=== PATIENT | female | born 1970 | race Two or more races ===

== ENCOUNTER 2023-01-15 08:57 | Observation (INO) | payer OTHER, SELFPAY ==
[2023-01-15] VITALS (61 sets, daily range): BP systolic 100–157; BP diastolic 57–108; PULSE 62–97; RESP 7–27; TEMP 36.6–36.8; O2SAT 94–100; BMI 44.3; BMI 44.2
--- NOTE | 2023-01-15 09:17 | ECG_ITS ---
The [facility] Test Date: 2023-01-15 Pat Name: JENNIFER VALENCIA Department: Room: - Gender: Female Manager Nicu: : 1970 Requested By: [id number] Order Number: [id number] Reading MD: MARCELLUS PABON Measurements Intervals [place] Rate: 71 P: 9 SC: 144 QRS: 18 QRSD: 80 T: 32 QT: 362 QTc: 385 Interpretive Statements 1100 Sinus rhythm 8102 Low QRS voltage in chest leads 9120 atypical ECG No previous ECG available for comparison Electronically Signed On 01-16-2023 7:06:41 EST by MARCELLUS PABON
--- NOTE | 2023-01-15 09:17 | XR_ITS ---
The [place] [id number] Patient Name: JENNIFER VALENCIA MRN: [id number] date: 1970 Sex: F Assigned Patient Location: ER Current Patient Location: ER Accession/Order Number: [id number] Exam Date: 01/15/2023 09:34 Report Date: 01/15/2023 09:57 At the request of: ALIA ELLIS Procedure: XR chest 1V EXAM: XR chest 1V HISTORY: CP COMPARISON: Chest study dated 04/03/2022 TECHNIQUE: AP view of the chest was obtained with portable technique at 0931 hours. FINDINGS: Heart and mediastinal contours are unremarkable in appearance. No acute infiltrate or consolidations are seen. No obvious pneumothorax. Slight convexity of the dorsal spine to the right. XR/XR chest 1V IMPRESSION: No acute process seen in the chest. Electronically authenticated by: SHOLA CRESPO Date: 01/15/2023 09:57
--- NOTE | 2023-01-15 09:18 | ED.CHESTPAI1 ---
HPI - Chest Pain General Chief Complaint: Chest Pain Stated Complaint: CHEST PAIN Time Seen by Provider: 01/15/23 09:13 Source: patient Mode of arrival: walk-in History of Present Illness HPI narrative: 52-year-old female presents for chest pain. She's been having this for about a week. She was admitted at another hospital and had an echo but no stress test and she was released. she was admitted there on January 10 and released on January 11. She continues to have the same pain and it's in the middle part of her sternum and it goes to her left shoulder. Related Data Allergies Allergy/AdvReac Type Severity Reaction Status Date / Time bacitracin AdvReac Unknown Verified 01/15/23 09:09 strawberry AdvReac Unknown Verified 01/15/23 09:09 Review of Systems ROS Narrative A ten point review of systems is negative except as noted above. Exam Narrative Exam Narrative: Nurses note and vital signs reviewed and patient is not hypoxic. General: The patient appears well and in no apparent distress. Patient is resting comfortably on cart. Skin: Warm, dry, no pallor noted. There is no rash noted. Head: Normocephalic, atraumatic Eye: Normal conjunctiva, no drainage Ears, Nose, Mouth, and Throat: oral mucosa is moist. Nares patent. Cardiovascular: Regular Rate and Rhythm Respiratory: Patient is in no distress, no accessory muscle use, lungs are clear to auscultation, no wheezing, rales or rhonchi Back: non-tender GI: Normal bowel sounds, no tenderness to palpation, no masses appreciated. No rebound, guarding, or rigidity noted. Musculoskeletal: The patient has no evidence of calf tenderness, no pitting edema, symmetrical pulses noted bilaterally Neurological: A&O, normal speech Psychiatric: Cooperative Constitutional Vital Signs, click to edit/add: Last Vital Signs Temp 98 F 01/15/23 09:04 Pulse 68 01/15/23 11:40 Resp 25 H 01/15/23 11:40 BP 109/66 01/15/23 11:00 Pulse Ox 98 01/15/23 11:40 O2 Del Method Room Air 01/15/23 09:04 Course Vital Signs Vital signs: Vital Signs Temperature 98 F 01/15/23 09:04 Pulse Rate 75 01/15/23 09:04 Respiratory Rate 14 01/15/23 09:04 Blood Pressure 127/80 12/05/23 09:04 Pulse Oximetry 98 01/15/23 09:04 Oxygen Delivery Method Room Air 01/15/23 09:04 Temperature 98 F 01/15/23 09:04 Pulse Rate 68 01/15/23 11:40 Respiratory Rate 25 H 01/15/23 11:40 Blood Pressure 109/66 01/15/23 11:00 Pulse Oximetry 98 01/15/23 11:40 Oxygen Delivery Method Room Air 01/15/23 09:04 MDM - Chest Pain MDM Narrative Medical decision making narrative: her workup is negative with 2nd troponin pending. Her symptoms are concerning and she does have family history. She'll be admitted. Findings are discussed with the patient. Differential Diagnosis Differential diagnosis: Likely pneumothorax, stable angina, unstable angina pectoris, atypical chest pain, st elevation myocardial infarction and chest pain Lab Data Attestation: I reviewed the patient's lab results. Labs: Lab Results 01/15/23 01/15/23 Range/Units 09:26 11:05 WBC 6.5 (4.0-11.0) 10^3/uL RBC 5.20 (4.20-5.40) 10^6/uL Hgb 13.2 (12.0-16.0) g/dL Hct 41.5 (36.0-48.0) % MCV 79.8 L (81.0-99.0) fL MCH 25.4 L (26.7-34.0) pg MCHC 31.8 (29.9-35.2) g/dL RDW 14.9 (11.0-15.0) % Plt Count 224 (150-450) 10^3/uL MPV 9.6 (9.5-13.5) fL Neut % (Auto) 64.6 (43.0-75.0) % Lymph % (Auto) 25.1 (20.5-60.0) % [place] % (Auto) 7.1 (1.7-12.0) % Eos % (Auto) 1.9 (0.9-7.0) % Baso % (Auto) 0.8 (0.2-2.0) % Neut # (Auto) 4.2 (1.4-6.5) 10^3/uL Lymph # (Auto) 1.6 (1.2-3.8) 10^3/uL [place] # (Auto) 0.5 (0.3-0.8) 10^3/uL Eos # (Auto) 0.1 (0.0-0.7) 10^3/uL Baso # (Auto) 0.1 (0.0-0.1) 10^3/uL Abs Immat Gran (auto) 0.03 (0.00-0.03) 10^3/uL Imm/Tot Granulo (auto) 0.5 (0.0-0.5) % D-Dimer 0.51 (<=0.59) mg/L FEU Sodium 140 (136-145) mmol/L Potassium 4.3 (3.5-5.1) mmol/L Chloride 106 (98-107) mmol/L Carbon Dioxide 25.0 (21.0-32.0) mmol/L Anion Gap 13.3 BUN 12.0 (7.0-18.0) mg/dL Creatinine 0.63 (0.55-1.02) mg/dL Est GFR ( Amer) >60 (>=60) Est GFR (Non-Af Amer) >60 (>=60) BUN/Creatinine Ratio 19.0 Glucose 82 (74-106) mg/dL Calcium 9.1 (8.5-10.1) mg/dL Troponin I High Sens 4.8 5.4 (4.0-51.3) pg/mL Imaging Data Chest x-ray: Radiologist's impression: Procedure: XR chest 1V EXAM: XR chest 1V HISTORY: CP COMPARISON: Chest study dated 04/03/2022 TECHNIQUE: AP view of the chest was obtained with portable technique at 0931 hours. FINDINGS: Heart and mediastinal contours are unremarkable in appearance. No acute infiltrate or consolidations are seen. No obvious pneumothorax. Slight convexity of the dorsal spine to the right. IMPRESSION: No acute process seen in the chest. Electronically authenticated by: SHOLA CRESPO Date: 01/15/2023 09:57 Heart Score History: Moderately Suspicious ECG: Normal Age: >45-<65 years Risk Factors: 1 or 2 Risk Factors Troponin: <Normal Limit Total Heart Score Recommendations & Risks:: 3 Discharge Plan Discharge Chief Complaint: Chest Pain Clinical Impression: Chest pain Patient Disposition: Admitted as Observation Time of Disposition Decision: 11:44 Condition: Good Referrals: BILLY PEREZ [Primary Care Provider] - 1 week
[2023-01-15] MEDS: NITROGLYCERIN 0.4 MG BOTTLE PO (09:35)
[2023-01-15] MEDS: ASPIRIN 81 MG TAB.CHEW 324 MG PO (09:35)
[2023-01-15 09:43] LABS: Basophils Absolute Auto 0.1 10^3/uL (0.0-0.1); Basophils Percent Auto 0.8 % (0.2-2.0); Eosinophils Absolute Auto 0.1 10^3/uL (0.0-0.7); Eosinophils Percent Auto 1.9 % (0.9-7.0); Hematocrit 41.5 % (36.0-48.0); Hemoglobin 13.2 g/dL (12.0-16.0); Immature Granulocytes Abs Auto 0.03 10^3/uL (0.00-0.03); Immature Granulocytes Pct Auto 0.5 % (0.0-0.5); Lymphocytes Absolute Auto 1.6 10^3/uL (1.2-3.8); Lymphocytes Percent Auto 25.1 % (20.5-60.0); Mean Corpuscular HGB Conc 31.8 g/dL (29.9-35.2); Mean Corpuscular Hemoglobin 25.4 pg (26.7-34.0); Mean Corpuscular Volume 79.8 fL (81.0-99.0); Mean Platelet Volume 9.6 fL (9.5-13.5); Monocytes Absolute Auto 0.5 10^3/uL (0.3-0.8); Monocytes Percent Auto 7.1 % (1.7-12.0); Neutrophils Absolute Auto 4.2 10^3/uL (1.4-6.5); Neutrophils Percent Auto 64.6 % (43.0-75.0); Platelet Count 224 10^3/uL (150-450); Red Cell Distribution Width 14.9 % (11.0-15.0); White Blood Count 6.5 10^3/uL (4.0-11.0)
[2023-01-15 09:48] LABS: Anion Gap 13.3; Calcium 9.1 mg/dL (8.5-10.1); Chloride 106 mmol/L (98-107); Estimated GFR (African America >60 (>=60); Estimated GFR (Non-African Ame >60 (>=60); Glucose 82 mg/dL (74-106); Potassium 4.3 mmol/L (3.5-5.1); Sodium 140 mmol/L (136-145); Troponin I High Sensitivity 4.8 pg/mL (4.0-51.3)
[2023-01-15 10:12] LABS: D Dimer 0.51 mg/L FEU (<=0.59)
[2023-01-15 11:33] LABS: Troponin I High Sensitivity 5.4 pg/mL (4.0-51.3)
[2023-01-15 12:20] LABS: Cholesterol 205 mg/dL (<=200); Triglycerides 108 mg/dL (<=150); VLDL CHOLESTEROL 21.6 mg/dL
[2023-01-15 12:21] LABS: Chol HDL Ratio 3.5; HDL Cholesterol 59 mg/dL (40-60)
[2023-01-15 12:23] LABS: Estimated Average Glucose 114 mg/dL; Glycohemoglobin A1C 5.6 % (4.5-6.2)
[2023-01-15] MEDS: ACETAMINOPHEN 325 MG TABLET 650 MG PO (13:52)
[2023-01-15] MEDS: ENOXAPARIN SODIUM 40 MG/0.4 ML SYRINGE SUBQ (13:55)
[2023-01-15] MEDS: MORPHINE SULFATE 2 MG/ML SYRINGE IV ×2 (15:32→22:54)
[2023-01-15 15:43] LABS: Troponin I High Sensitivity 4.7 pg/mL (4.0-51.3)
[2023-01-15] MEDS: PANTOPRAZOLE SODIUM 40 MG VIAL IV (18:02)
--- NOTE | 2023-01-15 23:23 | NM_ITS ---
Patient Name: JENNIFER VALENCIA MR#: [id number] : 1970 Exam Date: 01/16/2023 Ordering Doctor: SHAIKH Justin CHANEY . RADIOLOGY REPORT PROCEDURE: NM ANGIE PERF SPECT REST STR COMPARISON: None. INDICATIONS: chest pain TECHNIQUE: Exam Description: Stress/Rest one day protocol gated SPECT Rest Imagin.9 mCi Tc-99m Cardiolite IV on 01/16/2023 Stress Imaging 31.9 mCi Tc-99m Cardiolite IV on 01/16/2023 Exercise Protocol: Tomasz Heart Rate (bpm): Rest: 75 Max: 146 PMHR: 85 Blood Pressure: Rest: 118/78 Max: 146/80 Exercise Time: Minutes: 4 Seconds: 15 Stage Reached: Stage: 2 Mets 6.3 Symptoms: Rest and peak stress ECG findings were pending and the exercise portion of the study was pending per attending physician Dr. Avila . For more details please see separate cardiac stress test report. FINDINGS: QUALITY OF STUDY: Good. PERFUSION DEFECT: LOCATION: Basal anterior. Mid-anterior. SIZE: Small (1-2 segments). SEVERITY: Mild. TYPE: Persistent. WALL MOTION: Normal. LV SIZE: Normal. 72 mL. TID / TCD: None; 0.9 LVEF: Normal. Calculated EF 73%. SUMMARY: Myocardial perfusion imaging study is NORMAL. CONCLUSION: 1. Mild fixed defect anterior wall, no reversible ischemia 2. Pending exercise test results Dictated by: Pasha Willson MD on 01/16/2023 at 15:37 Approved by: Pasha Willson MD on 01/16/2023 at 15:43
--- NOTE | 2023-01-15 23:24 | P.HP_ITS ---
H&P: HPI History of Present Illness Chief complaint: CHEST PAIN Narrative: 52 y o female with no sig PMHX presents with substernal chest pain, that feels like someone is sitting on her chest, associated with difficulty breathing, mild nausea. More or less persistent for past 1 week with periods of worsening and usually aggravated by laying down, deep breaths. No prior hx of CAD but has strong FHXof CAD. Patient was admitted at OSH for similar complaint and discharged home after negative cardiac enzymes and 2D ECHO. Patient denies any relationship to food. Nothing helps her pain and as a result, came to [place] ED for further care. Review of Systems ROS Status of ROS 10 or more systems reviewed and unremark able except as noted in history and below [facility] Medical History (Updated 01/15/23 @ 23:29 by Shaikh Johan MD) Obesity ?E66.9 - Obesity, unspecified (ICD-10) Achilles tendonosis of left lower extremity ?M67.88 - Other specified disorders of synovium and tendon, other site (ICD- 10) Surgical History Previous section ?Z98.891 - History of uterine scar from previous surgery (ICD-10) Family History (Updated 01/15/23 @ 23:27 by Shaikh Johan MD) Father Family history of myocardial infarction Social History Within the past year, how often did you have a drink containing alcohol: monthly or less Within the past year, how many standard drinks containing alcohol did you have on a typical day: 1 or 2 Within the past year, how often did you have six or more drinks on one occasion: never Total score: 0 Score interpretation: A score less than 3 is consistent with normal alcohol consumption. 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 Known occupational exposures/hazards: No Highest level of school completed/degree received: Associate degree: occupational, technical, vocational program Do you want help with school or training: No Are you now , , , , never or living with a partner: In a typical week, how many times do you talk on the telephone with family, friends, or neighbors: 3 or more times per week How often do you get together with friends or relatives: 3 or more times per week How often do you attend zoroastrianism or synagogue services: never Do you belong to any clubs or organizations such as zoroastrianism groups unions, fraternal or athletic groups, or school groups: no Total score: 1 Score interpretation: A score of less than or equal to 1 indicates the most socially isolated. Little interest or pleasure in doing things: several days Feeling down, depressed, or hopeless: not at all Feel stressed/tense/nervous/anxious/difficulty sleeping: to some extent Life stressors: recent of family or friend Life stressor details: of mother Do you think of yourself as: straight/heterosexual Gender Identity: female Meds Home Medications and Allergies Home Medications Medication Instructions Recorded Confirmed Type ibuprofen 600 mg tablet mg PO TID PRN chest pain 01/15/23 History Allergies Allergy/AdvReac Type Severity Reaction Status Date / Time bacitracin AdvReac Unknown Verified 01/15/23 09:09 strawberry AdvReac Unknown Verified 01/15/23 09:09 Exam Constitutional Vital Signs, click to edit/add: Last Vital Signs Temp 98.0 F 01/15/23 22:59 Pulse 74 01/15/23 23:00 Resp 16 01/15/23 23:00 BP 104/57 01/15/23 22:59 Pulse Ox 100 01/15/23 22:59 O2 Del Method Room Air 01/15/23 15:35 Documenting provider has reviewed patient's vital signs: yes Common normals: no apparent distress and oriented x3 General appearance: cooperative Nutritional appearance: obese Chest Chest: tenderness sternum Respiratory Common normals: normal respiratory effort and clear to auscultation bilaterally Effort & inspection: able to speak in complete sentences Auscultation: clear to auscultation bilaterally Cardio Common normals: regular rate, S1 normal heart sound and S2 normal heart sound Rate: regular rate Heart sounds: S1 normal and S2 normal GI Common normals: Normal to inspection, nondistended, normoactive bowel sounds present, soft to palpation, non-tender and no hepatosplenomegaly Palpation: soft and no hepatosplenomegaly Extremity Common normals: no clubbing, cyanosis or edema Neuro Common normals: oriented x3, moves all extremities and no focal motor deficits Psych Common normals: mental status grossly normal, denies hallucinations, denies homicidal ideation and denies suicidal ideation Results Labs Labs: Short CBC 01/15/23 Range/Units 09:26 WBC 6.5 (4.0-11.0) 10^3/uL Hgb 13.2 (12.0-16.0) g/dL Hct 41.5 (36.0-48.0) % Plt Count 224 (150-450) 10^3/uL BMP 01/15/23 09:26 Sodium 140 Potassium 4.3 Chloride 106 Carbon Dioxide 25.0 BUN 12.0 Creatinine 0.63 Glucose 82 Calcium 9.1 Assessment and Plan Assessment and Plan (1) Chest pain: Qualifiers: Chest pain type: unspecified Qualified Code(s): R07.9 - Chest pain, u nspecified (2) Obesity: Qualifiers: Body mass index: BMI 40.0-44.9 Obesity classification: adult class 3 (BMI >= 40) Obesity type: due to excess calories Serious obesity comorbidity presence: without serious comorbidity Qualified Code(s): E66.01 - Morbid (severe) obesity due to excess calories; Z68.41 - Body mass index [BMI] 40.0-44.9, adult Plan Patient presents with persistent midsternal chest pain, associated SOB, radiation to left UE. Ongoing for about a week. Risk factors include obesity, FHx. HEART score -4 Will admit for overnight for observation, tele monitoring, rule out active cardiac ischemia. Will order Nuclear stress test to r/o underlying CAD. Screen for HLD, T2DM. Will start on low dose ASA
[2023-01-16] VITALS (31 sets, daily range): BP systolic 111–125; BP diastolic 49–80; PULSE 64–135; RESP 2–71; TEMP 36.8–37; O2SAT 96–98
--- NOTE | 2023-01-16 06:00 | ECG_ITS ---
The [facility] Test Date: 2023-01-16 Pat Name: JENNIFER VALENCIA Department: Room: [facility] Gender: Female Mobile Engineer: : 1970 Requested By: SHAIKH SHIV Order Number: [id number] Reading MD: MARCELLUS PABON Measurements Intervals [place] Rate: 65 P: 19 WI: 140 QRS: 28 QRSD: 78 T: 14 QT: 392 QTc: 403 Interpretive Statements 1100 Sinus rhythm 8102 Low QRS voltage in chest leads 9120 atypical ECG Compared to ECG 01/15/2023 09:06:08 No significant changes Electronically Signed On 01-17-2023 7:10:16 EST by MARCELLUS PABON
--- NOTE | 2023-01-16 11:30 | US_ITS ---
The [address] [address] Patient Name: JENNIFER VALENCIA MRN: [id number] date: 1970 Sex: F Assigned Patient Location: ICU Current Patient Location: ICU Accession/Order Number: [id number] Exam Date: 01/16/2023 12:00 Report Date: 01/16/2023 12:46 At the request of: SHAIKH SHIV Procedure: US right upper quadrant EXAM: US right upper quadrant HISTORY: RUQ pain COMPARISON: None. TECHNIQUE: Grayscale and color ultrasound FINDINGS: The liver is normal in size and contour. Diffuse increase in hepatic echotexture with no focal mass. Hepatopedal flow in the main portal vein with a velocity of 20 cm/s. The gallbladder wall is thickened measuring 7.5 mm. Positive sonographic Quezada sign. Common bile duct measures 3.8 mm, normal. Echogenic focus within the gallbladder lumen possibly representing a calcified gallbladder wall versus cholelithiasis. The visualized pancreatic body is normal The right kidney is normal measuring 10.3 x 4.2 x 4.3 cm. US/US right upper quadrant IMPRESSION: Acute cholecystitis with underlying gallbladder wall calcification versus cholelithiasis Hepatic steatosis Electronically authenticated by: ENRIQUETA MORA Date: 01/16/2023 12:46
--- NOTE | 2023-01-16 12:13 | CM.NOTE ---
Rounds made with Dr. Prado, pt having stress test today at noon and awaiting Gallbladder US.
[2023-01-16 14:19] LABS: Alanine Aminotransferase 195 U/L (14-59); Albumin Globulin Ratio 0.9; Albumin Level 3.3 g/dL (3.4-5.0); Alkaline Phosphatase 89 U/L (46-116); Amylase 51 U/L (25-115); Aspartate Amino Transferase 113 U/L (15-37); Bilirubin Direct 0.2 mg/dL (0.0-0.2); Bilirubin Total 1.1 mg/dL (0.2-1.0); Globulin 3.6 g/dL; Total Protein 6.9 g/dL (6.4-8.2)
[2023-01-16] MEDS: METRONIDAZOLE/SODIUM CHLORIDE 500 MG/100 ML PREMIX 100 MG IV ×2 (15:03→23:47)
[2023-01-16] MEDS: ENOXAPARIN SODIUM 40 MG/0.4 ML SYRINGE SUBQ (15:03)
[2023-01-16] MEDS: CEFTRIAXONE 1,000 MG in 0.9 % SODIUM CHLORIDE 50 ML 100 MG IV (15:53)
--- NOTE | 2023-01-16 16:22 | P.STRESS_ITS ---
Stress Test Stress Test Allergies Allergy/AdvReac Type Severity Reaction Status Date / Time bacitracin AdvReac Unknown Verified 01/15/23 09:09 strawberry AdvReac Unknown Verified 01/15/23 09:09 Requesting physician: Shaikh Johan Procedure: Exercise Cardiolite stress test General Information: Reason for Stress Test: Chest pain Cardiac History and Risk Factors: Former smoker. Father had [place]. Resting 12 - Lead Electrocardiogram: Rate & rhythm: Normal sinus at a rate of 80. [place]: Normal T-waves: Normal orientation ST-segments: Normal orientation Stress Test: Protocol: Tomasz protocol was followed, with injection of Cardiolite once target heart rate was achieved. Exercise capacity: Fair exercise capacity. Total exercise time of 4 minutes 16 seconds reached Tomasz stage 2 at 2.5MPH, 12% grade, & 6.3 METs. Blood pressure: Initial: 118/78, Maximum: 146/80, Recovery: 118/78 Rate & rhythm: Patient remained in sinus rhythm during the exercise and recovery portions of the study.? The maximum heart rate was 146, which was 85% of the maximum predicted heart rate 170. ST-segments & T-waves: There were no T-wave changes and no ST-segment changes when compared to the baseline EKG. Patient response/symptoms: Though she complained of left shoulder pain and dyspnea, these symptoms were not similar to the chief complaint. Interpretation: Normal exercise study without electrocardiographical evidence of ischemia. No reproducible symptoms. Cardiolite imaging interpretation will be reported separately. Clinical correlation required.?
[2023-01-16] MEDS: 0.9 % SODIUM CHLORIDE 1,000 ML 50 ML IV (16:42)
[2023-01-16] MEDS: MORPHINE SULFATE 2 MG/ML SYRINGE IV (16:44)
[2023-01-16] MEDS: PANTOPRAZOLE SODIUM 40 MG VIAL IV (17:40)
[2023-01-17] VITALS (34 sets, daily range): BP systolic 97–137; BP diastolic 65–90; PULSE 66–102; RESP 7–132; TEMP 36.4–37.5; O2SAT 89–99
[2023-01-17] MEDS: MORPHINE SULFATE 2 MG/ML SYRINGE IV (01:15)
[2023-01-17] MEDS: ONDANSETRON PF 4 MG/2 ML VIAL IV ×3 (02:19→23:44)
[2023-01-17 04:28] LABS: Basophils Percent Auto 0.6 % (0.2-2.0); Eosinophils Absolute Auto 0.1 10^3/uL (0.0-0.7); Eosinophils Percent Auto 2.7 % (0.9-7.0); Hematocrit 38.6 % (36.0-48.0); Hemoglobin 12.1 g/dL (12.0-16.0); Immature Granulocytes Abs Auto 0.03 10^3/uL (0.00-0.03); Immature Granulocytes Pct Auto 0.6 % (0.0-0.5); Lymphocytes Absolute Auto 1.4 10^3/uL (1.2-3.8); Lymphocytes Percent Auto 30.1 % (20.5-60.0); Mean Corpuscular HGB Conc 31.3 g/dL (29.9-35.2); Mean Corpuscular Hemoglobin 25.2 pg (26.7-34.0); Mean Corpuscular Volume 80.4 fL (81.0-99.0); Mean Platelet Volume 9.3 fL (9.5-13.5); Monocytes Absolute Auto 0.3 10^3/uL (0.3-0.8); Monocytes Percent Auto 6.9 % (1.7-12.0); Neutrophils Absolute Auto 2.8 10^3/uL (1.4-6.5); Neutrophils Percent Auto 59.1 % (43.0-75.0); Platelet Count 190 10^3/uL (150-450); Red Cell Distribution Width 15.2 % (11.0-15.0); White Blood Count 4.8 10^3/uL (4.0-11.0)
[2023-01-17 04:39] LABS: Bilirubin Direct 0.2 mg/dL (0.0-0.2)
[2023-01-17 04:51] LABS: Alanine Aminotransferase 160 U/L (14-59); Albumin Globulin Ratio 0.9; Alkaline Phosphatase 88 U/L (46-116); Anion Gap 12.1; Aspartate Amino Transferase 78 U/L (15-37); BUN Creatinine Ratio 16.2; Bilirubin Total 0.7 mg/dL (0.2-1.0); Calcium 8.4 mg/dL (8.5-10.1); Carbon Dioxide 25.9 mmol/L (21.0-32.0); Chloride 104 mmol/L (98-107); Estimated GFR (African America >60 (>=60); Estimated GFR (Non-African Ame >60 (>=60); Globulin 3.2 g/dL; Glucose 118 mg/dL (74-106); Sodium 138 mmol/L (136-145); Total Protein 6.2 g/dL (6.4-8.2)
--- NOTE | 2023-01-17 05:44 | P.GSCN_ITS ---
History of Present Illness Consult details Consult date: 01/17/23 Reason for consult: abdominal pain Narrative: consult requested by Dr. Wolf due to findings of cholelithiasis and cholecystitis on gallbladder ultrasound. Patient is a 52-year-old female who presented to the Emergency Department complaints of epigastric and chest pain ongoing for one to two weeks. She was hospitalized in the [facility] for the same and cardiac disease was ruled out about a week ago. 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 She has had thorough cardiac workup and was negative again this institution and then an ultrasound the gallbladder was performed with findings as above. She denies any fevers chills or jaundice or idania-colored stools but states that she has pain in the epigastrium and right upper quadrant but doesn't go away. She described a sharp stabbing pain eight out of ten at times. She has never had this pain. She denies any tobacco use or alcohol use or history of ulcer disease. I was consulted for possible robotic cholecystectomy. Review of Systems ROS Status of ROS 10 or more systems reviewed and unremark able except as noted in history and below [facility] Medical History Obesity ?E66.9 - Obesity, unspecified (ICD-10) Achilles tendonosis of left lower extremity ?M67.88 - Other specified disorders of synovium and tendon, other site (ICD- 10) Surgical History Previous section ?Z98.891 - History of uterine scar from previous surgery (ICD-10) Family History Father Family history of myocardial infarction Social History Within the past year, how often did you have a drink containing alcohol: monthly or less Within the past year, how many standard drinks containing alcohol did you have on a typical day: 1 or 2 Within the past year, how often did you have six or more drinks on one occasion: never Total score: 0 Score interpretation: A score less than 3 is consistent with normal alcohol c onsumption. 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 Known occupational exposures/hazards: No Highest level of school completed/degree received: Associate degree: occupational, technical, vocational program Do you want help with school or training: No Are you now , , , , never or living with a partner: In a typical week, how many times do you talk on the telephone with family, friends, or neighbors: 3 or more times per week How often do you get together with friends or relatives: 3 or more times per week How often do you attend lutheran or restorationism services: never Do you belong to any clubs or organizations such as lutheran groups unions, [employer] or athletic groups, or school groups: no Total score: 1 Score interpretation: A score of less than or equal to 1 indicates the most socially isolated. Little interest or pleasure in doing things: several days Feeling down, depressed, or hopeless: not at all Feel stressed/tense/nervous/anxious/difficulty sleeping: to some extent Life stressors: recent of family or friend Life stressor details: of mother Do you think of yourself as: straight/heterosexual Gender Identity: female Meds Home Medications and Allergies Home Medications Medication Instructions Recorded Confirmed Type ibuprofen 600 mg tablet mg PO TID PRN chest pain 01/15/23 History Allergies Allergy/AdvReac Type Severity Reaction Status Date / Time bacitracin AdvReac Unknown Verified 01/15/23 09:09 strawberry AdvReac Unknown Verified 01/15/23 09:09 Exam Constitutional Vital Signs, click to edit/add: Last Vital Signs Temp 98.2 F 01/16/23 15:00 Pulse 70 01/17/23 02:00 Resp 16 01/17/23 01:00 BP 125/80 01/16/23 15:00 Pulse Ox 98 01/16/23 16:00 O2 Del Method Room Air 01/16/23 15:00 Documenting provider has reviewed patient's vital signs: yes Common normals: no apparent distress, average body habitus, oriented x3 and healthy appearing General appearance: cooperative, comfortable and well developed Nutritional appearance: obese Eye Common normals: PERRL and EOMs intact bilaterally Sclera: sclerae normal Respiratory Common normals: clear to auscultation bilaterally Cardio Common normals: regular rate and no murmurs GI Common normals: Normal to inspection, nondistended, normoactive bowel sounds present and soft to palpation Palpation: tender Details: epigastric and RUQ Neuro Common normals: oriented x3 and CN's II-XII intact bilaterally Results Labs Labs: Abnormal lab results 01/16/23 01/17/23 Range/Units 13:57 04:19 MCV 80.4 L (81.0-99.0) fL MCH 25.2 L (26.7-34.0) pg RDW 15.2 H (11.0-15.0) % MPV 9.3 L (9.5-13.5) fL Imm/Tot Granulo (auto) 0.6 H (0.0-0.5) % Glucose 118 H (74-106) mg/dL Calcium 8.4 L (8.5-10.1) mg/dL Total Bilirubin 1.1 H (0.2-1.0) mg/dL AST 113 H 78 H (15-37) U/L ALT 195 H 160 H (14-59) U/L Total Protein 6.2 L (6.4-8.2) g/dL Albumin 3.3 L 3.0 L (3.4-5.0) g/dL Diabetes panel 01/16/23 01/17/23 Range/Units 13:57 04:19 Sodium 138 (136-145) mmol/L Potassium 4.0 (3.5-5.1) mmol/L Chloride 104 (98-107) mmol/L Carbon Dioxide 25.9 (21.0-32.0) mmol/L BUN 11.0 (7.0-18.0) mg/dL Creatinine 0.68 (0.55-1.02) mg/dL Glucose 118 H (74-106) mg/dL Calcium 8.4 L (8.5-10.1) mg/dL AST 113 H 78 H (15-37) U/L ALT 195 H 160 H (14-59) U/L Alkaline Phosphatase 89 88 (46-116) U/L Total Protein 6.9 6.2 L (6.4-8.2) g/dL Albumin 3.3 L 3.0 L (3.4-5.0) g/dL Calcium panel 01/16/23 01/17/23 Range/Units 13:57 04:19 Calcium 8.4 L (8.5-10.1) mg/dL Albumin 3.3 L 3.0 L (3.4-5.0) g/dL Pituitary panel 01/17/23 Range/Units 04:19 Sodium 138 (136-145) mmol/L Potassium 4.0 (3.5-5.1) mmol/L Chloride 104 (98-107) mmol/L Carbon Dioxide 25.9 (21.0-32.0) mmol/L BUN 11.0 (7.0-18.0) mg/dL Creatinine 0.68 (0.55-1.02) mg/dL Glucose 118 H (74-106) mg/dL Calcium 8.4 L (8.5-10.1) mg/dL Adrenal panel 01/16/23 01/17/23 Range/Units 13:57 04:19 Sodium 138 (136-145) mmol/L Potassium 4.0 (3.5-5.1) mmol/L Chloride 104 (98-107) mmol/L Carbon Dioxide 25.9 (21.0-32.0) mmol/L BUN 11.0 (7.0-18.0) mg/dL Creatinine 0.68 (0.55-1.02) mg/dL Glucose 118 H (74-106) mg/dL Calcium 8.4 L (8.5-10.1) mg/dL Total Bilirubin 1.1 H 0.7 (0.2-1.0) mg/dL AST 113 H 78 H (15-37) U/L ALT 195 H 160 H (14-59) U/L Alkaline Phosphatase 89 88 (46-116) U/L Total Protein 6.9 6.2 L (6.4-8.2) g/dL Albumin 3.3 L 3.0 L (3.4-5.0) g/dL All other labs normal. Imaging Abdomen CT scan report/results: report reviewed Abdominal ultrasound report/results: report reviewed Assessment and Plan Assessment and Plan (1) Chest pain: Qualifiers: Chest pain type: unspecified Qualified Code(s): R07.9 - Chest pain, unspecified (2) Obesity: Qualifiers: Body mass index: BMI 40.0-44.9 Obesity classification: adult class 3 (BMI >= 40) Obesity type: due to excess calories Serious obesity comorbidity presence: without serious comorbidity Qualified Code(s): E66.01 - Morbid (severe) obesity due to excess calories; Z68.41 - Body mass index [BMI] 40.0-44.9, adult (3) Cholecystitis, acute with cholelithiasis: (4) Elevated liver enzymes: (5) Obesity (BMI 30-39.9): Plan robotic/laparoscopic cholecystectomy with internal carotid drain and possible open cholecystectomy. Risks benefits and alternatives to surgery may include infection, bleeding, bile duct injury, blood clots legs or lungs, pneumonia, heart attack, stroke, and/or . Patient understands all the above and wishes to proceed. CPT code 95251-84
[2023-01-17] MEDS: METRONIDAZOLE/SODIUM CHLORIDE 500 MG/100 ML PREMIX 100 MG IV ×3 (07:32→23:09)
--- NOTE | 2023-01-17 10:03 | CM.NOTE ---
Rounding with Dr. Prado, discussed normal stress test and ultrasound suggests pain may be from gall bladder. Plan is for surgery today and Dr. Prado feels patient can be med/surg overflow. Possible discharge after surgery, no anticipated discharge needs.
--- NOTE | 2023-01-17 10:15 | CM.NOTE ---
Pt will go to OR today, denies any discharge needs. Pt up ad inocencia in room.
--- NOTE | 2023-01-17 12:03 | P.IMPN_ITS ---
Progress Note: A&P Assessment and Plan (1) Chest pain: Assessment and Plan: Negative cardiac enzymes, normal nuclear stress test. Pain is likely referred pain from acute cholecystitis Qualifiers: Chest pain type: unspecified Qualified Code(s): R07.9 - Chest pain, unspecified (2) Acute cholecystitis: Assessment and Plan: Acute cholecystitis on US ordered yesterday. Surgical consult placed. Patient NPO for cholecystectomy. On IV abx. (3) Obesity: Qualifiers: Obesity type: due to excess calories Obesity classification: adult class 3 (BMI >= 40) Serious obesity comorbidity presence: without serious comorbidity Body mass index: BMI 40.0-44.9 Qualified Code(s): E66.01 - Morbid (severe) obesity due to excess calories; Z68.41 - Body mass index [BMI] 40.0- 44.9, adult Plan Possible d/c after surgery Internal Medicine - PN: Subj Subjective Interval history: Seen and examined. Doing well. NPO for cholecystectomy Exam Constitutional Vital Signs, click to edit/add: Last Vital Signs Temp 97.5 F L 01/17/23 07:00 Pulse 72 01/17/23 12:00 Resp 16 01/17/23 07:00 BP 136/90 01/17/23 07:00 Pulse Ox 98 01/17/23 07:00 O2 Del Method Room Air 01/16/23 15:00 Documenting provider has reviewed patient's vital signs: yes Common normals: no apparent distress and oriented x3 General appearance: cooperative Nutritional appearance: obese Chest Chest: tenderness sternum Respiratory Common normals: normal respiratory effort and clear to auscultation bilaterally Effort & inspection: able to speak in complete sentences Auscultation: clear to auscultation bilaterally Cardio Common normals: regular rate, S1 normal heart sound and S2 normal heart sound Rate: regular rate Heart sounds: S1 normal and S2 normal GI Common normals: Normal to inspection, nondistended, normoactive bowel sounds present, soft to palpation and no hepatosplenomegaly Palpation: soft, tender Details: epigastric and no hepatosplenomegaly Internal Medicine - PN: Obj Da Labs Labs: Laboratory Results - last 24 hr 01/16/23 01/17/23 13:57 04:19 WBC 4.8 RBC 4.80 Hgb 12.1 Hct 38.6 MCV 80.4 L MCH 25.2 L MCHC 31.3 RDW 15.2 H Plt Count 190 MPV 9.3 L Neut % (Auto) 59.1 Lymph % (Auto) 30.1 Saunders % (Auto) 6.9 Eos % (Auto) 2.7 Baso % (Auto) 0.6 Neut # (Auto) 2.8 Lymph # (Auto) 1.4 Saunders # (Auto) 0.3 Eos # (Auto) 0.1 Baso # (Auto) 0.0 Abs Immat Gran (auto) 0.03 Imm/Tot Granulo (auto) 0.6 H Sodium 138 Potassium 4.0 Chloride 104 Carbon Dioxide 25.9 Anion Gap 12.1 BUN 11.0 Creatinine 0.68 Est GFR ( Amer) >60 Est GFR (Non-Af Amer) >60 BUN/Creatinine Ratio 16.2 Glucose 118 H Calcium 8.4 L Total Bilirubin 1.1 H 0.7 Direct Bilirubin 0.2 0.2 AST 113 H 78 H ALT 195 H 160 H Alkaline Phosphatase 89 88 Total Protein 6.9 6.2 L Albumin 3.3 L 3.0 L Globulin 3.6 3.2 Albumin/Globulin Ratio 0.9 0.9 Amylase 51
[2023-01-17] MEDS: INDOCYANINE GREEN 25 MG VIAL INJ ×2 (12:57→19:41)
--- NOTE | 2023-01-17 13:32 | PM.GSPRC ---
Date of procedure: 01/17/23 Indications for Procedure: acute cholecystitis with cholelithiasis Pre-op diagnosis: acute cholecystitis with cholelithiasis Procedure: robotic/laparoscopic cholecystectomy with IC Kaur Findings: acute cholecystitis with cholelithiasis Anesthesia: HARLAN Surgeon: Brandon Sue Procedure Summary: OPERATION REPORT ? Surgeon: Dr. Sue, Asst. Rita WOODS Staff: Seda Pre-op Diagnosis: acute cholecystitis with cholelithiasis Postoperative diagnosis: same as above Anesthesiologist: ? Anesthesia Type: ??General Indications:??acute cholecystitis with cholelithiasis Procedure:robotic/laparoscopic cholecystectomy with IC Green Procedure details:After again explaining the risks and benefits of the procedure in the preoperative care unit consent was obtained. ?The patient was taken back to the operative room and placed on the operative room table. General endotracheal anesthesia was induced and preoperative antibiotics were given. ?Appropriate time-out was performed. ?Right arm was?tucked at the side. ?Then the bed was positioned appropriately. ?The abdomen was prepped and draped in normal sterile fashion. A periumbilical incision was made. ?Dissection was carried down to the fascia. ?Fascia was elevated with carl clamps and entered sharply. A 12 mm port was placed into the abdomen and the abdomen was insufflated, there were no complications with insufflation. ?The scope and camera was brought in and then 3 more ports were placed. An 8?mm port was placed in the right lateral position. Two additional?8 mm Davinci ports were placed, 8 cm to the left and one to the right of the umbilicus. ?The patient was then placed in reverse Trendelenburg position and slightly turned to the left. The [employer] robot was docked. The 4th arm was used to grasp the dome of the gallbladder superiorly. ?The peritoneal attachments were taken down with meticulous dissection laterally and medially from the gallbladder. ?At this point the infundibular gallbladder was retracted laterally and a critical view was obtained. ?With the cystic duct inferiorly cystic artery medially and the liver posteriorly. ?Two clips were placed on the patient side and 1 on the specimen side of both the cystic duct and the cystic artery. ?These were then excised. ?The remainder of the gallbladder was taken off of the gallbladder fossa using electrocautery. gallbladder did break open during grasping at the top of the dome. There was some slight spillage of stone issue-like material but no bile.The gallbladder was then removed through the umbilical port using Endo-Catch bag. ?The gallbladder fossa was visualized again to confirm no bleeding and no leak from the cystic duct. The robot was undocked from the patient. The abdomen was deinsufflated.? The umbilical incision fascia was closed with a [id number] 0 Vicryl. The skin was closed at all the incisions with 4 0 Monocryl. All incisions and underlying muscle was anesthetized with local anesthetic.? Steri-Strips were then placed over the incisions. The patient was extubated and had no immediate postoperative complications. Patient was taken to the PACU in stable condition. Sponge, needle and instrument counts: Correct Case: contaminated ? Estimated Blood Loss:? Minimal ? Drains: none ? Specimens:gallbladder and stones ? Complications: ?None; patient tolerated the procedure well. ? Disposition: PACU - hemodynamically stable. ? Condition: stable @ME@
[2023-01-17] MEDS: ENOXAPARIN SODIUM 40 MG/0.4 ML SYRINGE SUBQ (15:03)
[2023-01-17] MEDS: ACETAMINOPHEN 325 MG TABLET 650 MG PO (15:04)
[2023-01-17] MEDS: CEFTRIAXONE 1,000 MG in 0.9 % SODIUM CHLORIDE 50 ML 100 MG IV (15:59)
[2023-01-17] MEDS: LACTATED RINGER'S SOLUTION 1,000 ML 1000 ML IV (17:51)
[2023-01-17] MEDS: BUPIVACAINE HCL 0.5% PF 50 MG/10 ML VIAL 20 ML INJ (18:25)
[2023-01-17] MEDS: PANTOPRAZOLE SODIUM 40 MG VIAL IV (19:41)
[2023-01-17] MEDS: OXYCODONE HCL/ACETAMINOPHEN 5MG/325MG 1 TAB PO (23:09)
[2023-01-18] VITALS (20 sets, daily range): BP systolic 133–158; BP diastolic 79–86; PULSE 70–108; RESP 7–81; TEMP 36.8–36.9; O2SAT 96
--- NOTE | 2023-01-18 00:09 | PC.NURSE ---
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 Emesis of 360 ml after eating jello and drinking apple juice. All patient needs met. 01/19/2024 at 2344 PRN Zofran administered for continued nausea. Patient resting in bed and denies further needs at this time.
--- NOTE | 2023-01-18 00:14 | PC.NURSE ---
Emesis after taking jello and apple juice.
[2023-01-18] MEDS: ACETAMINOPHEN 325 MG TABLET 650 MG PO ×2 (04:47→11:33)
[2023-01-18] MEDS: ONDANSETRON PF 4 MG/2 ML VIAL IV (04:56)
[2023-01-18 06:45] LABS: Alanine Aminotransferase 160 U/L (14-59); Albumin Globulin Ratio 0.9; Albumin Level 3.2 g/dL (3.4-5.0); Alkaline Phosphatase 85 U/L (46-116); Aspartate Amino Transferase 76 U/L (15-37); BUN Creatinine Ratio 10.4; Calcium 9.1 mg/dL (8.5-10.1); Carbon Dioxide 25.4 mmol/L (21.0-32.0); Chloride 102 mmol/L (98-107); Estimated GFR (African America >60 (>=60); Estimated GFR (Non-African Ame >60 (>=60); Globulin 3.7 g/dL; Glucose 141 mg/dL (74-106); Potassium 4.4 mmol/L (3.5-5.1); Sodium 135 mmol/L (136-145); Total Protein 6.9 g/dL (6.4-8.2)
--- NOTE | 2023-01-18 11:17 | PM.DS1 ---
DS: Providers Provider Date of admission: 01/17/23 10:17 Primary care physician: BILLY PEREZ Consults: 01/16/23 13:23 Consult to General Surgeon Routine Consulting Provider: Brandon Sue Reason for consultation: Cholelithiasis/cholecystitis Attending physician on discharge: Shaikh Johan Discharging clinician: Shaikh Johan Anticipated date of discharge: 01/18/23 DS: Diagnosis Discharge Diagnosis (1) Chest pain: Assessment and plan: Initially presumed to be cardiac chest pain. Trop x 3 negative Negative nuclear stress test. Chest pain was determined to be due to acute cholecystitis Qualifiers: Chest pain type: unspecified Qualified Code(s): R07.9 - Chest pain, unspecified (2) Cholecystitis, acute with cholelithiasis: Assessment and plan: S/p lap kiera. Tolerating PO diet Stable for dc on PO abx. F/u surgery. Qualifiers: Biliary obstruction: without biliary obstruction Qualified Code(s): K80.00 - Calculus of gallbladder with acute cholecystitis without obstruction (3) Elevated liver enzymes: Assessment and plan: due to cholecystitis and NAFLD. DS: Summary Hospital Course Hospital Course: 52 y o female with no sig PMHX presents with substernal chest pain initially presumed to be cardiac chest pain for which she had a nuclear stress test that was negative. Further w/u indicated that she had acute cholecystitis - she was started on IV abx and had lap kiera 01/17. Post op she is doing well. Has minimal pain. Tolerating PO diet. Stable for d/c on oral Levaquin/flagyl. Status at Discharge Functional status at discharge: independent ambulation Overall status at discharge: patient is back to baseline Time Spent with Patient Time attestation: Total time spent providing and/or coordinating discharge services: Time spent: greater than 30 minutes Exam Constitutional Vital Signs, click to edit/add: Last Vital Signs Temp 98.2 F 01/18/23 05:11 Pulse 79 01/18/23 06:00 Resp 14 01/18/23 05:11 BP 133/79 01/18/23 05:11 Pulse Ox 96 01/18/23 05:11 O2 Del Method Room Air 01/17/23 19:06 Documenting provider has reviewed patient's vital signs: yes Common normals: no apparent distress and oriented x3 General appearance: cooperative Nutritional appearance: obese Chest Chest: tenderness sternum Respiratory Common normals: normal respiratory effort and clear to auscultation bilaterally Effort & inspection: able to speak in complete sentences Auscultation: clear to auscultation bilaterally Cardio Common normals: regular rate, S1 normal heart sound and S2 normal heart sound Rate: regular rate Heart sounds: S1 normal and S2 normal GI Common normals: Normal to inspection, nondistended, normoactive bowel sounds present, soft to palpation and no hepatosplenomegaly Palpation: soft and no hepatosplenomegaly DS: Data Data Completed and Pending Labs on day of discharge: Labs from last 24 hours 01/18/23 05:47 Sodium 135 L Potassium 4.4 Chloride 102 Carbon Dioxide 25.4 Anion Gap 12.0 BUN 8.0 Creatinine 0.77 Est GFR ( Amer) >60 Est GFR (Non-Af Amer) >60 BUN/Creatinine Ratio 10.4 Glucose 141 H Calcium 9.1 Total Bilirubin 1.0 AST 76 H ALT 160 H Alkaline Phosphatase 85 Total Protein 6.9 Albumin 3.2 L Globulin 3.7 Albumin/Globulin Ratio 0.9 Discharge Plan Discharge Disposition: Home, Self-Care Condition: Good Discharge Medications: New levofloxacin 750 mg tablet 750 mg PO DAILY 5 Days Qty: 5 0RF metronidazole 500 mg tablet 500 mg PO Q8H 5 Days Qty: 15 0RF Discontinued ibuprofen 600 mg tablet PO TID PRN (Reason: chest pain) Rx Instructions: per refill hx: last refill 01/11/23 refilled #30 for 10 days Activity: increase activity as tolerated Diet: advance to your usual diet Forms: Portal Instructions Follow Up Appointments: F/u PCP in one week F/u with Dr Sue in 2 weeks
[2023-01-18] MEDS: METRONIDAZOLE/SODIUM CHLORIDE 500 MG/100 ML PREMIX 100 MG IV ×2 (11:22→14:51)
[2023-01-18] MEDS: 0.9 % SODIUM CHLORIDE 1,000 ML 50 ML IV (11:25)
[2023-01-18] MEDS: DOCUSATE SODIUM 100 MG CAPSULE PO (11:33)
[2023-01-18] MEDS: ENOXAPARIN SODIUM 40 MG/0.4 ML SYRINGE SUBQ (14:51)
[2023-01-18] MEDS: OXYCODONE HCL/ACETAMINOPHEN 5MG/325MG 1 TAB PO (16:15)
--- NOTE | 2023-01-21 16:01 | CM.DCFOLLOWU ---
Person spoke with: Hanh How are you feeling? Better How is your pain? Not bad at all Did you understand your discharge instructions? Yes Do you have any questions about your discharge instructions? No Were you given any prescriptions at discharge? Yes Were you able to get your prescriptions filled? Yes Do you understand how to take your medications as ordered? Yes Do you have any questions about your follow up appointment and do you plan to keep your follow up appointment? Scheduled and will go to appointments Is there anything else that you would like to discuss? No Questions/Comments/Concerns/Other:
--- OUTSIDE RECORDS SUMMARY | 2023-01-30 03:15 | XMS_ITS | CCD ---
Author Name Unknown Address [address] [place] [address] [address] [place] [address] Organization [facility] Care Team Providers Care Third Helper Name Role Phone Billy Perez Primary Care Provider OLAMIDE IBRAHIM Referring Unavailable BILLY PEREZ Primary Care Unavailable RENEA CUMMINGS Attending Unavailable RENEA CUMMINGS Consulting Unavailable RENEA CUMMINGS Admitting Unavailable ANA, DR CERVANTES Primary Care Unavailable TEDDY MG Consulting Unavailable ANA, DR CERVANTES Primary Care Unavailable MARKER ., DR GARCIA Attending Unavailable MARKER ., DR GARCIA Consulting Unavailable MARKER ., DR GARCIA Admitting Unavailable SMITA STEINBERG Consulting Unavailable ALIA ELLIS Admitting Unavailable ANA, DR CERVANTES Primary Care Unavailable ALIA ELLIS Attending Unavailable ALIA ELLIS Consulting Unavailable ENRIQUETA SONG Consulting Unavailable BILLY PEREZ Primary Care Unavailable Rashid Arriaga Admitting Unavailable Rashid Arriaga Attending Unavailable BILLY PEREZ Primary Care Unavailable Juanito Maciel Admitting Unavailable Juanito Maciel Attending Unavailable BILLY PEREZ Primary Care Unavailable BILLY PEREZ Primary Care Unavailable NANCY Milian Admitting Unavailable NANCY Milian Attending Unavailable Allergies Allergy Classification Reported Allergen(s) Allergy Type Date of Onset Reaction(s) Facility (2 sources) Bacitracin; Translations: [bacitracin] Drug Allergy 4 [place] (1 source) Other Propensity to adverse reactions 4 [place] (1 source) Bacitracin Drug Allergy 1 [facility] Repository (1 source) strawberry allergenic extract Drug Allergy [facility] Repository (1 source) [place]; Translations: [Strawberries] Propensity to adverse reactions to food (disorder) [facility] Repository Medications Current Medications Medication Drug Class(es) Dates Sig (Normalized) Sig (Original) baclofen 10 mg oral tablet (1 source) gamma-Aminobutyric Acid-ergic Agonist take 1 tablet by mouth twice daily as needed baclofen (LIORESAL) 10 MG tablet Take 10 mg by mouth 2 times daily as needed 0 Active 12 hr buPROPion hydrochloride 150 mg extended release oral tablet (1 source) Aminoketone Start: 09-23-2019 take 1 tablet by mouth once daily in the morning buPROPion (WELLBUTRIN SR) 150 MG extended release tablet Indications: Nervousness Take 1 tablet by mouth every morning 30 tablet 5 09/23/2019 Active PARoxetine hydrochloride 20 mg oral tablet (1 source) Serotonin Reuptake Inhibitor Start: 09-23-2019 take 1 tablet by mouth once daily PARoxetine (PAXIL) 20 MG tablet Indications: Nervousness Take 1 tablet by mouth daily 30 tablet 5 09/23/2019 Active Problems Active Problems Problem Classification Problem Date Documented Date Episodic/Chronic Anxiety disorders (3 sources) Post-traumatic stress disorder, unspecified; Translations: [Anxiety disorder, unspecified] Onset: 08-09-2021 Chronic Attention-deficit, conduct, and disruptive behavior disorders (2 sources) Attention-deficit hyperactivity disorder, unspecified type; Translations: [Attention-deficit hyperactivity disorder. unspecified type] Onset: 01-15-2022 Chronic Mood disorders (2 sources) Major depressive disorder, recurrent, moderate; Translations: [Major depressive disorder. recurrent. 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; Translations: [CONGEN MALF SYND PREDOM INVLV LIMBS] Onset: 07-09-2022 Chronic Other lower respiratory disease (2 sources) Lung mass; Translations: [Pulmonary nodule] Onset: 09-08-2019 09-08-2019 Episodic Other non-traumatic joint disorders (4 sources) Pain in right knee; Translations: [PAIN IN RIGHT KNEE] Onset: 07-07-2022 Episodic Screening and history of mental health and substance abuse codes (1 source) Personal history of nicotine dependence; Translations: [PERSONAL HISTORY OF NICOTINE DEPEND] Onset: 07-09-2022 Episodic Unclassified (1 source) CONTACT W/AND (SUSP) EXPOS COVID-19; Translations: [CONTACT W/AND (SUSP) EXPOS COVID-19] Onset: 08-09-2021 Past or Other Problems Problem Classification Problem Date Documented Da te Episodic/Chronic Conditions associated with dizziness or vertigo (4 sources) Dizziness and giddiness; Translations: [DIZZINESS AND GIDDINESS] Onset: 08-07-2021 Episodic E Codes: Struck by; against (1 source) Striking against or struck by other objects, initial encounter; Translations: [STRIKING AGNST/STRUCK OTH OBJ INIT] Onset: 04-05-2022 Episodic Nonspecific chest pain (3 sources) Chest pain, unspecified; Translations: [CHEST PAIN UNSPECIFIED] Onset: 04-03-2022 Episodic Other lower respiratory disease (1 source) Dyspnea, unspecified; Translations: [DYSPNEA UNSPECIFIED] Onset: 08-09-2021 Episodic Other non-traumatic joint disorders (1 source) Chronic ankle pain; Translations: [Chronic pain of left ankle] Onset: 04-08-2017 04-08-2017 Episodic Residual codes; unclassified (1 source) Feeling nervous; Translations: [Nervousness] Onset: 04-08-2017 04-08-2017 Episodic Superficial injury; contusion (1 source) Contusion of unspecified front wall of thorax, initial encounter; Translations: [CONTUS UNS FRONT WALL THORAX INIT] Onset: 04-05-2022 Episodic Results Test Name Value Interpretation Reference Range Facil ity Coding Summaryon 01-16-2023 Coding Summary HTMLBase 64 [id number] ZXJu [file] b2x (more content not included)... [facility] Telemetry Stripson 3 Telemetry Strips [id number]#1.00OTGTIFF [facility] Coding Queryon 01-14-[address] Wright Please complete ED Note for this encounter. Please be sure to date the Note 12/31/2022 Thank you, Katelynn Billiard Table Mechanic Ext [id number] [Electronically Signed on: 01/20/2023 08:24 EST] Ralph Wright MD [Verified on: 01/20/2023 08:24 EST] Ralph Wright MD [Transcribed on: 01/14/2023 09:21 EST] MP Normal [facility] .Auto Diff 101-11-2023 Auto Armstrong % 7 % Normal -12 [facility] Comment on above: Performed By: #### 9 [id number], [id number], [id number] #### [facility] (DEFAULT) [address] [place] [address] Baso Abs# 0.0 x10 Normal 0.0-0.2 [facility] Comment on above: Performed By: #### 3 [id number], [id number], [id number] #### [facility] (DEFAULT) [address] [place] [address] Basophils/100 WBC (Bld) 0.7 % Normal 0.2-2.0 [facility] Comment on above: Performed By: #### 8 [id number], [id number], [id number] #### [facility] (DEFAULT) [address] [place] [address] Eos Abs# 0.2 x10 Normal 0.0-0.4 [facility] Comment on above: Performed By: #### 9 [id number], [id number], [id number] #### [facility] (DEFAULT) [address] [place] [address] Eosinophils/100 WBC (Bld) 3.3 % Normal 0.9-4.0 [facility] Comment on above: Performed By: #### 4 [id number], [id number], [id number] #### [facility] (DEFAULT) [address] [place] [address] 41000 Lymph Abs# 1.4 x10 Normal 1.3-2.9 [facility] Comment on above: Performed By: #### 1 [id number], [id number], [id number] #### [facility] (DEFAULT) [address] [place] [address] 00500 Lymphocytes/100 WBC (Bld) 28 % Normal 14-48 [facility] Comment on above: Performed By: #### 6 [id number], [id number], [id number] #### [facility] (DEFAULT) [address] [place] [address] Armstrong Abs# 0.3 x10 Normal 0.0-0.8 [facility] Comment on above: Performed By: #### 9 [id number], [id number], [id number] #### [facility] (DEFAULT) [address] [place] [address] Neut Abs# 2.9 x10 Normal 1.5-9.2 [facility] Comment on above: Performed By: #### 8 [id number], [id number], [id number] #### [facility] (DEFAULT) [address] [place] [address] 02565 Neutrophils/100 WBC (Bld) 61 % Normal 44-88 [facility] Comment on above: Performed By: #### 1 [id number], [id number], [id number] #### [facility] (DEFAULT) [address] [place] [address] CBC w/ Auto Diffon 3 Erythrocyte distribution width (RBC) [Ratio] 16.5 % Hi gh 11.5-15.0 [facility] Comment on above: Performed By: #### 4 [id number], [id number], [id number] #### [facility] (DEFAULT) [address] [place] [address] 62679 Hematocrit (Bld) [Volume fraction] 36.8 % Normal 3 3.7-40.4 [facility] Comment on above: Performed By: #### 2 [id number], [id number], [id number] #### [facility] (DEFAULT) [address] [place] [address] 54752 Hemoglobin (Bld) [Mass/Vol] 12.4 g/dL Normal 11.3-15. 9 [facility] Comment on above: Performed By: #### 3 [id number], [id number], [id number] #### [facility] (DEFAULT) [address] [place] [address] 70421 Man Diff? Auto Invalid Interpretation Code [facility] Comment on above: Performed By: #### 0 [id number], [id number], [id number] #### [facility] (DEFAULT) [address] [place] [address] 93428 MCH (RBC) [Entitic mass] 26 pg Normal 24-34 [facility] Comment on above: Performed By: #### 4 [id number], [id number], [id number] #### [facility] (DEFAULT) [address] [place] [address] 43991 MCHC (RBC) [Mass/Vol] 34 g/dL Normal 26-37 [facility] Comment on above: Performed By: #### 4 [id number], [id number], [id number] #### [facility] (DEFAULT) [address] [place] [address] 03777 MCV (RBC) [Entitic vol] 77 fL Low 81-100 [facility] Comment on above: Performed By: #### 3 [id number], [id number], [id number] #### [facility] (DEFAULT) [address] [place] [address] 58075 Platelet 195 x10 Normal 138-427 [facility] Comment on above: Performed By: #### 1 [id number], [id number], [id number] #### [facility] (DEFAULT) [address] [place] [address] 34116 Platelet mean volume (Bld) [Entitic vol] 7.7 fL Normal 6.3-10.2 [facility] Comment on above: Performed By: #### 4 [id number], [id number], [id number] #### [facility] (DEFAULT) [address] [place] [address] 04505 RBC 4.81 x10 Normal 3.70-5.30 [facility] Comment on above: Performed By: #### 2 [id number], [id number], [id number] #### [facility] (DEFAULT) [address] [place] [address] 21276 WBC 4.7 x10 Normal 3.5-10.5 [facility] Comment on above: Performed By: #### 3 [id number], [id number], [id number] #### [facility] (DEFAULT) [address] [place] [address] 19624 CMP Standardon 01-11-2023 eGFR Non AA >60 Invalid Interpretation Code [facility] Comment on above: Performed By: #### 5 [id number], [id number], [id number] #### [facility] (DEFAULT) [address] [place] [address] 52190 eGFR AA >60 Invalid Interpretation Code [facility] Comment on above: Performed By: #### 4 [id number], [id number], [id number] #### [facility] (DEFAULT) [address] [place] [address] 19281 Albumin [Mass/Vol] 3.2 g/dL Low 3.5-5.0 [facility] Comment on above: Performed By: #### 1 [id number], [id number], [id number] #### [facility] (DEFAULT) [address] [place] [address] 47564 Albumin/Globulin [Mass ratio] 1.1 {ratio} Low 1.4-2 .6 [facility] Comment on above: Performed By: #### 0 [id number], [id number], [id number] #### [facility] (DEFAULT) [address] [place] [address] 14640 Alk Phos 75 IU/L Normal 32-91 [facility] Comment on above: Performed By: #### 0 [id number], [id number], [id number] #### [facility] (DEFAULT) [address] [place] [address] 11075 ALT [Catalytic activity/Vol] 143.0 U/L High 14.0-54 .0 [facility] Comment on above: Performed By: #### 4 [id number], [id number], [id number] #### [facility] (DEFAULT) [address] [place] [address] 29075 Anion gap [Moles/Vol] 12.0 mmol/L Normal 5.0-19.0 [facility] Comment on above: Performed By: #### 1 [id number], [id number], [id number] #### [facility] (DEFAULT) [address] [place] [address] 58920 AST [Catalytic activity/Vol] 91 U/L High 15-41 [facility] Comment on above: Performed By: #### 4 [id number], [id number], [id number] #### [facility] (DEFAULT) [address] [place] [address] 89262 Bili Total 0.9 mg/dL Normal 0.3-1.2 [facility] Comment on above: Performed By: #### 1 [id number], [id number], [id number] #### [facility] (DEFAULT) [address] [place] [address] 15431 Calcium [Mass/Vol] 9.0 mg/dL Normal 8.9-10.3 [facility] Comment on above: Performed By: #### 7 [id number], [id number], [id number] #### [facility] (DEFAULT) [address] [place] [address] 43564 Chloride [Moles/Vol] 103 mmol/L Normal 101-111 [facility] Comment on above: Performed By: #### 0 [id number], [id number], [id number] #### [facility] (DEFAULT) [address] [place] [address] 47947 CO2 [Moles/Vol] 26 mmol/L Normal 21-32 [facility] Comment on above: Performed By: #### 4 [id number], [id number], [id number] #### [facility] (DEFAULT) [address] [place] [address] 20889 Creatinine [Mass/Vol] 0.66 mg/dL Normal 0.60-1.30 [facility] Comment on above: Performed By: #### 5 [id number], [id number], [id number] #### [facility] (DEFAULT) [address] [place] [address] 17368 Globulin (S) [Mass/Vol] 2.9 g/dL Normal 1.5-4.3 [facility] Comment on above: Performed By: #### 1 [id number], [id number], [id number] #### [facility] (DEFAULT) [address] [place] [address] 45902 Glucose [Mass/Vol] 111.0 mg/dL Normal 74.0-118.0 [facility] Comment on above: Performed By: #### 8 [id number], [id number], [id number] #### [facility] (DEFAULT) [address] [place] [address] 99190 Osmolality 274 mOsm/L Invalid Interpretation Code [facility] Comment on above: Performed By: #### 5 [id number], [id number], [id number] #### [facility] (DEFAULT) [address] [place] [address] 86095 Potassium [Moles/Vol] 4.0 mmol/L Normal 3.6-5.1 [facility] Comment on above: Performed By: #### 2 [id number], [id number], [id number] #### [facility] (DEFAULT) [address] [place] [address] 69864 Protein [Mass/Vol] 6.1 g/dL Low 6.5-8.1 [facility] Comment on above: Performed By: #### 9 [id number], [id number], [id number] #### [facility] (DEFAULT) [address] [place] [address] 65757 Sodium [Moles/Vol] 137.0 mmol/L Normal 136.0-144.0 [facility] Comment on above: Performed By: #### 3 [id number], [id number], [id number] #### [facility] (DEFAULT) [address] [place] [address] 93901 Urea nitrogen [Mass/Vol] 12 mg/dL Normal 8-26 [facility] Comment on above: Performed By: #### 9 [id number], [id number], [id number] #### [facility] (DEFAULT) [address] [place] [address] 88708 Urea nitrogen/Creatinine [Mass ratio] 18.1 mg/mg High 4.6-16.2 [facility] Comment on above: Performed By: #### 3 [id number], [id number], [id number] #### [facility] (DEFAULT) [address] [place] [address] 13580 Consent Formson 01-11-2023 Consent Forms [id number] [facility] Discharge Noteon 01-11-2023 Discharge Note Discharge paperwork explained to pt at bedside, verbalized understanding. She states her pain is under control and denies other concerns. [Electronically Signed on: 01/11/2023 13:22 EST] Jami Liu RN [Verified on: 01/11/2023 13:22 EST] Jami Liu RN [facility] Inpatient Patient Summaryon 01-11-2023 Inpatient Patient Summary [address] [address] Patient Discharge Instructions Name: JENNIFER VALENCIA : 1970 Patient Address: [address] [place] [address] Primary Care Provider: Name: BILLY PEREZ MD After you are discharged if you find you have any questions, please, call [phone] ext [phone] to speak to a nurse. The Pharmacy at [facility] is open Saturday through Saturday from 9A to 6P and Saturday and Saturday from 9A to 5P Discharge Diagnosis: 1:Chest pain Prescription Information: If you have been given a prescription for narcotics, seek immediate medical attention if you have any difficulty breathing or any sudden status changes such as confusion and sleepiness. If you or anyone you know is experiencing suicidal thoughts, mental health, alcohol and/or drug addiction problems; contact the [facility] 03/09 Crisis Hotline -text 4HJKI bo 329967. If you received any narcotics, sedation, or any other medication that causes drowsiness for the next 24 hours, unless otherwise directed: ? Do not drive a car. ? Do not operate machinery such as power tools, lawn mowers, drills, sewing machines, or stoves ? Avoid alcoholic beverages and drugs for allergies, nerves, or sleep ? Do not make important personal or business decisions or sign any legal documents [facility] would like to thank you for allowing us to assist you with your healthcare needs. The following includes patient education materials and information regarding your injury/illness. JENNIFER VALENCIA has been given the following list of follow-up instructions, prescriptions, and patient education materials: Follow-up Instructions With: Address: When: BILLY PEREZ MD TIFFIN Within 2 to 4 weeks Comments: Your prior CT abdomen had shown a 8 mm right middle lobe pulmonary nodule. please have your family physician follow up on this for survillence Medications During the course of your visit, your medication list was updated with the most current information. The details of those changes are reflected below: New Medications [facility], [address] [place] [address] [id number], [phone] ibuprofen (ibuprofen 600 mg oral tablet) 1 tab(s) Oral (given by mouth) Every 8 hours as needed as needed for pain for 10 Days. Refills: 0. It is important to always keep an active list of medications available so that you can share with other providers and manage your medications appropriately. As an additional courtesy, we are also providing you with your final active medications list that you can keep with you. ibuprofen (ibuprofen 600 mg oral tablet) 1 tab(s) Oral (given by mouth) Every 8 hours as needed as needed for pain for 10 Days. Refills: 0. Take only the medications listed above. Contact your doctor prior to taking any medications not on this list. Medication leaflets, if any, will display below Diet & Activity Patient Activity Level: Patient Diet: Patient Activity Restrictions: Patient education materials, if any, will display below Cholelithiasis Cholelithiasis is a disease in which gallstones form in the gallbladder. The gallbladder is an organ that stores bile. Bile is a fluid that helps to digest fats. Gallstones begin as small crystals and can slowly grow into stones. They may cause no symptoms until they block the gallbladder duct, or cystic duct, when the gallbladder tightens (contracts) after food is eaten. This can cause pain and is known as a gallbladder attack, or biliary colic. There are two main types of gallstones: ? Cholesterol stones. These are the most common type of gallstone. These stones are made of hardened cholesterol and are usually yellow-green in color. Cholesterol is a fat-like substance that is made in the liver. ? Pigment stones. These are dark in color and are made of a red-yellow substance, called bilirubin,that forms when hemoglobin from red blood cells breaks down. What are the causes? This condition may be caused by an imbalance in the different parts that make bile. This can happen if the bile: ? Has too much bilirubin. This can happen in certain blood diseases, such as sickle cell anemia. ? Has too much cholesterol. ? Does not have enough bile salts. These salts help the body absorb and digest fats. In some cases, this condition can also be caused by the gallbladder not emptying completely or often enough. This is common during . What increases the risk? The following factors may make you more likely to develop this condition: ? Being female. ? Having multiple pregnancies. Health care providers sometimes advise removing diseased gallbladders before future pregnancies. ? Eating a diet that is heavy in fried foods, fat, and refined carbohydrates, such as white bread and white rice. (more content not included)... Normal [facility] Nutrition Noteon 01-11-2023 Nutrition Note Pt admitted w/ chest pain that appears resolved. Pt placed on a Regular diet, gnuqmi185%. Admit wt 115.8kg in line w/ Oct wt on file of 113.3kg. Labs noting elevated AST/ALT, lipid panel wnl minus an LDL of 126, hgbA1C wnl. 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 Overall, low nutrition risk at this time. Will monitor. Normal [facility] Pharmacy Noteon 01-11-2023 Pharmacy Note I have personally re viewed the patient's medication list upon discharge including, prescription medications, OTC products, vitamins and supplements. Below are the following medications the patient is discharged on. New Medications [facility], [address] [place] [address] [id number], [phone] ibuprofen (ibuprofen 600 mg oral tablet) 1 tab(s) Oral (given by mouth) Every 8 hours as needed as needed for pain for 10 Days. Refills: 0. Discharge Med Rec Notes: Counseled patient on medication changes including side effects, directions of how to take, and what each medication is for. Answered patient's questions regarding drug therapy. Provided medication education sheet on ibuprofen. Informed patient medication was sent to [facility]. Patient understood. [Electronically Signed on: 01/11/2023 12:21 EST] Isaias Aranda [Verified on: 01/11/2023 12:21 EST] Isaias Aranda [facility] Telemetry Stripson 3 Telemetry Strips [id number] [facility] TnI HSon 01-11-2023 Troponin I High Sensitivity 3.1 pg/mL Normal <=15.0 [facility] Comment on above: Performed By: #### 4 [id number], [id number], [id number] #### [facility] (DEFAULT) [address] [place] [address] US Echocardiogram Completeon 01-11-2023 US Echocardiogram Complete -- APPROVED REPORT EXAM: Comprehensive 2D, Doppler, and color-flow Echocardiogram Patient Location: Room/Bed: 229 BSA: 2.14 m2BP: 119/84 mmHg Rhythm: NSR Indications: chest pain, SOB, Headache, Nausea, Past Med. Hx: None Other Information Study Quality: Adequate. Technically difficult due to body habitus. Conclusion The left ventricular systolic function is normal. The left ventricular ejection fraction is within the normal range. LVEF is 60-65%. No aortic regurgitation is present. There is no aortic valvular stenosis. Trace mitral regurgitation. Left Ventricle The left ventricle is normal size. Mild concentric left ventricular hypertrophy. The left ventricular systolic function is normal. The left ventricular ejection fraction is within the normal range. LVEF is 60-65%. There is normal LV segmental wall motion. The left ventricular diastolic function is normal. Right Ventricle The right ventricle is normal size. The right ventricular systolic function is normal. Atria Left atrium is borderline dilated. The right atrium size is normal. Aortic Valve The aortic valve is not well visualized. Aortic valve is probably trileaflet. Adequate excursion of aortic valve leaflets. There is no aortic valvular stenosis. No aortic regurgitation is present. Mitral Valve Mitral valve leaflets are mildly thickened. No evidence of mitral valve stenosis. Trace mitral regurgitation. Tricuspid Valve The tricuspid valve is normal in structure. There is no tricuspid valve stenosis. There is trace tricuspid regurgitation. The right atrial pressure is estimated at 3 mmHg. Right ventricular systolic pressure is estimated at less than 30 mmHg. There is no pulmonary hypertension. Pulmonic Valve Pulmonic valve is not well visualized. There is no pulmonic valvular stenosis. Trace pulmonic regurgitation. Great Vessels The aortic root is normal in size. IVC is normal in size and collapses >50% with inspiration. Pericardium There is no pericardial effusion. 2D Dimensions RV Minor (Base)3.27 cmLV EDV (Teich) 90.38 mL IVSd 1.15 cm F: 0.6 - 0.9LV ESV (Teich) 20.05 mL LVDd 4.46 cm F: 3.9 - 5.3Left Atrium 3.87 cm F: 2.7 - 3.8 PWd 1.09 cm F: 0.6 - 1.0Sinus of Valsalva2.52 cm LVDs 2.39 (2.1 - 4.0 cm) Sinotubular Junction2.18 cm F: 2.3 - 2.9 LV Yjqo417.91 g LVOT Diameter 1.88 cm IVC1.80 (<= 2.1cm) M-Mode Dimensions Aortic Root2.80 cm F: < 3.8MV EPSS0.63 ( < 0.7 cm) Aortic Cusp Exc1.87 (1.5 - 2.6 cm)TAPSE 2.8 (>1.7) Left Atrium4.26 cm F: 2.7 - 3.8 LV Volume - Method of Disks (Burden's) Single Plane 2D LV VolumesBiplane 2D LV Volumes LV EDV A4C74.8 mLLV EDV BP78.47 mL F: 46 - 106 LV ESV A4C27.9 mLLV ESV BP27.6 mL LVEF(%) A4C62.7 %LVEF(%) BP64.84 % F: 54 - 74 LV EDV A2C76.0 mLLV EDV BP Index36.66 mL/m2 F: 29 - 61 LV ESV A2C25.4 mLSV (BP)50.88 mL LVEF(%) A2C66.6 %SV (BP) Index23.70 mL/m2 CO BP3.3 L/min Left Atrium Volume Systole (Method of Disks) Single Plane 4 CH 39.89 mLBiplane LA Eppleq05.64 mL Single Plane 2 CH27.31 mLLA ESV Index15.72 mL/m2 Right Atrium Area Systole RA Systolic Area A4C14.06 cm2RA Systolic Vol A4C34.00 mL Aortic Valve AoV Peak Velocity1.46 m/sLVOT Peak Velocity1.26 m/s AO Mean Velocity0.98 m/sLVOT Mean Velocity0.77 m/s AO Peak PG8.49 mmHgLVOT Peak PG6.33 mmHg AO Mean PG4.32 mmHgLVOT Mean PG2.85 mmHg AO V2 VTI31.25 cmLVOT V1 VTI26.76 cm RAJ (Vmax)2.40 yi6SIFM Area 2.78 cm2 RAJ (VTI)2.38 cm2SV (LVOT) 74.50 mL Indexed RAJ (VTI)1.11 cm2/m2 Mitral Valve MV Max Eambteid176.42 m/sMV PHT53.28 ms MV E Max Velocity0.74 m/sMVA (PHT)4.13 cm2 MV A Max Velocity0.53 m/sMR RRV619.69 cm E/A Ratio1.4MR Peak Velocity4.84 m/s MV Decel. Spug256.71 ms TDI Med e' Velocity9.39 cm/sMV E / Medial e' 7.86 Lat e' Mndftstu76.08 cm/sMV E / Lateral e' 5.24 TV S'11.93 cm/s Pulmonary Valve PV Peak Velocity0.94 m/sPV Peak PG3.57 mmHg SC End Diastolic Cruz.55.55 m/s PV Mean PG2.00 mmHg Tricuspid Valve TR Peak Velocity2.31 m/sRAP Estimate3.00 mmHg TR Peak PG21.42 ceShSULC38.42 mmHg Final Signed (Electronic Signature): Lan Jimenez MD 01/11/23 12:01 p Technologist: [facility] .Auto Diff 01-10-2023 Auto Armstrong % 7 % Normal 02-22 [facility] ital Comment on above: Performed By: #### 2 [id number], [id number], [id number], 6808444467, 4206790441, 9655327, 94749024, 4094506, [id number] #### [facility] (DEFAULT) [address] [place] [address] Baso Abs# 0.1 x10 Normal 0.0-0.2 [facility] Comment on above: Performed By: #### 2 417494, [id number], 9072127671, 7791786779, 4314294045, 4482585, 82082473, 9718848, 7691562562 #### [facility] (DEFAULT) [address] [place] [address] 40382 Basophils/100 WBC (Bld) 1.2 % Normal 0.2-2.0 [facility] Comment on above: Performed By: #### 2 536671, [id number], 7767790583, 9949163216, 8795122970, 7236036, 53705813, 3636643, 9113805043 #### [facility] (DEFAULT) [address] [place] [address] 03594 Eos Abs# 0.2 x10 Normal 0.0-0.4 [facility] Comment on above: Performed By: #### 2 806133, [id number], 8534673471, 5520126636, 1484615331, 6288276, 82984023, 2262543, [id number] #### [facility] (DEFAULT) [address] [place] [address] 03123 Eosinophils/100 WBC (Bld) 2.3 % Normal 0.9-4.0 [facility] Comment on above: Performed By: #### 2 744678, [id number], 5220549662, 3879434544, 0821093097, 3827343, 57562328, 7257930, 7886422320 #### [facility] (DEFAULT) [address] [place] [address] 05356 Lymph Abs# 2.0 x10 Normal 1.3-2.9 [facility] Comment on above: Performed By: #### 2 754165, 1354044064, 9522549273, 3180313749, 5898359575, 4826168, 10171266, 7838345, 2749511711 #### [facility] (DEFAULT) [address] [place] [address] 92943 Lymphocytes/100 WBC (Bld) 28 % Normal 14-48 [facility] Comment on above: Performed By: #### 2 777901, 9906067642, 1039610419, 8948348948, 9025245976, 8440480, 02809815, 6411431, 3365589867 #### [facility] (DEFAULT) [address] [place] [address] Armstrong Abs# 0.5 x10 Normal 0.0-0.8 [facility] Comment on above: Performed By: #### 2 478354, 4791367866, 3135876083, 2889660096, 8817014522, 8531290, 12963461, 5302284, 6414791850 #### [facility] (DEFAULT) [address] [place] [address] Neut Abs# 4.2 x10 Normal 1.5-9.2 [facility] Comment on above: Performed By: #### 2 457248, 8778344873, 3274966364, 2803822634, 0002151564, 5650034, 59801818, 8245632, 7188030651 #### [facility] (DEFAULT) [address] [place] [address] Neutrophils/100 WBC (Bld) 61 % Normal 44-88 [facility] Comment on above: Performed By: #### 2 094124, 6343240964, 5617969990, 2948297578, 1303721063, 8987887, 79300238, 6329188, 8915490001 #### [facility] (DEFAULT) [address] [place] [address] Standardon 01-10-2023 eGFR Non AA >60 Invalid Interpretation Code [facility] Comment on above: Performed By: #### 2 669988, [id number], 9649536042, 6687849141, 4051388333, 1861274, 60336726, 0153044, 7560419077 #### [facility] (DEFAULT) [address] [place] [address] eGFR AA >60 Invalid Interpretation Code [facility] Comment on above: Performed By: #### 2 554939, 9878029785, 4205697903, 3503857325, 8318062277, 7183437, 63121197, 1867264, 7677589385 #### [facility] (DEFAULT) [address] [place] [address] 92488 Anion gap [Moles/Vol] 14.0 mmol/L Normal 5.0-19.0 [facility] Comment on above: Performed By: #### 2 451387, 7128501952, 6972320640, 3923332199, 8559620885, 9295415, 12091825, 6286294, 4312640910 #### [facility] (DEFAULT) [address] [place] [address] 30409 Calcium [Mass/Vol] 9.1 mg/dL Normal 8.9-10.3 [facility] Comment on above: Performed By: #### 2 595540, 9651390295, 3842097496, 2549535165, 0676013699, 1731110, 40504651, 7224458, 7523669427 #### [facility] (DEFAULT) [address] [place] [address] 44453 Chloride [Moles/Vol] 102 mmol/L Normal 101-111 [facility] Comment on above: Performed By: #### 2 480350, 2382110080, 2241929850, 2072372370, 1270938497, 4734915, 06103259, 0556461, 7725211844 #### [facility] (DEFAULT) [address] [place] [address] 72551 CO2 [Moles/Vol] 25 mmol/L Normal 21-32 [facility] Comment on above: Performed By: #### 2 632976, 7736515486, 4659389350, 8066225290, 0856136151, 9521584, 57833682, 4208263, 5741815848 #### [facility] (DEFAULT) [address] [place] [address] 25849 Creatinine [Mass/Vol] 0.61 mg/dL Normal 0.60-1.30 [facility] Comment on above: Performed By: #### 2 674225, 2418788301, 6823589143, 5701548757, 0102632518, 5781794, 27068574, 6899624, 0068480537 #### [facility] (DEFAULT) [address] [place] [address] 92495 Glucose [Mass/Vol] 84.0 mg/dL Normal 74.0-118.0 [facility] Comment on above: Performed By: #### 2 677245, 6992187285, 3509995863, 1783120730, 4568399845, 8589663, 10623890, 5560948, 8281548976 #### [facility] (DEFAULT) [address] [place] [address] 01585 Osmolality 271 mOsm/L Invalid Interpretation Code [facility] Comment on above: Performed By: #### 2 214568, 1194878327, 6670532191, 5461342508, 7545080945, 5298621, 12833557, 7613044, 7369845520 #### [facility] (DEFAULT) [address] [place] [address] 11034 Potassium [Moles/Vol] 4.0 mmol/L Normal 3.6-5.1 [facility] Comment on above: Performed By: #### 2 059616, 5747754158, 8067511090, 3412956001, 9186768167, 1619833, 97635719, 4796129, 1807860885 #### [facility] (DEFAULT) [address] [place] [address] 89705 Sodium [Moles/Vol] 137.0 mmol/L Normal 136.0-144.0 [facility] Comment on above: Performed By: #### 2 642894, 0341529301, 3944569203, 4029450154, 8141175336, 8779123, 23002099, 9235772, 9298732251 #### [facility] (DEFAULT) [address] [place] [address] 08858 Urea nitrogen [Mass/Vol] 8 mg/dL Normal 8-26 [facility] Comment on above: Performed By: #### 2 267498, 5327724289, 9699875508, 5216514421, 0544364031, 5282111, 52953972, 3613354, 4580831553 #### [facility] (DEFAULT) [address] [place] [address] 93774 Urea nitrogen/Creatinine [Mass ratio] 13.1 mg/mg Normal 4.6-16.2 [facility] Comment on above: Performed By: #### 2 814308, 1704349658, 5581969439, 8188202961, 7211931612, 9352626, 32320588, 5059891, 1842735089 #### [facility] (DEFAULT) [address] [place] [address] Breakpoint Chem Normal [facility] Comment on above: Performed By: #### 2 719619, 1579085792, 2632157771, 7268680210, 4303063097, 0045500, 84447960, 9107862, 9966915846 #### [facility] (DEFAULT) [address] [place] [address] 60183 BNP.on 01-10-2023 Natriuretic peptide B (Bld) [Mass/Vol] 16.7 pg/mL Normal 0.0-100.0 [facility] Comment on above: Result Comment: BNP results greater than 100 pg/mL are considered abnormal and suggestive of patients with CHF. Higher BNP concentrations measured in the first 72 hours after an acute coronary syndorme are associated with an increased risk of , myocardial infarction, and CHF. Performed By: #### 5 [id number], 94796363, 1074823093 #### [facility] (DEFAULT) [address] [place] [address] 11967 CBC w/ Auto Diffon Erythrocyte distribution width (RBC) [Ratio] 16.3 % Hi gh 11.5-15.0 [facility] Comment on above: Performed By: #### 2 643396, 7166893770, 1969425410, 0883681210, 2492806969, 3486686, 54694531, 8653332, 8189237128 #### [facility] (DEFAULT) [address] [place] [address] Hematocrit (Bld) [Volume fraction] 40.0 % Normal 3 3.7-40.4 [facility] Comment on above: Performed By: #### 2 296726, 1409160775, 8193409986, 2024600791, 5116364541, 6620783, 41560801, 1595903, 1005783901 #### [facility] (DEFAULT) [address] [place] [address] Hemoglobin (Bld) [Mass/Vol] 13.5 g/dL Normal 11.3-15. 9 [facility] Comment on above: Performed By: #### 2 396294, 6238536724, 1810716211, 2684361756, 7952265502, 3723491, 89028369, 8787749, 6448259020 #### [facility] (DEFAULT) [address] [place] [address] Man Diff? Auto Invalid Interpretation Code [facility] Comment on above: Performed By: #### 2 577325, 8431390783, 8362361475, 2198223970, 8536707064, 4028741, 15913475, 8919717, 4419086886 #### [facility] (DEFAULT) [address] [place] [address] MCH (RBC) [Entitic mass] 26 pg Normal 24-34 [facility] Comment on above: Performed By: #### 2 903864, 9317271609, 7543239280, 4752811142, 5478446440, 9428129, 25751952, 6844235, 7167846264 #### [facility] (DEFAULT) [address] [place] [address] MCHC (RBC) [Mass/Vol] 34 g/dL Normal 26-37 [facility] Comment on above: Performed By: #### 2 479114, 1022137883, 6337436310, 5336940966, 6744851964, 8925045, 90022923, 7156747, 7173874169 #### [facility] (DEFAULT) [address] [place] [address] 64010 MCV (RBC) [Entitic vol] 77 fL Low 81-100 [facility] Comment on above: Performed By: #### 2 038465, 1158739570, 8490008149, 4069614300, 5645593146, 2862115, 69644865, 8223545, 6455259908 #### [facility] (DEFAULT) [address] [place] [address] 92291 Platelet 252 x10 Normal 138-427 [facility] Comment on above: Performed By: #### 2 653131, 1479010500, 4671445240, 7693800544, 5756832149, 7912731, 16677179, 3158291, 3736472685 #### [facility] (DEFAULT) [address] [place] [address] 70179 Platelet mean volume (Bld) [Entitic vol] 7.5 fL Normal 6.3-10.2 [facility] Comment on above: Performed By: #### 2 643277, 1662163583, 9993892601, 2853458767, 2699478409, 2101205, 60052303, 2238719, 4032924793 #### [facility] (DEFAULT) [address] [place] [address] 19730 RBC 5.21 x10 Normal 3.70-5.30 [facility] Comment on above: Performed By: #### 2 100248, 3105283149, 3570742137, 0667129083, 3137248728, 8602179, 01876000, 8659043, 0600388344 #### [facility] (DEFAULT) [address] [place] [address] 60754 WBC 6.9 x10 Normal 3.5-10.5 [facility] Comment on above: Performed By: #### 2 428908, 7400192194, 9846088091, 7392862108, 4711171355, 5719008, 18750685, 9627160, 9673123676 #### [facility] (DEFAULT) [address] [place] [address] 29053 D-Dimeron 01-10-2023 D-Dimer 0.40 mg/L FEU Normal 0.19-0.50 [facility] Comment on above: Result Comment: The INNOVANCE D-Dimer assay (Cutoff Value of > 0.50) is intended for the use as an aid in the diagnosis of venous thromboembolism (VTE) deep vein thrombosis (DVT) or pulmonary embolism (PE). The measurement of D-Dimer should not be used as an aid in the diagnosis of VTE in patients with: ? Therapeutic dose anticoagulant therapy for >24 hours ? Fibrinolytic therapy within previous 7 days ? Trauma or surgery within previous 4 weeks ? Disseminated malignancies ? Aortic aneurysm ? Sepsis, sever infections, pneumonia, severe skin infections ? Liver cirrhosis ? Performed By: #### 2 [id number], 82992184, 3516459669 #### [facility] (DEFAULT) [address] [place] [address] 06922 ED Clinical Summaryon 2022 ED Clinical Summary [facility] - Emergency Department [address] [place] [address] 10952 ED Clinical Summary PERSON INFORMATION Name: JENNIFER VALENCIA Age: 52 Years Sex: FEMALE : 1970 MRN: Acct#: Visit Reason: Chest pain; CHEST PAIN Arrival: 01/10/2023 09:49:38 Discharge: LOS: 000 04:15 Check In: 01/10/2023 09:49:38 Checkout:01/10/2023 14:04:45 Address: [address] [place] [address] PCP: BILLY PEREZ MD PROVIDER INFORMATION Provider Role Assigned Unassigned Ralph Wright MD ED Provider 01/10/2023 09:51:52 Kyara Franklin RN ED Nurse 01/10/2023 10:09:25 01/10/2023 10:09:26 Pelon Diaz RN ED Nurse 01/10/2023 10:11:56 VITALS INFORMATION Vital Sign Triage Latest Temperature Tympanic Temperature Temporal Artery 36.1 DegC Pulse Rate 96 bpm 62 bpm O2 Sat 99 % 99 % Respiratory Rate 24 br/min 22 br/min Blood Pressure /100 mmHg /100 mmHg MEDICAL INFORMATION Medications Given: Medication Dose Route ondansetron 4 mg IV Push Sodium Chloride 0.9% intravenous solution 500 mL 500 mL Initial Volume 500 mL/hr IV Left Antecubital Fossa morphine 4 mg IV Push aspirin 324 mg Oral Allergy Information: Strawberries; bacitracin PHYSICIAN DOCUMENTATION DISCHARGE INFORMATION: Discharge Disposition: Admitted as Observation Discharge Location: PATIENT EDUCATION INFORMATION Instructions: Follow-Up: DIAGNOSIS: 1:Chest pain Patient Understands: Comment: [facility] ED Note-Nursingon 01-10-2023 ED Note-Nursing private vechile arri josefina with c/o cp since yesterday unrelieved with tums. anxious. tearful. ekg complete for physician review. tele provided. tolerated 20g left ac. morphine zofran ns. cxr. nsr on tele. lcta. oriented to call light. encouraged to call for help. [facility] ED Patient Education Noteon 01-10-2023 ED Patient Education Note Education Materials [facility] ED Patient Summaryon 023 ED Patient Summary [facility] - Emergency Department [address] [place] [address] PATIENT DISCHARGE INSTRUCTIONS Patient Information Name: JENNIFER VALENCIA Age: 52 Years Date of : 1970 Reason For Visit: Chest pain; CHEST PAIN Arrival Time: 01/10/2023 09:49:38 Primary Care Physician: BILLY PEREZ MD Attending Physician: Rashid Arriaga MD Comment: Visit Diagnosis: Diagnoses This Visit Chest pain (72632009) Chest pain (R07.9) The Pharmacy at [facility] is open Saturday through Saturday from 9A to 6P and Saturday and Saturday from 9A to 5P Prescription Information: If you have been given a prescription for narcotics, seek immediate medical attention if you have any difficulty breathing or any sudden status changes such as confusion and sleepiness. If you or anyone you know is experiencing suicidal thoughts, mental health, alcohol and/or drug addiction problems; contact the [facility] 03/09 Crisis Hotline -Text 3BTEW ss 539531. If you received any narcotics, sedation, or any other medication that causes drowsiness for the next 24 hours, unless otherwise directed: ? Do not drive a car. ? Do not operate machinery such as power tools, lawn mowers, drills, sewing machines, or stoves ? Avoid alcoholic beverages and drugs for allergies, nerves, or sleep ? Do not make important personal or business decisions or sign any legal documents Medication Information: The exam and treatment you received today in the [facility] Emergency Department were for an urgent problem and are not intended as complete care. It is important for you to follow up with a doctor, nurse practitioner, or physician?s retail administrative assistant for ongoing care. If your symptoms become worse or you do not improve as expected and you are unable to reach your usual health care provider, you should return to the Emergency Department, we are available 24 hours a day. For those patients who have received Radiology results, the interpretation of your X-ray as given to you by our Emergency Department physician is only a preliminary report. The Radiologist will review your films and if there is a change in the diagnosis you will be notified by phone. Please make sure you have provided a working phone number so we can reach you if necessary. In the event that you had a lab culture while you were a patient in the Emergency Department, you will be notified by phone if there is a need to change your antibiotic. Please make sure you have provided a working phone number so we can reach you if necessary. [facility] Emergency Department has provided you with a complete list of medications post discharge. Please inform your sanitation laborer/provider of your visit and for further instruction on these medications. Any specific questions regarding your chronic medications and dosages should be discussed with your primary care physician(s) and/or pharmacist. Visit Information Allergies: Substance Reaction Symptoms Type Comments bacitracin Drug Strawberries Food Vital Signs: Vitals and Measurements this Visit (last charted value for your 01/10/2023 visit) Vital Signs This Visit Temperature Oral: 36.7 DegC Temperature Temporal Artery: 36.1 DegC Peripheral Pulse Rate: 62 bpm Heart Rate Monitored: 74 bpm Respiratory Rate: 22 br/min Systolic Blood Pressure: 111 mmHg Diastolic Blood Pressure: 69 mmHg SpO2: 99 % Oxygen Therapy: Room air Measurements This Visit Height/Length Estimated: 160 cm Weight Estimated: 113.40 kg Body Mass Index Estimated: 44.3 kg/m2 Problems List: Problem Onset Comments No Problems found Patient Education Viruses or Bacteria What?s got you sick? Antibiotics only treat bacterial infections. Viral illnesses cannot be treated with antibiotics. When an antibiotic is not prescribed, ask your healthcare professional for tips on how to relieve symptoms and feel better. Usual Cause Illness Viruses Bacteria Antibiotic Needed Cold/Runny Nose ? NO Bronchitis/Chest Cold (in otherwise healthy children and adults) ? NO Whooping Cough ? Yes Flu ? NO Strep Throat ? Yes Sore Throat (except strep) ? NO Fluid in the middle ear (otitis media with effusion) ? NO Urinary Tract Infection ? Yes Antibiotics Aren?t Always the Answer www.cdc.gov/getsmart GET SMART Know When Antibiotics Work U.[place]. Department of Health and Human Services Centers for Disease Control and Prevention October 2013 Normal [facility] Extra Redon 01-10-2023 Tube Collected Yes Invalid Interpretation Code [facility] Comment on above: Performed By: #### 2 890505, [id number], 2723110114, 7024347007, 3580368831, 3788476, 78554236, 8699468, [id number] #### [facility] (DEFAULT) [address] [place] [address] 21509 HgbA1c Standardon 01-10-2023 .Hb 13.6 Invalid Interpretation Code [facility] Comment on above: Performed By: #### 6 [id number], [id number], [id number] #### [facility] (DEFAULT) [address] [place] [address] 89159 .Hgb A1c 0.51 g/dL Invalid Interpretation Code [facility] Comment on above: Performed By: #### 8 [id number], 73367550, [id number] #### [facility] (DEFAULT) [address] [place] [address] Glucose [Mass/Vol] 111 mg/dL Invalid Interpretation Code [facility] Comment on above: Performed By: #### 2 [id number], 75555786, [id number] #### [facility] (DEFAULT) [address] [place] [address] 12749 HbA1c (Bld) [Mass fraction] 5.5 % Normal 4.6-6.2 [facility] Comment on above: Performed By: #### 6 [id number], [id number], [id number] #### [facility] (DEFAULT) [address] [place] [address] 07931 Lipid Panel Standard, Non-Fa stingon 01-10-2023 Cholesterol [Mass/Vol] 199.0 mg/dL Normal 66.0-200.0 [facility] Comment on above: Performed By: #### 0 [id number], [id number], [id number] #### [facility] (DEFAULT) [address] [place] [address] 57989 Cholesterol in HDL [Mass/Vol] 55 mg/dL Normal 40-71 [facility] Comment on above: Performed By: #### 6 [id number], [id number], [id number] #### [facility] (DEFAULT) [address] [place] [address] 55760 Cholesterol in LDL [Mass/Vol] 126 mg/dL High 1-100 [facility] Comment on above: Performed By: #### 5 [id number], [id number], [id number] #### [facility] (DEFAULT) [address] [place] [address] 50900 Cholesterol.total/Cholestero l in HDL [Mass ratio] 3.6 {ratio} Normal 0.0-4.5 [facility] Comment on above: Performed By: #### 2 [id number], [id number], [id number] #### [facility] (DEFAULT) [address] [place] [address] 37708 Triglyceride [Mass/Vol] 87.0 mg/dL Normal 0.0-150.0 [facility] Comment on above: Performed By: #### 1 [id number], [id number], [id number] #### [facility] (DEFAULT) [address] [place] [address] 69862 VLDL. 17 mg/dL Normal 5-40 [facility] Comment on above: Performed By: #### 8 [id number], [id number], [id number] #### [facility] (DEFAULT) [address] [place] [address] 39342 PT/PTTon 01-10-2023 INR Coag (PPP) [Relative time] 1.04 {INR} Normal 0.91- 1.11 [facility] Comment on above: Performed By: #### 9 [id number], [id number], [id number] #### [facility] (DEFAULT) [address] [place] [address] 11778 PT 10.8 second(s) Normal 9.7-11.8 [facility] Comment on above: Performed By: #### 7 [id number], [id number], [id number] #### [facility] (DEFAULT) [address] [place] [address] 35834 PTT 26 second(s) Normal 25-35 [facility] Comment on above: Performed By: #### 0 [id number], [id number], [id number] #### [facility] (DEFAULT) [address] [place] [address] 28129 TnI HSon 01-10-2023 Troponin I High Sensitivity 3.8 pg/mL Normal <=15.0 [facility] Comment on above: Performed By: #### 5 [id number], [id number], [id number] #### [facility] (DEFAULT) [address] [place] [address] 84748 Troponin I High Sensitivity 3.8 pg/mL Normal <=15.0 [facility] Comment on above: Performed By: #### 9 [id number], [id number], [id number] #### [facility] (DEFAULT) [address] [place] [address] 10391 Troponin I High Sensitivity 3.4 pg/mL Normal <=15.0 [facility] Comment on above: Performed By: #### 5 [id number], [id number], [id number] #### [facility] (DEFAULT) [address] [place] [address] 83887 US Gallbladderon 01-10-2023 US Gallbladder Clinical History: Ch est pain. Shortness of breath. Nausea. Technique: [Sonography of the right upper quadrant was performed. Images were obtained and stored in a permanent archive.] Comparison: CT 11/21/2022. RESULT: Pancreas: [Normal sonographic appearance of the visualized portions.] Liver: Increased echogenicity suggestive of steatosis. Measures around 16.9 cm in length. No focal lesion. Biliary Ducts: No intrahepatic or extrahepatic biliary duct dilation. Common bile duct: 0.4 cm at the hilum. Gallbladder: Echogenic shadowing of the gallbladder correlating with the wall calcification or cholelithiasis on the CT 11/21/2022, with the gallbladder otherwise obscured secondary to the shadowing. Right kidney: [Visualized portions unremarkable.] Ascites: [None.] IMPRESSION: Echogenic shadowing of the gallbladder correlating with the wall calcification or cholelithiasis on the CT 11/21/2022. Refer to the prior CT report. If there is concern for acute cholecystitis, consider correlation with nuclear medicine HIDA scan. Hepatic steatosis. [] Final Signed (Electronic Signature): Mike Blandon MD 01/10/23 4:02 pm Technologist: [facility] XR Chest 1 View Frontalon XR Chest 1 View Frontal Examination: AP Portable Chest Clinical History: Midsternal chest pain Comparison: [nONE ] Technique: Single AP Portable Chest Findings: Limited examination due to low lung volume. [The cardiac silhouette is enlarged accentuated by low lung volume. Pulmonary vasculature unremarkable. Right-sided trachea. No focal infiltrates No effusions No pneumothoraces. ] IMPRESSION: [NO ACUTE ACTIVE CARDIOPULMONARY PROCESS ] Final Signed (Electronic Signature): Nitin Cui MD 01/10/23 10:34 a Technologist: [facility] Coding Summaryon 11-28-2022 Coding Summary HTMLBase 64 [id number] [file] bGF (more content not included)... Normal [facility] C Urineon 11-24-2022 C Urine Urine Culture ordere d as a result of parameters set on specific urine dip and urine microsopic results. 70,000 cfu/ml Staphylococcus haemolyticus and 50,000 cfu/ml Corynebacterium species (diptheroids) No CHEYANNE performed on this organism ORGANISM Stahae SUSCEPTIBILITY ORGANISM ID: 1 ANTIBIOTIC INTERPRETATION CHEYANNE STATUS ORGANISM StahaeStahae Amox/Cla R <=4/2 Verified Amp R <=2 Verified Amp/Sul R <=8/4 Verified Ceftri R <=8 Verified Cipro S <=1 Verified Clinda <=0.5 Verified Dapto S <=0.5 Verified Eryth >4 Verified Gent S <=4 Verified Levo S <=1 Verified Linez S <=1 Verified Nitro S <=32 Verified Ox R 2 Verified Pen R <=0.03 Verified Rif S <=1 Verified Tetra S <=4 Verified Tri/Sulf S <=0.5/9.5 Verified Vanc S 1 Verified Normal [facility] Comment on above: Performed By: #### 1 [id number], [id number], [id number] ####[facility] (DEFAULT)[address] [place] [address] 66361 ED Clinical Summaryon 2022 ED Clinical Summary [facility] - Emergency Department [address] [place] [address] ED Clinical Summary PERSON INFORMATION Name: JENNIFER VALENCIA Age: 52 Years Sex: FEMALE : 1970 MRN: Acct#: Visit Reason: Flank pain; BACK PAIN, ABD PAIN, WEAKNESS Arrival: 11/21/2022 19:18:46 Discharge: 11/21/2022 22:28:00 LOS: 000 03:10 Check In: 11/21/2022 19:18:46 Checkout:11/21/2022 22:28:00 Address: [address] [place] [address] PCP: BILLY PEREZ MD PROVIDER INFORMATION Provider Role Assigned Unassigned Jagruti Stokes RN ED Nurse 11/21/2022 19:38:15 Ben Rizvi MD ED Provider 11/21/2022 19:45:05 VITALS INFORMATION Vital Sign Triage Latest Temperature Tympanic Temperature Temporal Artery 36.9 DegC Pulse Rate O2 Sat 98 % 98 % Respiratory Rate 14 br/min 14 br/min Blood Pressure /77 mmHg /77 mmHg MEDICAL INFORMATION Medications Given: Medication Dose Route Sodium Chloride 0.9% intravenous solution 1,000 mL 1000 mL Initial Volume 1000 mL/hr IV Right Antecubital Fossa HYDROmorphone (Dilaudid) 0.5 mg IV Push ondansetron 4 mg IV Push Allergy Information: Strawberries; bacitracin PHYSICIAN DOCUMENTATION DISCHARGE INFORMATION: Discharge Disposition: Home Discharge Location: Home PATIENT EDUCATION INFORMATION Instructions: Hypertension, Adult, Midl-ti-Hfeq; Nonalcoholic Fatty Liver Disease Diet, Adult; Fatty Liver Disease; Cholelithiasis, Vpmx-oj-Vloz; Flank Pain, Adult, Zqdr-xe-Zvcu; Abdominal Pain, Adult, Vubz-ap-Yanr Follow-Up: With: Address: When: BILLY PEREZ MD [place] Within 3 to 5 days DIAGNOSIS: 1:Left flank pain; 2:Elevated blood pressure reading; 3:Nausea and vomiting in adult; 4:Fatty liver; 5:Cholelithiasis Patient Understands: Yes - Patient/family/caregiver verbalizes understanding of instructions given Comment: Normal [facility] ED Patient Summaryon 023 ED Patient Summary [facility] - Emergency Department [address] [place] [address] PATIENT DISCHARGE INSTRUCTIONS Patient Information Name: JENNIFER VALENCIA Age: 52 Years Date of : 1970 Reason For Visit: Flank pain; BACK PAIN, ABD PAIN, WEAKNESS Arrival Time: 11/21/2022 19:18:46 Primary Care Physician: BILLY PEREZ MD Attending Physician: Juanito Maciel MD Comment: Visit Diagnosis: Diagnoses This Visit Cholelithiasis (K80.20) Elevated blood pressure reading (R03.0) Fatty liver (K76.0) Flank pain (950593965) Left flank pain (R10.9) Nausea and vomiting in adult (R11.2) The Pharmacy at [facility] is open Saturday through Saturday from 9A to 6P and Saturday and Saturday from 9A to 5P Prescription Information: If you have been given a prescription for narcotics, seek immediate medical attention if you have any difficulty breathing or any sudden status changes such as confusion and sleepiness. If you or anyone you know is experiencing suicidal thoughts, mental health, alcohol and/or drug addiction problems; contact the [facility] 03/09 Crisis Hotline -Text 0QZFN to 208449. If you received any narcotics, sedation, or any other medication that causes drowsiness for the next 24 hours, unless otherwise directed: ? Do not drive a car. ? Do not operate machinery such as power tools, lawn mowers, drills, sewing machines, or stoves ? Avoid alcoholic beverages and drugs for allergies, nerves, or sleep ? Do not make important personal or business decisions or sign any legal documents With: Address: When: BILLY PEREZ [facility] Within 3 to 5 days Medication Information: The exam and treatment you received today in the [facility] Emergency Department were for an urgent problem and are not intended as complete care. It is important for you to follow up with a doctor, nurse practitioner, or physician?s retail administrative assistant for ongoing care. If your symptoms become worse or you do not improve as expected and you are unable to reach your usual health care provider, you should return to the Emergency Department, we are available 24 hours a day. For those patients who have received Radiology results, the interpretation of your X-ray as given to you by our Emergency Department physician is only a preliminary report. The Radiologist will review your films and if there is a change in the diagnosis you will be notified by phone. Please make sure you have provided a working phone number so we can reach you if necessary. In the event that you had a lab culture while you were a patient in the Emergency Department, you will be notified by phone if there is a need to change your antibiotic. Please make sure you have provided a working phone number so we can reach you if necessary. [facility] Emergency Department has provided you with a complete list of medications post discharge. Please inform your sanitation laborer/provider of your visit and for further instruction on these medications. Any specific questions regarding your chronic medications and dosages should be discussed with your primary care physician(s) and/or pharmacist. Visit Information Allergies: Substance Reaction Symptoms Type Comments bacitracin Drug Strawberries Food Vital Signs: Vitals and Measurements this Visit (last charted value for your 11/21/2022 visit) Vital Signs This Visit Temperature Temporal Artery: 36.9 DegC Heart Rate Monitored: 84 bpm Respiratory Rate: 14 br/min Systolic Blood Pressure: 129 mmHg Diastolic Blood Pressure: 77 mmHg SpO2: 98 % Oxygen Therapy: Room air Measurements This Visit Height/Length Dosin.000 cm Height/Length Estimated: 160.000 cm Weight Dosin.310 kg Weight Estimated: 113.310 kg Problems List: Problem Onset Comments No Problems found Patient Education Hypertension, Adult Blood pressure 129/77 Your blood pressure was noted to be elevated here in the emergency room. Monitor your blood pressure and follow-up with your primary care physician to review those readings. Return to the emergency department for any worsening symptoms. Hypertension is another name for high blood pressure. High blood pressure forces your heart to work harder to pump blood. This can cause problems over time. There are two numbers in a blood pressure reading. There is a top number (systolic) over a bottom number (diastolic). It is best to have a blood pressure that is below 120/80. What are the causes? The cause of this condition is not known. Some other conditions can lead to high blood pressure. What increases the risk? Some lifestyle factors can make you more likely to develop high blood pressure: ? Smoking. ? Not getting enough exercise or physical activity. ? Being overweight. ? Having too much fat, sugar, calories, or salt (sodium) in your diet. ? Drinking too much alcohol. Othe (more content not included)... Normal [facility] .Auto Diff 1on 11-21-2022 Auto Armstrong % 7 % Normal -12 [facility] Comment on above: Performed By: #### 5 [id number], [id number], [id number] #### [facility] (DEFAULT) [address] [place] [address] Baso Abs# 0.1 x10 Normal 0.0-0.2 [facility] Comment on above: Performed By: #### 3 [id number], [id number], [id number] #### [facility] (DEFAULT) [address] [place] [address] 14137 Basophils/100 WBC (Bld) 0.9 % Normal 0.2-2.0 [facility] Comment on above: Performed By: #### 7 [id number], [id number], [id number] #### [facility] (DEFAULT) [address] [place] [address] 90206 Eos Abs# 0.2 x10 Normal 0.0-0.4 [facility] Comment on above: Performed By: #### 6 [id number], [id number], [id number] #### [facility] (DEFAULT) [address] [place] [address] 05656 Eosinophils/100 WBC (Bld) 2.7 % Normal 0.9-4.0 [facility] Comment on above: Performed By: #### 0 [id number], [id number], [id number] #### [facility] (DEFAULT) [address] [place] [address] 27837 Lymph Abs# 2.0 x10 Normal 1.3-2.9 [facility] Comment on above: Performed By: #### 1 [id number], [id number], [id number] #### [facility] (DEFAULT) [address] [place] [address] 58112 Lymphocytes/100 WBC (Bld) 34 % Normal 14-48 [facility] Comment on above: Performed By: #### 8 [id number], [id number], [id number] #### [facility] (DEFAULT) [address] [place] [address] 02868 Armstrong Abs# 0.4 x10 Normal 0.0-0.8 [facility] Comment on above: Performed By: #### 8 [id number], [id number], [id number] #### [facility] (DEFAULT) [address] [place] [address] 06300 Neut Abs# 3.4 x10 Normal 1.5-9.2 [facility] Comment on above: Performed By: #### 8 [id number], [id number], [id number] #### [facility] (DEFAULT) [address] [place] [address] Neutrophils/100 WBC (Bld) 56 % Normal 44-88 [facility] Comment on above: Performed By: #### 6 [id number], [id number], [id number] #### [facility] (DEFAULT) [address] [place] [address] CBC w/ Auto Diffon 3 Erythrocyte distribution width (RBC) [Ratio] 16.4 % Hi gh 11.5-15.0 [facility] Comment on above: Performed By: #### 7 [id number], [id number], [id number] #### [facility] (DEFAULT) [address] [place] [address] Hematocrit (Bld) [Volume fraction] 42.0 % High 3 3.7-40.4 [facility] Comment on above: Performed By: #### 3 [id number], [id number], [id number] #### [facility] (DEFAULT) [address] [place] [address] Hemoglobin (Bld) [Mass/Vol] 14.0 g/dL Normal 11.3-15. 9 [facility] Comment on above: Performed By: #### 9 [id number], [id number], [id number] #### [facility] (DEFAULT) [address] [place] [address] Man Diff? Auto Invalid Interpretation Code [facility] Comment on above: Performed By: #### 3 [id number], [id number], [id number] #### [facility] (DEFAULT) [address] [place] [address] MCH (RBC) [Entitic mass] 26 pg Normal 24-34 [facility] Comment on above: Performed By: #### 5 [id number], [id number], [id number] #### [facility] (DEFAULT) [address] [place] [address] MCHC (RBC) [Mass/Vol] 33 g/dL Normal 26-37 [facility] Comment on above: Performed By: #### 7 [id number], [id number], [id number] #### [facility] (DEFAULT) [address] [place] [address] 46423 MCV (RBC) [Entitic vol] 78 fL Low 81-100 [facility] Comment on above: Performed By: #### 3 [id number], [id number], [id number] #### [facility] (DEFAULT) [address] [place] [address] 51111 Platelet 236 x10 Normal 138-427 [facility] Comment on above: Performed By: #### 8 [id number], [id number], [id number] #### [facility] (DEFAULT) [address] [place] [address] 85618 Platelet mean volume (Bld) [Entitic vol] 7.7 fL Normal 6.3-10.2 [facility] Comment on above: Performed By: #### 3 [id number], [id number], [id number] #### [facility] (DEFAULT) [address] [place] [address] RBC 5.40 x10 High 3.70-5.30 [facility] Comment on above: Performed By: #### 7 [id number], [id number], [id number] #### [facility] (DEFAULT) [address] [place] [address] 07365 WBC 6.0 x10 Normal 3.5-10.5 [facility] Comment on above: Performed By: #### 7 [id number], [id number], [id number] #### [facility] (DEFAULT) [address] [place] [address] 07228 CMP Standardon 11-21-2022 eGFR Non AA >60 Invalid Interpretation Code [facility] Comment on above: Performed By: #### 2 [id number], [id number], [id number] #### [facility] (DEFAULT) [address] [place] [address] 14879 eGFR AA >60 Invalid Interpretation Code [facility] Comment on above: Performed By: #### 6 [id number], [id number], [id number] #### [facility] (DEFAULT) [address] [place] [address] 10983 Albumin [Mass/Vol] 3.9 g/dL Normal 3.5-5.0 [facility] Comment on above: Performed By: #### 2 [id number], [id number], [id number] #### [facility] (DEFAULT) [address] [place] [address] 96333 Albumin/Globulin [Mass ratio] 1.1 {ratio} Low 1.4-2 .6 [facility] Comment on above: Performed By: #### 8 [id number], [id number], [id number] #### [facility] (DEFAULT) [address] [place] [address] 92405 Alk Phos 82 IU/L Normal 32-91 [facility] Comment on above: Performed By: #### 4 [id number], [id number], [id number] #### [facility] (DEFAULT) [address] [place] [address] 53534 ALT [Catalytic activity/Vol] 197.0 U/L High 14.0-54 .0 [facility] Comment on above: Performed By: #### 0 [id number], [id number], [id number] #### [facility] (DEFAULT) [address] [place] [address] 14737 Anion gap [Moles/Vol] 11.0 mmol/L Normal 5.0-19.0 [facility] Comment on above: Performed By: #### 6 [id number], [id number], [id number] #### [facility] (DEFAULT) [address] [place] [address] 25263 AST [Catalytic activity/Vol] 127 U/L High 15-41 [facility] Comment on above: Performed By: #### 8 [id number], [id number], [id number] #### [facility] (DEFAULT) [address] [place] [address] 89681 Bili Total 1.2 mg/dL Normal 0.3-1.2 [facility] Comment on above: Performed By: #### 8 [id number], [id number], [id number] #### [facility] (DEFAULT) [address] [place] [address] 77673 Calcium [Mass/Vol] 9.1 mg/dL Normal 8.9-10.3 [facility] Comment on above: Performed By: #### 1 [id number], [id number], [id number] #### [facility] (DEFAULT) [address] [place] [address] 72403 Chloride [Moles/Vol] 103 mmol/L Normal 101-111 [facility] Comment on above: Performed By: #### 6 [id number], [id number], [id number] #### [facility] (DEFAULT) [address] [place] [address] 40196 CO2 [Moles/Vol] 26 mmol/L Normal 21-32 [facility] Comment on above: Performed By: #### 7 [id number], [id number], [id number] #### [facility] (DEFAULT) [address] [place] [address] 35903 Creatinine [Mass/Vol] 0.65 mg/dL Normal 0.60-1.30 [facility] Comment on above: Performed By: #### 1 [id number], [id number], [id number] #### [facility] (DEFAULT) [address] [place] [address] 83363 Globulin (S) [Mass/Vol] 3.4 g/dL Normal 1.5-4.3 [facility] Comment on above: Performed By: #### 7 [id number], [id number], [id number] #### [facility] (DEFAULT) [address] [place] [address] 15419 Glucose [Mass/Vol] 98.0 mg/dL Normal 74.0-118.0 [facility] Comment on above: Performed By: #### 4 [id number], [id number], [id number] #### [facility] (DEFAULT) [address] [place] [address] 03840 Osmolality 270 mOsm/L Invalid Interpretation Code [facility] Comment on above: Performed By: #### 3 [id number], [id number], [id number] #### [facility] (DEFAULT) [address] [place] [address] 26342 Potassium [Moles/Vol] 4.0 mmol/L Normal 3.6-5.1 [facility] Comment on above: Performed By: #### 9 [id number], [id number], [id number] #### [facility] (DEFAULT) [address] [place] [address] 30377 Protein [Mass/Vol] 7.3 g/dL Normal 6.5-8.1 [facility] Comment on above: Performed By: #### 9 [id number], [id number], [id number] #### [facility] (DEFAULT) [address] [place] [address] 12760 Sodium [Moles/Vol] 136.0 mmol/L Normal 136.0-144.0 [facility] Comment on above: Performed By: #### 7 [id number], [id number], [id number] #### [facility] (DEFAULT) [address] [place] [address] 13557 Urea nitrogen [Mass/Vol] 8 mg/dL Normal 8-26 [facility] Comment on above: Performed By: #### 3 [id number], [id number], [id number] #### [facility] (DEFAULT) [address] [place] [address] 30334 Urea nitrogen/Creatinine [Mass ratio] 12.3 mg/mg Normal 4.6-16.2 [facility] Comment on above: Performed By: #### 5 [id number], [id number], [id number] #### [facility] (DEFAULT) [address] [place] [address] Abdomen/Pelvis w/o Contra ston 11-21-2022 CT Abdomen/Pelvis w/o Contrast CLINICAL HISTORY: Left flank pain. COMPARISON: None available. TECHNIQUE: Spiral imaging was obtained of the abdomen and pelvis without contrast. All CT scans at this facility use dose modulation, iterative reconstruction, and/or weight based dosing when appropriate to reduce radiation dose to as low as reasonably achievable. FINDINGS: Liver: Borderline infiltration. No mass or lesion. Biliary: Mild marginal calcification the periphery of an otherwise unremarkable-appearing gallbladder may be early porcelain gallbladder or a large intraluminal stone. No bile duct dilation. Pancreas: Unremarkable. No mass or duct dilation. Spleen: Unremarkable. No mass. No splenomegaly. Adrenals: Unremarkable. Kidneys: Unremarkable. No mass or significant urinary tract calculi. GI tract: No abnormal dilation or wall thickening. Normal appendix. Lymph nodes: No suspicious lymphadenopathy. Mesentery/peritoneum: No ascites or mass. Retroperitoneum: No mass. Vasculature: Unremarkable. Pelvis: No mass, organized fluid collection, or ascites. The urinary bladder, uterus, and adnexa are unremarkable. Bones/soft tissue: No acute osseous findings. Minimal to mild degenerative changes. Very small fat-containing periumbilical hernia. Lower thorax: Approximately 8 mm noncalcified nodule anterolateral right lung base with mild associated bandlike opacity. Otherwise, clear.. IMPRESSION: NO ACUTE INTRA-ABDOMINAL PROCESS IDENTIFIED. 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 Follow-up ultrasound is suggested; as porcelain gallbladder has been reported as risk for gallbladder carcinoma. Approximately 8 mm right middle lobe pulmonary nodule. A 3-6 month follow-up chest CT is suggested, based on the patient's risk factors. Final Signed (Electronic Signature): Terry Greco MD 11/22/22 8:31 am Technologist: JACQUI Dill [facility] ED Clinical Summaryon 2022 ED Clinical Summary [facility] ? Urgent Care [address] [place] [address] Clinical Summary PERSON INFORMATION Name: JENNIFER VALENCIA Age: 52 Years Sex: FEMALE : 1970 MRN: Acct#: Visit Reason: Back pain; HEADACHE, BACK PAIN Arrival: 11/21/2022 16:35:06 Discharge: 11/21/2022 19:07:00 LOS: 000 02:32 Check In: 11/21/2022 16:35:06 Checkout: 11/21/2022 19:07:00 Address: [address] [place] [address] PCP: BILLY PEREZ MD PROVIDER INFORMATION Provider Role Assigned Unassigned Sweta Dale EDITORIAL ASSISTANT Nurse 11/21/2022 16:38:46 Radha Milian PA-C ED PA 11/21/2022 16:41:09 VITALS INFORMATION Vital Sign Triage Latest Temperature Tympanic Temperature Temporal Artery Pulse Rate O2 Sat 98 % 98 % Respiratory Rate Blood Pressure /76 mmHg /76 mmHg MEDICAL INFORMATION Medications Given: Medication Dose Route ketorolac 30 mg IM Allergy Information: Strawberries; bacitracin PHYSICIAN DOCUMENTATION DISCHARGE INFORMATION: Discharge Disposition: Home Discharge Location: Home PATIENT EDUCATION INFORMATION Instructions: Flank Pain, Adult; Hematuria, Adult Follow-Up: With: Address: When: BILLY PEREZ MD DIAGNOSIS: 1:Flank pain; 2:Hematuria; 3:Fever Patient Understands: Comment: Normal [facility] ED Patient Summaryon 023 ED Patient Summary [facility] ? Urgent Care [address] [place] [address] PATIENT DISCHARGE INSTRUCTIONS Patient Information Name: JENNIFER VALENCIA Age: 52 Years Date of : 1970 Reason For Visit: Back pain; HEADACHE, BACK PAIN Arrival Time: 11/21/2022 16:35:06 Primary Care Physician: BILLY PEREZ MD Attending Physician: Radha Milian PA-C Comment: Patient Education With: Address: When: BILLY PEREZ MD Flank Pain, Adult Flank pain is pain that is located on the side of the body between the upper abdomen and the spine. This area is called the flank. The pain may occur over a short period of time (acute), or it may be long-term or recurring (chronic). It may be mild or severe. Flank pain can be caused by many things, including: ? Muscle soreness or injury. ? Kidney infection, kidney stones, or kidney disease. ? Stress. ? A disease of the spine (vertebral disk disease). ? A lung infection (pneumonia). ? Fluid around the lungs (pulmonary edema). ? A skin rash caused by the chickenpox virus (shingles). ? Tumors that affect the back of the abdomen. ? Gallbladder disease. Follow these instructions at home: ? Drink enough fluid to keep your urine pale yellow. ? Rest as told by your health care provider. ? Take vsop-oht-qqcvzth and prescription medicines only as told by your health care provider. ? Keep a journal to track what has caused your flank pain and what has made it feel better. ? Keep all follow-up visits. This is important. Contact a health care provider if: ? Your pain is not controlled with medicine. ? You have new symptoms. ? Your pain gets worse. ? Your symptoms last longer than 2?3 days. ? You have trouble urinating or you are urinating very frequently. Get help right away if: ? You have trouble breathing or you are short of breath. ? Your abdomen hurts or it is swollen or red. ? You have nausea or vomiting. ? You feel faint, or you faint. ? You have blood in your urine. ? You have flank pain and a fever. These symptoms may represent a serious problem that is an emergency. Do not wait to see if the symptoms will go away. Get medical help right away. Call your local emergency services (911 in the [place] Do not drive yourself to the hospital. Summary ? Flank pain is pain that is located on the side of the body between the upper abdomen and the spine. ? The pain may occur over a short period of time (acute), or it may be long-term or recurring (chronic). It may be mild or severe. ? Flank pain can be caused by many things. ? Contact your health care provider if your symptoms get worse or last longer than 2?3 days. This information is not intended to replace advice given to you by your health care provider. Make sure you discuss any questions you have with your health care provider. Document Revised: 04/10/2021 Document Reviewed: 04/10/2021 [employer] Patient Education ? 2022 [employer] Hematuria, Adult Hematuria is blood in the urine. Blood may be visible in the urine, or it may be identified with a test. This condition can be caused by infections of the bladder, urethra, kidney, or prostate. Other possible causes include: ? Kidney stones. ? Cancer of the urinary tract. ? Too much calcium in the urine. ? Conditions that are passed from parent to child (inherited conditions). ? Exercise that requires a lot of energy. Infections can usually be treated with medicine, and a kidney stone usually will pass through your urine. If neither of these is the cause of your hematuria, more tests may be needed to identify the cause of your symptoms. It is very important to tell your health care provider about any blood in your urine, even if it is painless or the blood stops without treatment. Blood in the urine, when it happens and then stops and then happens again, can be a symptom of a very serious condition, including cancer. There is no pain in the initial stages of many urinary cancers. Follow these instructions at home: Medicines ? Take aseg-wak-tvrqpfb and prescription medicines only as told by your health care provider. ? If you were prescribed an antibiotic medicine, take it as told by your health care provider. Do not stop taking the antibiotic even if you start to feel better. Eating and drinking ? Drink enough fluid to keep your urine pale yellow. It is recommended that you drink 3?4 quarts (2.8?3.8 L) a day. If you have been diagnosed with an infection, drinking cranberry juice in addition to large amounts of water is recommended. ? Avoid caffeine, tea, and carbonated beverages. These tend to irritate the bladder. ? Avoid alcohol because it may irritate the prostate (in males). General instructions ? If you have been diagnosed with a kidney stone, follow your health care provider's inst (more content not included)... Normal [facility] Extra Blueon 11-21-2022 Tube Collected Yes Invalid Interpretation Code [facility] Comment on above: Performed By: #### 7 [id number], [id number], [id number] #### [facility] (DEFAULT) [address] [place] [address] Lipaseon 11-21-2022 Lipase Level 36.0 IU/L Normal 22.0-51.0 [facility] Comment on above: Performed By: #### 3 [id number], [id number], [id number] #### [facility] (DEFAULT) [address] [place] [address] POCT Rapid CoV-2 (COVID-19) Antigen/ Flu A&Bon 11-21-2022 Influenza A POCT Negative Normal Negative [facility] Comment on above: Performed By: #### 0 [id number], [id number], [id number] #### [facility] (DEFAULT) [address] [place] [address] Influenza B POCT Negative Normal Negative [facility] Comment on above: Performed By: #### 8 [id number], [id number], [id number] #### [facility] (DEFAULT) [address] [place] [address] SARS-CoV-2 (COVID-19) RNA NA A+probe Ql (Unsp spec) Not detected Normal [facility] Comment on above: Performed By: #### 2 [id number], [id number], [id number] #### [facility] (DEFAULT) [address] [place] [address] 33800 TnI HSon 11-21-2022 Troponin I High Sensitivity 2.3 pg/mL Normal <=15.0 [facility] Comment on above: Performed By: #### 0 [id number], [id number], [id number] #### [facility] (DEFAULT) [address] [place] [address] 56863 UA Hpsmp7er 11-21-2022 UA Bacteria 1+ Normal [facility] Comment on above: Order Comment: Urina lysis Microscopic order added on by Discern Expert Rules system. Performed By: #### 1 [id number], [id number], [id number] ####[facility] (DEFAULT)[address] [place] [address] 66412 UA RBC 3-5 Normal [facility] Comment on above: Order Comment: Urina lysis Microscopic order added on by Discern Expert Rules system. Performed By: #### 1 [id number], [id number], [id number] ####[facility] (DEFAULT)[address] [place] [address] 90047 UA Squam Epi Few [facility] Comment on above: Order Comment: Urina lysis Microscopic order added on by Discern Expert Rules system. Performed By: #### 1 [id number], [id number], [id number] ####[facility] (DEFAULT)[address] [place] [address] 47642 UA WBC 0-2 Normal [facility] Comment on above: Order Comment: Urina lysis Microscopic order added on by Discern Expert Rules system. Performed By: #### 1 [id number], [id number], [id number] ####[facility] (DEFAULT)[address] [place] [address] UA w Culture if Ind Standard on 11-21-2022 Breakpoint UA Normal [facility] Comment on above: Performed By: #### 1 [id number], [id number], [id number] ####[facility] (DEFAULT)[address] [place] [address] Color (U) Yellow Normal [facility] Comment on above: Performed By: #### 1 [id number], [id number], [id number] ####[facility] (DEFAULT)[address] [place] [address] Culture? Indicated Invalid Interpretation Code [facility] Comment on above: Result Comment: Resu lt created by rule GL_MAGR_ADD_UA_CULT Result created by rule GL_MAGR_ADD_UA_CULT Result created by rule GL_MAGR_ADD_UA_CULT1 Result created by rule GL_MAGR_ADD_UA_CULT Performed By: #### 1 [id number], [id number], [id number] ####[facility] (DEFAULT)[address] [place] [address] 92618 Glucose (U) [Mass/Vol] Negative Normal [facility] Comment on above: Performed By: #### 1 [id number], [id number], [id number] ####[facility] (DEFAULT)[address] [place] [address]334 Ketones Ql (U) Negative [facility] Comment on above: Performed By: #### 1 [id number], [id number], [id number] ####[facility] (DEFAULT)[address] [place] [address]92[address] Micro? Indicated Invalid Interpretation Code [facility] Comment on above: Result Comment: Resu lt created by rule GL_MAGR_ADD_UA_MICRO Performed By: #### 1 [id number], [id number], [id number] ####[facility] (DEFAULT)[address] [place] [address] 00343 UA Bilirubin Negative Normal [facility] Comment on above: Performed By: #### 1 [id number], [id number], [id number] ####[facility] (DEFAULT)[address] [place] [address] 28963 UA Blood TRACE Abnormal NEGATIVE [facility] Comment on above: Performed By: #### 1 [id number], [id number], [id number] ####[facility] (DEFAULT)[address] [place] [address] 85630 UA Clarity CLEAR Normal CLEAR [facility] Comment on above: Performed By: #### 1 [id number], [id number], [id number] ####[facility] (DEFAULT)[address] [place] [address] 00927 UA Leuk Est Negative Normal NEGATIVE [facility] Comment on above: Performed By: #### 1 [id number], [id number], [id number] ####[facility] (DEFAULT)[address] [place] [address] 69276 UA Nitrite Negative Normal NEGATIVE [facility] Comment on above: Performed By: #### 1 [id number], [id number], [id number] ####[facility] (DEFAULT)[address] [place] [address] 69165 UA pH 6.0 Normal 5-8 [facility] Comment on above: Performed By: #### 1 [id number], [id number], [id number] ####[facility] (DEFAULT)[address] [place] [address] 98499 UA Protein Negative Normal NEGATIVE [facility] Comment on above: Performed By: #### 1 [id number], [id number], [id number] ####[facility] (DEFAULT)[address] [place] [address] 17020 UA Spec Grav >=1.030 Normal 1.001-1.035 [facility] Comment on above: Performed By: #### 1 [id number], [id number], [id number] ####[facility] (DEFAULT)[address] [place] [address] 96564 UA Urobilinogen 0.2 mg/dL Normal 0.2-1.0 [facility] Comment on above: Performed By: #### 1 [id number], [id number], [id number] ####[facility] (DEFAULT)[address] [place] [address] 45063 Urine Source Clean Catch Normal [facility] Comment on above: Performed By: #### 1 [id number], [id number], [id number] ####[facility] (DEFAULT)[address] [place] [address] QuantiFERON-TB Gold Pluson 0 09-06-2022 QuantiFERON Incubation Incubation performed. Invalid Interpretation Code [facility] Comment on above: Result Comment: Perf ormed At: [facility] [id number] Shameka Vallecillo PhD Ph:[phone] Performed By: #### 3 [id number], [id number], [id number] #### [facility] (DEFAULT) [address] [place] [address]30 QuantiFERON-TB Gold Plus Negative Invalid Interpretation Code Negative [facility] Comment on above: Result Comment: No r esponse to M tuberculosis antigens detected. Infection with M tuberculosis is unlikely, but high risk individuals should be considered for additional testing (ATS/IDSA/CDC Clinical Practice Guidelines, 2017). The reference range is an Antigen minus Nil result of <0.35 IU/mL. Chemiluminescence immunoassay methodology Performed At: [employer] [id number] Shameka Vallecillo PhD Ph:[phone] Performed By: #### 7 [id number], [id number], [id number] #### [facility] (DEFAULT) [address] [place] [address]8733 HBSab Qnt LCon 09-05-2022 Hep B Surf Ab Quant LC >1000.0 Invalid Interpretation Code Immunity>9.9 [facility] Comment on above: Result Comment: Stat us of Immunity Anti-HBs Level Inconsistent with Immunity 0.0 - 9.9 Consistent with Immunity >9.9 Performed At: [address] [id number] Shameka Vallecillo PhD Ph:[phone] Performed By: #### 4 [id number], [id number], [id number] #### [facility] (DEFAULT) [address] [place], [place] [id number] Lab - Toxicology Resultson 0 09-05-2022 Lab - Toxicology Results [id number] Normal [facility] Measles/Mumps/Rubella Immuni ty LCon 09-05-2022 Mumps Abs, IgG LC 167.0 AU/mL Invalid Interp retation Code Immune >10.9 [facility] Comment on above: Result Comment: Nega tive <9.0 Equivocal 9.0 - 10.9 Positive >10.9 A positive result generally indicates past exposure to Mumps virus or previous vaccination. Performed At: [address] [id number] Shameka Vallecillo PhD Ph:[phone] Performed By: #### 3 [id number], [id number], [id number] #### [facility] (DEFAULT) [address] [place] [address] 86553 Rubella Antibodies, IgG LC >33.00 Invalid Interpretation Code Immune >0.99 [facility] Comment on above: Result Comment: Non- immune <0.90 Equivocal 0.90 - 0.99 Immune >0.99 Performed By: #### 0 [id number], [id number], [id number] #### [facility] (DEFAULT) [address] [place] [address]22 Rubeola Ab, IgG, EIA LC 50.2 AU/mL Invalid Interpretation Code Immune >16.4 [facility] Comment on above: Result Comment: Nega tive <13.5 Equivocal 13.5 - 16.4 Positive >16.4 Presence of antibodies to Rubeola is presumptive evidence of immunity except when acute infection is suspected. Performed By: #### 3 [id number], [id number], [id number] #### [facility] (DEFAULT) [address] [place] [address] Nicotine Metabolite, Urine L Con 09-05-2022 Cotinine LC Negative Invalid Interpretation Code Cutoff= 300 [facility] Comment on above: Result Comment: Perf ormed At: [facility] [place] [address] [place], [place] [id number] Xiang Costello PhD Ph:[phone] Performed By: #### 1 [id number] ####[facility] (DEFAULT)[address] [place] [address] 20894 CBC AUTO DIFFon 07-07-2022 BASO # 0.0 103/ul Normal 0.0-0.1 [facility] Comment on above: Performed By: #### C BC ####[facility] [address] [place] [address]Dr. Tacos Bhatt Basophils/100 WBC (Bld) 0.5 % Normal 0.2-2.0 [facility] Comment on above: Performed By: #### C BC ####[facility] [address] [place] [id number]. Tacos Bhatt EO # 0.2 103/ul Normal 0.0-0.7 [facility]ital Comment on above: Performed By: #### C BC ####[facility] [address] [place] [address]DrMarbella Bhatt Eosinophils/100 WBC (Bld) 3.4 % Normal 0.9-7.0 [facility] Comment on above: Performed By: #### C BC ####[facility] [address] [place] [id number]. Tacos Bhatt Erythrocyte distribution wid th (RBC) [Ratio] 15.4 % Critically high 11.0-15.0 [facility] pital Comment on above: Performed By: #### C BC ####[facility] [address] [place] [address]DrMarbella Bhatt Hematocrit (Bld) [Volume fraction] 39.2 % Normal 3 6.0-48.0 [facility] Comment on above: Performed By: #### C BC ####[facility] [address] [place], [place] [address]DrMarbella Bhatt Hemoglobin (Bld) [Mass/Vol] 12.8 g/dL Normal 12.0-16. 0 [facility] Comment on above: Performed By: #### C BC ####[facility] [address] [place], [place] [address]DrMarbella Bhatt IG # 0.03 10e3/ul Normal 0.00-0.03 [facility] Comment on above: Performed By: #### C BC ####[facility] [address] [place], [place] [address]DrMarbella Bhatt IG % 0.5 % Normal 0.0-0.5 The [facility] Comment on above: Performed By: #### C BC ####[facility] [address] [place], [place] [address]DrMarbella Bhatt LYMPH # 2.2 103/ul Normal 1.2-3.8 The [facility] ospital Comment on above: Performed By: #### C BC ####[facility] [address] [place], [place] [address]DrMarbella Bhatt Lymphocytes/100 WBC (Bld) 37.1 % Normal 20.5-60.0 [facility] Comment on above: Performed By: #### C BC ####[facility] [address] [place], [place] [address]DrMarbella Bhatt MANUAL DIFF REQ NO Normal [facility] Comment on above: Performed By: #### C BC ####[facility] [address] [place], [place] [address]DrMarbella Bhatt MCH (RBC) [Entitic mass] 25.9 pg Critically low 26.7-34 .0 [facility] Comment on above: Performed By: #### C BC ####[facility] [address] [place] [address]Dr. Tacos Miller MCHC (RBC) [Mass/Vol] 32.7 g/dL Normal 29.9-35.2 [facility] Comment on above: Performed By: #### C BC ####[facility] [address] [place], [place] [address]Dr. Tacos Bhatt MCV (RBC) [Entitic vol] 79.4 fL Critically low 81.0-99. 0 [facility] Comment on above: Performed By: #### C BC ####[facility] [address] [place], [place] [address]DrMarbella Bhatt MONO # 0.5 103/ul Normal 0.3-0.8 The [facility] Comment on above: Performed By: #### C BC ####[facility] [address] [place], [place] [address]Dr. Tacos Bahtt Monocytes/100 WBC (Bld) 8.3 % Normal 1.7-12.0 [facility] Comment on above: Performed By: #### C BC ####[facility] [address] [place], [place] [address]DrMarbella Bhatt NEUT # 3.0 103/ul Normal 1.4-6.5 The [facility] Comment on above: Performed By: #### C BC ####[facility] [address] [place], [place] [address]DrMarbella Bhatt Neutrophils/100 WBC (Bld) 50.2 % Normal 43.0-75.0 [facility] Comment on above: Performed By: #### C BC ####[facility] [address] [place], [place] [address]DrMarbella Bhatt Platelet mean volume (Bld) [Entitic vol] 9.2 fL Critically low 9.5-13.5 [facility] pital Comment on above: Performed By: #### C BC ####[facility] [address] [place] [id number]. Tacos Bhatt PLT 238 103/ul Normal 150-450 [facility] Comment on above: Performed By: #### C BC ####[facility] [address] [place] [address]Dr. Tacos Bhatt RBC 4.94 106/ul Normal 4.20-5.40 [facility] Comment on above: Performed By: #### C BC ####[facility] [address] [place] [id number]. Tacos Bhatt WBC 5.9 103/ul Normal 4.0-11.0 [facility] Comment on above: Performed By: #### C BC ####[facility] [address] [place] [address]Dr. Tacos Bhatt CRPon 07-07-2022 CRP [Mass/Vol] mg/L Normal <=1.0 [facility] Comment on above: Performed By: #### B MP, CRP #### [facility] [address] [place] [address] Dr. Tacos Bhatt PROF CHEM 8 (BAS METB)on Anion gap [Moles/Vol] 11.5 mmol/L Normal [facility] Comment on above: Performed By: #### B MP, CRP #### [facility] [facility] [address] [place] [address] Dr. Tacos Bhatt Calcium [Mass/Vol] 8.9 mg/dL Normal 8.5-10.[address] [facility] Comment on above: Performed By: #### B MP, CRP #### [facility] [address] [address] [address] Tacos Bhatt Chloride [Moles/Vol] 105 mmol/L Normal 98-107 [facility] Comment on above: Performed By: #### B MP, CRP #### [facility] [address] [place] [address] Dr. Tacos Bhatt CO2 [Moles/Vol] 29.3 mmol/L Normal 21.0-32.0 [facility] Comment on above: Performed By: #### B MP, CRP #### [facility] [address] [address] [address] Tacos Bhatt Creatinine [Mass/Vol] 0.71 mg/dL Normal 0.55-1.02 [facility] Comment on above: Performed By: #### B MP, CRP #### [facility] [address] [address] [address] Tacos Bhatt EGFR-AF [place] >60 Normal >=60 The [facility] Comment on above: Performed By: #### B MP, CRP #### [facility] [address] [address] [address] Tacos Bhatt EGFR-NON AF [place] >60 Normal >=60 [facility] Comment on above: Performed By: #### B MP, CRP #### [facility] [address] [place] [address] Dr. Tacos Bhatt Glucose [Mass/Vol] 95 mg/dL Normal 74-106 [facility] Comment on above: Performed By: #### B MP, CRP #### [facility] [address] [place] [address] Dr. Tacos Bhatt Potassium [Moles/Vol] 3.8 mmol/L Normal 3.5-5.1 [facility] Comment on above: Performed By: #### B MP, CRP #### [facility] [address] [address] [address] Tacos Bhatt Sodium [Moles/Vol] 142 mmol/L Normal 136-145 [facility] Comment on above: Performed By: #### B MP, CRP #### [facility] [address] [place] [address] Dr. Tacos Bhatt Urea nitrogen [Mass/Vol] 11.0 mg/dL Normal 7.0-18.0 [facility] Comment on above: Performed By: #### B MP, CRP #### [facility] [address] [place] [address] Dr. Tacos Bhatt Urea nitrogen/Creatinine [Mass ratio] 15.5 mg/mg Normal [facility] Comment on above: Performed By: #### B MP, CRP #### [facility] [address] [place] [address] Dr. Tacos Bhatt SED RATE WESTERGRENon 2022 SED RATE 6 mm/hr Normal <=20 The [facility] Comment on above: Performed By: #### S EDR #### [facility] [address] [place] [address] Dr. Tacos Bhatt XR CHEST 2 Von 04-03-2022 XR CHEST 2 V EXAM: Chest x-ray HISTORY: . Pain . COMPARISON: 08/06/2021 TECHNIQUE: Frontal and lateral chest FINDINGS: Heart and vascularity are unremarkable. Lungs are expanded and free of focal infiltrates. No pneumothorax is identified. Grossly no bony abnormality is appreciated. IMPRESSION: No acute heart or lung disease identified. Electronically authenticated by: ENRIQUETA SONG Date: 2022-04-03 09:37 Normal The [facility] CBC AUTO DIFFon 08-07-2021 BASO # 0.1 103/ul Normal 0.0-0.1 [facility] Comment on above: Performed By: #### C BC #### [facility] [address] [place] [address] Dr. Tacos Bhatt Basophils/100 WBC (Bld) 0.9 % Normal 0.2-2.0 [facility] Comment on above: Performed By: #### C BC #### [facility] [address] [place] [address] Dr. Tacos Bhatt EO # 0.2 103/ul Normal 0.0-0.7 [facility] Comment on above: Performed By: #### C BC #### [facility] [address] [place] [address] Dr. Tacos Bhatt Eosinophils/100 WBC (Bld) 2.1 % Normal 0.9-7.0 [facility] Comment on above: Performed By: #### C BC #### [facility] [address] [place] [address] Dr. Tacos Bhatt Erythrocyte distribution wid th (RBC) [Ratio] 14.6 % Normal 11.0-15.0 [facility] Comment on above: Performed By: #### C BC #### [facility] [address] [address] [address] Tacos Bhatt Hematocrit (Bld) [Volume fraction] 41.5 % Normal 3 6.0-48.0 [facility] Comment on above: Performed By: #### C BC #### [facility] [address] [address] [address] Tacos Bhatt Hemoglobin (Bld) [Mass/Vol] 13.5 g/dL Normal 12.0-16. 0 [facility] Comment on above: Performed By: #### C BC #### [facility] [address] [address] [address] Tacos Bhatt IG # 0.08 10e3/ul Critically high 0.00-0.03 [facility] Comment on above: Performed By: #### C BC #### [facility] [address] [place] [address] Dr. Tacos Bhatt IG % 0.9 % Critically high 0.0-0.5 [facility] Comment on above: Performed By: #### C BC #### [facility] [address] [address] [address] Tacos Bhatt LYMPH # 3.4 103/ul Normal 1.2-3.8 [facility] Comment on above: Performed By: #### C BC #### [facility] [address] [place] [address] Dr. Tacos Bhatt Lymphocytes/100 WBC (Bld) 37.0 % Normal 20.5-60.0 [facility] Comment on above: Performed By: #### C BC #### [facility] [address] [place] [address] Dr. Tacos Bhatt MANUAL DIFF REQ NO Normal [facility] Comment on above: Performed By: #### C BC #### [facility] [address] [place] [address] Dr. Tacos Bhatt MCH (RBC) [Entitic mass] 25.7 pg Critically low 26.7-[address] [facility] Comment on above: Performed By: #### C BC #### [facility] [address] [place], [place] [id number] Dr. Tacos Bhatt MCHC (RBC) [Mass/Vol] 32.5 g/dL Normal 29.9-35.2 [facility] Comment on above: Performed By: #### C BC #### [facility] [address] [place] [address] Dr. Tacos Bhatt MCV (RBC) [Entitic vol] 79.0 fL Critically low 81.0-99. 0 [facility] Comment on above: Performed By: #### C BC #### [facility] [address] [place] [address] Dr. Tacso Bhatt MONO # 0.7 103/ul Normal 0.3-0.8 [facility] Comment on above: Performed By: #### C BC #### [facility] [address] [place] [address] Dr. Tacos Bhatt Monocytes/100 WBC (Bld) 7.3 % Normal 1.7-12.0 [facility] Comment on above: Performed By: #### C BC #### [facility] [address] [place] [address] Dr. Tacos Bhatt NEUT # 4.7 103/ul Normal 1.4-6.5 [facility] Comment on above: Performed By: #### C BC #### [facility] [address] [place] [address] Dr. Tacos Bhatt Neutrophils/100 WBC (Bld) 51.8 % Normal 43.0-75.0 [facility] Comment on above: Performed By: #### C BC #### [facility] [address] [place] [address] Dr. Tacos Bhatt Platelet mean volume (Bld) [Entitic vol] 9.5 fL Normal 9.5-13.5 [facility] Comment on above: Performed By: #### C BC #### [facility] [address] [place] [address] Dr. Tacos Bhatt PLT 236 103/ul Normal 150-450 The [facility] Comment on above: Performed By: #### C BC #### [facility] [address] [address] [address] Tacos Bhatt RBC 5.25 106/ul Normal 4.20-5.40 [facility] Comment on above: Performed By: #### C BC #### [facility] [address] [address] [address] Tacos Bhatt WBC 9.1 103/ul Normal 4.0-11.0 The [facility] Comment on above: Performed By: #### C BC #### [facility] [address] [address] [address] Tacos Bhatt Covid-19 PCR (CVDTBH)on 07-13 SARS-CoV-2 (COVID-19) RNA CARSON+probe Ql (Unsp spec) Not detected Normal NOT DETECTED The [facility] Comment on above: Result Comment: When diagnostic testing is negative, the possibility of a false negative should be considered in the context of a patient's recent exposures and the presence of clinical signs and symptoms consistent with SARS-CoV-2. This test is not yet approved or cleared by the [place] FDA. When there are no FDA-approved or cleared tests available, and other criteria are met, FDA can make tests available under an emergency access mechanism called an Emergency Use Authorization (EUA). The EUA for this test is supported by the [place] of Health and Human Service's declaration that circumstances exist to justify the emergency use of in vitro diagnostics for the detection and/or diagnosis of the virus that causes COVID-19. This EUA will remain in effect for the duration of the COVID-19 declaration justifying emergency of IVDs, unless it is terminated or revoked by the FDA (after which the test may no longer be used). Performed By: #### C VDTBH #### [facility] [address] [address] [address] Tacos Bhatt D-DIMERon 08-07-2021 D-DIMER 0.48 mg/L FEU Normal <=0.59 [facility] Comment on above: Performed By: #### D DIM #### [facility] [address] [address] [address] Tacos Bhatt D-DIMER COMMENTS SEE BELOW Normal [facility] Comment on above: Result Comment: Incr eases in D-Dimer concentration observed with thromboembolic events can be variable due to localization, size, and age of the thrombus. Therefore, a thromboembolic event cannot be diagnosed with certainty on the basis of the reference range. D-Dimers may also be elevated for a variety of disorders including: advanced age, , coronary disease, cancer, liver disease, infection, inflammation, hematoma, DIC, trauma, post-surgery, diabetes, thrombolytic or anticoagulant therapy, stress, and generalized hospitalization. Performed By: #### D DIM #### [facility] [address] [address] [address] Tacos Bhatt ER URINE PROFILEon 2 Bilirubin Ql (U) Negative Normal NEGATIVE [facility] Comment on above: Performed By: #### E RUR ####[facility] [address] [address]Dr. Tacos Bhatt Clarity (U) CLEAR Normal CLEAR The [facility] Comment on above: Performed By: #### E RUR ####[facility] [address] [address]Dr. Tacos Bhatt Color (U) YELLOW Normal YELLOW The [facility] Comment on above: Performed By: #### E RUR ####[facility] [address] [address]DrMarbella RODRIGEZD A micrscopic examina tion will be performed if indicated. Normal The [facility] Comment on above: Performed By: #### E RUR ####[facility] [address] [address]Dr. Tacos Bhatt Glucose Ql (U) Negative Normal NEGATIVE The [facility] Comment on above: Performed By: #### E RUR ####[facility] [address] [address]Dr. Tacos Bhatt Hemoglobin Ql (U) Negative Normal NEGATIVE The [facility] Comment on above: Performed By: #### E RUR ####[facility] [address] [address]Dr. Tacos Bhatt Ketones Ql (U) Negative Normal NEGATIVE The [facility] Comment on above: Performed By: #### E RUR ####[facility] [address] [address]Dr. Tacos Bhatt LEUKOCYTES Negative Normal NEGATIVE The [facility] Comment on above: Performed By: #### E RUR ####[facility] [address] [address]Dr. Tacos Bhatt Nitrite Ql (U) Negative Normal NEGATIVE The [facility] Comment on above: Performed By: #### E RUR ####[facility] [address] [place], [place] [address]Dr. Tacos Miller pH (U) 6.0 [pH] Normal 5-9 [facility] Comment on above: Performed By: #### E RUR ####[facility] [address] [place], [place] [address]Dr. Tacos Bhatt SPEC GRAVITY 1.025 Normal 1.005-<=1.025 [facility] Comment on above: Performed By: #### E RUR ####[facility] [address] [place], [place] [address]Dr. Tacos Bhatt UA PROTEIN Negative Normal NEGATIVE/ TRACE [facility] Comment on above: Performed By: #### E RUR ####[facility] [address] [place], [place] [address]Dr. Ekaterinamohsen Bhatt UR MICRO IND NOT INDICATED Normal [facility] Comment on above: Performed By: #### E RUR ####[facility] [address] [place], [place] [address]Dr. Tacos Bhatt Urobilinogen Qn (U) 0.2 {Robbie'U}/dL Normal 0.2 - 1. 0 [facility] Comment on above: Performed By: #### E RUR ####[facility] [address] [place], [place] [address]Dr. Tacos Bhatt PROF 14(COMP METB)on 022 Albumin [Mass/Vol] 3.5 g/dL Normal 3.4-5.[address] [facility] Comment on above: Performed By: #### C MP, HSTROPN ####[facility] [address] [address]Dr. Tacos Bhatt Albumin/Globulin [Mass ratio] 1.1 {ratio} Normal [facility] Comment on above: Performed By: #### C JENNIFER, HSTROPN ####[facility] [address] [address]Dr. Tacos Bhatt ALP [Catalytic activity/Vol] 104 U/L Normal 46-116 [facility] Comment on above: Performed By: #### C JENNIFER, HSTROPN ####[facility] [address] [address]Dr. Tacos Bhatt ALT [Catalytic activity/Vol] 190 U/L Critically high 14 -59 [facility] Comment on above: Performed By: #### C JENNIFER, HSTROPN ####[facility] [address] [address]Dr. Tacos Bhatt Anion gap [Moles/Vol] 12.7 mmol/L Normal [facility] Comment on above: Performed By: #### C JENNIFER, HSTROPN ####[facility] [address] [place], [place] [address]Dr. Tacos Bhatt AST [Catalytic activity/Vol] 83 U/L Critically high 15 -37 [facility] Comment on above: Performed By: #### C JENNIFER, HSTROPN ####[facility] [address] [place], [place] [address]Dr. Tacos Bhatt Bilirubin [Mass/Vol] 0.7 mg/dL Normal 0.2-1.0 [facility] Comment on above: Performed By: #### C JENNIFER, HSTROPN ####[facility] [address] [address]Dr. Tacos Bhatt Calcium [Mass/Vol] 8.9 mg/dL Normal 8.5-10.[address] [facility] Comment on above: Performed By: #### C JENNIFER, HSTROPN ####[facility] [address] [address]Dr. Tacos Bhatt Chloride [Moles/Vol] 103 mmol/L Normal 98-107 [facility] Comment on above: Performed By: #### C JENNIFER, HSTROPN ####[facility] [address] [address]Dr. Tacos Miller CO2 [Moles/Vol] 26.1 mmol/L Normal 21.0-32.0 [facility] Comment on above: Performed By: #### C JENNIFER, HSTROPN ####[facility] [address] [place], [place] [address]Dr. Ekaterinamohsen Bhatt Creatinine [Mass/Vol] 0.66 mg/dL Normal 0.55-1.02 [facility] Comment on above: Performed By: #### C JENNIFER, HSTROPN ####[facility] [address] [place], [place] [address]Dr. Tacos Miller EGFR-AF [place] >60 Normal >=60 [facility] Comment on above: Performed By: #### C JENNIFER, HSTROPN ####[facility] [address] [place], [place] [address]Dr. Tacos Miller EGFR-NON AF [place] >60 Normal >=60 [facility] Comment on above: Performed By: #### C JENNIFER, HSTROPN ####[facility] [address] [place], [place] [address]Dr. Tacos Miller Globulin (S) [Mass/Vol] 3.3 g/dL Normal [facility] Comment on above: Performed By: #### C JENNIFER, HSTROPN ####[facility] [address] [address]Dr. Ekaterinamohsen Bhatt Glucose [Mass/Vol] 93 mg/dL Normal 74-[address] [facility] Comment on above: Performed By: #### C JENNIFER, HSTROPN ####[facility] [address] [place], [place] [address]Dr. Tacos Bhatt Potassium [Moles/Vol] 3.8 mmol/L Normal 3.5-5.1 [facility] Comment on above: Performed By: #### C JENNIFER, HSTROPN ####[facility] [address] [id number][address] Tacos Bhatt Protein [Mass/Vol] 6.8 g/dL Normal 6.4-8.2 [facility] Comment on above: Performed By: #### C JENNIFER, HSTROPN ####[facility] [address] [id number]. Tacos Bhatt Sodium [Moles/Vol] 138 mmol/L Normal 136-145 [facility] Comment on above: Performed By: #### C JENNIFER, HSTROPN ####[facility] [address] [id number]. Tacos Bhatt Urea nitrogen [Mass/Vol] 14.0 mg/dL Normal 7.0-18.0 [facility] Comment on above: Performed By: #### C JENNIFER, HSTROPN ####[facility] [address] [address]Dr. Tacos Bhatt Urea nitrogen/Creatinine [Mass ratio] 21.2 mg/mg Normal [facility] Comment on above: Performed By: #### C EJNNIFER, HSTROPN ####[facility] [address] [id number]. Tacos Bhatt TROPONIN, HIGH SENSITIVITYon 08-07-2021 HSTROP 4.6 pg/mL Normal 4.0-51.3 [facility] Comment on above: Result Comment: CUT- OFF POINTS HAVE BEEN ESTABLISHED BASED ON THE FOURTH UNIVERSAL DEFINITIONS OF MYOCARDIAL INFARCTION. THE UPPER REFERENCE LIMIT (URL) OF TROPONIN, DEFINED THE 99TH PERCENTILE OF cTnI DISTRIBUTION IN A REFERENCE POPULATION, HAS BEEN CONFIRMED THE DECISION THRESHOLD FOR IN DIAGNOSIS. Performed By: #### C JENNIFER, HSTROPN #### [facility] [address] [address] [address] Tacos Bhatt XR CHEST 1 Von 08-07-2021 XR CHEST 1 V XR CHEST 1 V 08/06/2021 11:26 PM EDT Indication: SHORTNESS OF BREATH Technique: Portable AP radiograph of the chest was obtained. Comparison: November 22, 2020 Findings: The lungs are adequately inflated. No acute rib fractures, pneumothorax or mediastinal shift. No consolidation, edema, or effusion. Heart is normal in size and contour. Impression: No acute findings. Electronically authenticated by: SMITA IDRIS Date: 2021-08-07 01:26 Normal The [facility] CT CHEST WO CONTRASTon 10-28 CT CHEST WO CONTRAST EXAMINATION: CT OF THE CHEST WITHOUT CONTRAST 10/27/2019 10:13 am TECHNIQUE: CT of the chest was performed without the administration of intravenous contrast. Multiplanar reformatted images are provided for review. Dose modulation, iterative reconstruction, and/or weight based adjustment of the mA/kV was utilized to reduce the radiation dose to as low as reasonably achievable. COMPARISON: Prior outside CT examination of the abdomen pelvis 07/20/2019 HISTORY: ORDERING SYSTEM PROVIDED HISTORY: Pulmonary nodule TECHNOLOGIST PROVIDED HISTORY: Pulm nodule noted on recnt ct abd FINDINGS: Mediastinum: No evidence of mediastinal lymphadenopathy. Normal heart size. Normal caliber thoracic aorta. Mildly dilated central pulmonary trunk. Lungs/pleura: Slight thickening along the junction of the major and minor fissures posterolaterally. No focal consolidation or pulmonary edema. No evidence of pleural effusion or pneumothorax. Stable 8 mm right basilar nodule in the lateral right middle lobe. Stable 5 mm perifissural nodule along the right hemidiaphragm border in the right middle lobe. 4 mm juxtapleural anterolateral right middle lobe nodule. Upper Abdomen: Limited images of the upper abdomen are unremarkable. Soft Tissues/Bones: No significant osseous or soft tissue abnormality. IMPRESSION: Multiple right middle lobe nodules as detailed above largest measuring 8 mm along the lateral right lung base which is stable compared to prior outside CT examination. Given 3 month stability, recommend follow-up examination in 12-18 months to reassess per guidelines below. RECOMMENDATIONS: Multiple pulmonary nodules. Most severe: 8.0 mm solid pulmonary nodule. Recommend a non-contrast Chest CT at 3-6 months, then consider another non-contrast Chest CT at 18-24 months. These guidelines do not apply to immunocompromised patients and patients with cancer. Follow up in patients with significant comorbidities as clinically warranted. For lung cancer screening, adhere to Lung-RADS guidelines. Reference: Radiology. 2017; 284(1):228-43. Interpreted by: Guy Christensen MD Signed by: Guy Christensen MD 10/29/19 Final result Normal [facility] l Multiple right middl e lobe nodules as detailed above largest measuring 8 mm along the lateral right lung base which is stable compared to prior outside CT examination. Given 3 month stability, recommend follow-up examination in 12-18 months to reassess per guidelines below. RECOMMENDATIONS: Multiple pulmonary nodules. Most severe: 8.0 mm solid pulmonary nodule. Recommend a non-contrast Chest CT at 3-6 months, then consider another non-contrast Chest CT at 18-24 months. These guidelines do not apply to immunocompromised patients and patients with cancer. Follow up in patients with significant comorbidities as clinically warranted. For lung cancer screening, adhere to Lung-RADS guidelines. Reference: Radiology. 2017; 284(1):228-43. [employer] EXAMINATION: CT OF T HE CHEST WITHOUT CONTRAST 10/27/2019 10:13 am TECHNIQUE: CT of the chest was performed without the administration of intravenous contrast. Multiplanar reformatted images are provided for review. Dose modulation, iterative reconstruction, and/or weight based adjustment of the mA/kV was utilized to reduce the radiation dose to as low as reasonably achievable. COMPARISON: Prior outside CT examination of the abdomen pelvis 07/20/2019 HISTORY: ORDERING SYSTEM PROVIDED HISTORY: Pulmonary nodule TECHNOLOGIST PROVIDED HISTORY: Pulm nodule noted on recnt ct abd FINDINGS: Mediastinum: No evidence of mediastinal lymphadenopathy. Normal heart size. Normal caliber thoracic aorta. Mildly dilated central pulmonary trunk. Lungs/pleura: Slight thickening along the junction of the major and minor fissures posterolaterally. No focal consolidation or pulmonary edema. No evidence of pleural effusion or pneumothorax. Stable 8 mm right basilar nodule in the lateral right middle lobe. Stable 5 mm perifissural nodule along the right hemidiaphragm border in the right middle lobe. 4 mm juxtapleural anterolateral right middle lobe nodule. Upper Abdomen: Limited images of the upper abdomen are unremarkable. Soft Tissues/Bones: No significant osseous or soft tissue abnormality. Tongxue Choco, Mhpn Incoming R adiant Results From [employer] - 10/29/2019 1:52 PM EDT EXAMINATION: CT OF THE CHEST WITHOUT CONTRAST 10/27/2019 10:13 am TECHNIQUE: CT of the chest was performed without the administration of intravenous contrast. Multiplanar reformatted images are provided for review. Dose modulation, iterative reconstruction, and/or weight based adjustment of the mA/kV was utilized to reduce the radiation dose to as low as reasonably achievable. COMPARISON: Prior outside CT examination of the abdomen pelvis 07/20/2019 HISTORY: ORDERING SYSTEM PROVIDED HISTORY: Pulmonary nodule TECHNOLOGIST PROVIDED HISTORY: Pulm nodule noted on recnt ct abd FINDINGS: Mediastinum: No evidence of mediastinal lymphadenopathy. Normal heart size. Normal caliber thoracic aorta. Mildly dilated central pulmonary trunk. Lungs/pleura: Slight thickening along the junction of the major and minor fissures posterolaterally. No focal consolidation or pulmonary edema. No evidence of pleural effusion or pneumothorax. Stable 8 mm right basilar nodule in the lateral right middle lobe. Stable 5 mm perifissural nodule along the right hemidiaphragm border in the right middle lobe. 4 mm juxtapleural anterolateral right middle lobe nodule. Upper Abdomen: Limited images of the upper abdomen are unremarkable. Soft Tissues/Bones: No significant osseous or soft tissue abnormality. IMPRESSION: Multiple right middle lobe nodules as detailed above largest measuring 8 mm along the lateral right lung base which is stable compared to prior outside CT examination. Given 3 month stability, recommend follow-up examination in 12-18 months to reassess per guidelines below. RECOMMENDATIONS: Multiple pulmonary nodules. Most severe: 8.0 mm solid pulmonary nodule. Recommend a non-contrast Chest CT at 3-6 months, then consider another non-contrast Chest CT at 18-24 months. These guidelines do not apply to immunocompromised patients and patients with cancer. Follow up in patients with significant comorbidities as clinically warranted. For lung cancer screening, adhere to Lung-RADS guidelines. Reference: Radiology. 2017; 284(1):228-43. [place], [place] Encounters Encounter Date Encounter Type Care Provider Facility Start: 01-10-2023 End: 01-11-2023 ambulatory Rashid Arriaga Facility:[facility] Start: 11-21-2022 End: 11-22-2022 Emergency department patient visit Juanito Maciel Facility:[facility] Start: 11-21-2022 End: 11-21-2022 ambulatory BILLY Campa ANA Facility:[facility] Start: 09-04-2022 End: 09-05-2022 ambulatory BILLY Campa ANA Facility:[facility] Start: 07-07-2022 End: 07-08-2022 ambulatory RENEA CUMMINGS Facility:[facility] Start: 04-03-2022 End: 02-21-2023 ambulatory ALIA ELLIS Facility:[facility] Start: 01-15-2022 End: 05-16-2022 ambulatory Tanna Start: 08-07-2021 End: 08-07-[address] BILLY PEREZ Facility:[facility] Start: 10-27-2019 End: 10-30-2019 Patient encounter procedure OLAMIDE IBRAHIM [facility] Start: 10-27-2019 End: 10-29-2019 Subsequent hospital visit by physician [facility] Cat Scan Room [facility] CT Scan Comment on above: Pulmonary nodule Procedures Date Procedure Procedure Detail Performing Clinician Start: 10-27-2019 Ct thorax w/o contra st material OLAMIDE IBRAHIM Start: 10-27-2019 Ct thorax w/o contra st material Olamidejules Wheatleyi Work Phone: Plan of Treatment Date Care Activity Detail Author Start: 08-09-2022 Screening for malign ant neoplasm of cervix Cervical cancer screen [place], [place] Start: 11-09-2019 End: 11-09-2019 Office Visit 11/09/2019 Office Visit Pulmonology Olamide Ibrahim MD [address] [place] [address] [phone] [facility] Start: 10-13-2019 Influenza vaccination Flu vaccine (# 1) [place], [place] Start: 2012 Lipid panel Lipid screen [place], [place] Start: 07-25-1991 DTaP/Tdap/Td vaccine (1 - Tdap) DTaP/Tdap/Td vaccine (1 - Tdap) [place], [place] Payers Date Payer Category Payer Unknown [id number] 1972 Unknown [id number] [id number] 1972 Unknown [id number] [id number] [id number] 1972 Unknown [id number] [id number] [id number] 1972 Unknown [id number] 2.16.8 [id number] 1972 Unknown [id number] 2.16.8 [id number] 1972 Unknown [id number] 2.16.8 [id number] 1959 Unknown [id number] 1957 Unknown [id number] Social History Date Type Detail Facility Start: 10-05-2019 Tobacco smoking stat [facility] Former smoker [place], [place] End: 10-07-1993 History of tobacco use Current [place] End: 10-07-1993 History of tobacco use Cigarette Smoker [place] Start: 10-05-2019 Cigarettes smoked current (pack per day) - Reported [place] Start: 10-05-2019 Tobacco use and exposure Never used [place] Start: 10-05-2019 Alcohol intake Current drinke r of alcohol (finding) [place] Start: 07-03-2019 History SDOH Financial 5 [place] Start: 07-03-2019 History SDOH Food Worry 1 [place] Start: 07-03-2019 History SDOH Transpo rt Med 2 [place] Start: 10-07-2013 Alcohol Comment socially [facility] [place], [place] Sex Assigned At Not on file [place] Exposure to SARS-CoV -2 (event) Not sure [place] Clinical Note 01-11-2023 Note Date & Type Note Facility 01-11-2023 Note Education Materials Gastroenterology Cholelithiasis Cholelithiasis is a disease in which gallstones form in the gallbladder. The gallbladder is an organ that stores bile. Bile is a fluid that helps to digest fats. Gallstones begin as small crystals and can slowly grow into stones. They may cause no symptoms until they block the gallbladder duct, or cystic duct, when the gallbladder tightens (contracts) after food is eaten. This can cause pain and is known as a gallbladder attack, or biliary colic. There are two main types of gallstones: ? Cholesterol stones. These are the most common type of gallstone. These stones are made of hardened cholesterol and are usually yellow-green in color. Cholesterol is a fat-like substance that is made in the liver. ? Pigment stones. These are dark in color and are made of a red-yellow substance, called bilirubin,that forms when hemoglobin from red blood cells breaks down. What are the causes? This condition may be caused by an imbalance in the different parts that make bile. This can happen if the bile: ? Has too much bilirubin. This can happen in certain blood diseases, such as sickle cell anemia. ? Has too much cholesterol. ? Does not have enough bile salts. These salts help the body absorb and digest fats. In some cases, this condition can also be caused by the gallbladder not emptying completely or often enough. This is common during . What increases the risk? The following factors may make you more likely to develop this condition: ? Being female. ? Having multiple pregnancies. Health care providers sometimes advise removing diseased gallbladders before future pregnancies. ? Eating a diet that is heavy in fried foods, fat, and refined carbohydrates, such as white bread and white rice. ? Being obese. ? Being older than age 40. ? Using medicines that contain female hormones (estrogen) for a long time. ? Losing weight quickly. ? Having a family history of gallstones. ? Having certain medical problems, such as: ? Diabetes mellitus. ? Cystic fibrosis. ? Crohn's disease. ? Cirrhosis or other long-term (chronic) liver disease. ? Certain blood diseases, such as sickle cell anemia or leukemia. What are the signs or symptoms? In many cases, having gallstones causes no symptoms. When you have gallstones but do not have symptoms, you have silent gallstones. If a gallstone blocks your bile duct, it can cause a gallbladder attack. The main symptom of a gallbladder attack is sudden pain in the upper right part of the abdomen. The pain: ? Usually comes at night or after eating. ? Can last for one hour or more. ? Can spread to your right shoulder, back, or chest. ? Can feel like indigestion. This is discomfort, burning, or fullness in your upper abdomen. If the bile duct is blocked for more than a few hours, it can cause an infection or inflammation of your gallbladder (cholecystitis), liver, or pancreas. This can cause: ? Nausea or vomiting. ? Bloating. ? Pain in your abdomen that lasts for 5 hours or longer. ? Tenderness in your upper abdomen, often in the upper right section and under your rib cage. ? Fever or chills. ? Skin or the white parts of your eyes turning yellow (jaundice). This usually happens when a stone has blocked bile from passing through the common bile duct. ? Dark urine or light-colored stools. How is this diagnosed? This condition may be diagnosed based on: ? A physical exam. ? Your medical history. ? Ultrasound. ? CT scan. ? MRI. You may also have other tests, including: ? Blood tests to check for signs of an infection or inflammation. ? Cholescintigraphy, or HIDA scan. This is a scan of your gallbladder and bile ducts (biliary system) using non-harmful radioactive material and special cameras that can see the radioactive material. ? Endoscopic retrograde cholangiopancreatogram. This involves inserting a small tube with a camera on the end (endoscope) through your mouth to look at bile ducts and check for blockages. How is this treated? Treatment for this condition depends on the severity of the condition. Silent gallstones do not need treatment. Treatment may be needed if a blockage causes a gallbladder attack or other symptoms. Treatment may include: ? Home care, if symptoms are not severe. ? During a simple gallbladder attack, stop eating and drinking for 12?24 hours (except for water and clear liquids). This helps to cool down your gallbladder. After 1 or 2 days, you can start to eat a diet of simple or clear foods, such as broths and crackers. ? You may also need medicines for pain or nausea or both. ? If you have cholecystitis and an infection, you will need antibiotics. ? A hospital stay, if needed for pain control or for cholecystitis with severe infection. ? Cholecystectomy, or surgery to remove your gallbladder. This is the most common treatment if all other treatments have not worked. (more content not included)... [facility] Clinical Note 01-11-2023 Note Date & Type Note Facility 01-11-[address] Clinical Discharge Summary PERSON INFORMATION Name JENNIFER VALENCIA Age 52 Years 1970 Sex FEMALE Language Citizen Of [place] PCP BILLY PEREZ MD Marital Status Med Service Observation Acct# Arrival 01/10/2023 09:49:38 Visit Reason Chest pain; CHEST PAIN Acuity LOS 000 23:15 Address: [address] [place] [address] Comment: PROVIDER INFORMATION VITALS INFORMATION Vital Sign Triage Latest Temp Oral 36.7 DegC 36.6 DegC Temp Temporal Temp Intravascular Temp Axillary Temp Rectal 02 Sat 99 % 97 % Respiratory Rate 24 br/min 20 br/min Peripheral Pulse Rate 96 bpm 67 bpm Apical Heart Rate Blood Pressure 120 mmHg / 100 mmHg 119 mmHg / 84 mmHg Comment: MEDICAL INFORMATION Allergy Info: Strawberries; bacitracin Medication List: New Medications [facility], [address] [place] [phone], [phone] ibuprofen (ibuprofen 600 mg oral tablet) 1 tab(s) Oral (given by mouth) Every 8 hours as needed as needed for pain for 10 Days. Refills: 0. Comment: Lab and Radiology Results Laboratory or Other Results This Visit (last charted value for your 01/10/2023 visit) Hematology 01/11/2023 5:30 AM Hct: 36.8 % -- Normal range between ( 33.7 and 40.4 ) Hgb: 12.4 gm/dL -- Normal range between ( 11.3 and 15.9 ) MCH: 26 pg -- Normal range between ( 24 and 34 ) MCHC: 34 gm/dL -- Normal range between ( 26 and 37 ) MCV: 77 fL -- Normal range between ( 81 and 100 ) MPV: 7.7 fL -- Normal range between ( 6.3 and 10.2 ) Platelet: 195 x103/mcL -- Normal range between ( 138 and 427 ) RBC: 4.81 x106/mcL -- Normal range between ( 3.70 and 5.30 ) RDW: 16.5 % -- Normal range between ( 11.5 and 15.0 ) WBC: 4.7 x103/mcL -- Normal range between ( 3.5 and 10.5 ) Auto Eos %: 3.3 % -- Normal range between ( 0.9 and 4.0 ) Auto Lymph %: 28 % -- Normal range between ( 14 and 48 ) Auto Neut %: 61 % -- Normal range between ( 44 and 88 ) Eos Abs#: 0.2 x103/mcL -- Normal range between ( 0.0 and 0.4 ) Lymph Abs#: 1.4 x103/mcL -- Normal range between ( 1.3 and 2.9 ) Armstrong Abs#: 0.3 x103/mcL -- Normal range between ( 0.0 and 0.8 ) Auto Baso %: 0.7 % -- Normal range between ( 0.2 and 2.0 ) Auto Armstrong %: 7 % -- Normal range between ( 1 and 12 ) Baso Abs#: 0.0 x103/mcL -- Normal range between ( 0.0 and 0.2 ) Neut Abs#: 2.9 x103/mcL -- Normal range between ( 1.5 and 9.2 ) Coagulation 01/10/2023 10:00 AM D-Dimer: 0.40 mg/L FEU -- Normal range between ( 0.19 and 0.50 ) INR: 1.04 -- Normal range between ( 0.91 and 1.11 ) PT: 10.8 second(s) -- Normal range between ( 9.7 and 11.8 ) PTT: 26 second(s) -- Normal range between ( 25 and 35 ) Chemistry 01/11/2023 5:30 AM Creatinine Level: 0.66 mg/dL -- Normal range between ( 0.60 and 1.30 ) Albumin Level: 3.2 gm/dL -- Normal range between ( 3.5 and 5.0 ) Alk Phos: 75 IU/L -- Normal range between ( 32 and 91 ) Bili Total: 0.9 mg/dL -- Normal range between ( 0.3 and 1.2 ) BUN: 12 mg/dL -- Normal range between ( 8 and 26 ) Chloride Level: 103 mmol/L -- Normal range between ( 101 and 111 ) CO2: 26 mmol/L -- Normal range between ( 21 and 32 ) Glucose Level: 111.0 mg/dL -- Normal range between ( 74.0 and 118.0 ) Osmolality: 274 mOsm/L Potassium Level: 4.0 mmol/L -- Normal range between ( 3.6 and 5.1 ) Sodium Level: 137.0 mmol/L -- Normal range between ( 136.0 and 144.0 ) Protein Total: 6.1 gm/dL -- Normal range between ( 6.5 and 8.1 ) Anion Gap: 12.0 mmol/L -- Normal range between ( 5.0 and 19.0 ) Calcium Level: 9.0 mg/dL -- Normal range between ( 8.9 and 10.3 ) ALT/SGPT: 143.0 IU/L -- Normal range between ( 14.0 and 54.0 ) AST/SGOT: 91 IU/L -- Normal range between ( 15 and 41 ) BUN/Creat Ratio: 18.1 -- Normal range between ( 4.6 and 16.2 ) Globulin: 2.9 gm/dL -- Normal range between ( 1.5 and 4.3 ) A/G Ratio: 1.1 -- Normal range between ( 1.4 and 2.6 ) eGFR AA: >60 mL/min/1.73m2 eGFR Non AA: >60 mL/min/1.73m2 Troponin I High Sensitivity: 3.1 pg/mL 01/10/2023 10:00 AM Chol/HDL Ratio: 3.6 -- Normal range between ( 0.0 and 4.5 ) LDL: 126 mg/dL -- Normal range between ( 1 and 100 ) Tri.0 mg/dL -- Normal range between ( 0.0 and 150.0 ) HDL: 55 mg/dL -- Normal range between ( 40 and 71 ) Cholesterol: 199.0 mg/dL -- Normal range between ( 66.0 and 200.0 ) BNP: 16.7 -- Normal range between ( 0.0 and 100.0 ) Estimated Avg Glucose: 111 mg/dL Hgb A1c %: 5.5 % -- Normal range between ( 4.6 and 6.2 ) VLDL.: 17 mg/dL -- Normal range between ( 5 and 40 ) [facility] Lab Order 01/10/2023 10:00 AM Tube Collected: Yes Diagnostic Radiology 01/10/2023 10:26 AM XR Chest 1 View Frontal: XR Chest 1 View Frontal Ultrasound 01/11/2023 10:28 AM US Echocardiogram Complete: US Echocardiogram Complete 01/10/2023 3:15 PM US Gallbladder: US Gallbladder Radiology Report 01/11/2023 10:28 AM Radiology Report: Radiology Report DIET & ACTIVITY (more content not included)... [facility] Clinical Note 11-22-2022 Note Date & Type Note Facility 11-22-2022 Note Education Materials Cardiovascular Hypertension, Adult Blood pressure 129/77 Your blood pressure was noted to be elevated here in the emergency room. Monitor your blood pressure and follow-up with your primary care physician to review those readings. Return to the emergency department for any worsening symptoms. Hypertension is another name for high blood pressure. High blood pressure forces your heart to work harder to pump blood. This can cause problems over time. There are two numbers in a blood pressure reading. There is a top number (systolic) over a bottom number (diastolic). It is best to have a blood pressure that is below 120/80. What are the causes? The cause of this condition is not known. Some other conditions can lead to high blood pressure. What increases the risk? Some lifestyle factors can make you more likely to develop high blood pressure: ? Smoking. ? Not getting enough exercise or physical activity. ? Being overweight. ? Having too much fat, sugar, calories, or salt (sodium) in your diet. ? Drinking too much alcohol. Other risk factors include: ? Having any of these conditions: ? Heart disease. ? Diabetes. ? High cholesterol. ? Kidney disease. ? Obstructive sleep apnea. ? Having a family history of high blood pressure and high cholesterol. ? Age. The risk increases with age. ? Stress. What are the signs or symptoms? High blood pressure may not cause symptoms. Very high blood pressure (hypertensive crisis) may cause: ? Headache. ? Fast or uneven heartbeats (palpitations). ? Shortness of breath. ? Nosebleed. ? Vomiting or feeling like you may vomit (nauseous). ? Changes in how you see. ? Very bad chest pain. ? Feeling dizzy. ? Seizures. How is this treated? ? This condition is treated by making healthy lifestyle changes, such as: ? Eating healthy foods. ? Exercising more. ? Drinking less alcohol. ? Your doctor may prescribe medicine if lifestyle changes do not help enough and if: ? Your top number is above 130. ? Your bottom number is above 80. ? Your personal target blood pressure may vary. Follow these instructions at home: Eating and drinking ? If told, follow the DASH eating plan. To follow this plan: ? Fill one half of your plate at each meal with fruits and vegetables. ? Fill one fourth of your plate at each meal with whole grains. Whole grains include whole-wheat pasta, brown rice, and whole-grain bread. ? Eat or drink low-fat dairy products, such as skim milk or low-fat yogurt. ? Fill one fourth of your plate at each meal with low-fat (lean) proteins. Low-fat proteins include fish, chicken without skin, eggs, beans, and tofu. ? Avoid fatty meat, cured and processed meat, or chicken with skin. ? Avoid pre-made or processed food. ? Limit the amount of salt in your diet to less than 1,500 mg each day. ? Do not drink alcohol if: ? Your doctor tells you not to drink. ? You are , may be , or are planning to become . ? If you drink alcohol: ? Limit how much you have to: ? 0?1 drink a day for women. ? 0?2 drinks a day for men. ? Know how much alcohol is in your drink. In the [place] one drink equals one 12 oz bottle of beer (355 mL), one 5 oz glass of wine (148 mL), or one 1? oz glass of hard liquor (44 mL). Lifestyle ? Work with your doctor to stay at a healthy weight or to lose weight. Ask your doctor what the best weight is for you. ? Get at least 30 minutes of exercise that causes your heart to beat faster (aerobic exercise) most days of the week. This may include walking, swimming, or biking. ? Get at least 30 minutes of exercise that strengthens your muscles (resistance exercise) at least 3 days a week. This may include lifting weights or doing Pilates. ? Do not smoke or use any products that contain nicotine or tobacco. If you need help quitting, ask your doctor. ? Check your blood pressure at home as told by your doctor. ? Keep all follow-up visits. Medicines ? Take rmoj-juk-yjnearc and prescription medicines only as told by your doctor. Follow directions carefully. ? Do not skip doses of blood pressure medicine. The medicine does not work as well if you skip doses. Skipping doses also puts you at risk for problems. ? Ask your doctor about side effects or reactions to medicines that you should watch for. Contact a doctor if: ? You think you are having a reaction to the medicine you are taking. ? You have headaches that keep coming back. ? You feel dizzy. ? You have swelling in your ankles. ? You have trouble with your vision. Get help right away if: ? You get a very bad headache. ? You start to feel mixed up (confused). ? You feel weak or numb. ? You feel faint. ? You have very bad pain in your: ? Chest. ? Belly (abdomen). ? You vomit more than once. ? You have trouble breathing. These symptoms may be an em (more content not included)... [facility] Clinical Note 11-21-2022 Note Date & Type Note Facility 11-21-2022 Note Patient Education Ma terials Follows: Flank Pain, Adult Flank pain is pain that is located on the side of the body between the upper abdomen and the spine. This area is called the flank. The pain may occur over a short period of time (acute), or it may be long-term or recurring (chronic). It may be mild or severe. Flank pain can be caused by many things, including: ? Muscle soreness or injury. ? Kidney infection, kidney stones, or kidney disease. ? Stress. ? A disease of the spine (vertebral disk disease). ? A lung infection (pneumonia). ? Fluid around the lungs (pulmonary edema). ? A skin rash caused by the chickenpox virus (shingles). ? Tumors that affect the back of the abdomen. ? Gallbladder disease. Follow these instructions at home: ? Drink enough fluid to keep your urine pale yellow. ? Rest as told by your health care provider. ? Take bwty-ksp-aasxtpo and prescription medicines only as told by your health care provider. ? Keep a journal to track what has caused your flank pain and what has made it feel better. ? Keep all follow-up visits. This is important. Contact a health care provider if: ? Your pain is not controlled with medicine. ? You have new symptoms. ? Your pain gets worse. ? Your symptoms last longer than 2?3 days. ? You have trouble urinating or you are urinating very frequently. Get help right away if: ? You have trouble breathing or you are short of breath. ? Your abdomen hurts or it is swollen or red. ? You have nausea or vomiting. ? You feel faint, or you faint. ? You have blood in your urine. ? You have flank pain and a fever. These symptoms may represent a serious problem that is an emergency. Do not wait to see if the symptoms will go away. Get medical help right away. Call your local emergency services (911 in the [place] Do not drive yourself to the hospital. Summary ? Flank pain is pain that is located on the side of the body between the upper abdomen and the spine. ? The pain may occur over a short period of time (acute), or it may be long-term or recurring (chronic). It may be mild or severe. ? Flank pain can be caused by many things. ? Contact your health care provider if your symptoms get worse or last longer than 2?3 days. This information is not intended to replace advice given to you by your health care provider. Make sure you discuss any questions you have with your health care provider. Document Revised: 04/10/2021 Document Reviewed: 04/10/2021 [employer] Patient Education ? 2022 [employer]. Urology Hematuria, Adult Hematuria is blood in the urine. Blood may be visible in the urine, or it may be identified with a test. This condition can be caused by infections of the bladder, urethra, kidney, or prostate. Other possible causes include: ? Kidney stones. ? Cancer of the urinary tract. ? Too much calcium in the urine. ? Conditions that are passed from parent to child (inherited conditions). ? Exercise that requires a lot of energy. Infections can usually be treated with medicine, and a kidney stone usually will pass through your urine. If neither of these is the cause of your hematuria, more tests may be needed to identify the cause of your symptoms. It is very important to tell your health care provider about any blood in your urine, even if it is painless or the blood stops without treatment. Blood in the urine, when it happens and then stops and then happens again, can be a symptom of a very serious condition, including cancer. There is no pain in the initial stages of many urinary cancers. Follow these instructions at home: Medicines ? Take cgyb-ngl-awmeqfe and prescription medicines only as told by your health care provider. ? If you were prescribed an antibiotic medicine, take it as told by your health care provider. Do not stop taking the antibiotic even if you start to feel better. Eating and drinking ? Drink enough fluid to keep your urine pale yellow. It is recommended that you drink 3?4 quarts (2.8?3.8 L) a day. If you have been diagnosed with an infection, drinking cranberry juice in addition to large amounts of water is recommended. ? Avoid caffeine, tea, and carbonated beverages. These tend to irritate the bladder. ? Avoid alcohol because it may irritate the prostate (in males). General instructions ? If you have been diagnosed with a kidney stone, follow your health care provider's instructions about straining your urine to catch the stone. ? Empty your bladder often. Avoid holding urine for long periods of time. ? If you are female: ? After a bowel movement, wipe from front to back and use each piece of toilet paper only once. ? Empty your bladder before and after sex. ? Pay attention to any changes in your symptoms. Tell your health care provider about any changes or any new symptoms. ? It is up to you to get the results of any tests. Ask your health care p (more content not included)... [facility] Clinical Note 07-08-2022 Note Date & Type Note Facility 07-08-2022 Note PROCEDURE: XR KNEE R T 4V or > DATE: 07/07/2022 7:47 PM CDT COMPARISONS: None CLINICAL INDICATION: Pain No further history provided. FINDINGS: There is no evidence of fractures or other acute osseous abnormalities. 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 It is reported in the history that the patient has a history of nail-patella syndrome associated with hypoplastic patella. There is no evidence of right knee joint effusion. IMPRESSION: Findings as discussed above. No evidence of acute osseous abnormalities.. Electronically authenticated by: TEDDY MG Date: 2022-07-07 22:13 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 Summary Purpose Family History No Family History Records FoundNo Family History Records FoundNo Family History Records FoundNo Family History Records Found Additional Source Comments Reason for Visit (unrecogniz ed section and content) Status Reason Specialty Diagnoses / Procedures Referre d By Contact Referred To Contact Closed Radiology Diagnoses Pulmonary nodule Procedures CT CHEST WO CONTRAST Olamide Ibrahim MD [address] [facility] [address] [place] [address] [facility] [address] [place] [address] INFORMATION SOURCE (unrecogn ized section and content) DATE CREATED AUTHOR 10/30/2019 [facility] DATE CREATED AUTHOR AUTHOR'S ORGANIZ ATION 06/16/2022 [place] DATE CREATED AUTHOR AUTHOR'S ORGANIZ ATION 07/23/2022 [facility] DATE CREATED AUTHOR AUTHOR'S ORGANIZ ATION 01/22/[address] [facility] FOR RECORDS PERTAINING TO PATIENTS WHO ARE OR HAVE BEEN ENROLLED IN A CHEMICAL DEPENDENCY/SUBSTANCEABUSE PROGRAM, SOME INFORMATION MAY BE OMITTED. This clinical summary was aggregated from multiple sources. Caution should be exercised in using it in the provision of clinical care. This summary normalizes information from multiple sources, and as a consequence, information in this document may materially change the coding, format and clinical context of patient data. In addition, data may be omitted in some cases. CLINICAL DECISIONS SHOULD BE BASED ON THE PRIMARY CLINICAL RECORDS. [facility] [employer] provides no warranty or guarantee of the accuracy or completeness of information in this document.
== END 2023-01-18 17:26 | disposition home or self-care (01) ==
LOC: ER 11:45 → ICU 01-16 14:31
PROVIDERS: Surgery; Admitting Provider Internal Medicine; Emergency Provider Emergency Medicine; PCP Internal Medicine; Visit Provider Internal Medicine
PROC: (CPT 790; principal; 2023-01-17 13:10)
DX: K80.12 Calculus of gallbladder with acute and chronic cholecystitis without obstruction (principal); R07.9 Chest pain, unspecified; Z82.49 Family history of ischemic heart disease and other diseases of the circulatory system; Z68.41 Body mass index [BMI] 40.0-44.9, adult; R06.02 Shortness of breath; R74.8 Abnormal levels of other serum enzymes; K76.0 Fatty (change of) liver, not elsewhere classified; E66.01 Morbid (severe) obesity due to excess calories
CPT/HCPCS: 47563; 36415; 71045; 76705; 78452; 80048; 80053; 80061; 80076; 82150; 82248; 83036; 84484; 85025; 85378; 88304; 93005; 93017; 96365; 96366; 96368; 96372; 96375; 96376; 99285; A9500; G0378; J1170; J2704

== ENCOUNTER 2023-02-03 14:10 | Emergency (ER) | payer OTHER, SELFPAY ==
[2023-02-03 14:15] VITALS: BP 141/96; PULSE 99; RESP 18; TEMP 36.6; O2SAT 100; BMI 44.3
--- OUTSIDE RECORDS SUMMARY | 2023-02-03 14:25 | XMS_ITS | CCD ---
Author Name Unknown Address [address] [place] [address] [address] [place] [address] Organization [facility] Care Team Providers Care Rn Infusion Name Role Phone Billy Perez Primary Care [...] Consulting Unavailable BILLY PEREZ Primary Care Unavailable BILLY PEREZ Primary Care Unavailable Rashid Arriaga Attending Unavailable Rashid Arriaga Admitting Unavailable BILLY PEREZ Primary Care Unavailable Juanito Maciel Attending Unavailable Juanito Maciel Admitting Unavailable NANCY Milian Admitting Unavailable BILLY PEREZ Primary Care Unavailable NANCY Milian Attending Unavailable Allergies Allergy Classification Reported Allergen(s) Allergy Type Date of Onset Reaction(s) Facility (2 sources) Bacitracin; Translations: [bacitracin] Drug Allergy 4 [place] (1 source) Other Propensity to adverse reactions [place] (1 source) Bacitracin Drug Allergy 1 [facility] (1 source) strawberry allergenic extract Drug Allergy [facility] (1 source) [place]; Translations: [Strawberries] Propensity to adverse reactions to food (disorder) [facility] Repository Medications Current Medications Medication Drug [...] Results Test Name Value Interpretation Reference Range Facility Coding Summaryon 02-01-2023 Coding Summary HTMLBase 64 OkjlvjavWSw8zIa+PGhlYW Q+LC3PFJYdQ10soHCutS8h I0EORTyPVcrxXKFEZBfERn BeoqVfBO4roHIiJTCe IC8+QG3qNEWwFxgovKQxw6 X6rPO7T61zyn8eKWqhiEW7 DNUdXoAwodzih1pkoBe6YR cuNmluOyBt LRNdbB02VZO9wS06Zy60yC VmhYEvm8uowGr7JmCsCELm OOZ7pRmbPRmfr8ItIPDpK2 9ldGAvy9S6 ORCtqTlyaPAyBjNqgWA6kK 0oPHicvxxhn1babealAeu1 rn11uXIzp2G9zGK9B9Lfzp E8ZTYxdJDx GlexpZRWpP4sgzbpi6xurh ynAbPyUFDeIIo8ESy9YNBe uDyeRoWyFJ18QLB8MGSdph TwK3CmFATt eNyfLeQ1o2Q2Gi7DL0NLVt nvQ9QTAYXICLjxgAL+PC90 ow25T8JxEloxBfu4QRMqDN O6oWA5kM0n FJGtEAvle4X0cUM3Z3Jske Erha7pb7usHIQsQJanR15c hPZro0O1CCJykAJ7DXNcnP atEcTsxM09 Oyc+KJJbsXzrk4CrKovfm6 oad0pliHa9RjssGRXmqtGd dNtoXEZ5c7RxOo9wQPTtzT D2qHN5iD3f QjPnUpK0VKwxS908IaLuiX VnOiqhQ68tA3UeiDK+PHRy Rpk3GTOtjVerXH3aC8BlYY RpbmctbGVm eIijLJ7vHZDupcgvKMLcnL 9eOAQoY0r7SkFsWeV2UDzp T2WeZJDpfdbrCl03qG7vMn EdWcM1LSnx A2FtfdM7XUJfeZNiVFxhFG U0N13qc1Z3WQSsBCBsAGW3 gXR3hB2wuCtgqpjzcUSwcP sgdmVydGlj REeiTKnxN416HPSzcRlrSf NvZGluZyBEYXRlOiAgMTIv MjIvMjAyMzwvdGQ+PHRkIH B9qQhcNFTv oMTsHDowNb9ebJtadLxyXQ 6nAOVyhiyeFXMviV5nEMDy zBMnvGrlNG4hDOVviujrk7 71WwRpOSA2 ZRHjvVWjE6LmwN8wTgBePP CySIDqH4CfsIBlBTdgL298 NImwFmZ9JQBlohIvW4GrPW FsaWduOiB0 m5F2Tx6Rq5ZzgkulX4ZxhI OnWyTtCbpdWHl5W4UmPlsw dHI+FL26BDXaMF91PWa2PN X5sEiaLYyz VNCdY8UamY5ySoLjVMEtEN RkOyc+PHRhYmxlIHdpZHRo SLdgDHAdCvTznLyyFO1jOf 9yZGVyLWNv gWroqEQyGjWft6awJZBqAR akUU2ozAsxV3HfuWD0TZBw j0u6Wv38J28tQ4MsdFB+PG ElkYI6aMV7 uD0lHkHoGkA0XUmsH378Lx HjfGDrIbrqn9rtc8kqjUv7 ZmE7ZCHdebKkyRgcAMG4y4 WiEo19A14k IHdpZHRoPSIxNSUiIHZhbG ngch6udY8kWr8+PGNvbCB3 sNY4rY8nQhNtYaG1XTseY6 49InRvcCIv Qxmbt4poc1jkeOp5KeFrVU BylrFtvUkeMFO6m8HoNa65 T1VlzElng0LuRkp2xc38qA Uhu2N7iPS0 G2HrEEFgbnmykABgkUgeUV 0gYMHnidfyRDLlpK1iTSIt L3z8FdDdVkT8OJpmY3Rwql T7MNKodIBy QLBiyBVKxW9jbmflw2wlvb xhXkIdGAIbUSv3NBg0QQOu gBzdKwWrUEE2HsS3RZR2yV QrmO1nqWxf isckwE8yMzw+FKU9dZCaoY TPIT7tFtykkHC+PHRkIHN0 eVwjIXzvUYQudU8eZAVuO3 p1IgLnUpD0 ZEatL8HujdS0BQSkbXNyLB KnqKAKqI5jbeqmd8afrzac JtAcHALiYHg8HQx8VROxvF duOiBsZWZ0 GpR8RES9kJDhmK5xiYiriy lasP7wRxr+QmlydGggRGF0 LZf9J2LeNzt8NRUlcNfcAV 0ncGFkZGlu Hh9jzMoqyEbxLD4dPFShzu ccx442SkQqg6atDPTbeGCg NAhnRID5H95om1Q3GLTkCL JpDPD0kPV6 yL5vzDlrfxdiiVFxoQykmt MzmIcwKNdnKPrzS456UCFz uGrnQhUgRNz3R6TcPmz0MW OgnKkjBC3q sLWnAQzsPl3otUqxpWizEW 0cVGAagbmgs539RtSgl8if FSBzhQMyRWckOOW9W77ge0 S4TUXxBXMb HWA2eTS8aI2wwSqxloannJ VmdDsgdmVydGljYWwtYWxp F737DHDbgDqyVjPshWg0W9 MxPci4DFIu tNmlKV7imUNrSHgbQx6chB vhzSfbBB5rFTZbztluo804 SePvf2juPZCopPQlNTzjJY Y3Q49xb4A5 TMBdZMOgNFR3xPN0qT0goP lnbjogbGVmdDsgdmVydGlj AKmqQCscE665KKTjtJyeOg BhdGllbnQg DUseNTk9B6FtVhqfrJH+PC 61OLPsYH07kIGobZElc0jq mVc4TsKiMRFcXNZ6hNxoRC sui9XeZKEh V39waWSns1N5GWMytPorwJ IrVyYniST3nW8bDGejqove z2lhrdfkCpbui8fjwy82wG 96Z01tDNkk ZHRoPSIzMCUiIHZhbGlnbj 5wiA4lVs5+TELcdPZ8iDD5 eN7dLXRxOhU3ZYboG365La RvcCIvPjxj x7fvp3zrvEx2MfA5FGCzws VpsSryBSO3d6IuYi35J18i IHdpZHRoPSIyMCUiIHZhbG xvqs7afW0e Ii8+ASBbtSS8xHV4sA3tQf FlLpO1DBehK745TaRgpMCq QzniW48eA3HrePZ+PHRyPj t0RNKbmAbi GG0iiESuVXvqYu8oTJY3Xa CaFoYpPMcxZ8OaWBMkqleu iunbnHF0EOAbGQRktZ27Hp 9udDogMTBw wPHRwL4xprtio5ykkcjgXp UqJWQgLRx8YYd3JDTcpYzd GuYkJTJ1QjC5MHO9mONmeT 1hbGlnbjog gZ0hM1SnDYZwamvkRv31aU 5wDfLjOxI7WDfeNkv+QU5E WHXMV40dHZCHYrCsBWyzyC Q+PHRkIHN0 aGieMKigQUJsbL8dNVHdB3 e1JiSmFfQ6VNcsW6EzMYJk sivcLx49mN1zEtTrNlZ2HM trH5BwogE1 JVIupKEaDMniVEX4Y03gv4 S1UPGrYGKlHJL7cJK0lU0a bGlnbjogbGVmdDsgdmVydG ljYWwtYWxp V223FXGgdInrUyM1AvFvFt R5HaO5I2SaYyg0GQLgeFau XJ5njYGzMEwkKk7sgChhiA jiAS4lFSEi zgzpPHTshV8dTFWerESobP xvSO1oUGCjfkkmc308PxTj AYF5UXEyvSVcB3QfqA9fBq AjMDAwMDAw K5FdcXDcGDjtZ387HZsrCz W5IIMfecZlB9TaVFScoRou ZyL9r9S4Ak36CETARNWkij wvdGQ+PHRk UBZ3gVfvTEvpLCLkyN5yMW GeK5q2WoUnBrP2HRfaN5Yu PFKfacznBk09eY4lSfMxBd Q7FRcgE9Ja esZ5QZCagBUbXIvlZAT0H5 9lp1J6HPFrQLYqRYZ0nCP1 rA8hmJnrkjfjdUHvpPigbu VydGljYWwt CPhlK137EGDoaHuuDnJJMO FMRTwvdGQ+PUAuIEL7eUtz VCoaNYPcqM9cRGWmZ8z0Ke PxQeH6KLjp I9ZmHESkkupjDv82mV8mMh LpAuE0ZWpcN4NqjiD7RPTz rBIzDXrsOOX1E90gg1B4WG MwMDAwMDA7 sIS8bM1xhDrbsyctzUMbbG txkyLpoNqzGBsqWXyiM907 RGFxpYeeAr3GBT64AO83B5 RyPjwvdGFi bGU+PHRhYmxlIHdpZHRoPS fvRVHlVfZtcHjoNN8dNk4e ZGVyLWNvbGxhcHNlOiBjb2 xsYXBzZTsg MF3ulIbcQ0JmzFG1TIYor0 j5Rp33H88mX8XgiTE+PGNv dDD0fXE3wQ3uFgHcPnQ8UT lwX733VoXd dTXsWhsrn4dam3fecWb9Sw SuIOAwkoVuzGqxIGW7e9Qd Qy24G90bRRitFMVjMYWfHV UiIHZhbGln xr5nnF9rXc6+HQLxaND1mY B3kW7pRhYvLtX7GWwrK117 VmPdiXLbQlljG08uB6TujT A+PHRyPjx0 AWQwdNcbOO5iuLUtBPowOk 7hHSY8BnIhSuEgLCrqB9Dj LIFmoolzkbbjlNC2SAMjJM OnrA53Cl4w oQhiRn5tPSLpZUK6GLTnmY GoH7MsnW6aCaGgRBLkXXVd D4PqaKNtBPloV530VPopBh D1EFJlagEg V4AeLFIdjXxfCcW3i3R9Ow 4AuSwqcUObGW9gRdXcHLo4 E4NgPji8LBLseWmuCQ7xtW KaAZmrFm5d pMaluMrfJJ3hAHRdbsflv0 06GiAvs5ruWYRsxCDuETuz OGP5W21ep1N6DLGvPOWtGN H1rNN1pA5z bGlnbjogbGVmdDsgdmVydG hyOMxpQYymJ170HKDjnPqb TdYROal3A9DaIrd1ZWHivS clSS1sxUZo OAykMx9bnOqpfHqkEU9cZS Elbxrjs871QaMqw9icBCTr jAYqXFhlLHD4W90jr1O8HH MwMDAwMDA7 wLH1jJ3hbUlzlnkcbYQzsX tbkbPbmNjgGUvxGJxpW250 KVUwvRbwGe2SGpq9U4IdGw s1EMUhyUfw WP4dlEEpZYpbQk0xdIeeiK mgGU4lAUQzakhzf131SbNh m0hoOBZksBOaKTbfJXL6N5 3rl9I1OBZl YOHpPAN1jVM9rP2gbSvyym ogbGVmdDsgdmVydGljYWwt SGhpH572NSZreUgyCdJqjU VyOjwvdGQ+ VI67hb13V3NbTplqJpo8OY GbMIX5jSG1tY9kJCIqMTay c8S4wTU4Y9ShinRsrs0ss3 xsYXBzZTog Y29 (more content not included)... [facility] Coding Summaryon 01-16-2023 Coding Summary HTMLBase 64 CwbedrgiLTo1eYe+PGhlYW Q+IG9ZDJAhM49tiWPslF3h T7WGLIwAPmerOXPCRTpMDm AuifOyEA4paXBqFEEq IC8+CV2lLFNsXabulPDab8 L7rDL5A34yrj3uMYckuIK9 RSSyBiSgbdxuw4selNn3DX cuNmluOyBt PZDvcR93TLO0sB40Xl19lM OtdVHki5mntFc3BbVgGUHw FCY2hEqqNXxkh6GuDMMkE3 2joMYcl1L2 ZWQqhUedgAIoVbGxzAU2uV 2oJNrgycspt1bstukmAtv1 an96uVWko3L7tNC2J8Rjfy R7VFOumNEr SdofcLLNvG8vhjxbp2bopg ouNiZvBSJdXIy4CUd8ZMEe pGqiQhRhXR50EDY8ZIRczi KfX0IhCUUk hLvbTwQ9o2Q9Qc2GI2RKPb nbY3RJGJWMYNzhhUC+PC90 sg96V6AhApbvTtm1VQQsNH U1mWE1iL8g PYMcDQwjh2L9qFG1A7Wwxf Lvai9jp4peQSMzLEekY76j wDXoj6E9CPInbWK5JIAdlU atKnLxhO75 Oyc+XQZkyBbfr5HgTknnc6 alc0shvVw0YconYVAdfnNl wHmaKIN5k7NsEx5lWENdtX P5kOQ2eI1r PdJkJjE5OPexC850NfBlfL WfBfhcG99kT7QpbHW+PHRy Fpt9BXOxmDjvLJ0oH1GzAW RpbmctbGVm lNxmYH7yFFZmklmbIAKcgG 2bCDCyS6q6MxTuVqY3KFow K5KiOMYoaqeqNi02hZ5xMt KeMbY6SWqd L7JyabT0LIEwgPNgKHzlFQ N5Q62sj5O4SCJpROBsRTX7 oUR0vU3lmNbwskuwzWZvmV sgdmVydGlj YRurCAzoO430KQSapLmpAs NvZGluZyBEYXRlOiAgMTIv MDYvMjAyMzwvdGQ+PHRkIH T4zLimZBLt nVSjHHpiMr5qfKtbvMdeXS 1sRGAeozkrZXXmeB7zMUYh aWDxvAugIG1aFWOhicktt3 95NvKyCSC5 ZEOplWHvX0NtsM7aMbZvXC HaIXRoP6XqaEFcNIycH921 KHhkRnW6FKNswuZuD1LkQV FsaWduOiB0 l8B4Ou1Sx9MdpxhkP0FztK JmSeYjSoghYHf2P3XeLutx dHI+XM69IMHiTN80TJq7RD Y0hYgyFVpt NSDwU2XsgJ7qWuIqIMQuNR RkOyc+PHRhYmxlIHdpZHRo EGiiZXEqKzVkiTitOP2nDw 9yZGVyLWNv mDmwnUOyPrIqa0mnHXWtQQ loMW1ctMotH6HzvIU8PGLd g7d6Og04C14pA9JccXJ+PG FjkWW6pQW5 zC7zEvKtFnK8GHoaQ697Qs RiuJChOahox7zlm8eqwCp5 VnO7TUUhcbDglZkxJQX9t1 CbOy90R01u IHdpZHRoPSIxNSUiIHZhbG rfsc3idA4rRb9+PGNvbCB3 rJD5bH9kUkXzXjG5XYzwA9 49InRvcCIv Mddji0ubs9mcbXd3XtUkPD CcusHevZhpUCB9j4OvBo25 D5WuoGmgx1AlIxs6mb01lS Nwb6O1fUJ3 R0KkJEGfxrzkkNFskXbkNW 5jFXUkzbkaEURfqF2kFLLs C0j2FuCqWzU6CThfT0Ceik G9GZCvaNAs LNJncTWMuO5eogsrq6gueq tsSfFaHNNcIVu1FDa7OEKl lNcqDaQxMNQ4XeV4VZV1oC KieW2kaFuk npivmG7gJyx+DDI4bKKxeF RUNW2kSvnttDM+PHRkIHN0 hBbvRRodNEWacF7hPKFfP7 e4TmGxRpQ1 KAlmP1VrdbI6YRGngYDeFS QgwNXAmR1pdjioy0uqsuds PbDoKPUaVFz1SQd2IGTdrX duOiBsZWZ0 YgH6OZI3fSPcrN4enYfdsy jviO7dEsl+QmlydGggRGF0 YNn1V3LcWmd3SXHjyDxfMR 0ncGFkZGlu Nl4qdFitrAlgWB6lOGMxod zqa890TjIns7kqCVIxfLYd WAkePFN0Q18ug2K2MVQbPG ErRYT5bFV1 jK1jkFqbvenfrGSpmJcfmt RgxNuxICbeIAtbU124BDPn hMvmZxQhWBi9I1CwNog0DN VfuBrxLK9b hTLfMDmaEz1upQwsbVirQV 9sOLWytzrea992SxVam3io ELQrgBZyQVxgFDN9O73bp0 H8DKZlOPDy QGT6zDO3bK1djTeupxjcfD VmdDsgdmVydGljYWwtYWxp E154WVCsgVftImOjjRj9O8 SvBai8RKGj oMnkGN1roGPvHJoiKv3tmJ vhpFtfWI5mYIPojsevm070 NsBcd8vlXNIkwEEqTRriMI Z2J32wc2K3 RYKcBSAnJPG1zRY2lS2rgS lnbjogbGVmdDsgdmVydGlj ZKwrQBnbH731ORMueQtsQm BhdGllbnQg IDofFQh8S9DqWsetrMT+PC 97DPUkMM68wJGxgFWdm6qd jHh5YmCbLJNdOPL4xBwoAZ cuv7AnTEKc R65joUYde3J6RJVkpRbruK GxKiEdvOJ8lN0eILuuedeq z1prhnwqPpnhe9ojbq57mP 36B90oYEhw ZHRoPSIzMCUiIHZhbGlnbj 2meT7jVg7+TPEccHW9pDS2 pJ4kYENoWxL7SGezC138Vb RvcCIvPjxj h4pzf3zaeIg3YyD5NEEfcc ZyxTemGBF5b9XnWh65M45l IHdpZHRoPSIyMCUiIHZhbG lmqz1puT8o Ii8+MWYouNL6lHU3dY5oBe DtCvN1HYzsX928GbEuaIPp RhxoY08qZ4FzpIQ+PHRyPj a2TFEohJsc UX1rrQUrDSswUb2rCYE1Od BdGfCfLTfyT3TdTJBzmzex ulihaXZ0YTIlDDCoxY65Ek 9udDogMTBw eJVQzP8yhigrx7hnxfrdGt GyNDVzWHd6EQh5SDKahBwd BhMyXOQ9IcZ6CTE7oEZpfY 1hbGlnbjog oP8eK7DsGCFqevrpOu92sF 7yFaPdAoQ9UVksZvi+QU5E KDQGR75yHCDOBpNsIGlbmD Q+PHRkIHN0 qWtaJAzgINWezK1bCOWiK1 s3EvXnDlH7BCqhR2ElGZEw laowYt08xA2lXvWeGeS2UN qvY6TxzkO3 IJDrrSZjUZfsRPX9D30wu6 C2KAGvZAPeWJV4pDF4sN7m bGlnbjogbGVmdDsgdmVydG ljYWwtYWxp U831IWGsqXorJdS9CqPhRj T7MoK1X1IaZwk3OJYvtSdw RA5xeBXhGAloId5sdJrpyE jlMI0gKIEl gmjcMXFsqP7yQEVqfIFjpD ppAQ7cXVIoyfcea731DhIg BMO7AZHaoWVsD4GysZ7jJv AjMDAwMDAw B4MzmMHeZBazE615EPedHg R7RRZwmePnA6AdCLNvsSax DyO9n0D0Tj53OHEBOQQtud wvdGQ+PHRk DLG4vKvfRIofROQbjH8mGM XqX7x8NpTqNwM0XRapI2Nz CKCrehsyWu99lO9cAiFzHs Y5QXkiW6Zw puN6GQMpoSDpVOmhCLQ5I3 4nf7V9VSOiQKAdPNW1lBU4 lF7rhIczxcmeoAIqzAndus VydGljYWwt WGokC204BWMheIpjVnJHAH FMRTwvdGQ+TIQaPGM1dQzx HQejBXLohD9wKDEaI0u7Hg BvSlI0HPno S8XwVQMtmgpfMs31mV7nPi TsQcM4EVzvB7XvcbQ8XSFx aSOxFXepJPQ4P86jt3Z7ZI MwMDAwMDA7 nHA2lT3wvKgooyurnCXpdY oyipQfaNliRWzdQKqlZ533 RPCtpAttUe4fh6EwysK1dW 3lYE21ZJ50 K6CkMinrqYVikIR+PHRhYm xlIHdpZHRoPScxMDAlJyBz yQmfBH4wZv0oGHYbXHEhgG xhcHNlOiBj y5wdLPQyAHfjNL6lnHxgF7 FfbXO4PQUhc3d3Hr14I61i Z5ZkwUR+EOHwcUC6xNJ6rQ 0jPiHzFkG4 DXqyV902HhOuxDFtPaena5 xlv4nrkJg0VwQwJUAlieNj eOcwAQG5o6BpXz96B37gTR dpZHRoPSIy DADuPPAibZfhsq5zcG8cTy 8+OUZomBF2vCW0gC0aNbRm BjA5QBwhA295RnBkiHHzZr fxK89aE1Po dXA+LKUaJwg4YNDvlIndWQ 6phSGlJWqxXx2iRPL1JaMc AqVbLKonA7JdTLEuimkqin ggySR1DWMt MANtcM51Px2jcVsnJa3gTS SeCFE2AUPyyNChA3PfvH9x CcLfAVHpUQLsG2YvkCElHE ahQ909OPav DcI5AAMhigKoI6GsZOUwqA inEiY4a0U6Ab3EeOdqjUTo JD2nLdTjNWx2R7KlWon2NT YrxHvgVE7q kOYoZHduTt7ugHlkpMpqRG 8eVBWiamucl767KyYuh5xx TYJajOJwWYcdRPD4B67is5 S7RTLvSPZm OEZ8wTN9zE9byUvwacklmL VmdDsgdmVydGljYWwtYWxp H119OPMdvTooFzGSWqf1O3 LaPjj9FMGw wJggGZ9ggZIsPWyiAa9uvY bwsAlkMX5jLBKtdvfth962 PuOpv6oyXPRcjVIcXZvuQR J9U87lg3H7 RBOhNFSoASM5xBZ9gP2opV lnbjogbGVmdDsgdmVydGlj MOdxJLnwN926HFCsiVsmUp 3SLzp4L5Rg Bfo5CPFvuRzgXU9ptKWwVJ ssTu9bvDrqtGijQT3rTXQm lhjbr403KsImb4icVJArjQ QgVGltZXM7 F04gv9K1LULyPEFzKLM8nN J5uS4wvBrimvkmeMCxcHwu mkGhyUgkOHdgWAcdS018IM RvcDsnPlBh eWVyOjwvdGQ+BP94cr86B3 JgNdttRyf3VUZxGPP5uWM8 wT4wQUMuDIkob1H8oRV2D9 LizqRfhk6s b2x (more content not included)... [facility] [id number] [id number] [facility] Coding Queryon 01-14-[address] Wright Please complete ED Note for this encounter. Please be sure to date the Note 12/31/2022 Thank you, [employer] Representative Ext [id number] [Electronically Signed on: 01/20/2023 08:24 EST] Ralph Wright MD [Verified on: 01/20/2023 08:24 EST] Ralph Wright MD [Transcribed on: 01/14/2023 09:21 EST] [facility] .Auto Diff 1on 01-11-2023 Auto Person % 7 % Normal 02-22 [facility] Comment on above: Performed By: #### 1 [id number], [id number] ####[facility] (DEFAULT)[address] [place] [address] Baso Abs# 0.0 x10 Normal 0.0-0.2 [facility] Comment on above: Performed By: #### 1 [id number], [id number] ####[facility] (DEFAULT)[address] [place] [address] Basophils/100 WBC (Bld) 0.7 % Normal 0.2-2.0 [facility] Comment on above: Performed By: #### 1 [id number], [id number] ####[facility] (DEFAULT)[address] [place] [address] Eos Abs# 0.2 x10 Normal 0.0-0.4 [facility] Comment on above: Performed By: #### 1 [id number] ####[facility] (DEFAULT)[address] [place] [address] Eosinophils/100 WBC (Bld) 3.3 % Normal 0.9-4.0 [facility] Comment on above: Performed By: #### 1 [id number], [id number] ####[facility] (DEFAULT)[address] [place] [address] Lymph Abs# 1.4 x10 Normal 1.3-2.9 [facility] Comment on above: Performed By: #### 1 [id number], [id number], [id number], [id number] ####[facility] (DEFAULT)[address] [place] [address] Lymphocytes/100 WBC (Bld) 28 % Normal 14-48 [facility] Comment on above: Performed By: #### 1 [id number], [id number], 4078846, [id number] ####[facility] (DEFAULT)[address] [place] [address] Person Abs# 0.3 x10 Normal 0.0-0.8 [facility] Comment on above: Performed By: #### 1 [id number], [id number], 0133496, [id number] ####[facility] (DEFAULT)[address] [place] [address] 08564 Neut Abs# 2.9 x10 Normal 1.5-9.2 [facility] Comment on above: Performed By: #### 1 [id number], [id number], 4615149, [id number] ####[facility] (DEFAULT)[address] [place] [address] 56496 Neutrophils/100 WBC (Bld) 61 % Normal 44-88 [facility] Comment on above: Performed By: #### 1 [id number], [id number], 2996733, [id number] ####[facility] (DEFAULT)[address] [place] [address] CBC w/ Auto Diffon 3 Erythrocyte distribution width (RBC) [Ratio] 16.5 % High 11.5-15.0 [facility] Comment on above: Performed By: #### 1 [id number], [id number], 6974975, [id number] ####[facility] (DEFAULT)[address] [place] [address] Hematocrit (Bld) [Volume fraction] 36.8 % Normal 33.7-40.4 [facility] Comment on above: Performed By: #### 1 [id number], [id number], 1294988, 7589458943 ####[facility] (DEFAULT)[address] [place] [address] Hemoglobin (Bld) [Mass/Vol] 12.4 g/dL Normal 11.3-15.9 [facility] Comment on above: Performed By: #### 1 [id number], [id number], 3445034, [id number] ####[facility] (DEFAULT)[address] [place] [address] Man Diff? Auto Invalid Interpretation Code [facility] Comment on above: Performed By: #### 1 [id number], [id number], 2151153, [id number] ####[facility] (DEFAULT)[address] [place] [address] MCH (RBC) [Entitic mass] 26 pg Normal 24-34 [facility] Comment on above: Performed By: #### 1 4902103, [id number], 3780689, [id number] ####[facility] (DEFAULT)[address] [place] [address] MCHC (RBC) [Mass/Vol] 34 g/dL Normal 26-37 [facility] Comment on above: Performed By: #### 1 [id number], 8057666471, 0184244, [id number] ####[facility] (DEFAULT)[address] [place] [address] MCV (RBC) [Entitic vol] 77 fL Low 81-100 [facility] Comment on above: Performed By: #### 1 5923688, 0712937795, 2774859, [id number] ####[facility] (DEFAULT)[address] [place] [address] Platelet 195 x10 Normal 138-427 [facility] Comment on above: Performed By: #### 1 9571970, [id number], 4003679, [id number] ####[facility] (DEFAULT)[address] [place] [address] Platelet mean volume (Bld) [Entitic vol] 7.7 fL Normal 6.3-10.2 [facility] Comment on above: Performed By: #### 1 6119197, 5075016925, 1605949, [id number] ####[facility] (DEFAULT)[address] [place] [address] RBC 4.81 x10 Normal 3.70-5.30 [facility] Comment on above: Performed By: #### 1 8884199, 0610529024, 1769111, [id number] ####[facility] (DEFAULT)[address] [place] [address] WBC 4.7 x10 Normal 3.5-10.5 [facility] Comment on above: Performed By: #### 1 7109718, 8810859422, 2221821, 0802342523 ####[facility] (DEFAULT)[address] [place] [address] CMP Standardon 01-11-2023 eGFR Non AA >60 Invalid Interpretation Code [facility] Comment on above: Performed By: #### 1 2242711, [id number], 9077432, [id number] ####[facility] (DEFAULT)[address] [place] [address] eGFR AA >60 Invalid Interpretation Code [facility] Comment on above: Performed By: #### 1 7659916, [id number], 2435957, 7754512494 ####[facility] (DEFAULT)[address] [place] [address] 06121 Albumin [Mass/Vol] 3.2 g/dL Low 3.5-5.0 [facility] Comment on above: Performed By: #### 1 6877649, 6075173401, 5237124, [id number] ####[facility] (DEFAULT)[address] [place] [address] 13265 Albumin/Globulin [Mass ratio] 1.1 {ratio} Low 1.4-2.6 [facility] Comment on above: Performed By: #### 1 1544309, 4480272555, 0583218, 9129470518 ####[facility] (DEFAULT)[address] [place] [address] 42086 Alk Phos 75 IU/L Normal 32-91 [facility] Comment on above: Performed By: #### 1 2312168, 0274215057, 4040349, 4605131683 ####[facility] (DEFAULT)[address] [place] [address] 40388 ALT [Catalytic activity/Vol] 143.0 U/L High 14.0-54.0 [facility] Comment on above: Performed By: #### 1 5571951, 9945885721, 4372900, [id number] ####[facility] (DEFAULT)[address] [place] [address] 34750 Anion gap [Moles/Vol] 12.0 mmol/L Normal 5.0-19.0 [facility] Comment on above: Performed By: #### 1 2420109, 9709703194, 5639660, [id number] ####[facility] (DEFAULT)[address] [place] [address] 83685 AST [Catalytic activity/Vol] 91 U/L High 15-41 [facility] Comment on above: Performed By: #### 1 0647733, 8833480214, 7039328, 7779373823 ####[facility] (DEFAULT)[address] [place] [address] 15996 Bili Total 0.9 mg/dL Normal 0.3-1.2 [facility] Comment on above: Performed By: #### 1 2955538, 9238373825, 5548021, 7660733391 ####[facility] (DEFAULT)[address] [place] [address] 64601 Calcium [Mass/Vol] 9.0 mg/dL Normal 8.9-10.3 [facility] Comment on above: Performed By: #### 1 1044628, 7129697385, 9842466, 5985289222 ####[facility] (DEFAULT)[address] [place] [address] 50959 Chloride [Moles/Vol] 103 mmol/L Normal 101-111 [facility] Comment on above: Performed By: #### 1 1289924, 6051620541, 7546417, 1572577486 ####[facility] (DEFAULT)[address] [place] [address] 93019 CO2 [Moles/Vol] 26 mmol/L Normal 21-32 [facility] Comment on above: Performed By: #### 1 9165027, 7454572112, 9998761, 0578002808 ####[facility] (DEFAULT)[address] [place] [address] 01244 Creatinine [Mass/Vol] 0.66 mg/dL Normal 0.60-1.30 [facility] Comment on above: Performed By: #### 1 8099775, 2414278959, 8355711, 3346124734 ####[facility] (DEFAULT)[address] [place] [address] 96245 Globulin (S) [Mass/Vol] 2.9 g/dL Normal 1.5-4.3 [facility] Comment on above: Performed By: #### 1 9134756, 0810599308, 9519478, 2873141236 ####[facility] (DEFAULT)[address] [place] [address] 79344 Glucose [Mass/Vol] 111.0 mg/dL Normal 74.0-118.0 [facility] Comment on above: Performed By: #### 1 7193431, 8722553597, 2512870, 9110534166 ####[facility] (DEFAULT)[address] [place] [address] 13265 Osmolality 274 mOsm/L Invalid Interpretation Code [facility] Comment on above: Performed By: #### 1 6532544, 5429545003, 6836550, 8519042386 ####[facility] (DEFAULT)[address] [place] [address] 77614 Potassium [Moles/Vol] 4.0 mmol/L Normal 3.6-5.1 [facility] Comment on above: Performed By: #### 1 3517836, 9208381063, 3079100, 9261807552 ####[facility] (DEFAULT)[address] [place] [address] 72498 Protein [Mass/Vol] 6.1 g/dL Low 6.5-8.1 [facility] Comment on above: Performed By: #### 1 4728052, 5052279875, 9198475, 4372938297 ####[facility] (DEFAULT)[address] [place] [address] 98537 Sodium [Moles/Vol] 137.0 mmol/L Normal 136.0-144.0 [facility] Comment on above: Performed By: #### 1 5334583, 7608421857, 6384764, [id number] ####[facility] (DEFAULT)[address] [place] [address] 70790 Urea nitrogen [Mass/Vol] 12 mg/dL Normal 8-26 [facility] Comment on above: Performed By: #### 1 3407160, 3904352333, 7844422, 2983479684 ####[facility] (DEFAULT)[address] [place] [address] 60114 Urea nitrogen/Creatinine [Mass ratio] 18.1 mg/mg High 4.6-16.2 [facility] Comment on above: Performed By: #### 1 5497670, 2745423006, 1843202, [id number] ####[facility] (DEFAULT)[address] [place] [address] Consent Formson 01-11-2023 Consent Forms [id number] TGTIFF Normal [facility] Discharge Noteon 01-11-2023 Discharge Note Discharge paperwork explained to pt at bedside, verbalized understanding. She states her pain is under control and denies other concerns. [Electronically Signed on: 01/11/2023 13:22 EST] Jami Liu RN [Verified on: 01/11/2023 13:22 EST] Jami Liu RN Normal [facility] Inpatient Patient Summaryon 01-11-2023 Inpatient [place] [address] Patient Discharge Instructions Name: JENNIFER VALENCIA : 1970 Patient Address: [address] [place] [address] Primary Care Provider: Name: BILLY PEREZ MD After you are discharged if you find you have any questions, please, call [phone] ext [phone] to speak to a nurse. The Pharmacy at [facility] is open Saturday through Saturday from 9A [...] alcohol and/or drug addiction problems; contact the [facility] 03/09 Crisis Hotline -Text 2LROP xh 300803. If you received any narcotics, sedation, or [...] or sign any legal documents [facility] would like to thank you for allowing us to assist you with your healthcare needs. The following includes patient education materials and information regarding your injury/illness. JENNIFER VALENCIA has been given the following list of follow-up instructions, prescriptions, and patient education materials: Follow-up Instructions With: Address: When: BILLY PEREZ MD Within 2 to 4 weeks Comments: Your prior CT abdomen had shown a 8 mm right middle lobe pulmonary nodule. please have your family physician follow up on this for survillence Medications During the course of your visit, your medication list was updated with the most current information. The details of those changes are reflected below: New Medications [facility], [address] [place] [address] [id number], [phone] ibuprofen (ibuprofen 600 mg oral tablet) 1 [...] white rice. (more content not included)... Normal [facility] Nutrition Noteon 01-11-2023 Nutrition Note Pt admitted w/ chest pain that appears resolved. Pt placed on a Regular diet, juzrdz127%. Admit wt 115.8kg in line w/ Oct wt on file of 113.3kg. Labs noting elevated AST/ALT, lipid panel wnl minus an LDL of 126, hgbA1C wnl. 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 Overall, low nutrition risk at this time. Will monitor. Normal [facility] Pharmacy Noteon 01-11-2023 Pharmacy Note I have personally reviewed the patient's medication list upon discharge including, prescription medications, OTC products, vitamins and supplements. Below are the following medications the patient is discharged on. New Medications [facility], [address] [place] [address] [id number], [phone] ibuprofen (ibuprofen 600 mg oral tablet) 1 [...] medication was sent to [facility]. Patient understood. [Electronically Signed on: 01/11/2023 12:21 EST] Isaias Aranda [Verified on: 01/11/2023 12:21 EST] Isaias Aranda Normal [facility] Telemetry Stripson 3 Telemetry Strips [id number]#1.00OT GTIFF Normal [facility] TnI HSon 01-11-2023 Troponin I High Sensitivity 3.1 pg/mL Normal <=15.0 [facility] Comment on above: Performed By: #### 1 [id number], [id number], 8359161, [id number] ####[facility] (DEFAULT)[address] [place] [address] US Echocardiogram Completeon 01-11-2023 US Echocardiogram Complete APPROVED REPORT EXAM: Comprehensive 2D, Doppler, and [...] Junction2.18 cm F: 2.3 - 2.9 LV Ebgy226.91 g LVOT Diameter 1.88 cm IVC1.80 (<= [...] Single Plane 4 CH 39.89 mLBiplane LA Ajdqoc22.64 mL Single Plane 2 CH27.31 mLLA ESV Index15.72 mL/m2 Right Atrium Area Systole RA Systolic Area A4C14.06 cm2RA Systolic Vol A4C34.00 mL Aortic Valve AoV Peak Velocity1.46 m/sLVOT Peak Velocity1.26 m/s AO Mean Velocity0.98 m/sLVOT Mean Velocity0.77 m/s AO Peak PG8.49 mmHgLVOT Peak PG6.33 mmHg AO Mean PG4.32 mmHgLVOT Mean PG2.85 mmHg AO V2 VTI31.25 cmLVOT V1 VTI26.76 cm RAJ (Vmax)2.40 ec6ZTTN Area 2.78 cm2 RAJ (VTI)2.38 cm2SV (LVOT) 74.50 mL Indexed RAJ (VTI)1.11 cm2/m2 Mitral Valve MV Max Gebmakky779.42 m/sMV PHT53.28 ms MV E Max Velocity0.74 m/sMVA (PHT)4.13 cm2 MV A Max Velocity0.53 m/sMR ZKC530.69 cm E/A Ratio1.4MR Peak Velocity4.84 m/s MV Decel. Pwvr969.71 ms TDI Med e' Velocity9.39 cm/sMV E / Medial e' 7.86 Lat e' Dylmofgd10.08 cm/sMV E / Lateral e' 5.24 TV S'11.93 cm/s Pulmonary Valve PV Peak Velocity0.94 m/sPV Peak PG3.57 mmHg AZ End Diastolic Cruz.55.55 m/s PV Mean PG2.00 mmHg Tricuspid Valve TR Peak Velocity2.31 m/sRAP Estimate3.00 mmHg TR Peak PG21.42 niGbDXGZ89.42 mmHg Final Signed (Electronic Signature): Lan Jimenez MD 01/11/23 12:01 p Technologist: [facility] .Auto Diff 01-10-2023 Auto Person % 7 % Normal 02-22 [facility] Comment on above: Performed By: #### 2 905627, [id number], 9109311681, 6816633297, 8139775078, 1162121, 19749266, 6941955, 2425467790 #### [facility] (DEFAULT) [address] [place] [address] 84438 Baso Abs# 0.1 x10 Normal 0.0-0.2 [facility] Comment on above: Performed By: #### 2 458015, 8747050411, 4216677616, 7481564054, 7959701073, 0188118, 74651984, 8961993, 2672723465 #### [facility] (DEFAULT) [address] [place] [address] 07002 Basophils/100 WBC (Bld) 1.2 % Normal 0.2-2.0 [facility] Comment on above: Performed By: #### 2 562618, 8273784963, 6770628486, 5164142755, 7484472983, 7578933, 56584946, 9575111, 6190488457 #### [facility] (DEFAULT) [address] [place] [address] 50836 Eos Abs# 0.2 x10 Normal 0.0-0.4 [facility] Comment on above: Performed By: #### 2 215883, 3534147196, 8357874287, 2442298874, 7938665210, 4886081, 87095570, 2206636, 5904920054 #### [facility] (DEFAULT) [address] [place] [address] 99738 Eosinophils/100 WBC (Bld) 2.3 % Normal 0.9-4.0 [facility] Comment on above: Performed By: #### 2 624552, 3231593340, 1770904460, 2319976462, 1809524833, 2519792, 36539158, 0874363, 1598111515 #### [facility] (DEFAULT) [address] [place] [address] 89423 Lymph Abs# 2.0 x10 Normal 1.3-2.9 [facility] Comment on above: Performed By: #### 2 833923, 0154128740, 0607727087, 7287875417, 7302054809, 3585214, 46847669, 4547596, 0694797577 #### [facility] (DEFAULT) [address] [place] [address] 38597 Lymphocytes/100 WBC (Bld) 28 % Normal 14-48 [facility] Comment on above: Performed By: #### 2 625549, 8006226974, 1448971964, 9121535854, 4012823245, 3468379, 47807068, 0325229, 5164456578 #### [facility] (DEFAULT) [address] [place] [address] Person Abs# 0.5 x10 Normal 0.0-0.8 [facility] Comment on above: Performed By: #### 2 419318, 2407651440, 7706916112, 0908565026, 0044102311, 5165623, 05964216, 0649459, 9177028527 #### [facility] (DEFAULT) [address] [place] [address] Neut Abs# 4.2 x10 Normal 1.5-9.2 [facility] Comment on above: Performed By: #### 2 039327, 3962365095, 4399655209, 0155743147, 4545018587, 7244788, 63044905, 5374368, 5887714239 #### [facility] (DEFAULT) [address] [place] [address] 44543 Neutrophils/100 WBC (Bld) 61 % Normal 44-88 [facility] Comment on above: Performed By: #### 2 305013, 4825985851, 6298659095, 7528105519, 0337757631, 2452986, 19444187, 9067646, 7176873381 #### [facility] (DEFAULT) [address] [place] [address] 81292 BMP Standardon 01-10-2023 eGFR Non AA >60 Invalid Interpretation Code [facility] Comment on above: Performed By: #### 2 760507, 7045728079, 4132935661, 4542058858, 7333983464, 8381967, 10088937, 9894984, 0421712707 #### [facility] (DEFAULT) [address] [place] [address] 50956 eGFR AA >60 Invalid Interpretation Code [facility] Comment on above: Performed By: #### 2 550609, 1560311825, 6028699463, 8680125429, 6530078197, 3753130, 62451311, 4307749, 2390006998 #### [facility] (DEFAULT) [address] [place] [address] 66828 Anion gap [Moles/Vol] 14.0 mmol/L Normal 5.0-19.0 [facility] Comment on above: Performed By: #### 2 809979, 2503822812, 4475227599, 5925123896, 3458539423, 2010750, 87494752, 7530113, 3109708153 #### [facility] (DEFAULT) [address] [place] [address] 16173 Calcium [Mass/Vol] 9.1 mg/dL Normal 8.9-10.3 [facility] Comment on above: Performed By: #### 2 710750, 4687642253, 0116959986, 3262835402, 5878091355, 9437264, 20417217, 6936954, 0167442765 #### [facility] (DEFAULT) [address] [place] [address] 28298 Chloride [Moles/Vol] 102 mmol/L Normal 101-111 [facility] Comment on above: Performed By: #### 2 620446, 7911379456, 0539635956, 4381118965, 8894832583, 0498077, 45732915, 1395754, 7826209370 #### [facility] (DEFAULT) [address] [place] [address] 45297 CO2 [Moles/Vol] 25 mmol/L Normal 21-32 [facility] Comment on above: Performed By: #### 2 903833, 6577960356, 7047493873, 2764752442, 9025206998, 6563537, 55781270, 0588692, 7378426142 #### [facility] (DEFAULT) [address] [place] [address] 34628 Creatinine [Mass/Vol] 0.61 mg/dL Normal 0.60-1.30 [facility] Comment on above: Performed By: #### 2 147743, 9935991161, 8987342796, 2888683641, 0223544678, 3691623, 28971996, 5583624, 6497557392 #### [facility] (DEFAULT) [address] [place] [address] 62905 Glucose [Mass/Vol] 84.0 mg/dL Normal 74.0-118.0 [facility] Comment on above: Performed By: #### 2 189696, 1292851243, 2653867925, 6278288316, 1135889676, 5570959, 14884350, 8211459, 9248550871 #### [facility] (DEFAULT) [address] [place] [address] 74246 Osmolality 271 mOsm/L Invalid Interpretation Code [facility] Comment on above: Performed By: #### 2 206854, 4235023414, 3960325348, 4787138341, 6743256516, 7903699, 78496446, 1343078, 0459739836 #### [facility] (DEFAULT) [address] [place] [address] 49922 Potassium [Moles/Vol] 4.0 mmol/L Normal 3.6-5.1 [facility] Comment on above: Performed By: #### 2 691601, 5520026345, 7069477656, 7684813570, 4891068514, 3818020, 43499968, 0642666, 3799837790 #### [facility] (DEFAULT) [address] [place] [address] 67831 Sodium [Moles/Vol] 137.0 mmol/L Normal 136.0-144.0 [facility] Comment on above: Performed By: #### 2 435589, 9795196629, 2585485253, 1430382808, 5786159691, 6140991, 78957679, 0543526, 6462207831 #### [facility] (DEFAULT) [address] [place] [address] Urea nitrogen [Mass/Vol] 8 mg/dL Normal 8-26 [facility] Comment on above: Performed By: #### 2 484368, 3629200052, 6787126268, 8823982509, 2706665597, 0469485, 75816982, 1993357, 4828779648 #### [facility] (DEFAULT) [address] [place] [address] Urea nitrogen/Creatinine [Mass ratio] 13.1 mg/mg Normal 4.6-16.2 [facility] Comment on above: Performed By: #### 2 342299, 8260052752, 2695162963, 9798388722, 6745760215, 3689636, 40691727, 0199692, 8636598938 #### [facility] (DEFAULT) [address] [place], [place] [address] Breakpoint Chem Normal [facility] Comment on above: Performed By: #### 2 560322, 7096918718, 2564774478, 7128958403, 0238157512, 0005233, 98421682, 0763048, 5314386655 #### [facility] (DEFAULT) [address] [place] [address] BNP.on 01-10-2023 Natriuretic peptide B (Bld) [Mass/Vol] 16.7 pg/mL Normal 0.0-100.0 [facility] Comment on above: Result Comment: BNP results greater than 100 pg/mL are considered abnormal and suggestive of patients with CHF. Higher BNP concentrations measured in the first 72 hours after an acute coronary syndorme are associated with an increased risk of , myocardial infarction, and CHF. Performed By: #### 2 434507, 8010798729, 6503287405, 2000774065, 4263760151, 8447856, 62920020, 0310816, 5938934874 #### [facility] (DEFAULT) [address] [place] [address] CBC w/ Auto Diffon 3 Erythrocyte distribution width (RBC) [Ratio] 16.3 % High 11.5-15.0 [facility] Comment on above: Performed By: #### 2 779395, 0208810158, 5456109372, 5499235063, 2966012496, 1607013, 17204476, 5723447, 2306160866 #### [facility] (DEFAULT) [address] [place] [address] Hematocrit (Bld) [Volume fraction] 40.0 % Normal 33.7-40.4 [facility] Comment on above: Performed By: #### 2 037505, 1940020229, 0378561802, 9412417398, 6749674623, 9225197, 91302150, 2055381, 6531647971 #### [facility] (DEFAULT) [address] [place] [address] Hemoglobin (Bld) [Mass/Vol] 13.5 g/dL Normal 11.3-15.9 [facility] Comment on above: Performed By: #### 2 365493, 0254103359, 7256395308, 1287742109, 4828872673, 1195307, 43898631, 6202300, 6287163498 #### [facility] (DEFAULT) [address] [place] [address] Man Diff? Auto Invalid Interpretation Code [facility] Comment on above: Performed By: #### 2 616944, 9399634475, 2619271059, 2272536315, 3694828943, 8700788, 23878923, 8551951, 2636424894 #### [facility] (DEFAULT) [address] [place] [address] MCH (RBC) [Entitic mass] 26 pg Normal 24-34 [facility] Comment on above: Performed By: #### 2 519582, 3161845018, 5380485628, 0990678040, 9122520570, 9817692, 81194575, 2384936, 7297206205 #### [facility] (DEFAULT) [address] [place] [address] 02430 MCHC (RBC) [Mass/Vol] 34 g/dL Normal 26-37 [facility] Comment on above: Performed By: #### 2 756208, 3251569538, 7797634134, 9809918087, 8582889496, 0480975, 74206610, 1367210, 4575411283 #### [facility] (DEFAULT) [address] [place] [address] MCV (RBC) [Entitic vol] 77 fL Low 81-100 [facility] Comment on above: Performed By: #### 2 130416, 9366459024, 7406982370, 5378832787, 0939288234, 6179792, 59220192, 1149838, 4975540560 #### [facility] (DEFAULT) [address] [place] [address] Platelet 252 x10 Normal 138-427 [facility] Comment on above: Performed By: #### 2 098253, 2854810891, 9079721484, 3106087066, 3518044059, 9939746, 87097189, 6089513, 1618185592 #### [facility] (DEFAULT) [address] [place] [address] Platelet mean volume (Bld) [Entitic vol] 7.5 fL Normal 6.3-10.2 [facility] Comment on above: Performed By: #### 2 087363, 7915906520, 9962072760, 1919146653, 1663732584, 1223087, 68715299, 5526913, 7841958401 #### [facility] (DEFAULT) [address] [place] [address] RBC 5.21 x10 Normal 3.70-5.30 [facility] Comment on above: Performed By: #### 2 797506, 8216550047, 7612841559, 8164527851, 5878245130, 8452538, 27828787, 7575743, 4672766821 #### [facility] (DEFAULT) [address] [place] [address] 25980 WBC 6.9 x10 Normal 3.5-10.5 [facility] Comment on above: Performed By: #### 2 758550, 6677676425, 2598625584, 2466926107, 1454652995, 8682424, 32718671, 0271773, 2400075710 #### [facility] (DEFAULT) [address] [place] [address] 44821 D-Dimeron 01-10-2023 D-Dimer 0.40 mg/L FEU Normal 0.19-0.50 [facility] Comment on above: Result Comment: The INNOVANCE [...] Liver cirrhosis ? Performed By: #### 2 401406, 9397323202, 8452236204, 9699230013, 2862886329, 3479102, 78159776, 7420025, 1131676310 #### [facility] (DEFAULT) [address] [place] [address] 92160 ED Clinical Summaryon 2022 ED Clinical Summary [facility] - Emergency Department [address] [place] [address]56 ED Clinical Summary PERSON INFORMATION Name: JENNIFER VALENCIA Age: 52 Years Sex: FEMALE : 1970 MRN: Acct#: Visit Reason: Chest pain; CHEST PAIN Arrival: 01/10/2023 09:49:38 Discharge: LOS: 000 04:15 Check In: 01/10/2023 09:49:38 Checkout:01/10/2023 14:04:45 Address: [address] [place] [address] PCP: BILLY PEREZ MD PROVIDER INFORMATION Provider Role Assigned Unassigned Ralph Wright MD ED Provider 01/10/2023 09:51:52 Rigoberto ROGERS, Kyara ED Nurse 01/10/2023 10:09:25 01/10/2023 10:09:26 Pelon [...] Follow-Up: DIAGNOSIS: 1:Chest pain Patient Understands: Comment: [facility] ED Note-Nursingon 01-10-2023 ED Note-Nursing private vechile arrival with c/o cp since yesterday unrelieved with tums. anxious. tearful. ekg complete for physician review. tele provided. tolerated 20g left ac. morphine zofran ns. cxr. nsr on tele. lcta. oriented to call light. encouraged to call for help. [facility] ED Patient Education Noteon 01-10-2023 ED Patient Education Note Education Materials [facility] ED Patient Summaryon 023 ED Patient Summary [facility] - Emergency Department [address] [place], [place] [id number] PATIENT DISCHARGE INSTRUCTIONS Patient Information Name: JENNIFER VALENCIA Age: 52 Years Date of : 1970 Reason For Visit: Chest pain; CHEST PAIN Arrival Time: 01/10/2023 09:49:38 Primary Care Physician: BILLY PEREZ MD Attending Physician: Rashid Arriaga MD Comment: Visit Diagnosis: Diagnoses This Visit Chest pain (35166274) Chest pain (R07.9) The Pharmacy at [facility] is open Saturday through Saturday from 9A [...] alcohol and/or drug addiction problems; contact the [facility] 03/09 Crisis Hotline -Text 9QQTF [id number] [phone]. If you received any narcotics, sedation, or [...] and treatment you received today in the [facility] Emergency Department were for an urgent problem and are not intended as complete care. It is important for you to follow up with a doctor, nurse practitioner, or physician?s assistant women's soccer coach for ongoing care. If your symptoms become [...] can reach you if necessary. [facility] Emergency Department has provided you with a complete list of medications post discharge. Please inform your primary mill roller/provider of your visit and for further instruction [...] Disease Control and Prevention October 2013 Normal [facility] Extra Redon 01-10-2023 Tube Collected Yes Invalid Interpretation Code [facility] Comment on above: Performed By: #### 2 289992, 9944818575, 0681859717, 2029914165, 3813398785, 6025316, 38401692, 7485593, 2658429376 #### [facility] (DEFAULT) [address] [place] [address] HgbA1c Standardon 01-10-2023 .Hb 13.6 Invalid Interpretation Code [facility] Comment on above: Performed By: #### 1 [id number], [id number] ####[facility] (DEFAULT)[address] [place] [address] 89339 .Hgb A1c 0.51 g/dL Invalid Interpretation Code [facility] Comment on above: Performed By: #### 1 [id number], [id number] ####[facility] (DEFAULT)[address] [place] [address] 46175 Glucose [Mass/Vol] 111 mg/dL Invalid Interpretation Code [facility] Comment on above: Performed By: #### 1 [id number], [id number] ####[facility] (DEFAULT)[address] [place] [address] 51877 HbA1c (Bld) [Mass fraction] 5.5 % Normal 4.6-6.2 [facility] Comment on above: Performed By: #### 1 287186324, 8228607716 ####[facility] (DEFAULT)[address] [place] [address] 68227 Lipid Panel Standard, [facility] 01-10-2023 Cholesterol [Mass/Vol] 199.0 mg/dL Normal 66.0-200.0 [facility] Comment on above: Performed By: #### 1 479922046, 3111293075 ####[facility] (DEFAULT)[address] [place] [address] 15090 Cholesterol in HDL [Mass/Vol] 55 mg/dL Normal 40-71 [facility] Comment on above: Performed By: #### 1 046051052, [id number] ####[facility] (DEFAULT)[address] [place] [address] 53379 Cholesterol in LDL [Mass/Vol] 126 mg/dL High 1-100 [facility] Comment on above: Performed By: #### 1 141193050, 3159307776 ####[facility] (DEFAULT)[address] [place] [address] 50308 Cholesterol.total/C holesterol in HDL [Mass ratio] 3.6 {ratio} Normal 0.0-4.5 [facility] Comment on above: Performed By: #### 1 645987687, 7694522504 ####[facility] (DEFAULT)[address] [place] [address] 63054 Triglyceride [Mass/Vol] 87.0 mg/dL Normal 0.0-150.0 [facility] Comment on above: Performed By: #### 1 396134702, 3650048197 ####[facility] (DEFAULT)[address] [place] [address] 05891 VLDL. 17 mg/dL Normal 5-40 [facility] Comment on above: Performed By: #### 1 482040390, 8015866434 ####[facility] (DEFAULT)[address] [place] [address] 38587 PT/PTTon 01-10-2023 INR Coag (PPP) [Relative time] 1.04 {INR} Normal 0.91-1.11 [facility] Comment on above: Performed By: #### 2 410082, 8947819161, 1075591750, 8586867671, 3810161261, 0466429, 84417793, 5193476, 5180176557 ####[facility] (DEFAULT)[address] [place] [address] 83975 PT 10.8 second(s) Normal 9.7-11.8 [facility] Comment on above: Performed By: #### 2 190465, 0570055800, 7709658109, 2886824960, 9300676322, 7252891, 13322724, 7074295, 4342115528 ####[facility] (DEFAULT)[address] [place] [address] 98724 PTT 26 second(s) Normal 25-35 [facility] Comment on above: Performed By: #### 2 595589, 5694765477, 4323040594, 6771532396, 2544779498, 6786849, 13110821, 7598714, 0859867237 ####[facility] (DEFAULT)[address] [place] [address] 68635 TnI HSon 01-10-2023 Troponin I High Sensitivity 3.8 pg/mL Normal <=15.0 [facility] Comment on above: Performed By: #### 5 [id number] ####[facility] (DEFAULT)[address] [place] [address] Troponin I High Sensitivity 3.8 pg/mL Normal <=15.0 [facility] Comment on above: Performed By: #### 5 [id number] ####[facility] (DEFAULT)[address] [place] [address] Troponin I High Sensitivity 3.4 pg/mL Normal <=15.0 [facility] Comment on above: Performed By: #### 2 724705, 7408353360, 0188468017, 9466477346, 0243982456, 4455914, 90764564, 1296777, 2410873535 ####[facility] (DEFAULT)[address] [place] [address] US Gallbladderon 01-10-2023 US Gallbladder Clinical History: Chest pain. Shortness of breath. Nausea. Technique: [Sonography [...] Mike Blandon MD 01/10/23 4:02 pm Technologist: [facility] XR Chest 1 View Frontalon XR [...] Nitin Cui MD 01/10/23 10:34 a Technologist: [facility] Coding Summaryon 11-28-2022 Coding Summary HTMLBase 64 WznguwhyUIg4rFo+PGhlYW Q+BQ1QUBRnZ57okSDfoQ5u K4IZNCiPEaisFRCMMTlJIb UbzjSsCR0ahEMyRZFd IC8+AL8wKRBnNnrolZWpr6 W4lGX7F14pmz0gCFhojBN7 JAKoXzEflplkx5worBf7KV cuNmluOyBt SQBhqB72XUJ7kD52Xv12kO AvcJKrp6uwrHx5CbAoHDGb JOY8mDqdSEbpb8ByJCZhU5 1ncZVyk9N1 YXNytNvsfJLuVwXfhBQ1wV 2yCIkyzmlws9zbamdcBgj6 yu96eIDqs4I5fED1D3Suzb R4UOBocBVu PloteTFFvW0nnfmdt8lnae qjApCgHPKwXNj9KRg1AOXb eUwhHbIvOH25EIZ0HFGvkb BfQ0DeENBv mYzxThZ5g5T5Av0QM2VVLt gdF3FHALEYWPgttQE+PC90 ie68Q6NoCkexQoc3CALrSA G7aFM0vF0a AHNtRZmvi4J9iPO5Y2Glst Qhkv6ag7fkGCGrXNkfE69u rWOal4Y6OSQuvEI3IWAvyJ pmBxWjhP33 Oyc+OUDrkVwbi8AbLzrqj0 zdo3ozfRc3CavjGGQrytEo aJmzLWV6n8NqFx1kGOSvaD O9bDY1lF9e RaDiWpK4MYfgY532WoGmtW SsXremA78wF1OkfUZ+PHRy Kju6LMZjtZkkXM3jP1CxSZ RpbmctbGVm oCooKA9fTMZkfiqqTYAjxA 0xSCVwF6w5MmBcLoK6LDju W7BgKQKarmliUw26hA3rTw CwYyN5RErc G8PycsS8WXBxyBLeEDjeEH N1A16mc9T6UHJqZNUoEYJ6 hNA2xU7jdFywiggscUShqY sgdmVydGlj TCtkQTesT479WYOmfRebPd NvZGluZyBEYXRlOiAgMTAv MTgvMjAyMzwvdGQ+PHRkIH Z7dGtzFXRp eIVoRRqzCu5afGrnmYuhLK 0sEOBeimbwDUNjoY8bDCNd nOGclUnyLK8tWDAylqmpm2 34ZyTmNNQ2 IFBncVLoR6KpyM2eYbStXR SkRAYyB7QqnMOdHPnaQ820 ALryMoK1ECWmjxHaK9BzNZ FsaWduOiB0 h2N9Ia6Pf5IzqimaH9CvhE ApKwWzRqjrEJi4M8HoFlwq dHI+TO40GPWkMT15VTe2QE J6jCghAKus ODIdA8PpuQ5xUpHwWVIuKQ RkOyc+PHRhYmxlIHdpZHRo NPdaTCRtApTgbZhoIK8iRe 9yZGVyLWNv bQxlqMWnAzRqt7zxQRFpYO zmKX6joBbsF1YotWX0FCMs g3v2Zq32R92wQ4QhwTM+PG RgjGP4zEX1 wW0qLeZgUbS2OWtcS727Hd HucSHtYwkzj8dfl6wwdWk4 NwV4NSIirpWvgYlmVBV3k4 ZmSl12E29m IHdpZHRoPSIxNSUiIHZhbG wwfk7zuR8hWp1+PGNvbCB3 tQT1rO8sZhDtNzH9XRxhU6 49InRvcCIv Slqms9glc0iuiOz1YfGwCP ReqsQxvTnmXSJ1o9WnUg80 I5SeoPjtu6YcMhb6zp52nS Erc8C7sZV4 K8QqUYGsjzrufOKetRryMP 7sXZZiybelEPKtiG2sHJRf S9t6IpOwDgB5WOnoH8Wtqb Q4EMRkuJMt SZCxzOZVsH2kyulnu5zifn ibLlArZXMjXJs6GKb0AZWr oPzyQfAdOHG1MwC4ZXI1bT NilE5pqMag qzswcI9eIhj+STY4yAXgyX ZPEJ1iCzdutOV+PHRkIHN0 tUrvVDtwUNNxjK4iJGRzO4 y6SnLvKeO9 IBjaK9GmvhP8CHTpfJFvRL VgkSGWhO0rioqwn3ffebzv LxRhVZHrRXf0XIz4XLOuoJ duOiBsZWZ0 MaZ9YXC8kEVvrJ2szMpxlw hquA0nVbl+QmlydGggRGF0 POv0J7FeCne1TVTrnFqmIF 0ncGFkZGlu Uo7aoHvhcKabSM4sDKJsbk lqs156KkXni5wzZMJoaXPs QHoaXYS2H92uh1K8EXDcVZ YxCBB1iOX0 uO7egUzzbwcvlDTtmLmfgw TubCxrUUirPGrqK417STUf vWpkIdIrRQv0R9BhQrj0XQ WylNbxPL2g xXVyDUsxNp4rxYggfWvlOP 7bHZXvhxjpb302IcRvw9zt LTIyoZNfBOeiLFZ4M85cx9 J8DKOiHEEu DTJ5bYK9fN5ydKthaqzodZ VmdDsgdmVydGljYWwtYWxp T282MDAkuHmkYuMzwUs2V5 KrCbx3DHVw pJiwAL7ugOShKVmsYa2geC qiyVplXN2pKGVlyrkxu226 DpSyc2zhUSRmxFSsGMbqML K0I68kz9T0 BFWwWAWiGXS7jGK7lB0iqZ lnbjogbGVmdDsgdmVydGlj OUyzBToeQ814XKQnmBbzQv BhdGllbnQg RDtdNCj8A2WkXhthuCN+PC 09RMPkRV03rSWmbRXaq1ek eUe7IoAgVWRcBRD8zLwqOW xor4VvWUQr R25coXPdw3W2ZMBooGmomP JhFdPwhYV4rZ3vFUiniycz h7qagjotCnpsu3riro53gV 30D31cGUso ZHRoPSIzMCUiIHZhbGlnbj 8buZ1wGl6+GOFcaTG5xXR1 lE6kGQFsHgR4KDosY052Su RvcCIvPjxj h5rbb3xehCh3GmI1MXFsmq AwiLgdEPF9a3NsFd18X98u IHdpZHRoPSIyMCUiIHZhbG kocg0tbK9x Ii8+FGJwoVY0vOS8zN7cQe CbRoE8EIiaU057KgCyfTEu MoijV55nA1YptMY+PHRyPj u7UBGpdDnu DR7dkLBsBYhxYv9gQBG1Hw EeKaWgGDjnS2SwWCFqymdh xjinuGZ4TJIpBPOawS74Eq 9udDogMTBw pLANdP7mpbngl1qslavrVm TtTYQlMUu0XWv4MRSefSzh GmEcGUN9MfR8OQX3kMIajF 1hbGlnbjog nH0gM7IhURUkpwqsXh66uO 0xBgSzYrP4CCqvHwl+QU5E POHPT42oJEKTTwAmHQhdcK Q+PHRkIHN0 iQknYGaeTIHliM3xMTEtC0 z8FaWyJbF0EJewT4MjIRYj ulfuEa36fQ2sDzTvBcD8UG exF5MjapK3 HJYptVDtKJnsWIY2Z92on9 Q7NNAdYBGzSNO0iJX5wV1t bGlnbjogbGVmdDsgdmVydG ljYWwtYWxp P236UYKobKapFhD9SiVwZd G3DjV7U2HbTsx4YYXuhBje YG7ieRTjDIeeDk0upRdwqY vqXW2hTMRq uxrpVTRifX2sNGRzkEOxfU ncLJ9bJVYhastgm510RpYb WAO5HRSpoTGnP7PrwD8tHu AjMDAwMDAw B1EhuGIlXKtwO531IWprOm F7QEUahtSyV8IpMWKteVsp EnH1u7I8Ny05ANMXRXUzgz wvdGQ+PHRk FTG8dBcdYFlsTQIrcI3bPZ QtH4e1AtAfHxZ6NYiaT5Gy TGYrxqipJz77cB1qSrSaCy D9XYvkX1Bv fnT5HGUbeOCkDHuxIDO7K8 6ey0H1WKIoQWBvUVC6zRV9 gA0lrFrxcuoqtGAdxIpthw VydGljYWwt TPkbG176OEIggMhrLoDWPH FMRTwvdGQ+ZFXqIIO3aSix DIuzCROlcT1eTTDnF9y4Ft TdGqS8UVvq S8IzZKAauldrJo39wC7vGk DjMxO5KRrzM5WehzL7VOWq bWPpPQeyPTS1B00nb3X7LF MwMDAwMDA7 jSU4tP5baDusjertdOEhbJ zpkuIclWotHXvuDPzjJ995 PEWpvNbvEiVgTPGlCD6ylO wvdGQ+PC90 pc82M6YzJlfoHiz2LDKqRT F7pRX0iY1tPROmKXdei0R4 gTO7A9IulxTsxa2ic4csIK IbNHffB54c sRVun7R8KDXwsRG7YKLwjG zxPnTcmQ75Oji+PGNvbGdy m2LkExndr9gzj9htjPs2Qi MwJSIgdmFs vBayLWO2m0ZbAl42J84rZI dpZHRoPSIzMCUiIHZhbGln ve9hoJ4tRz5+WTAdrMW7rW C3tU4bEbQi OaK6XDtqQ708MzHkmXYhAg xis8sxb0dphRq8FhDkTWFu isIjhPmoXGS6p3LmIw29V7 KciNmva5Xa Hgk4sx00zWIwv5A5pWE4A4 HfLCXmjyrbbQPdkOcaCV1k FFIjwsqhOPAzpR2pFMJkX7 a4QoEqCjN0 CArtE3ViqgM5VOLllDFbOW LcqTLWxB5raiibz9viagom XtOaGNXtSKz6GMl6CGSliI duOiBsZWZ0 EbS7HZI0tPIroI8sbKoirt kylN7qDip+SFj0r3bdfKDp MM4snXL8DF24FZ89fZZbu2 Y5yTP5Y6Tz JJUeztyqwhvooBB3APFdBJ OnfH86Dc3kwQplXz9xCNTn VLW1NQXueCYuU6KzjA6pVy AjMDAwMDAw Q3YkdNCgCPztG570AJraRh E2GBAmyvYvO1JsZRIupYvj SnC6n3M5Si6MON69WI76GD 67pLAdv0V5 tSB5V0BfLODaugxkhafbhW G6JACxYJGjaX06Hz4pkFpd Ga3wCFVyXDD2VDJuxTFyF3 IixD5sBzEm XFOcGPMyX2OtzJUfYQczM5 29DWrqVhW8BSMrraXuJ0Ri IWVnyOguOrW3i8P3Na1SDl 50ZA10US68 fFUpt4A8qTO6S4BxBOSuhs rtagqgwBG3PMTlECLcmX81 Wk4ajBcdBr2jGXBuOPA7TL CpjYNdX0Si qE8pUlWaBFFiJFCcB6EmqI FrMMilO198RVrfWrW3CGSa ogHcK6PmQKGteFftCnQ3f2 D1Ns2LVUnu hru5P3BvWexjaED+PC90YW FkEC40gCDhwWKvx3pulOp5 NmBhMTDfFDH6hLqnDEifd3 QqEFPdT11x bGF (more content not included)... [facility] C Urineon 11-24-2022 C Urine Urine Culture ordere d as a result of parameters set on specific urine dip and urine microsopic results. 70,000 cfu/ml Staphylococcus haemolyticus and 50,000 cfu/ml Corynebacterium species (diptheroids) No CHEYANNE performed on this organism ORGANISM Stahae --- SUSCEPTIBILITY -- ORGANISM ID: 1 ANTIBIOTIC INTERPRETATION CHEYANNE STATUS [...] S <=0.5/9.5 Verified Vanc S 1 Verified [facility] Comment on above: Performed By: #### 2 218398, [id number], [id number], [id number], 2682742734, 9619425, 09800589, 4683046, [id number] #### [facility] (DEFAULT) [address] [place] [address] 28661 ED Clinical Summaryon 2022 ED Clinical Summary [facility] - Emergency Department [address] [place] [address] ED Clinical Summary PERSON INFORMATION Name: JENNIFER VALENCIA Age: 52 Years Sex: FEMALE : 1970 MRN: Acct#: Visit Reason: Flank pain; BACK PAIN, ABD PAIN, WEAKNESS Arrival: 11/21/2022 19:18:46 Discharge: 11/21/2022 22:28:00 LOS: 000 03:10 Check In: 11/21/2022 19:18:46 Checkout:11/21/2022 22:28:00 Address: [address] [place] [address] PCP: BILLY PEREZ MD PROVIDER INFORMATION Provider [...] Home PATIENT EDUCATION INFORMATION Instructions: Hypertension, Adult, Khdi-pq-Qeio; Nonalcoholic Fatty Liver Disease Diet, Adult; Fatty Liver Disease; Cholelithiasis, Ohwi-rj-Wyjx; Flank Pain, Adult, Feim-dp-Weol; Abdominal Pain, Adult, Gxwv-sl-Lbhl Follow-Up: With: Address: When: [facility] 5 days DIAGNOSIS: 1:Left flank pain; 2:Elevated blood pressure reading; 3:Nausea and vomiting in adult; 4:Fatty liver; 5:Cholelithiasis Patient Understands: Yes - Patient/family/caregiv er verbalizes understanding of instructions given Comment: Normal [facility] ED Patient Summaryon 023 ED Patient Summary [facility] - Emergency Department [address] [id number] PATIENT DISCHARGE INSTRUCTIONS Patient Information Name: JENNIFER VALENCIA Age: 52 Years Date of : 1970 Reason For Visit: Flank pain; BACK PAIN, ABD PAIN, WEAKNESS Arrival Time: 11/21/2022 19:18:46 Primary Care Physician: BILLY PEREZ MD Attending Physician: Juanito Maciel MD Comment: Visit Diagnosis: Diagnoses This Visit Cholelithiasis (K80.20) Elevated blood pressure reading (R03.0) Fatty liver (K76.0) Flank pain (995764951) Left flank pain (R10.9) Nausea and vomiting in adult (R11.2) The Pharmacy at [facility] is open Saturday through Saturday from 9A [...] alcohol and/or drug addiction problems; contact the [facility] Replaced By [facility] 03/09 Crisis Hotline -Text 9RVTH lz [phone]. If you received any narcotics, sedation, or [...] legal documents With: Address: When: BILLY PEREZ MD [facility]FF[facility] Within 3 to 5 days Medication Information: The exam and treatment you received today in the [facility] Emergency Department were for an urgent problem and are not intended as complete care. It is important for you to follow up with a doctor, nurse practitioner, or physician?s assistant women's soccer coach for ongoing care. If your symptoms become [...] can reach you if necessary. [facility] Emergency Department has provided you with a complete list of medications post discharge. 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 Othe (more content not included)... Normal [facility] .Auto Diff 11-21-2022 Auto Person % 7 % Normal 02-22 [facility] Comment on above: Performed By: #### 2 199812, [id number], 59042435, 7671560, 6630013038, 0107827957, 6352101049 ####[facility] (DEFAULT)[address] [place] [address] 99369 Baso Abs# 0.1 x10 Normal 0.0-0.2 [facility] Comment on above: Performed By: #### 2 948067, 2607192283, 15706213, 5095222, 0924720549, 7603888667, 5845244699 ####[facility] (DEFAULT)[address] [place] [address] 41653 Basophils/100 WBC (Bld) 0.9 % Normal 0.2-2.0 [facility] Comment on above: Performed By: #### 2 852134, 6851762234, 57074235, 0446849, 2444749226, 9173461015, 3329052603 ####[facility] (DEFAULT)[address] [place] [address] 56053 Eos Abs# 0.2 x10 Normal 0.0-0.4 [facility] Comment on above: Performed By: #### 2 036442, 2880453730, 86418775, 9982482, 9267685359, 7914534563, 9594347217 ####[facility] (DEFAULT)[address] [place] [address] 55906 Eosinophils/100 WBC (Bld) 2.7 % Normal 0.9-4.0 [facility] Comment on above: Performed By: #### 2 296402, 7805139582, 53655355, 5003714, 0470911785, 7510594628, 9785245832 ####[facility] (DEFAULT)[address] [place] [address] 19687 Lymph Abs# 2.0 x10 Normal 1.3-2.9 [facility] Comment on above: Performed By: #### 2 373929, 4665756415, 80169936, 2308573, 8525244133, 9468058701, 2609992115 ####[facility] (DEFAULT)[address] [place] [address] Lymphocytes/100 WBC (Bld) 34 % Normal 14-48 [facility] Comment on above: Performed By: #### 2 087781, 6901054232, 93438800, 9271774, 9897576509, 7516530621, 0943546132 ####[facility] (DEFAULT)[address] [place] [address] Person Abs# 0.4 x10 Normal 0.0-0.8 [facility] Comment on above: Performed By: #### 2 560052, 8529741646, 78160692, 9610332, 5686850181, 2033434840, 7865329196 ####[facility] (DEFAULT)[address] [place] [address] Neut Abs# 3.4 x10 Normal 1.5-9.2 [facility] Comment on above: Performed By: #### 2 925825, 3219706738, 78781332, 1590679, 6922822565, 2237390430, 1091099023 ####[facility] (DEFAULT)[address] [place] [address] Neutrophils/100 WBC (Bld) 56 % Normal 44-88 [facility] Comment on above: Performed By: #### 2 914890, 5259193481, 78187791, 3587519, 4939254038, 1413079968, 4684504460 ####[facility] (DEFAULT)[address] [place] [address] CBC w/ Auto Diffon Erythrocyte distribution width (RBC) [Ratio] 16.4 % High 11.5-15.0 [facility] Comment on above: Performed By: #### 2 220443, 2746559983, 22058166, 1148608, 0350580834, 7837000714, 2623374634 ####[facility] (DEFAULT)[address] [place] [address] Hematocrit (Bld) [Volume fraction] 42.0 % High 33.7-40.4 [facility] Comment on above: Performed By: #### 2 238273, 1928528805, 77423801, 8216404, 5039909625, 1976143277, 1855107380 ####[facility] (DEFAULT)[address] [place] [address] Hemoglobin (Bld) [Mass/Vol] 14.0 g/dL Normal 11.3-15.9 [facility] Comment on above: Performed By: #### 2 746536, 6159110622, 83984508, 2123986, 7760554748, 9532465442, 5599726930 ####[facility] (DEFAULT)[address] [place] [address] Man Diff? Auto Invalid Interpretation Code [facility] Comment on above: Performed By: #### 2 470188, 1075421437, 77958095, 9475835, 0022021373, 6268731525, 6056511868 ####[facility] (DEFAULT)[address] [place] [address] MCH (RBC) [Entitic mass] 26 pg Normal 24-34 [facility] Comment on above: Performed By: #### 2 859157, 3933176464, 22240268, 1407897, 0471920523, 5995402887, 8308254016 ####[facility] (DEFAULT)[address] [place] [address] MCHC (RBC) [Mass/Vol] 33 g/dL Normal 26-37 [facility] Comment on above: Performed By: #### 2 495095, 3472485895, 11291693, 6368323, 3121137695, 3612665658, 4334613165 ####[facility] (DEFAULT)[address] [place] [address] 21966 MCV (RBC) [Entitic vol] 78 fL Low 81-100 [facility] Comment on above: Performed By: #### 2 413285, 4475553786, 78341241, 7440725, 1321087219, 7645598679, 5734847206 ####[facility] (DEFAULT)[address] [place] [address] 98401 Platelet 236 x10 Normal 138-427 [facility] Comment on above: Performed By: #### 2 489533, 1530477649, 67937438, 7723069, 6739028015, 6744514809, 2373995999 ####[facility] (DEFAULT)[address] [place] [address] 08566 Platelet mean volume (Bld) [Entitic vol] 7.7 fL Normal 6.3-10.2 [facility] Comment on above: Performed By: #### 2 174708, 5263816459, 67938892, 4675044, 3205976452, 1293998009, 1890467783 ####[facility] (DEFAULT)[address] [place] [address] 66470 RBC 5.40 x10 High 3.70-5.30 [facility] Comment on above: Performed By: #### 2 081270, 8505444225, 66596980, 9562408, 1839985528, 3094446679, 2759285444 ####[facility] (DEFAULT)[address] [place] [address] 20514 WBC 6.0 x10 Normal 3.5-10.5 [facility] Comment on above: Performed By: #### 2 995874, 3729759988, 08313111, 5348228, 2943219808, 1388835664, 4141308594 ####[facility] (DEFAULT)[address] [place] [address] 27781 [facility] 11-21-2022 eGFR Non AA >60 Invalid Interpretation Code [facility] Comment on above: Performed By: #### 2 995376, 5934551606, 67222489, 8384681, 9739538625, 5430848437, 7516213235 ####[facility] (DEFAULT)[address] [place] [address] 44545 eGFR AA >60 Invalid Interpretation Code [facility] Comment on above: Performed By: #### 2 414294, 9937557468, 28620471, 4473022, 9412087214, 7947754191, 3310950419 ####[facility] (DEFAULT)[address] [place] [address] 95819 Albumin [Mass/Vol] 3.9 g/dL Normal 3.5-5.0 [facility] Comment on above: Performed By: #### 2 621966, 3816012709, 16543666, 5123313, 1039370315, 3127051463, 6715447869 ####[facility] (DEFAULT)[address] [place] [address] 15858 Albumin/Globulin [Mass ratio] 1.1 {ratio} Low 1.4-2.6 [facility] Comment on above: Performed By: #### 2 229423, 0417987511, 16473177, 4444231, 9560129417, 3122335524, 5437592163 ####[facility] (DEFAULT)[address] [place] [address] 71537 Alk Phos 82 IU/L Normal 32-91 [facility] Comment on above: Performed By: #### 2 804338, 3375584493, 64356123, 7867146, 3943133480, 1659800698, 9072171348 ####[facility] (DEFAULT)[address] [place] [address] 52995 ALT [Catalytic activity/Vol] 197.0 U/L High 14.0-54.0 [facility] Comment on above: Performed By: #### 2 833571, 7471385348, 95148096, 4779112, 5978600898, 3094721700, 3716946594 ####[facility] (DEFAULT)[address] [place] [address] 87910 Anion gap [Moles/Vol] 11.0 mmol/L Normal 5.0-19.0 [facility] Comment on above: Performed By: #### 2 131138, 5737641658, 17572998, 7809052, 3596416400, 9733591218, 2834387798 ####[facility] (DEFAULT)[address] [place] [address] 89291 AST [Catalytic activity/Vol] 127 U/L High 15-41 [facility] Comment on above: Performed By: #### 2 086712, 3613953622, 73423477, 1414884, 3721447695, 9358572553, 7655356191 ####[facility] (DEFAULT)[address] [place] [address] 57668 Bili Total 1.2 mg/dL Normal 0.3-1.2 [facility] Comment on above: Performed By: #### 2 010036, 1565698192, 62856651, 1540384, 7802643045, 0912262352, 7217717820 ####[facility] (DEFAULT)[address] [place] [address] 64276 Calcium [Mass/Vol] 9.1 mg/dL Normal 8.9-10.3 [facility] Comment on above: Performed By: #### 2 445740, 6748257626, 82401294, 3856600, 4738797550, 1414242062, 2630728924 ####[facility] (DEFAULT)[address] [place] [address] 16049 Chloride [Moles/Vol] 103 mmol/L Normal 101-111 [facility] Comment on above: Performed By: #### 2 503644, 9588574738, 36770478, 1929608, 9134605356, 1145811357, 6405717738 ####[facility] (DEFAULT)[address] [place] [address] 42376 CO2 [Moles/Vol] 26 mmol/L Normal 21-32 [facility] Comment on above: Performed By: #### 2 530934, 6919895256, 28496156, 5645041, 0755358901, 5231937481, 2958503216 ####[facility] (DEFAULT)[address] [place] [address] 81043 Creatinine [Mass/Vol] 0.65 mg/dL Normal 0.60-1.30 [facility] Comment on above: Performed By: #### 2 097271, 2774993879, 46163548, 7520580, 9172827305, 6288138878, 7236685403 ####[facility] (DEFAULT)[address] [place] [address] 53520 Globulin (S) [Mass/Vol] 3.4 g/dL Normal 1.5-4.3 [facility] Comment on above: Performed By: #### 2 562774, 8716180147, 96751879, 4977520, 0485785919, 3052908115, 6955165523 ####[facility] (DEFAULT)[address] [place] [address] 25255 Glucose [Mass/Vol] 98.0 mg/dL Normal 74.0-118.0 [facility] Comment on above: Performed By: #### 2 307527, 9406804294, 95590837, 9389515, 0246301194, 2262445479, 3872767211 ####[facility] (DEFAULT)[address] [place] [address] 70230 Osmolality 270 mOsm/L Invalid Interpretation Code [facility] Comment on above: Performed By: #### 2 415756, 3282466943, 99789836, 1663631, 0035298555, 2077714515, 2912133839 ####[facility] (DEFAULT)[address] [place] [address] 53515 Potassium [Moles/Vol] 4.0 mmol/L Normal 3.6-5.1 [facility] Comment on above: Performed By: #### 2 820917, 8977399173, 72012885, 3840967, 9118322176, 6214992505, 2956855186 ####[facility] (DEFAULT)[address] [place] [address] 62450 Protein [Mass/Vol] 7.3 g/dL Normal 6.5-8.1 [facility] Comment on above: Performed By: #### 2 803119, 6024746999, 63672013, 9697232, 7116645978, 0376839023, 0520933558 ####[facility] (DEFAULT)[address] [place] [address] 24746 Sodium [Moles/Vol] 136.0 mmol/L Normal 136.0-144.0 [facility] Comment on above: Performed By: #### 2 831236, 1926990696, 67557730, 0319402, 7182949465, 6152432359, 2552824826 ####[facility] (DEFAULT)[address] [place] [address] 96668 Urea nitrogen [Mass/Vol] 8 mg/dL Normal 8-26 [facility] Comment on above: Performed By: #### 2 225120, 3158438867, 75486583, 0887722, 4609428716, 1641999004, 5250278014 ####[facility] (DEFAULT)[address] [place] [address] 73769 Urea nitrogen/Creatinine [Mass ratio] 12.3 mg/mg Normal 4.6-16.2 [facility] Comment on above: Performed By: #### 2 588391, 8778855506, 87598306, 0306261, 0208255527, 3765708377, 6756747413 ####[facility] (DEFAULT)[address] [place] [address] Abdomen/Pelvis w/o Contra ston 11-21-2022 CT [...] 8:31 am Technologist: JACQUI Dill [facility] ED Clinical Summaryon 2022 ED Clinical Summary [facility] ? Urgent Care [address] [place] [address] Clinical Summary PERSON INFORMATION Name: JENNIFER VALENCIA Age: 52 Years Sex: FEMALE : 1970 MRN: Acct#: Visit Reason: Back pain; HEADACHE, BACK PAIN Arrival: 11/21/2022 16:35:06 Discharge: 11/21/2022 19:07:00 LOS: 000 02:32 Check In: 11/21/2022 16:35:06 Checkout: 11/21/2022 19:07:00 Address: [address] [place] [address] PCP: BILLY PEREZ MD PROVIDER INFORMATION Provider Role Assigned Unassigned Sweta Dale [employer] Nurse 11/21/2022 16:38:46 Radha Milian PA-C ED [...] 3:Fever Patient Understands: Comment: Normal [facility] ED Patient Summaryon 023 ED Patient Summary [facility] ? Urgent Care [address] [place] [address] PATIENT DISCHARGE INSTRUCTIONS Patient Information Name: JENNIFER [...] by your health care provider. ? Take nhgs-tly-xkaipcm and prescription medicines only as told by [...] provider. Document Revised: 04/10/2021 Document Reviewed: 04/10/2021 [employer] Patient Education ? 2022 [place]. Hematuria, Adult Hematuria is blood in the [...] these instructions at home: Medicines ? Take anga-edn-turoere and prescription medicines only as told by [...] (more content not included)... Normal [facility] Extra Blueon 11-21-2022 Tube Collected Yes Invalid Interpretation Code [facility] Comment on above: Performed By: #### 2 209352, 1506247805, 51396920, 5755705, 9117206875, 4536700870, 5508917372 ####[facility] (DEFAULT)[address] [place] [address] Lipaseon 11-21-2022 Lipase Level 36.0 IU/L Normal 22.0-51.0 [facility] Comment on above: Performed By: #### 2 356484, 2738183377, 82506513, 0075122, 4001467069, 1871897045, 6684207692 ####[facility] (DEFAULT)[address] [place] [address] POCT Rapid CoV-2 (COVID-19) Antigen/ Flu A&Bon 11-21-2022 Influenza A POCT Negative Normal Negative [facility] Comment on above: Performed By: #### 2 [id number] ####[facility] (DEFAULT)[address] [place] [address] Influenza B POCT Negative Normal Negative [facility] Comment on above: Performed By: #### 5 [id number] ####[facility] (DEFAULT)[address] [place] [address] SARS-CoV-2 (COVID-19) RNA CARSON+probe Ql (Unsp spec) Not detected Normal [facility] Comment on above: Performed By: #### 4 [id number] ####[facility] (DEFAULT)[address] [place] [address] TnI HSon 11-21-2022 Troponin I High Sensitivity 2.3 pg/mL Normal <=15.0 [facility] Comment on above: Performed By: #### 2 [id number], [id number], [id number], [id number], [id number] ####[facility] (DEFAULT)[address] [place] [address] UA Hjnge4ij 11-21-2022 UA Bacteria 1+ Normal [facility] Comment on above: Order Comment: Urina lysis Microscopic order added on by [employer] Rules system. Performed By: #### 1 [id number], [id number], [id number] ####[facility] (DEFAULT)[address] [place] [address] UA RBC 3-5 Normal [facility] Comment on above: Order Comment: Urina lysis Microscopic order added on by [employer] Rules system. Performed By: #### 1 [id number], [id number], [id number] ####[facility] (DEFAULT)[address] [place] [address] UA Squam Epi Few Normal [facility] Comment on above: Order Comment: Urina lysis Microscopic order added on by [employer] Rules system. Performed By: #### 1 [id number], [id number], [id number] ####[facility] (DEFAULT)[address] [place] [address]208 UA WBC 0-2 Normal [facility] Comment on above: Order Comment: Urina lysis Microscopic order added on by [employer] Rules system. Performed By: #### 1 [id number], [id number], [id number] ####[facility] (DEFAULT)[address] [place] [address] UA w Culture if Ind Standard on 11-21-2022 Breakpoint UA [facility] Comment on above: Performed By: #### 1 [id number], [id number], [id number] ####[facility] (DEFAULT)[address] [place] [address] Color (U) Yellow [facility] Comment on above: Performed By: #### 1 [id number], [id number], [id number] ####[facility] (DEFAULT)[address] [place] [address] Culture? Indicated Invalid Interpretation Code [facility] Comment on above: Result Comment: Resu lt created by rule GL_MAGR_ADD_UA_CULT Result created by rule GL_MAGR_ADD_UA_CULT Result created by rule GL_MAGR_ADD_UA_CULT1 Result created by rule GL_MAGR_ADD_UA_CULT Performed By: #### 1 [id number], [id number], [id number] ####[facility] (DEFAULT)[address] [place] [address] Glucose (U) [Mass/Vol] Negative [facility] Comment on above: Performed By: #### 1 [id number], [id number], [id number] ####[facility] (DEFAULT)[address] [place] [address] Ketones Ql (U) Negative [facility] Comment on above: Performed By: #### 1 [id number], [id number] ####[facility] (DEFAULT)[address] [place] [address] Micro? Indicated Invalid Interpretation Code [facility] Comment on above: Result Comment: Resu lt created by rule GL_MAGR_ADD_UA_MICRO Performed By: #### 1 [id number], [id number], [id number] ####[facility] (DEFAULT)[address] [place] [address] UA Bilirubin Negative Normal [facility] Comment on above: Performed By: #### 1 [id number], [id number], [id number] ####[facility] (DEFAULT)[address] [place] [address] UA Blood TRACE Abnormal NEGATIVE [facility] Comment on above: Performed By: #### 1 [id number], [id number], [id number] ####[facility] (DEFAULT)[address] [place] [address] 07681 UA Clarity CLEAR Normal CLEAR [facility] Comment on above: Performed By: #### 1 [id number], [id number], [id number] ####[facility] (DEFAULT)[address] [place] [address] 20700 UA Leuk Est Negative Normal NEGATIVE [facility] Comment on above: Performed By: #### 1 [id number], [id number], [id number] ####[facility] (DEFAULT)[address] [place] [address] 73898 UA Nitrite Negative Normal NEGATIVE [facility] Comment on above: Performed By: #### 1 [id number], [id number], [id number] ####[facility] (DEFAULT)[address] [place] [address] 91521 UA pH 6.0 Normal 5-8 [facility] Comment on above: Performed By: #### 1 [id number], [id number], [id number] ####[facility] (DEFAULT)[address] [place] [address] 61271 UA Protein Negative Normal NEGATIVE [facility] Comment on above: Performed By: #### 1 [id number], [id number], [id number] ####[facility] (DEFAULT)[address] [place] [address] 42958 UA Spec Grav >=1.030 Normal 1.001-1.035 [facility] Comment on above: Performed By: #### 1 [id number], [id number], [id number] ####[facility] (DEFAULT)[address] [place] [address] 01570 UA Urobilinogen 0.2 mg/dL Normal 0.2-1.0 [facility] Comment on above: Performed By: #### 1 [id number], [id number], [id number] ####[facility] (DEFAULT)[address] [place] [address] 47268 Urine Source Clean Catch Normal [facility] Comment on above: Performed By: #### 1 [id number], [id number], [id number] ####[facility] (DEFAULT)[address] [place] [address] 19548 QuantiFERON-TB Gold Pluson 0 09-06-2022 QuantiFERON Incubation Incubation performed. Invalid Interpretation Code [facility] Comment on above: Result Comment: Perf ormed At: [address] [id number] Shameka Vallecillo PhD Ph:[phone] Performed By: #### 2 [id number], [id number], [id number], [id number], [id number], 9371261, 91794478, 4806265, [id number] #### [facility] (DEFAULT) [address] [place] [address] 87632 QuantiFERON-TB Gold Plus Negative Invalid Interpretation Code Negative [facility] Comment on above: Result Comment: No r esponse to M tuberculosis antigens detected. Infection with M tuberculosis is unlikely, but high risk individuals should be considered for additional testing (ATS/IDSA/CDC Clinical Practice Guidelines, 2017). The reference range is an Antigen minus Nil result of <0.35 IU/mL. Chemiluminescence immunoassay methodology Performed At: [place] [id number] Shameka Vallecillo PhD Ph:[phone] Performed By: #### 2 [id number], [id number], [id number], [id number], [id number], [id number], [id number], 2409267, [id number] #### [facility] (DEFAULT) [address] [place] [address] 66431 HBSab Qnt LCon 09-05-2022 Hep B Surf Ab Quant LC >1000.0 Invalid Interpretation Code Immunity>9.9 [facility] Comment on above: Result Comment: Stat us of Immunity Anti-HBs Level Inconsistent with Immunity 0.0 - 9.9 Consistent with Immunity >9.9 Performed At: [facility] [address] [place], [place] [id number] Shameka Vallecillo PhD Ph:[phone] Performed By: #### 2 124534, [id number], [id number], [id number], [id number], 3419891, 28516564, 7582750, [id number] #### [facility] (DEFAULT) [address] [place] [address] 22097 Lab - Toxicology Resultson 0 09-05-2022 Lab - Toxicology Results [id number] OTGTIFF Normal [facility] Measles/Mumps/Rubella Immuni ty LCon 09-05-2022 Mumps Abs, IgG LC 167.0 AU/mL Invalid Interpretation Code Immune >10.9 [facility] Comment on above: Result Comment: Nega tive <9.0 Equivocal 9.0 - 10.9 Positive >10.9 A positive result generally indicates past exposure to Mumps virus or previous vaccination. Performed At: [facility] [address] [place] [id number] Shameka Vallecillo PhD Ph:[phone] Performed By: #### 2 [id number], [id number], [id number], [id number], [id number], 0533151, 90883954, 0635394, [id number] #### [facility] (DEFAULT) [address] [place] [address] Rubella Antibodies, IgG LC >33.00 Invalid Interpretation Code Immune >0.99 [facility] Comment on above: Result Comment: Non- immune <0.90 Equivocal 0.90 - 0.99 Immune >0.99 Performed By: #### 2 980899, [id number], 7615602989, [id number], 9733323774, 8196933, 74623096, 8689444, [id number] #### [facility] (DEFAULT) [address] [place] [address] Rubeola Ab, IgG, EIA LC 50.2 AU/mL Invalid Interpretation Code Immune >16.4 [facility] Comment on above: Result Comment: Nega tive <13.5 Equivocal 13.5 - 16.4 Positive >16.4 Presence of antibodies to Rubeola is presumptive evidence of immunity except when acute infection is suspected. Performed By: #### 2 [id number], [id number], [id number], [id number], 7172430813, 3395673, 99400935, 3939140, [id number] #### [facility] (DEFAULT) [address] [place] [address] 12250 Nicotine Metabolite, Urine L Con 09-05-2022 Cotinine LC Negative Invalid Interpretation Code [id number] [facility] Comment on above: Result Comment: Perf ormed At: [facility] [address] [facility] [place], [place] [id number] Xiang Costello PhD Ph:[phone] Performed By: #### 2 688942, [id number], [id number], [id number], 9606794651, 2767265, 47462320, 1396412, [id number] #### [facility] (DEFAULT) [address] [place] [address] 51422 CBC AUTO DIFFon 07-07-2022 BASO # 0.0 103/ul Normal 0.0-0.1 Comment on above: Performed By: #### C BC ####[facility] [address] [place] [id number]. Tacos Bhatt Basophils/100 WBC (Bld) 0.5 % Normal 0.2-2.0 [facility] Comment on above: Performed By: #### C BC ####[facility] [address] [place] [address]Dr. Tacos Bhatt EO # 0.2 103/ul Normal 0.0-0.7 [facility] Comment on above: Performed By: #### C BC ####[facility] [address] [place] [address]Dr. Tacos Bhatt Eosinophils/100 WBC (Bld) 3.4 % Normal 0.9-7.0 [facility] Comment on above: Performed By: #### C BC ####[facility] [address] [place] [address]Dr. Tacos Bhatt Erythrocyte distribution width (RBC) [Ratio] 15.4 % Critically high 11.0-15.0 [facility] Comment on above: Performed By: #### C BC ####[facility] [address] [place] [address]Dr. Tacos Bhatt Hematocrit (Bld) [Volume fraction] 39.2 % Normal 36.0-48.0 [facility] Comment on above: Performed By: #### C BC ####[facility] [address] [place], [place] [address]Dr. Tacos Bhatt Hemoglobin (Bld) [Mass/Vol] 12.8 g/dL Normal 12.0-16.0 [facility] Comment on above: Performed By: #### C BC ####[facility] [address] [place], [place] [address]Dr. Tacos Bhatt IG # 0.03 10e3/ul Normal 0.00-0.03 [facility] Comment on above: Performed By: #### C BC ####[facility] [address] [place], [place] [address]Dr. Tacos Bhatt IG % 0.5 % Normal 0.0-0.5 [facility] Comment on above: Performed By: #### C BC ####[facility] [address] [place], [place] [address]Dr. Tacos Bhatt LYMPH # 2.2 103/ul Normal 1.2-3.8 [facility] Comment on above: Performed By: #### C BC ####[facility] [address] [place], [place] [address]Dr. Tacos Bhatt Lymphocytes/100 WBC (Bld) 37.1 % Normal 20.5-60.0 [facility] Comment on above: Performed By: #### C BC ####[facility] [address] [place] [address]Dr. Tacos Bhatt MANUAL DIFF REQ NO Normal [facility] Comment on above: Performed By: #### C BC ####[facility] [address] [place] [address]Dr. Tacos Bhatt MCH (RBC) [Entitic mass] 25.9 pg Critically low 26.7-34.0 [facility] Comment on above: Performed By: #### C BC ####[facility] [address] [place], [place] [address]Dr. Tacos Bhatt MCHC (RBC) [Mass/Vol] 32.7 g/dL Normal 29.9-35.2 [facility] Comment on above: Performed By: #### C BC ####[facility] [address] [place], [place] [address]Dr. Ekaterinamohsen Bhatt MCV (RBC) [Entitic vol] 79.4 fL Critically low 81.0-99.0 Comment on above: Performed By: #### C BC ####[facility] [address] [place], [place] [address]Dr. Tacos Miller MONO # 0.5 103/ul Normal 0.3-0.8 [facility] Comment on above: Performed By: #### C BC ####[facility] [address] [place], [place] [address]Dr. Tacos Bhatt Monocytes/100 WBC (Bld) 8.3 % Normal 1.7-12.0 [facility] Comment on above: Performed By: #### C BC ####[facility] [address] [place], [place] [address]Dr. Tacos Bhatt NEUT # 3.0 103/ul Normal 1.4-6.5 [facility] Comment on above: Performed By: #### C BC ####[facility] [address] [place], [place] [address]Dr. Tacos Bhatt Neutrophils/100 WBC (Bld) 50.2 % Normal 43.0-75.0 [facility] Comment on above: Performed By: #### C BC ####[facility] [address] [place], [place] [address]Sh. Tacos Bhatt Platelet mean volume (Bld) [Entitic vol] 9.2 fL Critically low 9.5-13.5 Comment on above: Performed By: #### C BC ####[facility] [address] [place] [id number]. Tacos Bhatt PLT 238 103/ul Normal 150-450 [facility] Comment on above: Performed By: #### C BC ####[facility] [address] [place] [address]Dr. Tacos Bhatt RBC 4.94 106/ul Normal 4.20-5.40 Comment on above: Performed By: #### C BC ####[facility] [address] [place] [address]Dr. Tacos Bhatt WBC 5.9 103/ul Normal 4.0-11.0 Comment on above: Performed By: #### C BC ####[facility] [address] [place] [id number] Bhatt CRPon 07-07-2022 CRP [Mass/Vol] mg/L Normal <=1.[address] [facility] Comment on above: Performed By: #### B MP, CRP #### [facility] [address] [address] [address] Tacos Bhatt PROF CHEM 8 (BAS METB)on Anion gap [Moles/Vol] 11.5 mmol/L Normal Comment on above: Performed By: #### B MP, CRP #### [facility] [address] [address] [address] Tacos Bhatt Calcium [Mass/Vol] 8.9 mg/dL Normal 8.5-10.1 [facility] Comment on above: Performed By: #### B MP, CRP #### [facility] [address] [address] [address] Tacos Bhatt Chloride [Moles/Vol] 105 mmol/L Normal 98-107 Comment on above: Performed By: #### B MP, CRP #### [facility] [address] [address] [address] Tacos Bhatt CO2 [Moles/Vol] 29.3 mmol/L Normal 21.0-32.0 [facility] Comment on above: Performed By: #### B MP, CRP #### [facility] [address] [address] [address] Tacos Bhatt Creatinine [Mass/Vol] 0.71 mg/dL Normal 0.55-1.02 Comment on above: Performed By: #### B MP, CRP #### [facility] [address] [address] [address] Tacos Bhatt EGFR-AF BELGIAN >60 Normal >=60 [facility] Comment on above: Performed By: #### B MP, CRP #### [facility] [address] [address] [address] Tacos Bhatt EGFR-NON AF BELGIAN >60 Normal >=60 Comment on above: Performed By: #### B MP, CRP #### [facility] [address] [address] [address] Tacos Bhatt Glucose [Mass/Vol] 95 mg/dL Normal 74-106 [facility] Comment on above: Performed By: #### B MP, CRP #### [facility] [address] [address] [address] Tacos Bhatt Potassium [Moles/Vol] 3.8 mmol/L Normal 3.5-5.1 Comment on above: Performed By: #### B MP, CRP #### [facility] [address] [address] [address] Tacos Bhatt Sodium [Moles/Vol] 142 mmol/L Normal 136-145 [facility] Comment on above: Performed By: #### B MP, CRP #### [facility] [address] [address] [address] Tacos Bhatt Urea nitrogen [Mass/Vol] 11.0 mg/dL Normal 7.0-18.0 Comment on above: Performed By: #### B MP, CRP #### [facility] [address] [place] [address] Dr. Tacos Bhatt Urea nitrogen/Creatinine [Mass ratio] 15.5 mg/mg Normal Comment on above: Performed By: #### B MP, CRP #### [facility] [address] [place] [address] Dr. Tacos Bhatt SED RATE WESTERGRENon 2022 SED RATE 6 mm/hr Normal <=20 [facility] Comment on above: Performed By: #### S EDR #### [facility] [address] [place] [address] Dr. Tacos Bhatt XR CHEST 2 Von [...] ENRIQUETA SONG Date: 2022-04-03 09:37 Normal [facility] CBC AUTO DIFFon 08-07-2021 BASO # 0.1 103/ul Normal 0.0-0.1 Comment on above: Performed By: #### C BC #### [facility] [address] [place] [address] Dr. Tacos Bhatt Basophils/100 WBC (Bld) 0.9 % Normal 0.2-2.0 [facility] Comment on above: Performed By: #### C BC #### [facility] [address] [place] [address] Dr. Tacos Bhatt EO # 0.2 103/ul Normal 0.0-0.7 [facility] Comment on above: Performed By: #### C BC #### [facility] [address] [place] [address] Dr. Tacos Bhatt Eosinophils/100 WBC (Bld) 2.1 % Normal 0.9-7.0 [facility] Comment on above: Performed By: #### C BC #### [facility] [address] [place] [address] Dr. Tacos Bhatt Erythrocyte distribution width (RBC) [Ratio] 14.6 % Normal 11.0-15.0 Comment on above: Performed By: #### C BC #### [facility] [address] [place] [address] Dr. Tacos Bhatt Hematocrit (Bld) [Volume fraction] 41.5 % Normal 36.0-48.0 Comment on above: Performed By: #### C BC #### [facility] [address] [place] [address] Dr. Tacos Bhatt Hemoglobin (Bld) [Mass/Vol] 13.5 g/dL Normal 12.0-16.0 Comment on above: Performed By: #### C BC #### [facility] [address] [place] [address] Dr. Tacos Bhatt IG # 0.08 10e3/ul Critically high 0.00-0.03 [facility] Comment on above: Performed By: #### C BC #### [facility] [address] [place] [address] Dr. Tacos Bhatt IG % 0.9 % Critically high 0.0-0.5 [facility] Comment on above: Performed By: #### C BC #### [facility] [address] [place] [address] Dr. Tacos Bhatt LYMPH # 3.4 103/ul Normal 1.2-3.8 Comment on above: Performed By: #### C BC #### [facility] [address] [place] [address] Dr. Tacos Bhatt Lymphocytes/100 WBC (Bld) 37.0 % Normal 20.5-60.0 Comment on above: Performed By: #### C BC #### [facility] [address] [place] [address] Dr. Tacos Bhatt MANUAL DIFF REQ NO Normal [facility] Comment on above: Performed By: #### C BC #### [facility] [address] [place] [address] Dr. Tacos Bhatt MCH (RBC) [Entitic mass] 25.7 pg Critically low 26.7-34.0 [facility] Comment on above: Performed By: #### C BC #### [facility] [address] [address] [address] Tacos Bhatt MCHC (RBC) [Mass/Vol] 32.5 g/dL Normal 29.9-35.2 [facility] Comment on above: Performed By: #### C BC #### [facility] [address] [place] [address] Dr. Tacos Bhatt MCV (RBC) [Entitic vol] 79.0 fL Critically low 81.0-99.0 [facility] Comment on above: Performed By: #### C BC #### [facility] [address] [place] [address] Dr. Tacos Bhatt MONO # 0.7 103/ul Normal 0.3-0.8 [facility] Comment on above: Performed By: #### C BC #### [facility] [address] [place] [address] Dr. Tacos Bhatt Monocytes/100 WBC (Bld) 7.3 % Normal 1.7-12.0 [facility] Comment on above: Performed By: #### C BC #### [facility] [address] [place] [address] Dr. Tacos Bhatt NEUT # 4.7 103/ul Normal 1.4-6.5 [facility] Comment on above: Performed By: #### C BC #### [facility] [address] [place] [address] Dr. Tacos Bhatt Neutrophils/100 WBC (Bld) 51.8 % Normal 43.0-75.0 [facility] Comment on above: Performed By: #### C BC #### [facility] [address] [place] [address] Dr. Tacos Bhatt Platelet mean volume (Bld) [Entitic vol] 9.5 fL Normal 9.5-13.5 [facility] Comment on above: Performed By: #### C BC #### [facility] [address] [place] [address] Dr. Tacos Bhatt PLT 236 103/ul Normal 150-450 [facility] Comment on above: Performed By: #### C BC #### [facility] [address] [place] [address] Dr. Tacos Bhatt RBC 5.25 106/ul Normal 4.20-5.40 Comment on above: Performed By: #### C BC #### [facility] [address] [place] [address] Dr. Tacos Bhatt WBC 9.1 103/ul Normal 4.0-11.0 Comment on above: Performed By: #### C BC #### [facility] [address] [place] [address] Dr. Tacos Bhatt Covid-19 PCR ([facility])on 07-13 SARS-CoV-2 (COVID-19) RNA CARSON+probe Ql (Unsp spec) Not detected Normal NOT DETECTED [facility] Comment on above: Result Comment: When diagnostic [...] for this test is supported by the [employer] of [employer] and Human Service's declaration that [...] used). Performed By: #### C VDTBH #### [facility] [address] [place] [address] Dr. Tacos Bhatt D-DIMERon 08-07-2021 D-DIMER 0.48 mg/L FEU Normal <=0.59 [facility] Comment on above: Performed By: #### D DIM #### [facility] [address] [address] [address] Tacos Bhatt D-DIMER COMMENTS SEE BELOW Normal [facility] Comment on above: Result Comment: Incr eases [...] hospitalization. Performed By: #### D DIM #### [facility] [address] [address] [address] Tacos Bhatt ER URINE PROFILEon 2 Bilirubin Ql (U) Negative Normal NEGATIVE [facility] Comment on above: Performed By: #### E RUR ####[facility] [address] [place], [place] [address]Dr. Tacos Bhatt Clarity (U) CLEAR Normal CLEAR [facility] Comment on above: Performed By: #### E RUR ####[facility] [address] [place], [place] [address]Dr. Tacos Bhatt Color (U) YELLOW Normal YELLOW [facility] Comment on above: Performed By: #### E RUR ####[facility] [address] [place], [place] [address]DrMarbella VALERA A micrscopic examination will be performed if indicated. Normal [facility] Comment on above: Performed By: #### E RUR ####[facility] [address] [place] [address]Dr. Tacos Bhatt Glucose Ql (U) Negative Normal NEGATIVE [facility] Comment on above: Performed By: #### E RUR ####[facility] [address] [place] [address]Dr. Tacos Bhatt Hemoglobin Ql (U) Negative Normal NEGATIVE [facility] Comment on above: Performed By: #### E RUR ####[facility] [address] [place] [address]Dr. Ekaterinamohsen Bhatt Ketones Ql (U) Negative Normal NEGATIVE [facility] Comment on above: Performed By: #### E RUR ####[facility] [address] [place] [address]Dr. Ekaterinamohsen Bhatt LEUKOCYTES Negative Normal NEGATIVE [facility] Comment on above: Performed By: #### E RUR ####[facility] [address] [place], [place] [address]Dr. Ekaterinamohsen Miller Nitrite Ql (U) Negative Normal NEGATIVE [facility] Comment on above: Performed By: #### E RUR ####[facility] [address] [place], [place] [address]Dr. Tacos Bhatt pH (U) 6.0 [pH] Normal 5-9 Comment on above: Performed By: #### E RUR ####[facility] [address] [place], [place] [address]Dr. Tacos Bhatt SPEC GRAVITY 1.025 Normal 1.005-<=1.025 [facility] Comment on above: Performed By: #### E RUR ####[facility] [address] [place], [place] [address]Dr. Tacos Bhatt UA PROTEIN Negative Normal NEGATIVE/ TRACE [facility] Comment on above: Performed By: #### E RUR ####[facility] [address] [place], [place] [address]Dr. Tacos Bhatt UR MICRO IND NOT INDICATED Normal [facility] Comment on above: Performed By: #### E RUR ####[facility] [address] [place], [place] [address]Dr. Tacos Bhatt Urobilinogen Qn (U) 0.2 {Robbie'U}/dL Normal 0.2 - 1. 0 [facility] Comment on above: Performed By: #### E RUR ####[facility] [address] [place], [place] [address]Dr. Tacos Bhatt PROF 14(COMP METB)on 022 Albumin [Mass/Vol] 3.5 g/dL Normal 3.4-5.0 [facility] Comment on above: Performed By: #### C JENNIFER HSTROPN ####[facility] [address] [place] [address]Dr. Tacos Bhatt Albumin/Globulin [Mass ratio] 1.1 {ratio} Normal Comment on above: Performed By: #### C JENNIFER, HSTROPN ####[facility] [address] [place], [place] [address]Dr. Tacos Bhatt ALP [Catalytic activity/Vol] 104 U/L Normal 46-116 [facility] Comment on above: Performed By: #### C JENNIFER HSTROPN ####[facility] [address] [place], [place] [address]Dr. Tacos Bhatt ALT [Catalytic activity/Vol] 190 U/L Critically high 14-59 Comment on above: Performed By: #### C JENNIFER HSTROPN ####[facility] [address] [place], [place] [address]Dr. Tacos Bhatt Anion gap [Moles/Vol] 12.7 mmol/L Normal Comment on above: Performed By: #### C JENNIFER HSTROPN ####[facility] [address] [place], [place] [address]Dr. Tacos Bhatt AST [Catalytic activity/Vol] 83 U/L Critically high 15-37 Comment on above: Performed By: #### C JENNIFER HSTROPN ####[facility] [address] [place], [place] [address]Dr. Tacos Bhatt Bilirubin [Mass/Vol] 0.7 mg/dL Normal 0.2-1.0 [facility] Comment on above: Performed By: #### C JENNIFER HSTROPN ####[facility] [address] [place], [place] [address]Dr. Tacos Bhatt Calcium [Mass/Vol] 8.9 mg/dL Normal 8.5-10.1 The [facility] Comment on above: Performed By: #### C JENNIFER HSTROPN ####[facility] [address] [address]Dr. Tacos Bhatt Chloride [Moles/Vol] 103 mmol/L Normal 98-107 [facility] Comment on above: Performed By: #### C JENNIFER, HSTROPN ####[facility] [address] [address]Dr. Tacos Bhatt CO2 [Moles/Vol] 26.1 mmol/L Normal 21.0-32.0 The [facility] Comment on above: Performed By: #### C JENNIFER, HSTROPN ####[facility] [address] [address]Dr. Tacos Bhatt Creatinine [Mass/Vol] 0.66 mg/dL Normal 0.55-1.02 [facility] Comment on above: Performed By: #### C JENNIFER, HSTROPN ####[facility] [address] [place], [place] [address]Dr. Tacos Bhatt EGFR-AF BELGIAN >60 Normal >=60 [facility] Comment on above: Performed By: #### C JENNIFER, HSTROPN ####[facility] [address] [place], [place] [address]Dr. Tacos Bhatt EGFR-NON AF BELGIAN >60 Normal >=60 Comment on above: Performed By: #### C JENNIFER, HSTROPN ####[facility] [address] [address]Dr. Tacos Bhatt Globulin (S) [Mass/Vol] 3.3 g/dL Normal [facility] Comment on above: Performed By: #### C JENNIFER, HSTROPN ####[facility] [address] [address]Dr. Tacos Miller Glucose [Mass/Vol] 93 mg/dL Normal 74-106 The [facility] Comment on above: Performed By: #### C JENNIFER, HSTROPN ####[facility] [address] [address]Dr. Tacos Bhatt Potassium [Moles/Vol] 3.8 mmol/L Normal 3.5-5.1 [facility] Comment on above: Performed By: #### C JENNIFER, HSTROPN ####[facility] [address] [address]Dr. Tacos Bhatt Protein [Mass/Vol] 6.8 g/dL Normal 6.4-8.2 [facility] Comment on above: Performed By: #### C MP, HSTROPN ####[facility] [address] [address]Dr. Tacos Bhatt Sodium [Moles/Vol] 138 mmol/L Normal 136-145 The [facility] Comment on above: Performed By: #### C JENNIFER, HSTROPN ####[facility] [address] [address]Dr. Tacos Bhatt Urea nitrogen [Mass/Vol] 14.0 mg/dL Normal 7.0-18.0 Comment on above: Performed By: #### C JENNIFER, HSTROPN ####[facility] [address] [address]Dr. Tacos Bhatt Urea nitrogen/Creatinine [Mass ratio] 21.2 mg/mg Normal Comment on above: Performed By: #### C JENNIFER, HSTROPN ####[facility] [address] [address]Dr. Tacos Bhatt TROPONIN, HIGH SENSITIVITYon 08-07-2021 HSTROP 4.6 pg/mL Normal 4.0-51.3 Comment on above: Result Comment: CUT- OFF POINTS HAVE BEEN ESTABLISHED BASED ON THE FOURTH UNIVERSAL DEFINITIONS OF MYOCARDIAL INFARCTION. THE UPPER REFERENCE LIMIT (URL) OF TROPONIN, DEFINED THE 99TH PERCENTILE OF cTnI DISTRIBUTION IN A REFERENCE POPULATION, HAS BEEN CONFIRMED THE DECISION THRESHOLD FOR RI DIAGNOSIS. Performed By: #### C JENNIFER, HSTROPN #### [facility] [address] [address] [address] Tacos Bhatt XR CHEST 1 Von [...] No acute findings. Electronically authenticated by: SMITA STEINBERG Date: 2021-08-07 01:[address] CHEST WO CONTRASTon 10-28 CT CHEST [...] Guy Christensen MD 10/29/19 Final result Normal [facility] Multiple right middl e lobe nodules as [...] to Lung-RADS guidelines. Reference: Radiology. 2017; 284(1):228-43. [place], [place] EXAMINATION: CT OF T HE CHEST WITHOUT [...] No significant osseous or soft tissue abnormality. [place], [place], Mhpn Incoming Radiant Results From [employer] - 10/29/2019 1:52 PM EDT EXAMINATION: CT [...] to Lung-RADS guidelines. Reference: Radiology. 2017; 284(1):228-43. [place], [place] Encounters Encounter Date Encounter Type Care Provider Facility Start: 01-10-2023 End: 01-11-2023 ambulatory BILLY Campa ANA Facility:[facility] Start: 11-21-2022 End: 11-22-2022 Emergency department patient visit BILLY Campa ANA Facility:[facility] Start: 11-21-2022 End: 11-21-2022 ambulatory NANCY Milian Facility:[facility] Start: 09-04-2022 End: 09-05-2022 ambulatory BILLY Campa [facility] Facility:[facility] Start: 07-07-2022 End: 07-08-2022 ambulatory RENEA CUMMINGS Facility:[facility] Start: 04-03-2022 End: 04-03-2022 ambulatory ALIA ELLIS Facility:[facility] Start: 01-15-2022 End: 05-16-2022 ambulatory Tanna Start: 08-07-2021 End: 08-07-[address] BILLY PEREZ Facility:[facility] Start: 10-27-2019 End: 10-30-2019 Patient encounter procedure [facility] Start: 10-27-2019 End: 10-29-2019 Subsequent hospital visit by physician [facility] Cat Scan Room [facility] CT Scan Comment on above: Pulmonary nodule Procedures Date Procedure Procedure Detail Performing Clinician Start: 10-27-2019 Ct thorax w/o contra st material [facility] Start: 10-27-2019 Ct thorax w/o contra st material [facility] Work Phone: Plan of Treatment Date Care Activity Detail Author Start: 08-09-2022 Screening for malign ant neoplasm of cervix Cervical cancer screen [place] Start: 11-09-2019 End: 11-09-2019 Office Visit 11/09/2019 Office Visit Pulmonology Olamide Ibrahim MD [address] [id number] [facility] Start: 10-13-2019 Influenza vaccination Flu vaccine (# 1) [place], [place] Start: 2012 Lipid panel Lipid screen [place], [place] Start: 07-25-1991 DTaP/Tdap/Td vaccine (1 - Tdap) DTaP/Tdap/Td vaccine (1 - Tdap) [place] Payers Date Payer Category Payer Unknown [id number] [id number] [id number] 1972 Unknown [id number] 2.16.84 [id number] 1972 Unknown [id number] 2.16.84 [id number] 1972 Unknown [id number] 2.16.84 [id number] 1972 Unknown [id number] 2.16.8 [id number] 1972 Unknown [id number] 2.16.8 [id number] 1972 Unknown [id number] 2.16.8 [id number] 1959 Unknown [id number]. [id number] 1957 Unknown [id number] Social History Date Type Detail Facility Start: 10-05-2019 Tobacco smoking stat [facility] Former smoker [place] End: 10-07-1993 History of tobacco use Current [place] End: 10-07-1993 History of tobacco use Cigarette [place] Start: 10-05-2019 Cigarettes smoked current (pack per day) - Reported [place] Start: 10-05-2019 Tobacco use and exposure Never used [place] Start: 10-05-2019 Alcohol intake Current drinke r of alcohol (finding) [place] Start: 07-03-2019 History SDOH Financial 5 [place] Start: 07-03-2019 History SDOH Food Worry 1 [place] Start: 07-03-2019 History SDOH Transpo rt Med 2 [place] Start: 10-07-2013 Alcohol Comment socially [facility] [place], [place] Sex Assigned At Not on file [place] Exposure to SARS-CoV -2 (event) Not sure [place] Clinical Note 01-11-2023 Note Date & [...] worked. (more content not included)... [facility] Clinical Note 01-11-2023 Note Date & Type Note Facility 01-11-2023 Note [facility] Clinical Discharge Summary PERSON INFORMATION Name JENNIFER VALENCIA Age 52 Years 1970 Sex FEMALE Language Georgian PCP BILLY PEREZ MD Marital Status Med Service Observation Acct# Arrival 01/10/2023 09:49:38 Visit Reason Chest pain; CHEST PAIN Acuity LOS 000 23:15 Address: [address] [place] [address] Comment: PROVIDER INFORMATION VITALS INFORMATION Vital Sign [...] New Medications [facility], [address] [place] [address] [phone], [phone] ibuprofen (ibuprofen 600 mg oral tablet) 1 [...] range between ( 1.3 and 2.9 ) Person Abs#: 0.3 x103/mcL -- Normal range between ( 0.0 and 0.8 ) Auto Baso %: 0.7 % -- Normal range between ( 0.2 and 2.0 ) Auto Person %: 7 % -- Normal range between [...] range between ( 5 and 40 ) [facility] Lab Order 01/10/2023 10:00 AM Tube Collected: Yes Diagnostic Radiology 01/10/2023 10:26 AM XR Chest 1 View Frontal: XR Chest 1 View Frontal Ultrasound 01/11/2023 10:28 AM US Echocardiogram Complete: US Echocardiogram Complete 01/10/2023 3:15 PM US Gallbladder: US Gallbladder Radiology Report 01/11/2023 10:28 AM Radiology Report: Radiology Report DIET & ACTIVITY (more content not included)... [facility] Clinical Note 11-22-2022 Note Date & [...] Keep all follow-up visits. Medicines ? Take ooho-zox-jmajass and prescription medicines only as told by [...] em (more content not included)... [facility] Clinical Note 11-21-2022 Note Date & [...] by your health care provider. ? Take zeqs-ubn-qapwhlz and prescription medicines only as told by [...] provider. Document Revised: 04/10/2021 Document Reviewed: 04/10/2021 [facility] Patient Education ? 2022 [place]. Urology Hematuria, Adult Hematuria is blood in [...] these instructions at home: Medicines ? Take pokw-ata-kfeoltz and prescription medicines only as told by [...] p (more content not included)... [facility] Clinical Note 07-08-2022 Note Date & [...] authenticated by: TEDDY MG Date: 2022-07-07 22:13 Reason for Referral Status Reason Specialty Diagnoses / Procedures Referre d By Contact Referred To Contact Closed Radiology Diagnoses Pulmonary nodule Procedures CT CHEST WO CONTRAST Olamide Ibrahim MD [address] [facility] [address] [place] [address] [facility] [address] Scan [address] [place] [address] Assessments Diagnosis Pulmonary nodule Solitary pulmonary nodule Advance Directives No Advanced Directives Records FoundDocuments on File Type Date Recorded Patient Higher Level Teaching Assistant Expl anation ACP-Advance Directive ACP-Power of Clinical Asst Summary Purpose Family History No Family History Records FoundNo Family History Records FoundNo Family History Records FoundNo Family History Records Found Additional Source Comments Reason for Visit (unrecogniz ed section and content) Status Reason Specialty Diagnoses / Procedures Referre d By Contact Referred To Contact Closed Radiology Diagnoses Pulmonary nodule Procedures CT CHEST WO CONTRAST Olamide Ibrahim MD [address] [facility] [address] [place] [address] [facility] [address] [place] [address] INFORMATION SOURCE (unrecogn ized section and content) DATE CREATED AUTHOR 10/30/2019 [facility] DATE CREATED AUTHOR AUTHOR'S ORGANIZ ATION 06/16/2022 [place] DATE CREATED AUTHOR AUTHOR'S ORGANIZ ATION 07/23/2022 [facility] DATE CREATED AUTHOR AUTHOR'S ORGANIZ ATION 02/02/2023 [facility] FOR RECORDS PERTAINING TO PATIENTS WHO ARE [...] BE BASED ON THE PRIMARY CLINICAL RECORDS. [facility] [employer] [facility]. provides no warranty or guarantee of the accuracy or completeness of information in this document.
--- NOTE | 2023-02-03 14:32 | ED.GENADUL1 ---
HPI - General Adult General Chief complaint: Skin/Abscess/Foreign Body Stated complaint: hemorroids Time Seen by Provider: 02/03/23 14:18 Source: patient Mode of arrival: walk-in Limitations: no limitations History of Present Illness HPI narrative: 52-year-old female presents for anal area pain and a lump there. She believes she has an external hemorrhoid. There is been no bleeding or injury. She recently had cholecystectomy but she has not been constipated at all, she's actually had some diarrhea. No fever or bleeding or drainage. Related Data Previous Rx's Medication Instructions Recorded levofloxacin 750 mg tablet 750 mg PO DAILY 5 days #5 tabs 01/18/23 metronidazole 500 mg tablet 500 mg PO Q8H 5 days #15 tabs 01/18/23 acetaminophen 300 mg-codeine 30 mg 1 tab PO Q6H PRN pain 5 days #20 02/03/23 tablet tabs hydrocortisone 1 %-pramoxine 1 % 1 applic LA BID #10 grams 02/03/23 rectal foam (Proctofoam HC) Allergies Allergy/AdvReac Type Severity Reaction Status Date / Time adhesive tape AdvReac Mild Rash Verified 02/03/23 14:23 bacitracin AdvReac Unknown Verified 02/03/23 14:15 strawberry AdvReac Unknown Verified 02/03/23 14:15 Review of Systems ROS Narrative A ten point review of systems is negative except as noted above. PFSH PFSH Medical History (Updated 02/03/23 @ 14:28 by Riccardo Kam MD) Menopausal state ?N95.1 - Menopausal and female climacteric states (ICD-10) Obesity (BMI 30-39.9) ?E66.9 - Obesity, unspecified (ICD-10) Elevated liver enzymes ?R74.8 - Abnormal levels of other serum enzymes (ICD-10) Obesity ?E66.9 - Obesity, unspecified (ICD-10) Achilles tendonosis of left lower extremity ?M67.88 - Other specified disorders of synovium and tendon, other site (ICD-10) Surgical History Previous section ?Z98.891 - History of uterine scar from previous surgery (ICD-10) Family History Father Family history of myocardial infarction Social History Within the past year, how often did you have a drink containing alcohol: monthly or less Within the past year, how many standard drinks containing alcohol did you have on a typical day: 1 or 2 Within the past year, how often did you have six or more drinks on one occasion: never Total score: 0 Score interpretation: A score less than 3 is consistent with normal alcohol consumption. 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 Known occupational exposures/hazards: No Highest level of school completed/degree received: Associate degree: occupational, technical, vocational program Do you want help with school or training: No Are you now , , , , never or living with a partner: In a typical week, how many times do you talk on the telephone with family, friends, or neighbors: 3 or more times per week How often do you get together with friends or relatives: 3 or more times per week How often do you attend caodaism or hindu services: never Do you belong to any clubs or organizations such as caodaism groups unions, fraternal or athletic groups, or school groups: no Total score: 1 Score interpretation: A score of less than or equal to 1 indicates the most socially isolated. Little interest or pleasure in doing things: several days Feeling down, depressed, or hopeless: not at all Feel stressed/tense/nervous/anxious/difficulty sleeping: to some extent Life stressors: recent of family or friend Life stressor details: of mother Do you think of yourself as: straight/heterosexual Gender Identity: female Exam Narrative Exam Narrative: Nurses note and vital signs reviewed and patient is not hypoxic. General: The patient appears well and in no apparent distress. Patient is resting comfortably on cart. Skin: Warm, dry, no pallor noted. There is no rash noted. Head: Normocephalic, atraumatic Eye: Normal conjunctiva, no drainage Ears, Nose, Mouth, and Throat: oral mucosa is moist. Nares patent. Cardiovascular: Regular Rate and Rhythm Respiratory: Patient is in no distress, no accessory muscle use Back: non-tender, no CVA tenderness bilaterally to percussion. GI: obese and nontender. Perianal examination shows a nonthrombosed large external hemorrhoid. No bleeding. Musculoskeletal: The patient has no evidence of calf tenderness, no pitting edema, symmetrical pulses noted bilaterally Neurological: A&O, normal speech Psychiatric: Cooperative Constitutional Vital Signs, click to edit/add: Last Vital Signs Temp 98 F 02/03/23 14:15 Pulse 99 H 02/03/23 14:15 Resp 18 02/03/23 14:15 BP 141/96 H 02/03/23 14:15 Pulse Ox 100 02/03/23 14:15 O2 Del Method Room Air 02/03/23 14:15 Course Vital Signs Vital signs: Vital Signs Temperature 98 F 02/03/23 14:15 Pulse Rate 99 H 02/03/23 14:15 Respiratory Rate 18 02/03/23 14:15 Blood Pressure 141/96 H 02/03/23 14:15 Pulse Oximetry 100 02/03/23 14:15 Oxygen Delivery Method Room Air 02/03/23 14:15 Temperature 98 F 02/03/23 14:15 Pulse Rate 99 H 02/03/23 14:15 Respiratory Rate 18 02/03/23 14:15 Blood Pressure 141/96 H 02/03/23 14:15 Pulse Oximetry 100 02/03/23 14:15 Oxygen Delivery Method Room Air 02/03/23 14:15 Medical Decision Making MDM Narrative Medical decision making narrative: my clinical impression is that she has an external hemorrhoid. She'll be referred to her surgeon that she is already seen previously. She is provided pain medication was recommended to take Colace. She was also prescribed Proctofoam. Treatment diagnosis and follow-up were discussed with the patient. I have no suspicion of an abscess. Differential Diagnosis Differential Diagnosis: hemorrhoid, abscess Discharge Plan Discharge Chief Complaint: Skin/Abscess/Foreign Body Clinical Impression: External hemorrhoid Patient Disposition: Home, Self-Care Time of Disposition Decision: 14:28 Condition: Good Mode of Transportation: Private Vehicle Prescriptions / Home Meds: New acetaminophen-codeine 300-30 mg tablet 1 tab PO Q6H PRN (Reason: pain) 5 Days Qty: 20 0RF Proctofoam HC 1-1 % foam 1 applic LA BID Qty: 10 0RF No Action levofloxacin 750 mg tablet 750 mg PO DAILY 5 Days Qty: 5 0RF metronidazole 500 mg tablet 500 mg PO Q8H 5 Days Qty: 15 0RF Instructions: Hemorrhoids (ED) Additional Instructions: follow-up with Dr. Sue Stand Alone Forms: Portal Instructions Referrals: BILLY PEREZ [Primary Care Provider] - 1 week
== END 2023-02-03 14:37 | disposition home or self-care (01) ==
PROVIDERS: Emergency Provider Emergency Medicine; PCP Internal Medicine
DX: K64.4 Residual hemorrhoidal skin tags (principal); E66.9 Obesity, unspecified; Z68.41 Body mass index [BMI] 40.0-44.9, adult; N95.1 Menopausal and female climacteric states; Z98.891 History of uterine scar from previous surgery
CPT/HCPCS: 99283

== ENCOUNTER 2023-04-13 09:08 | Emergency (ER) | payer OTHER, SELFPAY ==
[2023-04-13 09:11] VITALS: BP 130/92; PULSE 83; RESP 18; TEMP 36.7; O2SAT 97; BMI 41.6
--- OUTSIDE RECORDS SUMMARY | 2023-04-13 09:18 | XMS_ITS | CCD ---
Author Name Unknown Address [address] [place] [address] Organization [facility] Care Team Providers Care Billet Examiner Name Role Phone Billy Perez Primary Care [...] Primary Care Unavailable NANCY Milian Attending Unavailable Billy Perez MD Primary Care Provider [phone] KENIA SRIVASTAVA Attending Unavailable BILLY PEREZ Referring Unavailable BILLY PEREZ Primary Care Unavailable RICHARD QUEZADA Attending Unavailable BILLY PEREZ Referring Unavailable BILLY PEREZ Primary Care Unavailable BILLY PEREZ Primary Care Unavailable Allergies Allergy Classification Reported Allergen(s) Allergy Type Date of Onset Reaction(s) Facility (6 sources) Bacitracin; Translations: [bacitracin] Drug Allergy 4 [place], [place] (4 sources) Other; Translations: [OTHER] Propensity to adverse reactions 4 [place] (1 source) Bacitracin Drug Allergy 1 [facility] (3 sources) strawberry allergenic extract; Translations: [STRAWBERRY] Drug Allergy 9 [facility] (1 source) [place]; Translations: [Strawberries] Propensity to adverse reactions to food (disorder) [facility] (4 sources) Adhesive agent; Translations: [ADHESIVE] Propensity to adverse reactions to drug 3 Rash [facility] (2 sources) strawberry allergenic extract Drug Allergy 9 [facility] Medications Current Medications Medication Drug Class(es) Dates Sig (Normalized) Sig (Original) ARIPiprazole 5 mg oral tablet (2 sources) Atypical Antipsychotic take 1 tablet by mouth once daily ARIPiprazole (ABILIFY) 5 mg tablet Take 1 tablet (5 mg total) by mouth nightly. 0 Active baclofen 10 mg oral tablet (1 source) [...] every morning 30 tablet 5 09/23/2019 Active busPIRone hydrochloride 15 mg oral tablet (2 sources) take 1 tablet by mouth at bedtime busPIRone (BUSPAR) 15 mg tablet Take 1 tablet (15 mg total) by mouth in the morning and at bedtime. 0 Active hydrocortisone 25 mg/ml topical cream (2 sources) Corticosteroid Start: 02-03-2023 hydrocortisone (ANUSOL-HC) 2.5 % rectal cream Insert 1 Application into the rectum in the morning and 1 Application before bedtime. 0 02/03/2023 Active PARoxetine hydrochloride 20 mg oral tablet (1 source) Serotonin Reuptake Inhibitor Start: 09-23-2019 take 1 tablet by mouth once daily PARoxetine (PAXIL) 20 MG tablet Indications: Nervousness Take 1 tablet by mouth daily 30 tablet 5 09/23/2019 Active peg 3350-sod sulf,wnfe-foj-fum 178.7-7.3-0.5 gram recon soln (2 sources) Start: 02-13-2023 End: 02-14-2023 peg 3350-sod sulf,yuir-pao-psg 178.7-7.3-0.5 gram recon soln Take 1 kit by mouth in the morning for 1 dose. Please see instructional sheet given by Physicians office. 1 each 0 02/13/2023 02/14/2023 Active sertraline 50 mg oral tablet (2 sources) Serotonin Reuptake Inhibitor take 1 tablet by mouth in the morning sertraline (ZOLOFT) 50 mg tablet Take 1 tablet (50 mg total) by mouth in the morning. 0 Active sod sulf-pot chloride-mag sulf (SUTAB) 1.479-0.188- 0.225 gram tablet (1 source) Start: 02-13-2023 sod sulf-pot chloride-mag sulf (SUTAB) 1.479-0.188- 0.225 gram tablet Indications: Grade III hemorrhoids Please see instructional sheet given to patient from doctors office. 24 tablet 0 02/13/2023 Active Problems Active Problems Problem Classification Problem Date Documented Da te Episodic/Chronic Anxiety disorders (3 sources) Post-traumatic stress disorder, unspecified; Translations: [Anxiety disorder, unspecified] Onset: 08-09-2021 Chronic Attention-deficit, conduct, and disruptive behavior disorders (2 sources) Attention-deficit hyperactivity disorder, unspecified type; Translations: [Attention-deficit hyperactivity disorder. unspecified type] Onset: 01-15-2022 Chronic Gastrointestinal hemorrhage (1 source) Rectal hemorrhage; Translations: [Hemorrhage of anus and rectum] 02-13-2023 Episodic Hemorrhoids (2 sources) Internal hemorrhoids grade III; Translations: [Third degree hemorrhoids] 02-13-2023 Episodic Mood disorders (2 sources) Major depressive disorder, [...] [PAIN IN RIGHT KNEE] Onset: 07-07-2022 Episodic Other nutritional; endocrine; and metabolic disorders (1 source) Body mass index 40+ - severely obese; Translations: [Morbid (severe) obesity due to excess calories] 02-13-2023 Chronic Residual codes; unclassified (1 source) Acquired absence of other specified parts of digestive tract; Translations: [Acquired absence of other specified parts of digestive tract] Onset: 01-30-2023 Episodic Screening and history of mental health and substance abuse codes (1 source) Personal history of nicotine dependence; Translations: [PERSONAL HISTORY OF NICOTINE DEPEND] Onset: 07-09-2022 Episodic Unclassified (1 source) CONTACT W/AND (SUSP) EXPOS COVID-19; Translations: [CONTACT W/AND (SUSP) EXPOS COVID-19] Onset: 08-09-2021 Unclassified (1 source) Post-op Onset: 01-30-2023 Past or Other Problems Problem Classification Problem Date Documented Da te Episodic/Chronic Calculus of urinary tract (2 sources) Kidney stone; Translations: [Calculus of kidney] Onset: 07-27-2019 08-04-2019 Episodic Conditions associated with dizziness or vertigo (4 [...] Coding Summaryon 02-01-2023 Coding Summary HTMLBase 64 JuxuujjvIOd1lXs+PGhlYW Q+DO5EZRStT55lyYBgvQ3k Y4IGZRbJHxrlQYSFJIhKGl SaxjBmGW9uvMUhCCZu IC8+EY5nUEPlOmuegHAko5 U4hCS0E89pne6tOGkrdAA4 LREdYeVsbouic6imeSg3KV cuNmluOyBt DRHnwD30KOD3wW05Wh36pQ JvfERht9thpBc7BgSaHJNj HXA7uDytBCaom5PnGSTpY8 9jhRKzu7M0 VXFcuOpquVYxVkIqbIW3aB 4uZIwncmxrg6ttuierAhn6 nr46wSRuu0P6uHM4O3Vtqc F7FMBsdFEg PiksaOQUaO6idxxtj2mmra xtFeMeKNYwPGp1NZo5RFZj sUmsYbNzPZ81AUL8JZBjmq ClB2LtPIUq pNgiWrG6j4R2Tm3PP1XYSb lfA1FUPLTIZNeucDR+PC90 kq91W7RbKafdKjo8QYTyYI Z6qMR6aV0c JMRzHHpgw9Y1fTX5E0Mcuz Jfxf3mg7wwCWKyXFfyU24v wXTmr8F2YRHzbPD1DBDlrG gvMgDmuU20 Oyc+EEJvhZcxg1GjWgvuv4 xap4buyRx2WssyZMSyoxMg tVgrTUL1u2DxGi8dMMPhkK N5bDF9bZ3p HqLgHeW6XGirN657JyPtsH KsNxizV91qO4ZyzPJ+PHRy Apg7SRCpqLczDU8rB4TfPO RpbmctbGVm dDnxUE5hGQOkohyzCBXblO 7rIDGbX9v2DyEsLpW2USma M9GmBGFodqxzRt61dR9dRi BzAoK2XRcb X9WfugH0ZRFwuKNcPZlqPD W5M70pt3T4FDAdKYZbLYN3 cRM4zL6wuYejjklycMLmsM sgdmVydGlj MXlsEMseB268PXBzvGhoJh NvZGluZyBEYXRlOiAgMTIv MjIvMjAyMzwvdGQ+PHRkIH Q2sEnnBTFi aMXjNJdrFq9sjSlkhGhcBO 1wYCCmvliwSAGbrK9iNAEh rIDubDrtWJ6aFBIbtnvbw8 73VlRtCLA5 OGHsyWHmY9DdwY9rJmOeCB AoOFTaW3GigZWwJUivA542 AJrqRpE8HNOhdhIlF3YqSH FsaWduOiB0 d2P5Ft7Sd4EsvhngD7NknA SkZfOuLbykBMg9H3VkLgkp dHI+PT56UTZoFV16QCo3AL F5qNmfAVuu JPJkQ8NenO1hMrCpIWRbUD RkOyc+PHRhYmxlIHdpZHRo PRprGSBmYyUoyExjJH4wYr 9yZGVyLWNv cQakdUXeTdIzz8ljWSEyUT axJC0gpShsT5PajTH1VYQx j2u9Px77E71qC7NsoNJ+PG SbtGP8jIP3 qN7wPcRvEsK5ILyuV649Nr RuzZBxZojfe1lui0kebCe0 MaF7HTWaowSqsFlkFFU9h3 QeAh47X95q IHdpZHRoPSIxNSUiIHZhbG zmxf6uyQ9gRr8+PGNvbCB3 kRC5xW1yBmNoVcL5IBxjL7 49InRvcCIv Pnmmo0uhx0hdmZw6DoTbCL YtgsDqhQbcLBS3p5EaLr43 N4ReuLfbw5BbZhm0py52jD Mkg0M7sZQ7 K7YxOXRsrducpMXcuLwjJZ 1hIBCjlhmzAGPdrP9sMOHq K4l3NaPdOnN7QFyrG7Ltds E4RZZfhFUb TLExbLGRjK4qzypvb3jvzq mmWnLrAXUuXId1VZi9OMEo sHdeIsSrUPS9OrH3ASQ3oJ SmnW6byBbz tbcqvV8eOcm+UVQ7xWKsiI YIEG8pJuxoiWH+PHRkIHN0 eGjvHQmaEPNrdX4oNZSgP6 e7GbJqUyV5 BRugF5UrdhT2EBFxxWFhBH HhsYQEwZ2jfmudc9tjhhnh CfGbLOKsNOd9WXs8UBExqV duOiBsZWZ0 TeK0LCX9tRTaeJ3voSvohi asbG7nVea+QmlydGggRGF0 YSz2K5TgOlu6RMBmsBvxXL 0ncGFkZGlu Mk1vcCyolHmjNF9xVOLcgs zoa547QdIdc0hgSXDdgSXz UJpzVQU9J93im3I3DGEdBE HlNTI4wGR1 iT4wiKtdnaaxqEYhxNphae NamJffHOsuVXqdE987SSFc sXzwUrAaUFz3B0MiZed3GC NdcSxaLS5i gHKgRIwaSh8ijKawsGcoUI 1eREPjgdcfn037FzBtd3eg QPSmgFZcOPtnAGN4N06xh5 T1ROBlVJPx RMT7lBL3uH7cpVjmcgukpB VmdDsgdmVydGljYWwtYWxp J339CKMapBudIxIlrSp9F0 NxPyr0RIMi wGxvQP5elUQjSOptSl3ncY efbEtbXP8gASKrerwxt173 RfDhc8zfDQLrcJLpQPuhXU C5R56fl6J3 YIXvBUYlFBF8xGX6lW8qmA lnbjogbGVmdDsgdmVydGlj YLyiPJupF160JKJtvVogUv BhdGllbnQg PCldHHo4G2BtYyrxuND+PC 81MIKvQD80pURlqGLzh4aq mWn2MoGsRYIdKAW2lJmaFX tta9GbMPXq D17xuFJwp4D7MCEbtOoocX FeBvCyjEW6oK5fKRuewmtq c3ociejwNwbrb3vpzg24lV 96M27uEMfl ZHRoPSIzMCUiIHZhbGlnbj 0hnX8eOr1+XACyoNM0cVF6 tJ7mNFLaBgM9EKfsJ590Ja RvcCIvPjxj m4fvk6cvrBh4ZcD6HLVezq UzjIgrLTK1i0CbAm46Z98r IHdpZHRoPSIyMCUiIHZhbG ckif9aqI9i Ii8+GOQetKP2gOF5kJ7iCm SzSyX6PLeyN152TjDniWXu MqiwX77kG3YghZO+PHRyPj b7HKFjbPob NG7hqZXeXJvkVu6xVKI6Yv CoAfMoTVamP2RuMWRkidvl zdgbaQD2JXSmEYBtrD02Tk 9udDogMTBw gNMUnO2ygyzom9gkcnfrPp RpSUPmSQl7NWv4DMRqlQxc GtNvKPK8GdY1RCM8yFVvaD 1hbGlnbjog bJ9tJ2YbGQNxczkjJt11uE 2pQoSbNdX8WZwwMhe+QU5E HRXTE26oQHZTDqJbNByccU Q+PHRkIHN0 mOodMMxaALMbmH8nZJFlR5 h7PnRvQkP2RTunF1InUHDk bdjpQa46eB7nZvPgKyQ4FF scY6RcddK1 XBKypGEyWGaaMBX9H51lg0 E8SHSpWIScOMP5tZT3qZ0a bGlnbjogbGVmdDsgdmVydG ljYWwtYWxp B339UVVpiPozAbX5HnQjSv F8VlF1S8HsYvs2XBQisKrf MU1vjKIrUDlcIp4yvDsyjV smRY0sGZGv vbefXZBfvG2wSKRupEGueM xkLN9jQUOyeplrb712ZpDn VFU3MWRdcLDvV3UdeX9fFc AjMDAwMDAw N6DghKCtOGmaP237SUdoXm J6WNYftsKnZ0UuHUUcdCwk XrN9p4C7Qp08WNNGBXVcjs wvdGQ+PHRk FSP8qEryMZevAGBhpU9rRF AvI9k0GqRnPhH6RBjhI2Qa XBFvjafxKg19fY5sAfWwPe U0ZXhfK1Sw pfI8YSYwyJMqQTbtTGF9P0 2gm4X4ANEtXVLsVMA8pAL2 zW2zrFhrndxhrFDryMzecm VydGljYWwt VAtvY355JYGfhJozJfMPTI FMRTwvdGQ+MOIiKHQ2kPlj CZmxAKOcyQ7xYSKiR7b3Ac IkOlH9SKco E1EqPVLsrndyOy94cT1zDa OkZnB3YRinY9MfgyN5DQWn lLBgUHbfRPE3S08tr4V1IL MwMDAwMDA7 qOQ2mG2pdXehxbauxDXrnS wwqrCutXjqYOfeIUgpR117 RJGnaUrwQl3SLA78ZN67U5 RyPjwvdGFi bGU+PHRhYmxlIHdpZHRoPS ivYFBiTyAghYmpTU2hZk0c ZGVyLWNvbGxhcHNlOiBjb2 xsYXBzZTsg DW5qjIrfC6OhjTF1WSOgn4 h2Fu84B37mD1UbpTE+PGNv bGX0vMA1lZ4yGsXiNpQ3KW ecZ221AmCs eZKjCcltg8nuy7pyhPf8Wo DyZAMnmfWogKvkBJK1s0Ji Lo17C60yCKxdMWRzSNBcOZ UiIHZhbGln wi9yjT9fGi6+IJElcQT0kC J8nS5kDaJaXpN3XIteE647 WuLhaWUfZoopX18mS4VzmB A+PHRyPjx0 WUIegYdkRR4ysJSbMKgkVs 0bJOF8KpTkDcWiTYrlG4Cf FVFhabsfmcjhfYX2QDPeKJ ExpU91Gb6v vUigRr9nRSWpCGM7NKNvpY EcW9DjkQ9gYbVvJZPtCVMc P9PitCZdSKyyP991SZppGs N2CQWjjmJe E9RfGVJtlCciXuJ0z7C2Hk 7SnZsepVNaEL6sFyBfUSs1 D8AoKuf6PQEjlFwsLA3oqU DvSZkrUv5i gKpcmKrnHA8zILTvygago1 65GwXxp2ioIHEpvYJnGBdi GOL6Z69dh2J7GZVeMJRjHX E7jQI7eY3k bGlnbjogbGVmdDsgdmVydG izUOkqMSgtO943YWUjjRtf PvIGCcu3D5FlUuw4OONthJ nnCR8giCEo YJspEw3zsSdlbGcdTI1dQG Guwrmwp664KwGyx1hxJISy kFWhBYsdGIM2J21tb1Q2MB MwMDAwMDA7 cPK2yE9pfOqiyxeyaDAwjO ymwdQzlYlrVUvwBFzvF642 NQLbmOqxHt2QRkt9L5GdQs w2WBDqmNcv HQ1nzCKnGEydHv1nySkesT fbBA2xPKRxvfbhu134HoZq s2vvYDBbkLYhTYghOCF5J5 9ln7C8SYKt DHMzFFK9bTN7kJ3vzDalfe ogbGVmdDsgdmVydGljYWwt EOdqP036WAEuuZfxMcDdqZ VyOjwvdGQ+ QT83kz22Q7PbFlyaPxt1QV BgBOF2zTO0iN9kTISvLStl v3M1iLU4W2QynkZzma5jl8 xsYXBzZTog Y29 (more content not included)... [facility] Coding Summaryon 01-16-2023 Coding Summary HTMLBase 64 YjzwwcrkXUt9oRy+PGhlYW Q+KD1RIBQbB39dqNKtgW2o L5AKSQlCOefcGYVQBOxALr DsslLhZQ2izWLoZIBz IC8+AM0rBCLfCrtweWLoi5 Q5zTN3E28dao4qFSjbnSQ2 PTFdHeKzwwgvk1qeqXx2JH cuNmluOyBt PPEmkD70CTD2xU18Tr32bD RezMQgz4nnhHu8UhQxUDFf YYI4pZpkAPbvs0YqFWNfO5 9qjOUis7G8 VQMkfRrpbCNaUpGwcEC2mB 8cRXvpoyund9bgpevtOcq9 jo31eBHlo9D9iLZ0N8Siwy F7BHXcrAAf IbchgAVHqX7rupbwa0nnkg ylRsQkCZLjRCl3OWs7PYBu fXxdYaQoWE95BLR1ETLtsj VxR0FcGUYj fWpcQhB0d4V5Uj4AN4UIUw jiF0QPPAIKBIorvAZ+PC90 xg15M1UrCbckCfa9GXPqLP H5hZK7zJ3t WAWlITcsp8R5aPD3M1Nmkt Rbbl6ld6dbXDKzYTknI25p aZVpp7F1TKHhzNI8JEAyiE ykLrHuhC40 Oyc+GCXwyJbcy0KyZvcyq0 iom6rihBg8IjtoBEOfcnMl pZhkILY7a7KpIl4tSGNjbJ B3gRX2cD2b AmBsUsE4NVfnS815TpFzdC BzRdkvY42gJ1AymHM+PHRy Xdy5BTRzlVfaGM5qC3OwIB RpbmctbGVm sIeaVL0kNZVqzidbKTDiiY 9dTZPgG9v3XnBpEwQ7NWwt R0IbBCMbexsyBm11rI2dAw RgMrD5JYjm Z8KyydL8ZLHkvEFkBDceSE U0J63aw5W9BNIrAIRaQJU5 zAS4qG2fhDjadwfucUMjvV sgdmVydGlj DGyxAPygU155QEBluSdbIz NvZGluZyBEYXRlOiAgMTIv MDYvMjAyMzwvdGQ+PHRkIH R7lHseDABo mNGcUUaoUv9yzJgxvXpbXE 6mGCFkuwpxVZPolK7mGOQy lBXqhLnjMS6mWXRcqupil1 76FbAoFNU6 KOLrxHThG6SygI9eFmSbML SpLOZfJ7DcsBTxAJszY713 INjlEaJ4PEVyxwMaU0MwLJ FsaWduOiB0 y4U2Rq2Gk2EqbapzA8YgaK TbVqSxIhwuKYe9C9QhMkyf dHI+NX28KOLtWO11FAz8UO I2qImzDMhl ZCCcD7AfbW3yIiSpCFJoNW RkOyc+PHRhYmxlIHdpZHRo OPapDTAhCvTreMasJD8dLl 9yZGVyLWNv dCilcQEkKaJig8gvEGKkHF gyYH9nfFqtQ2TvnEP6BOPn t7n3Ms92B00eZ9PumRB+PG ModLH1uMN3 mQ2rYjMfDlP7VXcaF367Yu NtbBJhFffrg8qsp9zznVt4 GzC1TZGwxeKxeGwdLJR6r2 WzNw45A70o IHdpZHRoPSIxNSUiIHZhbG cnwi3dbO4rWq0+PGNvbCB3 rOC3uF5bUfDoHaP4RFxzD7 49InRvcCIv Stkdd6otz6nbxQi7RwLyGH TzrkKymZrbGYM5j1DpBa69 V7NwuMzvz5RsNnh5xr69qC Ejb4A0qYG2 A8TaTTTgjhjxoOJhnEzxPP 1gBSXmvfesIFWqgE0tFKTr D6n0FwSdDiT0FIquT7Lmmi P6CQOpiNRf QNKtwPFExF9upphzs1xvlq uhXiUzHOOqYZr8RVz9NWXx lSvsTgLsRVJ3JgX0PNK3hA StiA3nxZoc wmqitI3rSzb+WNV0cIZzrG FTKU7uObhycTQ+PHRkIHN0 fStxJGosWEYhlY7eTYRvS0 m0MyRyUyS1 XWsdG1WspvS1LEWcvSQwBZ OfwPCEzB5mftjrp4mzsxoo MkYaSEDqTNh7COj6ZJIwpT duOiBsZWZ0 LtZ6ORC2fLGenR6upFeeud sgzJ0xCjn+QmlydGggRGF0 YTd5O2DhZxv4IMWgvTfjEU 0ncGFkZGlu Gq1cuTnnwNftTJ3fKBNgth bek855PzDcl6mkASUwgZWr JBujVQV1G03ye0M1YWTpLF EkXZR4rZF6 nK9frNsyysrliJDaeCcxrh CthIkuYFerYJxaC368HZVh lPllIfFkBDv4X5ZlZvw1MT QvyXtrTQ4m dJUfGNjrDg2jkXnhmPczEM 9zHAGimovty964BpZgr8gc ICRvvDQyIZuqDWW8P35lc3 G5RIZsBBEr BWQ4vUF3oR3taVmpqimquR VmdDsgdmVydGljYWwtYWxp W628CGGpnCwjDtApyXf1T1 XoEly8OQGf dIgpJS0xbIDrJFvmBi5opB ulvCrzSU6jXUUkilmne946 DnXcj1auICUkzXCtIVyzWZ T8K14nb9W0 EKQbYKFaVIV8rEP9jL3jvG lnbjogbGVmdDsgdmVydGlj HUjbZClgK951HVKyoQqkWo BhdGllbnQg UYxuDXg4I5QwKxehrKN+PC 55ZSCwFZ65rQNnwHKvv1sh lXe8TbWnBCLqIUC5aHrrWU djp5XtWCCu R03pdGLzk7H2WSJiaCnxbC LdDuBdqKT9iJ9eZJklekvg j7wwbjbyXzynk1zuli03mJ 06D47gRPie ZHRoPSIzMCUiIHZhbGlnbj 8ijC4yGc7+PBRndMP1fUX9 qK4nKXLeXiE8AEakQ117Lh RvcCIvPjxj h0vos1mbgSl9NfY0VQTyzv IqlMcvMDR7i8TsHz92V68x IHdpZHRoPSIyMCUiIHZhbG etsz6rlK8v Ii8+SFPaqVV3cDY5cP7nMp TqYoB2JLwfO994AmKjaTUk XvdnX62iJ6GkjRD+PHRyPj o0KHJclCab YQ0lrURcSFjoBe4nZII6Qk NhSgUgGNqsZ4QiPGSejkfy byspvSH9DIMqKJEjxJ39Ae 9udDogMTBw jHIMeA9ntwpvy4dotejjKr KvEAAqOVr8HYb5VNXaoThg AqYwWLT8JlO6XVM0jZImgO 1hbGlnbjog aA9rP8DiYPWipjmxLf00qM 8wAvJtVvH4FRdsKpk+QU5E LHDKO00aALJKBkFiTMxesP Q+PHRkIHN0 zKqhIKcbYPKxtD6bEECcT0 f0RwSgOtW8NWvaC7KaEDNt aeqkFj27fS5eCcKeGmO2JJ gxS6HsncW9 CMXmkFJzPMemRVN2S49yc4 F4SSNpYXMjPNV3oBX9eC3y bGlnbjogbGVmdDsgdmVydG ljYWwtYWxp W836GTQnhAkfOdU0PeSkIq W6QkZ5J4ZnAun5KZObeFeg EE4kiVSjTNbzVk0moQnxaM baWJ9aSUXi dqkqONFkmX6uGPDxkZAlcW rmBO0sCDVzagobm091NaSy PJR9SOYdhEIaF1BxqD0zJr AjMDAwMDAw S1AqePZoGNxxM815KZbpPi N0MFTcjyRsI0EiSLYohZjw YtK4t9O0Qu97RHDZNCPnub wvdGQ+PHRk ACX2tWutFXywQKTkwA4cOK LiC6c0AkSaVyI8GOvdM2Be FFUsmuxjVm93mB8sUzLcVa A6GZyuH8Ba phJ2BFGtjREyAOlgZDS3L1 3ee3J6OSMgDHYsRDS1cNC1 qH8snXfqjwhgiFAboVdocr VydGljYWwt WJmpL588QXSucLanRhKHJF FMRTwvdGQ+CAZqKEB1sWar EQgyQZVesU8vDERcH1s8Nl RtRdT4ZNcv A7MrINKmyrydNi44wU0lYv ZpNrR1LAeyX5LksmH3MEXc dNMhCKgqAIC1F65vc5K4ZW MwMDAwMDA7 jIP0qD3xrAgtjpsbtOPxxM mydgMdwCreFZewXXoaS283 BKTlsOtlJu7bf8CnfuE3dJ 0mEQ33MV49 A4GlFlispPXlvLF+PHRhYm xlIHdpZHRoPScxMDAlJyBz uIamGW6qJe6sFGIfJIOopG xhcHNlOiBj e2ajKUUcULwwNE0ynLkzN8 QaiJL4TGDxp1g3Zu18A60j V7AexPE+AOPpgLE9rLQ7iT 5sYiQtVmD0 LLzuG119HnLbbEBoCweds4 ntu4aieEm7VcNvATDmrvLz eBxmHRY4h3ToZg39A06dGP dpZHRoPSIy HLAfQFDxmEvkoh0nfL8tMl 8+CXEvsLU1hEF8yT5bDtVs UeM0YHpqS180ZmAxiORoZo hqF29iS0Ck dXA+DTEuXwp4FXRklHiyCE 4wlYWpPSraKz2qJUE7HkKs PfJzVIyjB8ThWKAahczryj tjcSB8JOFq PYAuoI82Tn9trTeyBv6tMV BtXGD5JAQicYTkA4HgjJ9s NhKgEUTtDJIzR8NrzHNmUV bnL760LYzz BuE2TAPpkiMzO9KxZTMhqM tjFjJ0u4P7Pk5DcBeuxXKv QZ6yZrUkGVj6O0FcWrr9PU KayHmuAI6p mMInIQavDd6uySyvpMqePF 5xRBAvhitmo751AhYqy3to POHbgNBmKAwjXXZ1Y56ta8 R5DRPzHDTs DQJ3lPH4rU0zjUpocwzhdO VmdDsgdmVydGljYWwtYWxp P810NUEobSleTgLSKzq6Q4 CqNbf5RHBm kSorPZ2mdEAkBXnzFv2reF kurTnmPC2oCCDnfubqm401 SnDqg8xpQTXhtGOyIFdxRF G5R65eq0F0 WWNoHLCrITK6iLF0vJ0zpR lnbjogbGVmdDsgdmVydGlj LJyiCMmdQ884CNLeeLthHa 3FWlw3B0Uo Czv3HNIctJbqEQ6ugTCwOR agCa7cePlgzXjgUW8gEBYu ptbfw001HrWvi6xxTUQeuW QgVGltZXM7 Y70hj6K1RTVmDUIyHXL2eI M8kC5ixIhrllcfmYAhbXtg xmHwbAxwARhaDLzvC918NN RvcDsnPlBh eWVyOjwvdGQ+MH17mp67Y2 VcAvifCst8BNUrAOF2pCE8 hN1oXWDdIMbio1T1eGO8F7 EcgxVacm5m b2x (more content not included)... [facility] Telemetry Stripson 3 Telemetry Strips [id number]#[id number] [facility] Coding Queryon 01-14-[address] Wright Please complete ED Note for this encounter. Please be sure to date the Note 12/31/2022 Thank you, Katelynn Lawrencer Ext [phone] [Electronically Signed on: 01/20/2023 08:24 EST] Ralph Wright MD [Verified on: 01/20/2023 08:24 EST] Ralph Wright MD [Transcribed on: 01/14/2023 09:21 EST] [facility] .Auto Diff 1on 12-01-2023 Auto [place] % 7 % Normal -12 [facility] Comment on above: Performed By: #### 1 [id number], [id number], [id number], [id number] ####[facility] (DEFAULT)[address] [place] [address] 36097 Baso Abs# 0.0 x10 Normal 0.0-0.2 [facility] Comment on above: Performed By: #### 1 [id number], [id number], 5307144, [id number] ####[facility] (DEFAULT)[address] [place] [address] 24217 Basophils/100 WBC (Bld) 0.7 % Normal 0.2-2.0 [facility] Comment on above: Performed By: #### 1 [id number], [id number], 2231641, [id number] ####[facility] (DEFAULT)[address] [place] [address] 11087 Eos Abs# 0.2 x10 Normal 0.0-0.4 [facility] Comment on above: Performed By: #### 1 [id number], [id number], 5146664, [id number] ####[facility] (DEFAULT)[address] [place] [address] 88323 Eosinophils/100 WBC (Bld) 3.3 % Normal 0.9-4.0 [facility] Comment on above: Performed By: #### 1 [id number], [id number], 5761201, [id number] ####[facility] (DEFAULT)[address] [place] [address] 74547 Lymph Abs# 1.4 x10 Normal 1.3-2.9 [facility] Comment on above: Performed By: #### 1 [id number], [id number], 2498762, [id number] ####[facility] (DEFAULT)[address] [place] [address] 45533 Lymphocytes/100 WBC (Bld) 28 % Normal 14-48 [facility] Comment on above: Performed By: #### 1 [id number], [id number], 7677440, [id number] ####[facility] (DEFAULT)[address] [place] [address] [place] Abs# 0.3 x10 Normal 0.0-0.8 [facility] Comment on above: Performed By: #### 1 [id number], [id number], 3081759, [id number] ####[facility] (DEFAULT)[address] [place] [address] Neut Abs# 2.9 x10 Normal 1.5-9.2 [facility] Comment on above: Performed By: #### 1 7755625, [id number], 5015551, [id number] ####[facility] (DEFAULT)[address] [place] [address] Neutrophils/100 WBC (Bld) 61 % Normal 44-88 [facility] Comment on above: Performed By: #### 1 [id number], [id number], 3180883, [id number] ####[facility] (DEFAULT)[address] [place] [address] CBC w/ Auto Diffon 3 Erythrocyte distribution width (RBC) [Ratio] 16.5 % High 11.5-15.0 [facility] Comment on above: Performed By: #### 1 [id number], [id number], 8388127, [id number] ####[facility] (DEFAULT)[address] [place] [address] Hematocrit (Bld) [Volume fraction] 36.8 % Normal 33.7-40.4 [facility] Comment on above: Performed By: #### 1 7686724, [id number], 3775993, [id number] ####[facility] (DEFAULT)[address] [place] [address] Hemoglobin (Bld) [Mass/Vol] 12.4 g/dL Normal 11.3-15.9 [facility] Comment on above: Performed By: #### 1 0732212, [id number], 6544374, [id number] ####[facility] (DEFAULT)[address] [place] [address] Man Diff? Auto Invalid Interpretation Code [facility] Comment on above: Performed By: #### 1 6939125, [id number], 8608789, [id number] ####[facility] (DEFAULT)[address] [place] [address] 82017 MCH (RBC) [Entitic mass] 26 pg Normal 24-34 [facility] Comment on above: Performed By: #### 1 6533153, [id number], 6145097, [id number] ####[facility] (DEFAULT)[address] [place] [address] 68496 MCHC (RBC) [Mass/Vol] 34 g/dL Normal 26-37 [facility] Comment on above: Performed By: #### 1 [id number], [id number], 3813334, [id number] ####[facility] (DEFAULT)[address] [place] [address] 99152 MCV (RBC) [Entitic vol] 77 fL Low 81-100 [facility] Comment on above: Performed By: #### 1 1439629, [id number], 0419421, [id number] ####[facility] (DEFAULT)[address] [place] [address] 33783 Platelet 195 x10 Normal 138-427 [facility] Comment on above: Performed By: #### 1 5124128, [id number], 6590558, [id number] ####[facility] (DEFAULT)[address] [place] [address] 92746 Platelet mean volume (Bld) [Entitic vol] 7.7 fL Normal 6.3-10.2 [facility] Comment on above: Performed By: #### 1 5476739, [id number], 6643054, [id number] ####[facility] (DEFAULT)[address] [place] [address] 31646 RBC 4.81 x10 Normal 3.70-5.30 [facility] Comment on above: Performed By: #### 1 0659403, 2405998282, 5248485, [id number] ####[facility] (DEFAULT)[address] [place] [address] 60495 WBC 4.7 x10 Normal 3.5-10.5 [facility] Comment on above: Performed By: #### 1 8359142, [id number], 8064358, [id number] ####[facility] (DEFAULT)[address] [place] [address] CMP Standardon 01-11-2023 eGFR Non AA >60 Invalid Interpretation Code [facility] Comment on above: Performed By: #### 1 [id number], [id number], 3249105, [id number] ####[facility] (DEFAULT)[address] [place] [address] eGFR AA >60 Invalid Interpretation Code [facility] Comment on above: Performed By: #### 1 [id number], [id number], 5321634, [id number] ####[facility] (DEFAULT)[address] [place] [address] Albumin [Mass/Vol] 3.2 g/dL Low 3.5-5.0 [facility] Comment on above: Performed By: #### 1 7705102, 3443428787, 1397209, [id number] ####[facility] (DEFAULT)[address] [place] [address] 37388 Albumin/Globulin [Mass ratio] 1.1 {ratio} Low 1.4-2.6 [facility] Comment on above: Performed By: #### 1 6568475, [id number], 8141855, 3827758874 ####[facility] (DEFAULT)[address] [place] [address] 08372 Alk Phos 75 IU/L Normal 32-91 [facility] Comment on above: Performed By: #### 1 6941430, [id number], 3855854, [id number] ####[facility] (DEFAULT)[address] [place] [address] 41923 ALT [Catalytic activity/Vol] 143.0 U/L High 14.0-54.0 [facility] Comment on above: Performed By: #### 1 [id number], [id number], 9233541, [id number] ####[facility] (DEFAULT)[address] [place] [address] 90742 Anion gap [Moles/Vol] 12.0 mmol/L Normal 5.0-19.0 [facility] Comment on above: Performed By: #### 1 1100308, [id number], 4625348, [id number] ####[facility] (DEFAULT)[address] [place] [address] 27853 AST [Catalytic activity/Vol] 91 U/L High 15-41 [facility] Comment on above: Performed By: #### 1 4518230, [id number], 7915082, [id number] ####[facility] (DEFAULT)[address] [place] [address] 50521 Bili Total 0.9 mg/dL Normal 0.3-1.2 [facility] Comment on above: Performed By: #### 1 9820024, [id number], 5368940, [id number] ####[facility] (DEFAULT)[address] [place] [address] 19607 Calcium [Mass/Vol] 9.0 mg/dL Normal 8.9-10.3 [facility] Comment on above: Performed By: #### 1 7782158, [id number], 2136156, [id number] ####[facility] (DEFAULT)[address] [place] [address] 91267 Chloride [Moles/Vol] 103 mmol/L Normal 101-111 [facility] Comment on above: Performed By: #### 1 2292094, 8107169621, 5205588, [id number] ####[facility] (DEFAULT)[address] [place] [address] 73790 CO2 [Moles/Vol] 26 mmol/L Normal 21-32 [facility] Comment on above: Performed By: #### 1 [id number], 8621338291, 8621315, [id number] ####[facility] (DEFAULT)[address] [place] [address] 43034 Creatinine [Mass/Vol] 0.66 mg/dL Normal 0.60-1.30 [facility] Comment on above: Performed By: #### 1 3775004, 5375132913, 0557600, [id number] ####[facility] (DEFAULT)[address] [place] [address] 74730 Globulin (S) [Mass/Vol] 2.9 g/dL Normal 1.5-4.3 [facility] Comment on above: Performed By: #### 1 3733621, [id number], 5519980, [id number] ####[facility] (DEFAULT)[address] [place] [address] 82092 Glucose [Mass/Vol] 111.0 mg/dL Normal 74.0-118.0 [facility] Comment on above: Performed By: #### 1 [id number], [id number], 6272530, [id number] ####[facility] (DEFAULT)[address] [place] [address] 18109 Osmolality 274 mOsm/L Invalid Interpretation Code [facility] Comment on above: Performed By: #### 1 [id number], [id number], 7485307, [id number] ####[facility] (DEFAULT)[address] [place] [address] 15824 Potassium [Moles/Vol] 4.0 mmol/L Normal 3.6-5.1 [facility] Comment on above: Performed By: #### 1 1391328, [id number], 8254460, 1458427783 ####[facility] (DEFAULT)[address] [place] [address] 39504 Protein [Mass/Vol] 6.1 g/dL Low 6.5-8.1 [facility] Comment on above: Performed By: #### 1 6085680, 9834519660, 8488470, 1375906044 ####[facility] (DEFAULT)[address] [place] [address] 76146 Sodium [Moles/Vol] 137.0 mmol/L Normal 136.0-144.0 [facility] Comment on above: Performed By: #### 1 4085441, 8773844714, 6051015, 0547166944 ####[facility] (DEFAULT)[address] [place] [address] 99063 Urea nitrogen [Mass/Vol] 12 mg/dL Normal 8-26 [facility] Comment on above: Performed By: #### 1 6265519, 2027177409, 0775885, 4849782913 ####[facility] (DEFAULT)[address] [place] [address] Urea nitrogen/Creatinine [Mass ratio] 18.1 mg/mg High 4.6-16.2 [facility] Comment on above: Performed By: #### 1 3899581, 6181656187, 1215022, 7019039798 ####[facility] (DEFAULT)[address] [place] [address] Consent Formson 01-11-2023 Consent Forms [id number]#1.00O TGTIFF Normal [facility] Discharge Noteon 01-11-2023 Discharge Note Discharge paperwork explained to pt at bedside, verbalized understanding. She states her pain is under control and denies other concerns. [Electronically Signed on: 01/11/2023 13:22 EST] Jami Liu RN [Verified on: 01/11/2023 13:22 EST] Jami Liu RN [facility] Inpatient Patient Summaryon 01-11-2023 Inpatient Patient Summary [address] [address] Patient Discharge Instructions Name: ERIKHANH Artemio : 1970 Patient Address: [address] [place] [address] Primary Care Provider: Name: BILLY PEREZ MD After you are discharged if you find you have any questions, please, call [phone] ext [phone] to speak to a nurse. The Pharmacy at [facility] is open Saturday through Saturday from [...] alcohol and/or drug addiction problems; contact the [facility] 03/09 Crisis Hotline -Text 4HOGJ ri [phone]. If you received any narcotics, sedation, or [...] business decisions or sign any legal documents [facility] would like to thank you for allowing us to assist you with your healthcare needs. The following includes patient education materials and information regarding your injury/illness. HANH ALVAREZ has been given the following list of [...] reflected below: New Medications The [facility], [address] [place] [address] [id number], [phone] ibuprofen (ibuprofen 600 mg oral tablet) 1 [...] white rice. (more content not included)... Normal [facility] Nutrition Noteon 01-11-2023 Nutrition Note Pt admitted w/ chest pain that appears resolved. Pt placed on a Regular diet, bwwzip337%. Admit wt 115.8kg in line w/ Oct wt on file of 113.3kg. Labs noting elevated AST/ALT, lipid panel wnl minus an LDL of 126, hgbA1C wnl. 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 Overall, low nutrition risk at this time. Will monitor. Normal [facility] Pharmacy Noteon 01-11-2023 Pharmacy Note I have personally reviewed the patient's medication list upon discharge including, prescription medications, OTC products, vitamins and supplements. Below are the following medications the patient is discharged on. New Medications [facility], [address] [place] [address] [id number], [phone] ibuprofen (ibuprofen 600 mg oral tablet) 1 [...] medication was sent to [facility]. Patient understood. [Electronically Signed on: 01/11/2023 12:21 EST] Isaias Aranda [Verified on: 01/11/2023 12:21 EST] Isaias Aranda [facility] Telemetry Stripson 3 Telemetry Strips [id number]#1.00OT GTIFF [facility] TnI HSon 01-11-2023 Troponin I High Sensitivity 3.1 pg/mL Normal <=15.0 [facility] Comment on above: Performed By: #### 1 [id number], [id number], 2822295, 2609872277 ####[facility] (DEFAULT)[address] [place] [address] 43782 US Echocardiogram Completeon 01-11-2023 US Echocardiogram Complete [...] Junction2.18 cm F: 2.3 - 2.9 LV Txbn416.91 g LVOT Diameter 1.88 cm IVC1.80 (<= [...] Single Plane 4 CH 39.89 mLBiplane LA Nohrrv98.64 mL Single Plane 2 CH27.31 mLLA ESV Index15.72 mL/m2 Right Atrium Area Systole RA Systolic Area A4C14.06 cm2RA Systolic Vol A4C34.00 mL Aortic Valve AoV Peak Velocity1.46 m/sLVOT Peak Velocity1.26 m/s AO Mean Velocity0.98 m/sLVOT Mean Velocity0.77 m/s AO Peak PG8.49 mmHgLVOT Peak PG6.33 mmHg AO Mean PG4.32 mmHgLVOT Mean PG2.85 mmHg AO V2 VTI31.25 cmLVOT V1 VTI26.76 cm RAJ (Vmax)2.40 ux1SNBN Area 2.78 cm2 RAJ (VTI)2.38 cm2SV (LVOT) 74.50 mL Indexed RAJ (VTI)1.11 cm2/m2 Mitral Valve MV Max Zplgvkay497.42 m/sMV PHT53.28 ms MV E Max Velocity0.74 m/sMVA (PHT)4.13 cm2 MV A Max Velocity0.53 m/sMR ZGD051.69 cm E/A Ratio1.4MR Peak Velocity4.84 m/s MV Decel. Rewu045.71 ms TDI Med e' Velocity9.39 cm/sMV E / Medial e' 7.86 Lat e' Kndpxdqq48.08 cm/sMV E / Lateral e' 5.24 TV S'11.93 cm/s Pulmonary Valve PV Peak Velocity0.94 m/sPV Peak PG3.57 mmHg CO End Diastolic Cruz.55.55 m/s PV Mean PG2.00 mmHg Tricuspid Valve TR Peak Velocity2.31 m/sRAP Estimate3.00 mmHg TR Peak PG21.42 pvOdKUNG51.42 mmHg Final Signed (Electronic Signature): Lan Jimenez MD 01/11/23 12:01 p Technologist: NIRALI Dill [facility] .Auto Diff 01-10-2023 Auto [place] % 7 % Normal 02-22 [facility] Comment on above: Performed By: #### 2 486329, [id number], 0429442466, 5325653760, 6696978363, 4868096, 18394076, 4778661, 3746140562 #### [facility] (DEFAULT) [address] [place] [address] 84462 Baso Abs# 0.1 x10 Normal 0.0-0.2 [facility] Comment on above: Performed By: #### 2 158167, 5529927366, 1965616720, 0012928051, 9266515696, 2521269, 88170028, 1299036, 0040865453 #### [facility] (DEFAULT) [address] [place] [address] Basophils/100 WBC (Bld) 1.2 % Normal 0.2-2.0 [facility] Comment on above: Performed By: #### 2 077114, 7670390335, 7221883672, 9970993375, 8678951419, 2704888, 10501822, 1478653, 2405533060 #### [facility] (DEFAULT) [address] [place] [address] 67895 Eos Abs# 0.2 x10 Normal 0.0-0.4 [facility] Comment on above: Performed By: #### 2 843029, 5022679516, 7075752643, 9607029226, 2090871088, 4069592, 36789701, 0475614, 7278348552 #### [facility] (DEFAULT) [address] [place] [address] 87516 Eosinophils/100 WBC (Bld) 2.3 % Normal 0.9-4.0 [facility] Comment on above: Performed By: #### 2 932245, 4813750558, 3318418164, 1437673505, 0317114662, 8442407, 57954828, 7888291, 0194612340 #### [facility] (DEFAULT) [address] [place] [address] 24687 Lymph Abs# 2.0 x10 Normal 1.3-2.9 [facility] Comment on above: Performed By: #### 2 708107, 0477713451, 9743683029, 8056390575, 7792947188, 6946956, 45461788, 6009363, 9031461908 #### [facility] (DEFAULT) [address] [place] [address] 39369 Lymphocytes/100 WBC (Bld) 28 % Normal 14-48 [facility] Comment on above: Performed By: #### 2 547489, 4849931521, 4921155486, 0248686283, 8338315167, 3007372, 68719174, 1789299, 8674155594 #### [facility] (DEFAULT) [address] [place] [address] 63143 [place] Abs# 0.5 x10 Normal 0.0-0.8 [facility] Comment on above: Performed By: #### 2 664297, 9337549609, 1169417843, 1985407962, 1447576756, 4487117, 83457770, 6853193, 2986540576 #### [facility] (DEFAULT) [address] [place] [address] 34781 Neut Abs# 4.2 x10 Normal 1.5-9.2 [facility] Comment on above: Performed By: #### 2 677088, 2591320192, 3823365588, 9109116068, 4281493462, 9843456, 76728710, 2250348, 7260710890 #### [facility] (DEFAULT) [address] [place], [place] [address] Neutrophils/100 WBC (Bld) 61 % Normal 44-88 [facility] Comment on above: Performed By: #### 2 976632, 6733088438, 9214489471, 8181806628, 4211959611, 3091893, 31268405, 2021027, 7547438249 #### [facility] (DEFAULT) [address] [place] [address]697 [facility] Standardon 01-10-2023 eGFR Non AA >60 Invalid Interpretation Code [facility] Comment on above: Performed By: #### 2 290745, 8868098137, 4744244381, 4093569205, 8685235870, 0679048, 35052329, 0837421, 1583532217 #### [facility] (DEFAULT) [address] [place] [address] 91545 eGFR AA >60 Invalid Interpretation Code [facility] Comment on above: Performed By: #### 2 959467, 0968705477, 0668460321, 3328457809, 6076014632, 6998673, 86179270, 4821630, 8217057627 #### [facility] (DEFAULT) [address] [place] [address] 23192 Anion gap [Moles/Vol] 14.0 mmol/L Normal 5.0-19.0 [facility] Comment on above: Performed By: #### 2 910192, 9429423089, 8148923732, 0249476915, 7185695920, 9494664, 23997881, 1192526, 3672149279 #### [facility] (DEFAULT) [address] [place] [address] 58508 Calcium [Mass/Vol] 9.1 mg/dL Normal 8.9-10.3 [facility] Comment on above: Performed By: #### 2 786273, 0121520203, 9921785810, 9031990691, 5115515777, 6194020, 12805307, 3864805, 0974735353 #### [facility] (DEFAULT) [address] [place] [address] 01183 Chloride [Moles/Vol] 102 mmol/L Normal 101-111 [facility] Comment on above: Performed By: #### 2 254964, 1163908256, 9052009079, 8461820330, 5304762292, 4718115, 69961940, 7717567, 7131111279 #### [facility] (DEFAULT) [address] [place] [address] 79346 CO2 [Moles/Vol] 25 mmol/L Normal 21-32 [facility] Comment on above: Performed By: #### 2 974724, 6624240802, 3872703843, 3310360525, 5329739165, 1121112, 13143838, 7327118, 0206110717 #### [facility] (DEFAULT) [address] [place] [address] 48911 Creatinine [Mass/Vol] 0.61 mg/dL Normal 0.60-1.30 [facility] Comment on above: Performed By: #### 2 682022, 8489476690, 7777903457, 7165329087, 4899370428, 5854036, 93111234, 6884138, 4239316394 #### [facility] (DEFAULT) [address] [place] [address] 50647 Glucose [Mass/Vol] 84.0 mg/dL Normal 74.0-118.0 [facility] Comment on above: Performed By: #### 2 453357, 5551109045, 2689290990, 2802758287, 7482373070, 2180436, 07434193, 3832907, 9450192791 #### [facility] (DEFAULT) [address] [place] [address] 98934 Osmolality 271 mOsm/L Invalid Interpretation Code [facility] Comment on above: Performed By: #### 2 101641, 2768260856, 5941530296, 7033098942, 9266917209, 4573544, 02019260, 4494899, 3100694488 #### [facility] (DEFAULT) [address] [place] [address] 49768 Potassium [Moles/Vol] 4.0 mmol/L Normal 3.6-5.1 [facility] Comment on above: Performed By: #### 2 577180, 4286453615, 7975334333, 8726171763, 2930253295, 0434549, 95039616, 2484826, 4929290374 #### [facility] (DEFAULT) [address] [place] [address] 54232 Sodium [Moles/Vol] 137.0 mmol/L Normal 136.0-144.0 [facility] Comment on above: Performed By: #### 2 832460, 6539761876, 2796144647, 3126494953, 4750538051, 9531844, 67363629, 8948759, 5529441614 #### [facility] (DEFAULT) [address] [place] [address] 69444 Urea nitrogen [Mass/Vol] 8 mg/dL Normal 8-26 [facility] Comment on above: Performed By: #### 2 271128, 1960671260, 5947290239, 3930568177, 7685066532, 1527033, 79993038, 7866364, 2176983894 #### [facility] (DEFAULT) [address] [place] [address] 75357 Urea nitrogen/Creatinine [Mass ratio] 13.1 mg/mg Normal 4.6-16.2 [facility] Comment on above: Performed By: #### 2 447683, 1523515960, 5999097114, 1619968788, 9027793038, 6993879, 76948184, 4517601, 7435060203 #### [facility] (DEFAULT) [address] [place] [address] 93156 Breakpoint Chem Normal [facility] Comment on above: Performed By: #### 2 624422, 9013459787, 8109856101, 1244896541, 6896585069, 5900542, 09146420, 5211680, 5431589783 #### [facility] (DEFAULT) [address] [place] [address] 99036 BNP.on 01-10-2023 Natriuretic peptide B (Bld) [Mass/Vol] 16.7 pg/mL Normal 0.0-100.0 [facility] Comment on above: Result Comment: BNP results greater than 100 pg/mL are considered abnormal and suggestive of patients with CHF. Higher BNP concentrations measured in the first 72 hours after an acute coronary syndorme are associated with an increased risk of , myocardial infarction, and CHF. Performed By: #### 2 893423, 7616706942, 9505126414, 4256090764, 1934567101, 1676200, 96717207, 9173016, 6742730579 #### [facility] (DEFAULT) [address] [place], [place] [address] CBC w/ Auto Diffon Erythrocyte distribution width (RBC) [Ratio] 16.3 % High 11.5-15.0 [facility] Comment on above: Performed By: #### 2 666849, 1617499575, 0307693211, 0418857732, 8905200443, 1387131, 39769756, 0681073, 7479785802 #### [facility] (DEFAULT) [address] [place], [place] [address] Hematocrit (Bld) [Volume fraction] 40.0 % Normal 33.7-40.4 [facility] Comment on above: Performed By: #### 2 046544, 6592000972, 1692172073, 0878884459, 7289398757, 6852243, 12502979, 9062050, 4728031295 #### [facility] (DEFAULT) [address] [place] [address] Hemoglobin (Bld) [Mass/Vol] 13.5 g/dL Normal 11.3-15.9 [facility] Comment on above: Performed By: #### 2 015281, 2985745401, 0908496686, 8935091427, 5123315953, 8981586, 78220833, 1595887, 7525280054 #### [facility] (DEFAULT) [address] [place] [address] Man Diff? Auto Invalid Interpretation Code [facility] Comment on above: Performed By: #### 2 980675, 0112059501, 2014471866, 5645737616, 3898746733, 0062262, 72497637, 7265343, 5379031914 #### [facility] (DEFAULT) [address] [place] [address] MCH (RBC) [Entitic mass] 26 pg Normal 24-34 [facility] Comment on above: Performed By: #### 2 026103, 1046221815, 9128725873, 2645779383, 9150799879, 9396004, 41428944, 1381646, 2949730034 #### [facility] (DEFAULT) [address] [place] [address] MCHC (RBC) [Mass/Vol] 34 g/dL Normal 26-37 [facility] Comment on above: Performed By: #### 2 990778, 4007758706, 3588597930, 6591962814, 8306802396, 6711745, 47253456, 3964681, 2143137583 #### [facility] (DEFAULT) [address] [place] [address] MCV (RBC) [Entitic vol] 77 fL Low 81-100 [facility] Comment on above: Performed By: #### 2 427878, 3542278908, 1226941481, 3074646469, 0344426054, 5352137, 77799466, 2079549, 5543576342 #### [facility] (DEFAULT) [address] [place] [address] 11430 Platelet 252 x10 Normal 138-427 [facility] Comment on above: Performed By: #### 2 309862, 0013161126, 1903753057, 7091788161, 5443941354, 4656372, 09119484, 1141541, 5450003944 #### [facility] (DEFAULT) [address] [place] [address] Platelet mean volume (Bld) [Entitic vol] 7.5 fL Normal 6.3-10.2 [facility] Comment on above: Performed By: #### 2 256486, 9412060156, 2441159133, 0724293869, 6627767072, 7571197, 32579417, 9292038, 1358717153 #### [facility] (DEFAULT) [address] [place] [address] RBC 5.21 x10 Normal 3.70-5.30 [facility] Comment on above: Performed By: #### 2 918686, 9217534956, 1870036264, 6766413313, 0766833186, 2821029, 63268104, 4344734, 0183756882 #### [facility] (DEFAULT) [address] [place] [address] 71392 WBC 6.9 x10 Normal 3.5-10.5 [facility] Comment on above: Performed By: #### 2 712737, 0771814275, 9986066837, 2150351824, 4050830099, 0772563, 86508983, 7698707, 6562698429 #### [facility] (DEFAULT) [address] [place] [address] D-Dimeron 01-10-2023 D-Dimer 0.40 mg/L FEU Normal 0.19-0.50 [facility] Comment on above: Result Comment: The [...] Liver cirrhosis ? Performed By: #### 2 054627, 3623723966, 6405309613, 1413472587, 5980830620, 1555983, 23816202, 5225246, 2334703337 #### [facility] (DEFAULT) [address] [place] [address] ED Clinical Summaryon 2022 ED Clinical Summary [facility] - Emergency Department [address] [place] [address] ED Clinical Summary PERSON INFORMATION Name: HANH ALVAREZ Age: 52 Years Sex: FEMALE : 1970 MRN: Acct#: Visit Reason: Chest pain; CHEST PAIN Arrival: 01/10/2023 09:49:38 Discharge: LOS: 000 04:15 Check In: 01/10/2023 09:49:38 Checkout:01/10/2023 14:04:45 Address: [address] [place] [address] PCP: BILLY PEREZ MD PROVIDER INFORMATION Provider [...] Follow-Up: DIAGNOSIS: 1:Chest pain Patient Understands: Comment: [facility] ED Note-Nursingon 01-10-2023 ED Note-Nursing private vechile arrival with c/o cp since yesterday unrelieved with tums. anxious. tearful. ekg complete for physician review. tele provided. tolerated 20g left ac. morphine zofran ns. cxr. nsr on tele. lcta. oriented to call light. encouraged to call for help. [facility] ED Patient Education Noteon 01-10-2023 ED Patient Education Note Education Materials [facility] ED Patient Summaryon 023 ED Patient Summary [facility] - Emergency Department [address] [place] [address] PATIENT DISCHARGE INSTRUCTIONS Patient Information Name: HANH ALVAREZ Age: 52 Years Date of : 1970 Reason For Visit: Chest pain; CHEST PAIN Arrival Time: 01/10/2023 09:49:38 Primary Care Physician: BILLY PEREZ MD Attending Physician: Rashid Arriaga MD Comment: Visit Diagnosis: Diagnoses This Visit Chest pain (19665043) Chest pain (R07.9) The Pharmacy at [facility] is open Saturday through Saturday from [...] alcohol and/or drug addiction problems; contact the [facility] 03/09 Crisis Hotline -Text 3YZPX ct 836174. If you received any narcotics, sedation, or [...] and treatment you received today in the [facility] Emergency Department were for an urgent problem and are not intended as complete care. It is important for you to follow up with a doctor, nurse practitioner, or physician?s cleaner assistant for ongoing care. If your symptoms [...] so we can reach you if necessary. [facility] Emergency Department has provided you with a complete list of medications post discharge. Please inform your primary education professor/provider of your visit and for further instruction [...] Disease Control and Prevention October 2013 Normal [facility] Extra Redon 01-10-2023 Tube Collected Yes Invalid Interpretation Code [facility] Comment on above: Performed By: #### 2 511015, 7388244015, 4880630226, 1275611885, 1105616604, 0598325, 51814883, 5759295, 8091549526 #### [facility] (DEFAULT) [address] [place] [address] 89919 HgbA1c Standardon 01-10-2023 .Hb 13.6 Invalid Interpretation Code [facility] Comment on above: Performed By: #### 1 532455229, 2867111827 ####[facility] (DEFAULT)[address] [place] [address] 07278 .Hgb A1c 0.51 g/dL Invalid Interpretation Code [facility] Comment on above: Performed By: #### 1 517964888, 3976312036 ####[facility] (DEFAULT)[address] [place] [address] 55928 Glucose [Mass/Vol] 111 mg/dL Invalid Interpretation Code [facility] Comment on above: Performed By: #### 1 133113349, 5271534285 ####[facility] (DEFAULT)[address] [place] [address] 54455 HbA1c (Bld) [Mass fraction] 5.5 % Normal 4.6-6.2 [facility] Comment on above: Performed By: #### 1 689426656, 3172702075 ####[facility] (DEFAULT)[address] [place] [address] 96703 Lipid Panel Standard, Non-Fa stingon 01-10-2023 Cholesterol [Mass/Vol] 199.0 mg/dL Normal 66.0-200.0 [facility] Comment on above: Performed By: #### 1 056596030, 0173519257 ####[facility] (DEFAULT)[address] [place] [address] 28417 Cholesterol in HDL [Mass/Vol] 55 mg/dL Normal 40-71 [facility] Comment on above: Performed By: #### 1 428882322, 2751736810 ####[facility] (DEFAULT)[address] [place] [address] 11814 Cholesterol in LDL [Mass/Vol] 126 mg/dL High 1-100 [facility] Comment on above: Performed By: #### 1 950034296, 2818591171 ####[facility] (DEFAULT)[address] [place] [address] 39702 Cholesterol.total/C holesterol in HDL [Mass ratio] 3.6 {ratio} Normal 0.0-4.5 [facility] Comment on above: Performed By: #### 1 168088409, 5257521315 ####[facility] (DEFAULT)[address] [place] [address] 74377 Triglyceride [Mass/Vol] 87.0 mg/dL Normal 0.0-150.0 [facility] Comment on above: Performed By: #### 1 008793979, 6792875738 ####[facility] (DEFAULT)[address] [place] [address] 94980 VLDL. 17 mg/dL Normal 5-40 [facility] Comment on above: Performed By: #### 1 041650704, 7354354887 ####[facility] (DEFAULT)[address] [place] [address] 06443 PT/PTTon 01-10-2023 INR Coag (PPP) [Relative time] 1.04 {INR} Normal 0.91-1.11 [facility] Comment on above: Performed By: #### 2 190389, 7922153062, 0250803272, 3615460624, 2738360174, 8957564, 25348308, 5919691, 1214766368 ####[facility] (DEFAULT)[address] [place] [address] 47034 PT 10.8 second(s) Normal 9.7-11.8 [facility] Comment on above: Performed By: #### 2 971976, 9021330492, 2949671341, 3659515452, 9430672090, 7067822, 58939098, 6497368, 3295190317 ####[facility] (DEFAULT)[address] [place] [address] 86573 PTT 26 second(s) Normal 25-35 [facility] Comment on above: Performed By: #### 2 878680, 4551391916, 7693606880, 1520098503, 4640271254, 1673924, 43395463, 5058875, 9373633020 ####[facility] (DEFAULT)[address] [place] [address] 84038 TnI HSon 01-10-2023 Troponin I High Sensitivity 3.8 pg/mL Normal <=15.0 [facility] Comment on above: Performed By: #### 5 [id number] ####[facility] (DEFAULT)[address] [place] [address] 61787 Troponin I High Sensitivity 3.8 pg/mL Normal <=15.0 [facility] Comment on above: Performed By: #### 5 [id number] ####[facility] (DEFAULT)[address] [place] [address] 74935 Troponin I High Sensitivity 3.4 pg/mL Normal <=15.0 [facility] Comment on above: Performed By: #### 2 507500, 1917075750, 5484858698, 4476193229, 3504099735, 3057144, 89045421, 0424357, 1283749767 ####[facility] (DEFAULT)[address] [place] [address] 09193 US Gallbladderon 01-10-2023 US Gallbladder Clinical History: [...] Mike Blandon MD 01/10/23 4:02 pm Technologist: [facility] XR Chest 1 View Frontalon XR Chest [...] Nitin Cui MD 01/10/23 10:34 a Technologist: [facility] Coding Summaryon 11-28-2022 Coding Summary HTMLBase 64 WwuofqygLNj7mDk+PGhlYW Q+XI2YFVYmM55rgUYazE9h Y8NNISxDBdfbVZYYUYyQYa GmbkErQU0rmMNjEQBm IC8+JM9nASEhXsyglMQbt5 E2nCY6L62jqe0hYPzdvZA6 XHYwJgGzrifvb2mtjKv1HV cuNmluOyBt EKWmwF30TYJ9dZ35Eu36dX BkaMHsw6ludGc7VkEeRSKh KCB7pQmvBYmpf5XxJBHeJ6 0rtRYti3M4 HEMkwPguuLSiVjIhrRV4xM 4fYVrdmwvzl6fumgeaQyu7 tr88lKRwn2W3kYG1F8Cqtv N0ARAtoJNw KqnzsIFYzK6zfbwhu8mrap bdTkWtETMjIZm1HTg5GCUe kYfmVvPuPN33DCS7KQPrju PtT9SaWHNk fAmmUpL3c4F7Cq9JU3ITVk xdS0QCSHPXOUdlsRH+PC90 jf01A5MnCrblJot6CKPcGW R9tXP6nG5p XWZaCGpas9X4tCY4H8Jyyi Sbdr3wq0xnPQBcCUmtU80d bUDem7H6WHJppYP8GIJagL ajQqWfiZ48 Oyc+ZUCtdHdhp2QaHhfpa6 lag5eeeSv8KrhwRFWloqLm bNpkGZO3f0KmMu7xZKWkeR U4bOX7zP9d ImQnAeL4VRsaC628MoPtbB YtFzbaP82oB3LcwXJ+PHRy Mqj9ZAXqzWrzIE0aF7PzXR RpbmctbGVm mWmyCR7lDIYcsozyWBQkhV 0dRLRzY3y7CdQnOrE7FRlf I5MyHMCcviwwJz89wB1iQc YwTaE9TDsi F7UpnkN6DHXehDApJCmbMA M0U85dx6C3QHQeDDAqLJP4 pHH2eD5qcQeluyfoaTRfyN sgdmVydGlj QZzeCJdcB230JYBgnEkyMx NvZGluZyBEYXRlOiAgMTAv MTgvMjAyMzwvdGQ+PHRkIH T2cZmmAVFb oMDsNHggWx3uyPbzcEzsIP 0eYJWknoniRTRvoK3rGQGr dOZraAtdNZ9lYICnkukxu6 91QsGmCLU3 MPEngZWzS2FqsS5eEhNjMO TnJOYrY0XajHJnIUhgL723 YSjxJbT8NUVzcxIlD2UvWB FsaWduOiB0 g6S3Uj3Yr6ImvmalC8OweI LoZmSxGiceKWl6Z9OkUitq dHI+SM08GATnRS23KPh9WC X4cPlsDTcr QYOpK6VhvS3vDkWtALVfGH RkOyc+PHRhYmxlIHdpZHRo HVtjDMItJpGtyRqiUQ8pTw 9yZGVyLWNv qJobdZSbGdUxq7ssIZVlUA ivBJ6gtCcjS3BdwOC6IYUl c9j0Lw28M26kA7CgePI+PG DebER5sAU7 mC1sOqZtWgZ7KJleG694Hf VatYKrIezpc3dvw5qahLz5 PrP2RTIbqbSspImxQIO5g0 QmBd77L20i IHdpZHRoPSIxNSUiIHZhbG vsri5lmT9pZf7+PGNvbCB3 eLV3iW6vMvWuGtZ8XYzgX3 49InRvcCIv Rvimu8ygm9qphDc8ZlIhAL BvhiDqeDjzEXQ8c7GoNg37 Z6FdhZxmy9FyLdn0zq38eD Yse9P3nGN4 E8WiVJIhqyhkcRHosTmkGI 9xRFXcjmdxBGZmeA4zCNFo F0x6ByWyEjY3PAqwI3Gnhy N3SNJuvIRz CGHheHOZuM1jyqble3oykg gjPpKlTXXoMBd0SRg1XHCk sCzdGfXiKNA4TxJ3ZAZ3hG OmlJ2fxUrq sqqqqD5nZrh+KFT2rIWguF NKOR1qVfuhsSJ+PHRkIHN0 vVmsZQluQONzwA4hLHMgQ1 b3QkEmAhL3 FOgtB6RetoS0UCPrnOAhWI NowFGGuS7xpoibv3pzqbvc BnJzIFGnIVb1NWn9HTYifR duOiBsZWZ0 WaD4ZEM6eMZctO2imLthiq vrrB5jMao+QmlydGggRGF0 SLh7M4XjFdd2RNXpdBsoOJ 0ncGFkZGlu Sq4vfNscnCfuEM9nTWYltq nvw546NtWby2cuIOWrkOMs EZfbUNH8N52du9P0RADeSN RhUQH8dCI8 lB4aoWzvihiugIXffQlsba UxyHdhTMsmDHkxS807ZRAx dXwnYjAbNRp3B6QjAjs1VF YxcLkoCW9b xFXoQHguQz3pmVygbYwfWA 5dUEPauryqj487IdZsu6fc RGRvpJHvJDbaZJI9J63hm4 O7MDPsPOXu RHM9sZA4mP6nkHshewnfmY VmdDsgdmVydGljYWwtYWxp Q383PEWlxZkwLjGadFw8H1 SmKmj9RERo hRmeWA3nnUDdXQskUl7ujA dtvIoaNV4qFGQaqvxzc620 EhVtq4obNQKhhRZvTMmxMY C5K05sv1F6 THRvMEJxHHB9zJF5dN2feX lnbjogbGVmdDsgdmVydGlj CCqvMXbxW377OOEwnSkxZe BhdGllbnQg IWmmYHn2L3PcMccdpGR+PC 55HTWrFS02dIQpkZLmx9lt hMk3PiBdOFYnVFM1wOjfTO gvn6DxSECo M26vcENmf6H1VBHxnAyrpW OgYcAmxIW1oF7dNWaalmyd i5bddxpxNptny2kwhq67uP 41Q71wWRfm ZHRoPSIzMCUiIHZhbGlnbj 5soI6nHt3+IALybSM8mWY5 zN5tWCRyLnB0QZiqF014Qe RvcCIvPjxj m5ozo4smlOk2DyG7KOBiir ElyQqgQXP5z3CiGu94G86p IHdpZHRoPSIyMCUiIHZhbG jmzm9koO4i Ii8+KGUayFE3eNR1eI6lYd YxQmG7HAivD199BwVwuOEj DcpbO08uG2AuiKK+PHRyPj x7RBXqvDqj EE5zrWPyZDvcKy8pVKF4Km DcFiXqTKotJ8CpVJJpmeun lenwlTF1KEWxKBNgpU39Ds 9udDogMTBw vOGWyK8jocjvu8tuauuhIu HqCLOuRUc7XBv3XWNmnKxv XlEeAGB0YmK0VDG5yTUojZ 1hbGlnbjog cN6uH2YqKYGfgpzxWu41zC 0hVeRsWlM2GPllPsi+QU5E XWGDI76bRZAMVnObKSrsuE Q+PHRkIHN0 wXunNOnkLOGcjX4jVBGiH4 g3LzVxPqV7WGuhG8BzGCEx dnhuWr10kG9vFjZtYzT7IH umX2GgfhE4 YTYubRXmSGgwLEH0C34vq9 D0MQKtDOOnCSD7qZL5iX8t bGlnbjogbGVmdDsgdmVydG ljYWwtYWxp Y715SDKxqNbgAuA6YjNdCx D7IyA2B8VgSnl9BAZqyIcq LJ2ztFUhZQqaIn4oaJgcrJ qaZM9fQBVz wkcdZCYncH0yMKXmbLBniE tsYW2yYJWqvxfoz081XsGc MXZ8FWIfwKFpE5BloQ9nKw AjMDAwMDAw S1WjeYThLJthO670KOxsHe E1ROTxkvWxP8FrJSWxnUjw CsL3x2U5Tg66QJUOQCYvzm wvdGQ+PHRk COA6jQfeKYmqRIMshB8rWD TqT9t3EzFlAgD7YNehN8Oa YXApfvdgFe17xA8pZlPhPx C2ULjjK9Ud jmR0NGOwpPNzTVniMTQ9K8 5vv3U7OBAtSLDyJPP1sHS2 rD3yiOjnfrabjOKfgGzsic VydGljYWwt INlbY922LFZuqMnkPuJDBN FMRTwvdGQ+YRSbDXB7uXga XPrhSXVtmE6oJBWfR7z7Eb IhLfI6EZpx B5OhOGYekcwbDr70wT0mOo FfDeV5DYylD0WkfwW2QKVv iQPuHGbwBPD2U70cq3B3PO MwMDAwMDA7 tYO3sJ6daCvetrnkcGXebW iwpbNqwQmtSOljZFnwQ221 RLFpmNrhCcIaFMCgWX7zjA wvdGQ+PC90 of03Q6HoQpdeUhq0NOVkUM O4gQA9nG0lLXAtOGqki9V4 zZT4E3QngcCiem0vn8jvYR ToHDioA08v fXMtp5J4GBPvrYO4WUGfnJ dmPsVkyQ72Mkn+PGNvbGdy k2XvKdtae4ijf2ypbCf8Qo MwJSIgdmFs zFypPFQ5n4NqLs77Y91aAB dpZHRoPSIzMCUiIHZhbGln qg6vdW5lTd4+FRPvtBT9fA B6eG6oUcCc GgI2ZSpsI938BhYvvVCfHo mde6ftj5qrnOo9YeXlMTHn efDnwQubYPY4v3AdPg10U3 VbfClvw8Jy Jem8fj96zGSbt8L3xCC3S2 VvEPOtciqtyRVruRnsLB6g ILPwvomzZVWduE2tYXPiG8 m8BvEfEwW9 SKrbE1GmopY9WQUhkTXzZG WwbHDAmV9tjweeo6bozvun LqSnCANgCPl8FFm2QIHyjQ duOiBsZWZ0 WhX0VBD3mSRdkM1csXbluw inbN2fRum+AGc5m7yvdYVe EF1kmRJ0MW42UC66qFCfm3 Y6gGN8B8Wq OLBvnsgraqaqxZT6DZOuUB LzjG81Xd9wsUvdTy3dPIPv CDR4CQDgkOSxW9LqyI0hTa AjMDAwMDAw N7IurTRwZQtrT956FPsjTr Y3POZcarNiZ4VsBEYxqTgm WkX9e4C6Pr6KEK93SJ30IE 20dSPmz1Q0 qSB9F2QoWBJxttygpdjdtN N4GYRoEAFjwC56Su6vkKhk Vd2nSJRgZAO0EVQoaQGjF7 KqiL2eGlQj JXBrZBZoK8ZnrITgYQpmG7 62TMcnMqH7QRSbufXeZ8Dm WYKntDdlKsZ9g1S1Ou4JUz 49EB16YV95 jNPed9H0tKO4J8ShYPZtma qosojelLU9YCEcDHKtwZ34 Ba3gnFoaUx6xFLXqXOC7OF QhwEZuO5Jo uI3tMxWiRFWqYGWqK0WxlM JpEHniM987SBxyDlO6KGRr dtXrG7TkFBXvrTefKdZ2a5 F9Tb8YDElu ydt0U6CeBbouyUA+PC90YW MvFQ07wINrqNCcl9wolRv6 AoYzIBIrQLM0eMcjLBwaa5 NzCVRdU21v bGF (more content not included)... Normal [facility] C Urineon 11-24-2022 C Urine Urine Culture ordere d as a result of parameters set on specific urine dip and urine microsopic results. 70,000 cfu/ml Staphylococcus haemolyticus and 50,000 cfu/ml Corynebacterium species (diptheroids) No CHEYANNE performed on this organism ORGANISM Shae --- SUSCEPTIBILITY -- ORGANISM ID: 1 ANTIBIOTIC INTERPRETATION CHEYANNE STATUS ORGANISM StabandarStahae Amox/Cla R <=4/2 Verified Amp R <=2 [...] <=0.5/9.5 Verified Vanc S 1 Verified Normal [facility] Comment on above: Performed By: #### 2 [id number], [id number], [id number], [id number], 8758912407, 1202769, 48731369, 1514539, [id number] #### [facility] (DEFAULT) [address] [place] [address] 55559 ED Clinical Summaryon 2022 ED Clinical Summary [facility] - Emergency Department [address] [place] [address]52 ED Clinical Summary PERSON INFORMATION Name: HANH ALVAREZ Age: 52 Years Sex: FEMALE : 1970 MRN: Acct#: Visit Reason: Flank pain; BACK PAIN, ABD PAIN, WEAKNESS Arrival: 11/21/2022 19:18:46 Discharge: 11/21/2022 22:28:00 LOS: 000 03:10 Check In: 11/21/2022 19:18:46 Checkout:11/21/2022 22:28:00 Address: [address] [place] [address] PCP: BILLY PEREZ MD PROVIDER INFORMATION Provider [...] Home PATIENT EDUCATION INFORMATION Instructions: Hypertension, Adult, Jrtj-zn-Xvds; Nonalcoholic Fatty Liver Disease Diet, Adult; Fatty Liver Disease; Cholelithiasis, Omim-gw-Leyj; Flank Pain, Adult, Cedi-ln-Bgiw; Abdominal Pain, Adult, Fjmt-ex-Dgpx Follow-Up: With: Address: When: BILLY PEREZ MD [place] Within 3 to 5 days DIAGNOSIS: 1:Left flank pain; 2:Elevated blood pressure reading; 3:Nausea and vomiting in adult; 4:Fatty liver; 5:Cholelithiasis Patient Understands: Yes - Patient/family/caregiv er verbalizes understanding of instructions given Comment: Normal [facility] ED Patient Summaryon 023 ED Patient Summary [facility] - Emergency Department [address] [place], [place] [id number] PATIENT DISCHARGE INSTRUCTIONS Patient Information Name: HANH ALVAREZ Age: 52 Years Date of : 1970 Reason For Visit: Flank pain; BACK PAIN, ABD PAIN, WEAKNESS Arrival Time: 11/21/2022 19:18:46 Primary Care Physician: BILLY PEREZ MD Attending Physician: Juanito Maciel MD Comment: Visit Diagnosis: Diagnoses This Visit Cholelithiasis (K80.20) Elevated blood pressure reading (R03.0) Fatty liver (K76.0) Flank pain (196708319) Left flank pain (R10.9) Nausea and vomiting in adult (R11.2) The Pharmacy at [facility] is open Saturday through Saturday from [...] alcohol and/or drug addiction problems; contact the [facility] 03/09 Crisis Hotline -Text 7PDKN to 594183. If you received any narcotics, sedation, or [...] documents With: Address: When: BILLY PEREZ MD Within 3 to 5 days Medication Information: The exam and treatment you received today in the [facility] Emergency Department were for an urgent problem and are not intended as complete care. It is important for you to follow up with a doctor, nurse practitioner, or physician?s cleaner assistant for ongoing care. If your symptoms [...] so we can reach you if necessary. [facility] Emergency Department has provided you with a complete list of medications post discharge. Please inform your primary education professor/provider of your visit and for further instruction [...] alcohol. Othe (more content not included)... Normal [facility] .Auto Diff 1on 11-21-2022 Auto [place] % 7 % Normal 12 [facility] Comment on above: Performed By: #### 2 986418, [id number], 79416277, 0313711, 1566407882, 2502171091, [id number] ####[facility] (DEFAULT)[address] [place] [address] Baso Abs# 0.1 x10 Normal 0.0-0.2 [facility] Comment on above: Performed By: #### 2 041011, [id number], 21727726, 7366581, 8246864593, 9697742539, 9312529845 ####[facility] (DEFAULT)[address] [place] [address] 87696 Basophils/100 WBC (Bld) 0.9 % Normal 0.2-2.0 [facility] Comment on above: Performed By: #### 2 549313, 9564335802, 60255987, 2500180, 1348498030, 0920376798, [id number] ####[facility] (DEFAULT)[address] [place] [address] 81576 Eos Abs# 0.2 x10 Normal 0.0-0.4 [facility] Comment on above: Performed By: #### 2 085850, 2979697202, 41056993, 0725271, 2668609125, 5689232861, 9804832139 ####[facility] (DEFAULT)[address] [place] [address] 62649 Eosinophils/100 WBC (Bld) 2.7 % Normal 0.9-4.0 [facility] Comment on above: Performed By: #### 2 864374, 8432228449, 30102011, 8659134, 8918977800, 2310500458, 3408995367 ####[facility] (DEFAULT)[address] [place] [address] 43260 Lymph Abs# 2.0 x10 Normal 1.3-2.9 [facility] Comment on above: Performed By: #### 2 648234, 3877171392, 14715172, 5096094, 4064640892, 0932998138, 6865599072 ####[facility] (DEFAULT)[address] [place] [address] 81500 Lymphocytes/100 WBC (Bld) 34 % Normal 14-48 [facility] Comment on above: Performed By: #### 2 778336, 8115573621, 63549402, 3925546, 7333261559, 5733309247, 5512927834 ####[facility] (DEFAULT)[address] [place] [address] 53411 [place] Abs# 0.4 x10 Normal 0.0-0.8 [facility] Comment on above: Performed By: #### 2 638770, 5862031180, 80608905, 4290923, 4296535272, 9032519949, 5963230054 ####[facility] (DEFAULT)[address] [place] [address] Neut Abs# 3.4 x10 Normal 1.5-9.2 [facility] Comment on above: Performed By: #### 2 176659, 3125271828, 57461071, 3928930, 2052670399, 0044029009, 3268046655 ####[facility] (DEFAULT)[address] [place] [address] Neutrophils/100 WBC (Bld) 56 % Normal 44-88 [facility] Comment on above: Performed By: #### 2 195663, 7232332356, 04748083, 2107363, 4894065436, 2104632655, 1421556320 ####[facility] (DEFAULT)[address] [place] [address] CBC w/ Auto Diffon 3 Erythrocyte distribution width (RBC) [Ratio] 16.4 % High 11.5-15.0 [facility] Comment on above: Performed By: #### 2 653488, 7664560991, 81815878, 8208153, 1577756553, 6183380075, 4782891092 ####[facility] (DEFAULT)[address] [place] [address] Hematocrit (Bld) [Volume fraction] 42.0 % High 33.7-40.4 [facility] Comment on above: Performed By: #### 2 441987, 3908901402, 04399134, 3681421, 5913405466, 2764607285, 1509985940 ####[facility] (DEFAULT)[address] [place] [address] Hemoglobin (Bld) [Mass/Vol] 14.0 g/dL Normal 11.3-15.9 [facility] Comment on above: Performed By: #### 2 703314, 8437547424, 11444297, 2253652, 2471819743, 4971758668, 2181507168 ####[facility] (DEFAULT)[address] [place] [address] Man Diff? Auto Invalid Interpretation Code [facility] Comment on above: Performed By: #### 2 688099, 3433723086, 06464542, 7614332, 7235845217, 5500486037, 6379492651 ####[facility] (DEFAULT)[address] [place] [address] 94115 MCH (RBC) [Entitic mass] 26 pg Normal 24-34 [facility] Comment on above: Performed By: #### 2 507254, 2314609917, 30360705, 5409347, 9053456885, 0598092163, 0213589944 ####[facility] (DEFAULT)[address] [place] [address] MCHC (RBC) [Mass/Vol] 33 g/dL Normal 26-37 [facility] Comment on above: Performed By: #### 2 230143, 1270789535, 35410980, 5241459, 3598668693, 2341203279, 7737251460 ####[facility] (DEFAULT)[address] [place] [address] 42285 MCV (RBC) [Entitic vol] 78 fL Low 81-100 [facility] Comment on above: Performed By: #### 2 067825, 9120848321, 92451849, 8671386, 8517961093, 3864048055, 4502112011 ####[facility] (DEFAULT)[address] [place] [address] 04643 Platelet 236 x10 Normal 138-427 [facility] Comment on above: Performed By: #### 2 591377, 9449586472, 62924165, 1611641, 9089438242, 7294284392, 3353719054 ####[facility] (DEFAULT)[address] [place] [address] 46932 Platelet mean volume (Bld) [Entitic vol] 7.7 fL Normal 6.3-10.2 [facility] Comment on above: Performed By: #### 2 748651, 8484349084, 41058014, 4898294, 7302196023, 3876889898, 8192470335 ####[facility] (DEFAULT)[address] [place] [address] RBC 5.40 x10 High 3.70-5.30 [facility] Comment on above: Performed By: #### 2 456900, 7615979259, 45451621, 6241855, 6110406754, 4521806441, 5889205310 ####[facility] (DEFAULT)[address] [place] [address] 01739 WBC 6.0 x10 Normal 3.5-10.5 [facility] Comment on above: Performed By: #### 2 768194, 5720254480, 30929001, 2193596, 2861886879, 9988122188, 5536874783 ####[facility] (DEFAULT)[address] [place] [address] 81787 CMP Standardon 11-21-2022 eGFR Non AA >60 Invalid Interpretation Code [facility] Comment on above: Performed By: #### 2 283126, 6253833223, 75959554, 9322646, 9510321203, 7394747221, 6557323809 ####[facility] (DEFAULT)[address] [place] [address] 84561 eGFR AA >60 Invalid Interpretation Code [facility] Comment on above: Performed By: #### 2 644865, 0998228121, 15499173, 5700635, 2441451790, 8874814982, 6471205233 ####[facility] (DEFAULT)[address] [place] [address] 61087 Albumin [Mass/Vol] 3.9 g/dL Normal 3.5-5.0 [facility] Comment on above: Performed By: #### 2 591439, 0976249805, 95569259, 2459160, 5301434453, 1953041098, 3634990941 ####[facility] (DEFAULT)[address] [place] [address] Albumin/Globulin [Mass ratio] 1.1 {ratio} Low 1.4-2.6 [facility] Comment on above: Performed By: #### 2 548161, 5379338916, 96136348, 5206973, 0521823098, 1913088130, 6580555276 ####[facility] (DEFAULT)[address] [place] [address] Alk Phos 82 IU/L Normal 32-91 [facility] Comment on above: Performed By: #### 2 953009, 8207789618, 90876320, 9709753, 1383095985, 9932533031, 1079003504 ####[facility] (DEFAULT)[address] [place] [address] ALT [Catalytic activity/Vol] 197.0 U/L High 14.0-54.0 [facility] Comment on above: Performed By: #### 2 775866, 5767646840, 50172819, 0075912, 0001068939, 1675284453, 8775356859 ####[facility] (DEFAULT)[address] [place] [address] 67381 Anion gap [Moles/Vol] 11.0 mmol/L Normal 5.0-19.0 [facility] Comment on above: Performed By: #### 2 331017, 0660500734, 04810896, 4240032, 1706994786, 4135304887, 2552453631 ####[facility] (DEFAULT)[address] [place] [address] 48084 AST [Catalytic activity/Vol] 127 U/L High 15-41 [facility] Comment on above: Performed By: #### 2 270645, 3379877914, 93134960, 8196903, 8413995867, 0812634822, 9130853232 ####[facility] (DEFAULT)[address] [place] [address] Bili Total 1.2 mg/dL Normal 0.3-1.2 [facility] Comment on above: Performed By: #### 2 207700, 2324213427, 69731380, 0729948, 8537530989, 5028302209, 6683248715 ####[facility] (DEFAULT)[address] [place] [address] 90783 Calcium [Mass/Vol] 9.1 mg/dL Normal 8.9-10.3 [facility] Comment on above: Performed By: #### 2 956479, 8394976288, 01643407, 2141599, 0527093469, 1258240774, 5624606449 ####[facility] (DEFAULT)[address] [place] [address] 13019 Chloride [Moles/Vol] 103 mmol/L Normal 101-111 [facility] Comment on above: Performed By: #### 2 180309, 7484403730, 90163834, 8795757, 9954421199, 5378504445, 2191498176 ####[facility] (DEFAULT)[address] [place] [address] 95329 CO2 [Moles/Vol] 26 mmol/L Normal 21-32 [facility] Comment on above: Performed By: #### 2 529804, 0736830863, 22374045, 5197808, 2323348715, 5298284137, 1624091078 ####[facility] (DEFAULT)[address] [place] [address] 26131 Creatinine [Mass/Vol] 0.65 mg/dL Normal 0.60-1.30 [facility] Comment on above: Performed By: #### 2 923039, 8965717509, 79433056, 1087443, 8866502691, 1632595721, 8880963419 ####[facility] (DEFAULT)[address] [place] [address] 78702 Globulin (S) [Mass/Vol] 3.4 g/dL Normal 1.5-4.3 [facility] Comment on above: Performed By: #### 2 822238, 8636660150, 72543356, 5367728, 1055146589, 0945123830, 3877040924 ####[facility] (DEFAULT)[address] [place] [address] 13948 Glucose [Mass/Vol] 98.0 mg/dL Normal 74.0-118.0 [facility] Comment on above: Performed By: #### 2 650166, 3780219310, 99485090, 0703835, 3946485242, 3830367185, 4603970714 ####[facility] (DEFAULT)[address] [place] [address] 92907 Osmolality 270 mOsm/L Invalid Interpretation Code [facility] Comment on above: Performed By: #### 2 462083, 3847222791, 20945507, 8333722, 6676890340, 0140354876, 7715965620 ####[facility] (DEFAULT)[address] [place] [address] 52567 Potassium [Moles/Vol] 4.0 mmol/L Normal 3.6-5.1 [facility] Comment on above: Performed By: #### 2 086385, 5237830060, 30291700, 3855320, 1442730702, 7360399175, 5871937835 ####[facility] (DEFAULT)[address] [place] [address] 16217 Protein [Mass/Vol] 7.3 g/dL Normal 6.5-8.1 [facility] Comment on above: Performed By: #### 2 [id number], [id number], [id number], 6109743, [id number], [id number], [id number] ####[facility] (DEFAULT)[address] [place] [address]35 Sodium [Moles/Vol] 136.0 mmol/L Normal 136.0-144.0 [facility] Comment on above: Performed By: #### 2 138908, [id number], 61014281, 1528234, [id number], [id number], [id number] ####[facility] (DEFAULT)[address] [place] [address]65 Urea nitrogen [Mass/Vol] 8 mg/dL Normal 8-26 [facility] Comment on above: Performed By: #### 2 454722, [id number], 25615014, 5971182, [id number], [id number], [id number] ####[facility] (DEFAULT)[address] [place] [address] Urea nitrogen/Creatinine [Mass ratio] 12.3 mg/mg Normal 4.6-16.2 [facility] Comment on above: Performed By: #### 2 986360, [id number], 65634265, 2753705, [id number], [id number], [id number] ####[facility] (DEFAULT)[address] [place] [address] CT Abdomen/Pelvis w/o Contra ston 11-21-2022 CT [...] Greco MD 11/22/22 8:31 am Technologist: JACQUI [facility] ED Clinical Summaryon 2022 ED Clinical Summary [facility] ? Urgent Care [address] [place] [address] Clinical Summary PERSON INFORMATION Name: HANH ALVAREZ Age: 52 Years Sex: FEMALE : 1970 MRN: Acct#: Visit Reason: Back pain; HEADACHE, BACK PAIN Arrival: 11/21/2022 16:35:06 Discharge: 11/21/2022 19:07:00 LOS: 000 02:32 Check In: 11/21/2022 16:35:06 Checkout: 11/21/2022 19:07:00 Address: [address] [place] [address] PCP: BILLY PEREZ MD PROVIDER INFORMATION Provider Role Assigned Unassigned Sweta Dale FOOD TESTER Nurse 11/21/2022 16:38:46 Radha Milian-Harman ED PA 11/21/2022 16:41:09 VITALS INFORMATION Vital [...] Follow-Up: With: Address: When: BILLY PEREZ MD [place] DIAGNOSIS: 1:Flank pain; 2:Hematuria; 3:Fever Patient Understands: Comment: [facility] ED Patient Summaryon 023 ED Patient Summary [facility] ? Urgent Care [address] [place] [address] PATIENT DISCHARGE INSTRUCTIONS Patient Information Name: HANH ALVAREZ Age: 52 Years Date of : 1970 Reason For Visit: Back pain; HEADACHE, BACK PAIN Arrival Time: 11/21/2022 16:35:06 Primary Care Physician: BILLY PEREZ MD Attending Physician: Radha Milian PA-C Comment: Patient Education With: Address: When: BILLY PEREZ MD [place] Flank Pain, Adult Flank pain is pain [...] by your health care provider. ? Take mwgb-kko-kyzxyje and prescription medicines only as told by [...] provider. Document Revised: 04/10/2021 Document Reviewed: 04/10/2021 Tailored Fit Patient Education ? 2022 Conjunct. Hematuria, Adult Hematuria is blood in the [...] these instructions at home: Medicines ? Take cgko-kwv-ujbpaqt and prescription medicines only as told by [...] provider's inst (more content not included)... Normal [facility] Extra Blueon 11-21-2022 Tube Collected Yes Invalid Interpretation Code [facility] Comment on above: Performed By: #### 2 [id number], [id number], 56393952, 3562231, [id number], [id number], [id number] ####[facility] (DEFAULT)[address] [place] [address] Lipaseon 11-21-2022 Lipase Level 36.0 IU/L Normal 22.0-51.0 [facility] Comment on above: Performed By: #### 2 494690, [id number], 39655643, 2474323, [id number], [id number], [id number] ####[facility] (DEFAULT)[address] [place] [address] POCT Rapid CoV-2 (COVID-19) Antigen/ Flu A&Bon 11-21-2022 Influenza A POCT Negative Normal Negative [facility] Comment on above: Performed By: #### 0 [id number] ####[facility] (DEFAULT)[address] [place] [address] Influenza B POCT Negative Normal Negative [facility] Comment on above: Performed By: #### 2 [id number] ####[facility] (DEFAULT)[address] [place] [address]46 SARS-CoV-2 (COVID-19) RNA CARSON+probe Ql (Unsp spec) Not detected Normal [facility] Comment on above: Performed By: #### 5 [id number] ####[facility] (DEFAULT)[address] [place] [address] TnI HSon 11-21-2022 Troponin I High Sensitivity 2.3 pg/mL Normal <=15.0 [facility] Comment on above: Performed By: #### 2 488399, [id number], 05242633, 1444768, [id number], [id number], [id number] ####[facility] (DEFAULT)[address] [place] [address] UA Kqvza3ci 11-21-2022 UA Bacteria 1+ [facility] Comment on above: Order Comment: Urina lysis Microscopic order added on by Discern Expert Rules system. Performed By: #### 1 [id number], [id number], [id number] ####[facility] (DEFAULT)[address] [place] [address] UA RBC 3-5 [facility] Comment on above: Order Comment: Urina lysis Microscopic order added on by Discern Expert Rules system. Performed By: #### 1 [id number], [id number], [id number] ####[facility] (DEFAULT)[address] [place] [address] UA Squam Epi Few [facility] Comment on above: Order Comment: Urina lysis Microscopic order added on by popchips Expert Rules system. Performed By: #### 1 [id number], [id number], [id number] ####[facility] (DEFAULT)[address] [place] [address] UA WBC 0-2 [facility] Comment on above: Order Comment: Urina lysis Microscopic order added on by popchips Expert Rules system. Performed By: #### 1 [id number], [id number], [id number] ####[facility] (DEFAULT)[address] [place] [address] UA w Culture if Ind Standard on 11-21-2022 Breakpoint UA [facility] Comment on above: Performed By: #### 1 [id number], [id number], [id number] ####[facility] (DEFAULT)[address] [place] [address] Color (U) Yellow [facility] Comment on above: Performed By: #### 1 [id number], [id number], [id number] ####[facility] [facility] (DEFAULT)[address] [place] [address] Culture? Indicated Invalid Interpretation [facility] Comment on above: Result Comment: Resu lt created by rule GL_MAGR_ADD_UA_CULT Result created by rule GL_MAGR_ADD_UA_CULT Result created by rule GL_MAGR_ADD_UA_CULT1 Result created by rule GL_MAGR_ADD_UA_CULT Performed By: #### 1 [id number], [id number], [id number] ####[facility] (DEFAULT)[address] [place] [address]147 Glucose (U) [Mass/Vol] Negative Normal [facility] Comment on above: Performed By: #### 1 [id number], [id number], [id number] ####[facility] (DEFAULT)[address] [place] [address] 30905 Ketones Ql (U) Negative [facility] [place] Comment on above: Performed By: #### 1 [id number], [id number], [id number] ####[facility] (DEFAULT)[address] [place] [address] 56520 Micro? Indicated Invalid Interpretation Code [facility] Comment on above: Result Comment: Resu lt created by rule GL_MAGR_ADD_UA_MICRO Performed By: #### 1 [id number], [id number], [id number] ####[facility] (DEFAULT)[address] [place] [address] 16698 UA Bilirubin Negative [facility] [place] Comment on above: Performed By: #### 1 [id number], [id number], [id number] ####[facility] (DEFAULT)[address] [place] [address] 85275 UA Blood TRACE Abnormal NEGATIVE [facility] Comment on above: Performed By: #### 1 [id number], [id number], [id number] ####[facility] (DEFAULT)[address] [place] [address] 59088 UA Clarity CLEAR Normal CLEAR [facility] Comment on above: Performed By: #### 1 [id number], [id number], [id number] ####[facility] (DEFAULT)[address] [place] [address] 33656 UA Leuk Est Negative Normal NEGATIVE [facility] Comment on above: Performed By: #### 1 [id number], [id number], [id number] ####[facility] (DEFAULT)[address] [place] [address] 89912 UA Nitrite Negative Normal NEGATIVE [facility] Comment on above: Performed By: #### 1 [id number], [id number], [id number] ####[facility] (DEFAULT)[address] [place] [address] 82900 UA pH 6.0 Normal 5-8 [facility] Comment on above: Performed By: #### 1 [id number], [id number], [id number] ####[facility] (DEFAULT)[address] [place] [address] 94739 UA Protein Negative Normal NEGATIVE [facility] Comment on above: Performed By: #### 1 [id number], [id number], [id number] ####[facility] (DEFAULT)[address] [place] [address] 59944 UA Spec Grav >=1.030 Normal 1.001-1.035 [facility] Comment on above: Performed By: #### 1 [id number], [id number], [id number] ####[facility] (DEFAULT)[address] [place] [address] 85778 UA Urobilinogen 0.2 mg/dL Normal 0.2-1.0 [facility] Comment on above: Performed By: #### 1 [id number], [id number], [id number] ####[facility] (DEFAULT)[address] [place] [address] 97260 Urine Source Clean Catch Normal [facility] Comment on above: Performed By: #### 1 [id number], [id number], [id number] ####[facility] (DEFAULT)[address] [place] [address] QuantiFERON-TB Gold Pluson 0 09-06-2022 QuantiFERON Incubation Incubation performed. Invalid Interpretation Code [facility] Comment on above: Result Comment: Perf ormed At: [facility] [id number] [place], [place] [id number] Shameka Vallecillo PhD Ph:[phone] Performed By: #### 2 [id number], [id number], [id number], [id number], [id number], 9405981, 72341605, 2947165, [id number] #### [facility] (DEFAULT) [address] [place] [address]13 QuantiFERON-TB Gold Plus Negative Invalid Interpretation Code Negative [facility] Comment on above: Result Comment: No r esponse to M tuberculosis antigens detected. Infection with M tuberculosis is unlikely, but high risk individuals should be considered for additional testing (ATS/IDSA/CDC Clinical Practice Guidelines, 2017). The reference range is an Antigen minus Nil result of <0.35 IU/mL. Chemiluminescence immunoassay methodology Performed At: [address] [id number] Shameka Vallecillo PhD Ph:[phone] Performed By: #### 2 [id number], [id number], [id number], [id number], [id number], 7904593, 68846264, 8590375, [id number] #### [facility] (DEFAULT) [address] [place] [address] 94462 HBSab Qnt LCon 09-05-2022 Hep B Surf Ab Quant LC >1000.0 Invalid Interpretation Code Immunity>9.9 [facility] Comment on above: Result Comment: Stat us of Immunity Anti-HBs Level Inconsistent with Immunity 0.0 - 9.9 Consistent with Immunity >9.9 Performed At: [address] [id number] Shameka Vallecillo PhD Ph:[phone] Performed By: #### 2 304757, [id number], [id number], [id number], [id number], 3303131, 75956414, 7610629, [id number] #### [facility] (DEFAULT) [address] [place] [address]9866 Lab - Toxicology Resultson 0 09-05-2022 Lab - Toxicology Results [id number]#[id number] OTGTIFF Normal [facility] Measles/Mumps/Rubella Immuni ty LCon 09-05-2022 Mumps Abs, IgG LC 167.0 AU/mL Invalid Interpretation Code Immune >10.9 [facility] Comment on above: Result Comment: Nega tive <9.0 Equivocal 9.0 - 10.9 Positive >10.9 A positive result generally indicates past exposure to Mumps virus or previous vaccination. Performed At: [facility] [id number] Shameka Vallecillo PhD Ph:[phone] Performed By: #### 2 635321, [id number], [id number], [id number], 6864041856, 4329730, 81365677, 2607458, [id number] #### [facility] (DEFAULT) [address] [place] [address] Rubella Antibodies, IgG LC >33.00 Invalid Interpretation Code Immune >0.99 [facility] Comment on above: Result Comment: Non- immune <0.90 Equivocal 0.90 - 0.99 Immune >0.99 Performed By: #### 2 304416, [id number], [id number], [id number], 2463721375, 3298857, 86400584, 8404105, [id number] #### [facility] (DEFAULT) [address] [place] [address] Rubeola Ab, IgG, EIA LC 50.2 AU/mL Invalid Interpretation Code Immune >16.4 [facility] Comment on above: Result Comment: Nega tive <13.5 Equivocal 13.5 - 16.4 Positive >16.4 Presence of antibodies to Rubeola is presumptive evidence of immunity except when acute infection is suspected. Performed By: #### 2 517972, [id number], [id number], 1910149397, 0149405584, 0101057, 46850310, 8886831, [id number] #### [facility] (DEFAULT) [address] [place] [address]1543 Nicotine Metabolite, Urine L Con 09-05-2022 Cotinine LC Negative Invalid Interpretation Code [id number] [facility] Comment on above: Result Comment: Perf ormed At: [facility] [place] [address] [place], [place] [id number] Xiang Costello PhD Ph:[phone] Performed By: #### 2 681096, [id number], [id number], 6391306348, 2746896034, 4323765, 13339740, 2183049, [id number] #### [facility] (DEFAULT) [address] [place] [address] CBC AUTO DIFFon 07-07-2022 BASO # 0.0 103/ul Normal 0.0-0.1 [facility] Comment on above: Performed By: #### C BC ####[facility] [address] [place], [place] [address]Dr. Tacos Bhatt Basophils/100 WBC (Bld) 0.5 % Normal 0.2-2.0 [facility] Comment on above: Performed By: #### C BC ####[facility] [address] [place], [place] [address]Dr. Tacos Bhatt EO # 0.2 103/ul Normal 0.0-0.7 [facility] Comment on above: Performed By: #### C BC ####[facility] [address] [place], [place] [address]Dr. Tacos Bhatt Eosinophils/100 WBC (Bld) 3.4 % Normal 0.9-7.0 [facility] Comment on above: Performed By: #### C BC ####[facility] [address] [place], [place] [address]Dr. Tacos Bhatt Erythrocyte distribution width (RBC) [Ratio] 15.4 % Critically high 11.0-15.0 [facility] Comment on above: Performed By: #### C BC ####[facility] [address] [place], [place] [address]Dr. Tacos Bhatt Hematocrit (Bld) [Volume fraction] 39.2 % Normal 36.0-48.0 [facility] Comment on above: Performed By: #### C BC ####[facility] [address] [place], [place] [address]Dr. Tacos Bhatt Hemoglobin (Bld) [Mass/Vol] 12.8 g/dL Normal 12.0-16.0 [facility] Comment on above: Performed By: #### C BC ####[facility] [address] [place] [address]Dr. Tacos Bhatt IG # 0.03 10e3/ul Normal 0.00-0.03 [facility] Comment on above: Performed By: #### C BC ####[facility] [address] [place] [address]Dr. Tacos Bhatt IG % 0.5 % Normal 0.0-0.5 [facility] Comment on above: Performed By: #### C BC ####[facility] [address] [place] [address]Dr. Tacos Bhatt LYMPH # 2.2 103/ul Normal 1.2-3.8 [facility] Comment on above: Performed By: #### C BC ####[facility] [address] [place] [address]Dr. Tacos Bhatt Lymphocytes/100 WBC (Bld) 37.1 % Normal 20.5-60.0 [facility] Comment on above: Performed By: #### C BC ####[facility] [address] [place] [address]Dr. Tacos Bhatt MANUAL DIFF REQ NO Normal [facility] Comment on above: Performed By: #### C BC ####[facility] [address] [place] [address]Dr. Tacos Bhatt MCH (RBC) [Entitic mass] 25.9 pg Critically low 26.7-34.0 [facility] Comment on above: Performed By: #### C BC ####[facility] [address] [place] [address]Dr. Tacos Miller MCHC (RBC) [Mass/Vol] 32.7 g/dL Normal 29.9-35.2 [facility] Comment on above: Performed By: #### C BC ####[facility] [address] [place] [address]Dr. Ekaterinamohsen Bhatt MCV (RBC) [Entitic vol] 79.4 fL Critically low 81.0-99.0 [facility] Comment on above: Performed By: #### C BC ####[facility] [address] [place] [address]Dr. Tacos Bhatt MONO # 0.5 103/ul Normal 0.3-0.8 [facility] Comment on above: Performed By: #### C BC ####[facility] [address] [place] [address]Dr. Tacos Bhatt Monocytes/100 WBC (Bld) 8.3 % Normal 1.7-12.0 [facility] Comment on above: Performed By: #### C BC ####[facility] [address] [place] [address]Dr. Tacos Bhatt NEUT # 3.0 103/ul Normal 1.4-6.5 [facility] Comment on above: Performed By: #### C BC ####[facility] [address] [place], [place] [address]Dr. Tacos Bhatt Neutrophils/100 WBC (Bld) 50.2 % Normal 43.0-75.0 [facility] Comment on above: Performed By: #### C BC ####[facility] [address] [place] [phone]. Tacos Bhatt Platelet mean volume (Bld) [Entitic vol] 9.2 fL Critically low 9.5-13.5 [facility] Comment on above: Performed By: #### C BC ####[facility] [address] [place] [address]Dr. Tacos Bhatt PLT 238 103/ul Normal 150-450 [facility] Comment on above: Performed By: #### C BC ####[facility] [address] [place], [place] [address]Dr. Tacos Bhatt RBC 4.94 106/ul Normal 4.20-5.40 [facility] Comment on above: Performed By: #### C BC ####[facility] [address] [place] [phone]. Tacos Bhatt WBC 5.9 103/ul Normal 4.0-11.0 [facility] Comment on above: Performed By: #### C BC ####[facility] [address] [place], [place] [address]. Tacos Bhatt CRPon 07-07-2022 CRP [Mass/Vol] mg/L Normal <=1.0 [facility] Comment on above: Performed By: #### B MP, CRP #### [facility] [address] [place] [address] [address] Tacos Bhatt PROF CHEM 8 (BAS METB)on Anion gap [Moles/Vol] 11.5 mmol/L Normal [facility] Comment on above: Performed By: #### B MP, CRP #### [facility] [address] [place] [address] [address] Tacos Bhatt Calcium [Mass/Vol] 8.9 mg/dL Normal 8.5-10.1 [facility] Comment on above: Performed By: #### B MP, CRP #### [facility] [address] [place] [address] [address] Tacos Bhatt Chloride [Moles/Vol] 105 mmol/L Normal 98-107 [facility] Comment on above: Performed By: #### B MP, CRP #### [facility] [address] [place] [address] [address] Tacos Bhatt CO2 [Moles/Vol] 29.3 mmol/L Normal 21.0-32.0 [facility] Comment on above: Performed By: #### B MP, CRP #### [facility] [address] [place] [address] [address] Tacos Bhatt Creatinine [Mass/Vol] 0.71 mg/dL Normal 0.55-1.02 [facility] Comment on above: Performed By: #### B MP, CRP #### [facility] [address] [place] [address] [address] Tacos Bhatt EGFR-AF LITHUANIAN >60 Normal >=60 [facility] Comment on above: Performed By: #### B MP, CRP #### [facility] [address] [place] [address] [address] Tacos Bhatt EGFR-NON AF LITHUANIAN >60 Normal >=60 [facility] Comment on above: Performed By: #### B MP, CRP #### [facility] [address] [place] [address] [address] Tacos Bhatt Glucose [Mass/Vol] 95 mg/dL Normal 74-106 [facility] Comment on above: Performed By: #### B MP, CRP #### [facility] [address] [place] [address] [address] Tacos Bhatt Potassium [Moles/Vol] 3.8 mmol/L Normal 3.5-5.1 [facility] Comment on above: Performed By: #### B MP, CRP #### [facility] [address] [place] [address] [address] Tacos Bhatt Sodium [Moles/Vol] 142 mmol/L Normal 136-145 [facility] Comment on above: Performed By: #### B MP, CRP #### [facility] [address] [place] [address] [address] Tacos Bhatt Urea nitrogen [Mass/Vol] 11.0 mg/dL Normal 7.0-18.0 [facility] Comment on above: Performed By: #### B MP, CRP #### [facility] [address] [place] [address] [address] Tacos Bhatt Urea nitrogen/Creatinine [Mass ratio] 15.5 mg/mg Normal [facility] Comment on above: Performed By: #### B MP, CRP #### [facility] [address] [place] [address] [address] Tacos Bhatt SED RATE [facility] 2022 SED RATE 6 mm/hr Normal <=20 [facility] Comment on above: Performed By: #### S EDR #### [facility] [address] [place] [address] [address] Tacos Bhatt XR CHEST 2 Von [...] ENRIQUETA SONG Date: 2022-04-03 09:37 Normal [facility] CBC AUTO DIFFon 08-07-2021 BASO # 0.1 103/ul Normal 0.0-0.1 [facility] Comment on above: Performed By: #### C BC #### [facility] [address] [place] [address] [address] Tacos Bhatt Basophils/100 WBC (Bld) 0.9 % Normal 0.2-2.0 [facility] Comment on above: Performed By: #### C BC #### [facility] [address] [place] [address] [address] Tacos Bhatt EO # 0.2 103/ul Normal 0.0-0.7 [facility] Comment on above: Performed By: #### C BC #### [facility] [address] [place] [address] Dr. Tacos Bhatt Eosinophils/100 WBC (Bld) 2.1 % Normal 0.9-7.0 [facility] Comment on above: Performed By: #### C BC #### [facility] [address] [place] [address] [address] Tacos Bhatt Erythrocyte distribution width (RBC) [Ratio] 14.6 % Normal 11.0-15.0 [facility] Comment on above: Performed By: #### C BC #### [facility] [address] [place] [address] Dr. Tacos Bhatt Hematocrit (Bld) [Volume fraction] 41.5 % Normal 36.0-48.0 [facility] Comment on above: Performed By: #### C BC #### [facility] [address] [place] [address] [address] Tacos Bhatt Hemoglobin (Bld) [Mass/Vol] 13.5 g/dL Normal 12.0-16.0 [facility] Comment on above: Performed By: #### C BC #### [facility] [address] [place] [address] [address] Tacos Bhatt IG # 0.08 10e3/ul Critically high 0.00-0.03 [facility] Comment on above: Performed By: #### C BC #### [facility] [address] [place] [address] Dr. Tacos Bhatt IG % 0.9 % Critically high 0.0-0.5 [facility] Comment on above: Performed By: #### C BC #### [facility] [address] [place] [address] Dr. Tacos Bhatt LYMPH # 3.4 103/ul Normal 1.2-3.8 [facility] Comment on above: Performed By: #### C BC #### [facility] [address] [place] [address] Dr. Tacos Bhatt Lymphocytes/100 WBC (Bld) 37.0 % Normal 20.5-60.0 [facility] Comment on above: Performed By: #### C BC #### [facility] [address] [place] [address] Dr. Tacos Bhatt MANUAL DIFF REQ NO Normal [facility] Comment on above: Performed By: #### C BC #### [facility] [address] [place] [address] Dr. Tacos Bhatt MCH (RBC) [Entitic mass] 25.7 pg Critically low 26.7-34.0 [facility] Comment on above: Performed By: #### C BC #### [facility] [address] [place] [address] Dr. Tacos Bhatt MCHC (RBC) [Mass/Vol] 32.5 g/dL Normal 29.9-35.2 [facility] Comment on above: Performed By: #### C BC #### [facility] [address] [place] [address] Dr. Tacos Bhatt MCV (RBC) [Entitic vol] 79.0 fL Critically low 81.0-99.0 [facility] Comment on above: Performed By: #### C BC #### [facility] [address] [place] [address] Dr. Tacos Bhatt MONO # 0.7 103/ul Normal 0.3-0.8 [facility] Comment on above: Performed By: #### C BC #### [facility] [address] [place] [address] Dr. Tacos Bhatt Monocytes/100 WBC (Bld) 7.3 % Normal 1.7-12.0 [facility] Comment on above: Performed By: #### C BC #### [facility] [address] [place] [address] Dr. Tacos Bhatt NEUT # 4.7 103/ul Normal 1.4-6.5 [facility] Comment on above: Performed By: #### C BC #### [facility] [address] [place] [address] Dr. Tacos Bhatt Neutrophils/100 WBC (Bld) 51.8 % Normal 43.0-75.0 [facility] Comment on above: Performed By: #### C BC #### [facility] [address] [place] [address] Dr. Tacos Bhatt Platelet mean volume (Bld) [Entitic vol] 9.5 fL Normal 9.5-13.5 [facility] Comment on above: Performed By: #### C BC #### [facility] [address] [place] [address] Dr. Tacos Bhatt PLT 236 103/ul Normal 150-450 [facility] Comment on above: Performed By: #### C BC #### [facility] [address] [place] [address] Dr. Tacos Bhatt RBC 5.25 106/ul Normal 4.20-5.40 [facility] Comment on above: Performed By: #### C BC #### [facility] [address] [place] [address] Dr. Tacos Bhatt WBC 9.1 103/ul Normal 4.0-11.0 [facility] Comment on above: Performed By: #### C BC #### [facility] [address] [place] [address] Dr. Tacos Bhatt [facility]13 SARS-CoV-2 (COVID-19) RNA CARSON+probe Ql (Unsp spec) Not detected Normal NOT DETECTED [facility] Comment on above: Result Comment: When [...] for this test is supported by the [place] of Health and Human Service's declaration that [...] used). Performed By: #### C VDTBH #### [facility] [address] [place] [address] Dr. Tacos Bhatt D-DIMERon 08-07-2021 D-DIMER 0.48 mg/L FEU Normal <=0.59 [facility] Comment on above: Performed By: #### D DIM #### [facility] [address] [place] [address] [address] Tacos Bhatt D-DIMER COMMENTS SEE BELOW Normal [facility] Comment on above: Result Comment: Incr eases [...] hospitalization. Performed By: #### D DIM #### [facility] [address] [place] [address] [address] Tacos Bhatt ER URINE PROFILEon 2 Bilirubin Ql (U) Negative Normal NEGATIVE [facility] Comment on above: Performed By: #### E RUR ####[facility] [address] [place] [address]Dr. Balderrama Miller Clarity (U) CLEAR Normal CLEAR [facility] Comment on above: Performed By: #### E RUR ####[facility] [address] [place], [place] [address]Dr. Tacos Bhatt Color (U) YELLOW Normal YELLOW [facility] Comment on above: Performed By: #### E RUR ####[facility] [address] [place], [place] [address]Dr. Tacos Bhatt ERUAHD A micrscopic examination will be performed if indicated. Normal [facility] Comment on above: Performed By: #### E RUR ####[facility] [address] [place], [place] [address]Dr. Tacos Miller Glucose Ql (U) Negative Normal NEGATIVE [facility] Comment on above: Performed By: #### E RUR ####[facility] [address] [place], [place] [address]Dr. Ekaterinamohsen Miller Hemoglobin Ql (U) Negative Normal NEGATIVE [facility] Comment on above: Performed By: #### E RUR ####[facility] [address] [place], [place] [address]Dr. Ekaterinamohsen Bhatt Ketones Ql (U) Negative Normal NEGATIVE [facility] Comment on above: Performed By: #### E RUR ####[facility] [address] [place], [place] [address]Dr. Ekaterinaomhsen Miller LEUKOCYTES Negative Normal NEGATIVE [facility] Comment on above: Performed By: #### E RUR ####[facility] [address] [place], [place] [address]Dr. Ekaterinamohsen Miller Nitrite Ql (U) Negative Normal NEGATIVE [facility] Comment on above: Performed By: #### E RUR ####[facility] [address] [place], [place] [address]Dr. Tacos Bhatt pH (U) 6.0 [pH] Normal 5-9 [facility] Comment on above: Performed By: #### E RUR ####[facility] [address] [place], [place] [address]Dr. Tacos Bhatt SPEC GRAVITY 1.025 Normal 1.005-<=1.025 The [facility] Comment on above: Performed By: #### E RUR ####[facility] [address] [place] [address]Dr. Tacos Bhatt UA PROTEIN Negative Normal NEGATIVE/ TRACE [facility] Comment on above: Performed By: #### E RUR ####[facility] [address] [place] [address]Dr. Tacos Bhatt UR MICRO IND NOT INDICATED Normal [facility] Comment on above: Performed By: #### E RUR ####[facility] [address] [place] [address]Dr. Tacos Bhatt Urobilinogen Qn (U) 0.2 {Robbie'U}/dL Normal 0.2 - 1. 0 [facility] Comment on above: Performed By: #### E RUR ####[facility] [address] [place], [place] [address]Dr. Tacos Bhatt PROF 14(COMP METB)on 022 Albumin [Mass/Vol] 3.5 g/dL Normal 3.4-5.0 [facility] Comment on above: Performed By: #### Harman RODRIGUEZ HSTROPN ####[facility] [address] [place], [place] [address]Dr. Tacos Bhatt Albumin/Globulin [Mass ratio] 1.1 {ratio} Normal [facility] Comment on above: Performed By: #### C JENNIFER HSTROPN ####[facility] [address] [place], [place] [address]Dr. Tacos Bhatt ALP [Catalytic activity/Vol] 104 U/L Normal 46-116 [facility] Comment on above: Performed By: #### C JENNIFER HSTROPN ####[facility] [address] [place], [place] [address]Dr. Tacos Bhatt ALT [Catalytic activity/Vol] 190 U/L Critically high 14-59 [facility] Comment on above: Performed By: #### C JENNIFER HSTROPN ####[facility] [address] [place], [place] [address]Dr. Tacos Bhatt Anion gap [Moles/Vol] 12.7 mmol/L Normal [facility] Comment on above: Performed By: #### C JENNIFER, HSTROPN ####[facility] [address] [place] [address]Dr. Tacos Bhatt AST [Catalytic activity/Vol] 83 U/L Critically high 15-37 [facility] Comment on above: Performed By: #### C JENNIFER, HSTROPN ####[facility] [address] [place] [address]Dr. Tacos Bhatt Bilirubin [Mass/Vol] 0.7 mg/dL Normal 0.2-1.0 [facility] Comment on above: Performed By: #### C JENNIFER, HSTROPN ####[facility] [address] [place] [address]Dr. Tacos Bhatt Calcium [Mass/Vol] 8.9 mg/dL Normal 8.5-10.1 [facility] Comment on above: Performed By: #### C JENNIFER, HSTROPN ####[facility] [address] [place] [address]Dr. Tacos Bhatt Chloride [Moles/Vol] 103 mmol/L Normal 98-107 [facility] Comment on above: Performed By: #### C JENNIFER, HSTROPN ####[facility] [address] [place] [address]Dr. Tacos Bhatt CO2 [Moles/Vol] 26.1 mmol/L Normal 21.0-32.0 [facility] Comment on above: Performed By: #### C JENNIFER, HSTROPN ####[facility] [address] [place] [address]Dr. Tacos Bhatt Creatinine [Mass/Vol] 0.66 mg/dL Normal 0.55-1.02 [facility] Comment on above: Performed By: #### C JENNIFER, HSTROPN ####[facility] [address] [place] [address]Dr. Ekaterinamohsen Bhatt EGFR-AF LITHUANIAN >60 Normal >=60 The [facility] Comment on above: Performed By: #### C MP, HSTROPN ####[facility] [address] [place] [address]Dr. Tacos Bhatt EGFR-NON AF LITHUANIAN >60 Normal >=60 [facility] Comment on above: Performed By: #### C MP, HSTROPN ####[facility] [address] [place] [address]Dr. Tacos Bhatt Globulin (S) [Mass/Vol] 3.3 g/dL Normal [facility] Comment on above: Performed By: #### C JENNIFER, HSTROPN ####[facility] [address] [place] [address]Dr. Tacos Bhatt Glucose [Mass/Vol] 93 mg/dL Normal 74-106 [facility] Comment on above: Performed By: #### C JENNIFER, HSTROPN ####[facility] [address] [place] [address]Dr. Tacos Bhatt Potassium [Moles/Vol] 3.8 mmol/L Normal 3.5-5.1 [facility] Comment on above: Performed By: #### C JENNIFER, HSTROPN ####[facility] [address] [place] [address]Dr. Tacos Bhatt Protein [Mass/Vol] 6.8 g/dL Normal 6.4-8.2 [facility] Comment on above: Performed By: #### C MP, HSTROPN ####[facility] [address] [place] [address]Dr. Tacos Bhatt Sodium [Moles/Vol] 138 mmol/L Normal 136-145 [facility] Comment on above: Performed By: #### C MP, HSTROPN ####[facility] [address] [place] [address]Dr. Tacos Bhatt Urea nitrogen [Mass/Vol] 14.0 mg/dL Normal 7.0-18.0 [facility] Comment on above: Performed By: #### C MP, HSTROPN ####[facility] [address] [place] [address]Dr. Yilan Bhatt Urea nitrogen/Creatinine [Mass ratio] 21.2 mg/mg Normal [facility] Comment on above: Performed By: #### C JENNIFER, HSTROPN ####[facility] [address] [place], [place] [address]BqDr. Tacos Bhatt TROPONIN, HIGH SENSITIVITYon 08-07-2021 HSTROP 4.6 pg/mL Normal 4.0-51.3 [facility] Comment on above: Result Comment: CUT- OFF POINTS HAVE BEEN ESTABLISHED BASED ON THE FOURTH UNIVERSAL DEFINITIONS OF MYOCARDIAL INFARCTION. THE UPPER REFERENCE LIMIT (URL) OF TROPONIN, DEFINED THE 99TH PERCENTILE OF cTnI DISTRIBUTION IN A REFERENCE POPULATION, HAS BEEN CONFIRMED THE DECISION THRESHOLD FOR [place] DIAGNOSIS. Performed By: #### C JENNIFER HSTROPN #### [facility] [address] [place], [place] [address] Dr. Tacos Bhatt XR CHEST 1 Von [...] by: SMITA STEINBERG Date: 2021-08-07 01:26 Normal [facility] CT CHEST WO CONTRASTon 10-28 CT CHEST [...] Guy Christensen MD 10/29/19 Final result Normal [facility] Multiple right middl e lobe nodules as [...] to Lung-RADS guidelines. Reference: Radiology. 2017; 284(1):228-43. [facility] [place] EXAMINATION: CT OF T CHEST WITHOUT CONTRAST 10/27/2019 10:13 am TECHNIQUE: [...] No significant osseous or soft tissue abnormality. [facility] [place], [place], Mhpn Incoming Radiant Results From [employer] - 10/29/2019 1:52 PM EDT EXAMINATION: CT [...] to Lung-RADS guidelines. Reference: Radiology. 2017; 284(1):228-43. [place], [place] Vital Signs Date Time Vital Sign Value Performing Clinician Faci lity 02-13-2023 15:16-0500 Body height 160 cm Kenia Srivastava DO Work Phone: [facility] 02-13-2023 15:16-0500 Body mass index (BMI) [Ratio] 44.29 kg/m2 Kenia Tyshawnkofi MOORE [employer] [facility] 02-13-2023 15:16-0500 Body weight 113.4 kg Kenia Srivastava DO [employer] Phone: [facility] [employer] [facility] Encounters Encounter Date Encounter Type Care Provider Facility Start: 03-04-2023 End: 03-04-2023 Emergency department patient visit BILLY Campa ANA [facility] Start: 02-13-2023 End: 02-13-2023 Office outpatient visit 25 minutes Kenia Srivastava DO [employer] Phone: [facility] Comment on above: Grade III hemorrhoid s (Primary Dx); Rectal bleeding; Morbid obesity with BMI of 40.0-44.9, adult ([facility]) Start: 02-13-2023 End: 02-13-2023 Orders Only Jonelle Bob CMA [facility] Comment on above: Grade III hemorrhoid s (Primary Dx) Start: 01-30-2023 End: 01-30-[address] [facility] Start: 01-10-2023 End: 01-11-2023 ambulatory BILLY Campa ANA Facility:[facility] Start: 11-21-2022 End: 11-22-2022 Emergency department patient visit BILLY Campa ANA Facility:[facility] Start: 11-21-2022 End: 11-21-2022 ambulatory NANCY Milian Facility:[facility] Start: 09-04-2022 End: 09-05-2022 ambulatory BILLY PEREZ Facility:[facility] Start: 07-07-2022 End: 07-08-2022 ambulatory RENEA CUMMINGS Facility:[facility] Start: 04-03-2022 End: 04-03-2022 ambulatory ALIA ELLIS Facility:[facility] Start: 01-15-2022 End: 05-16-2022 ambulatory [place] Start: 08-07-2021 End: 08-07-[address] BILLY PEREZ Facility:[facility] Start: 10-27-2019 End: 10-30-2019 Patient encounter procedure [facility] Start: 10-27-2019 End: 10-29-2019 Subsequent hospital visit by physician [facility] Cat Scan Room [facility] CT Scan Comment on above: Pulmonary nodule Procedures Date Procedure Procedure Detail Performing Clinician Start: 10-27-2019 Ct thorax w/o contra st material [facility] Start: 10-27-2019 Ct thorax w/o contra st material [facility] Work Phone: Plan of Treatment Date Care Activity Detail Author Start: 04-06-2032 DTaP,Tdap and Td Vac cines (2 - Td or Tdap) DTaP,Tdap and Td Vaccines (2 - Td or Tdap) [facility] Start: 02-14-2024 Adult BMI Screening Adult BMI Screen ing [facility] Start: 02-14-2024 Tobacco Screening Tobacco Screening [facility] Start: 10-31-2022 COVID-19 Vaccine ( season) COVID-19 Vaccine ( season) [facility] Start: 08-09-2022 Screening for malign ant neoplasm of cervix Cervical cancer screen [place], [place] Start: 2022 Administration of varicella zoster vaccine Zoster (Shingles) Vaccine (1 of 2) [facility] Start: 11-09-2019 End: 11-09-2019 Office Visit 11/09/2019 Office Visit Pulmonology Olamide Ibrahim MD [address] [address] [phone] [facility] Start: 10-13-2019 Influenza vaccination Flu vaccine (# 1) [place], [place] Start: 2012 Lipid panel Lipid screen [place], [place] Start: 1993 Screening for malign ant neoplasm of cervix Pap Smear [facility] [employer] [facility] Start: 07-25-1991 DTaP/Tdap/Td vaccine (1 - Tdap) DTaP/Tdap/Td vaccine (1 - Tdap) [place] Start: 1990 Adult BMI Follow Up Plan Adult BMI Follow Up Plan [facility] [employer] [facility] Start: 1984 Depression Screening Depression Scre ening [facility] End: 02-13-2024 Colonoscopy Colonoscopy GI Routine Rectal bleeding 1 Occurrences starting 02/13/2023 until 02/13/2024 [facility] Work Phone: Comment on above: 1 Occurrences starti ng 02/13/2023 until 02/13/2024 End: 02-13-2024 Unlisted Procedure / Surgery Unlisted Procedure / Surgery Procedures Routine Grade III hemorrhoids Rectal bleeding 1 Occurrences starting 02/13/2023 until 02/13/2024 [email or web address] Comment on above: 1 Occurrences starti ng 02/13/2023 until 02/13/2024 Immunizations Immunization Date Immunization Notes Care Provider Fa dyllan 04-06-2022 zoster vaccine, unspecified formulation Jonelle Bob 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 2018 Medicaid [employer] [employer] [id number] 2018-Present [phone] [address] [place] [address] [id number] 1972 Unknown [id number] [id number]. 173 1972 Unknown [id number] [id number]. 593 1972 Unknown [id number] [id number]. 593 1972 Unknown [id number] [id number]. 593 1972 Unknown [id number] [id number]. 718 1972 Unknown [id number] [id number]. 718 1972 Unknown [id number] [id number]. 718 1972 Unknown [id number] [id number]. 1286 1972 Unknown [id number] 2.16.840.1.937683.3.579.2. 1286 1972 Unknown [id number] 2.16.840.1.551593.3.579.2. 1286 1959 Unknown [id number]. [id number] 1959 Unknown [id number] Social History Date Type Detail Facility Start: 10-05-2019 Tobacco smoking stat [facility] Former smoker [place] End: 10-07-1993 History of tobacco use Current sm[place] End: 10-07-1993 History of tobacco use Cigarette Sm[place] Start: 10-05-2019 End: 03-03-2020 Cigarettes smoked current (pack per day) - Reported [place] Start: 10-05-2019 End: 07-31-2022 Tobacco use and exposure Never used [facility] JULIÁN Mazariegos Start: 10-05-2019 End: 02-13-2023 Alcohol intake Current drinker of alcohol (finding) [facility] JULIÁN Start: 07-03-2019 History SDOH Financial 5 [facility] JULIÁN Start: 07-03-2019 History SDOH Food Worry 1 [facility] JULIÁN Start: 07-03-2019 History SDOH Transpo rt Med 2 [place], [place] Start: 10-07-2013 Alcohol Comment socially [place] Start: 1970 Sex Assigned At Not on file [place] Exposure to SARS-CoV -2 (event) Not sure [place] Start: 07-31-2022 Tobacco smoking stat [facility] Never smoked tobacco [facility] Start: 03-03-2020 End: 02-13-2023 Tobacco use panel [facility] Housing Instability Unknown [facility] Start: 07-31-2022 Alcohol Comment social [facility] History of Present illness Narrative 02-13-2023 Kenia Srivastava, DO - 02/13/2023 2:00 PM EST Note Date & Type Note Facility 02-13-2023 History of Present illness Narrative Images from the original note were not included. [facility] [address] [id number] CONSULT NOTE Hanh Alvarez 52 y.o. CHIEF COMPLAINT Chief Complaint Patient presents with POST-OP VISIT SOCRATES SOUZA PERFORMED 01/17/23, THB DR. SRIVASTAVA, SEEN IN ED FOR HEMORRHOIDS, & the ED told her that she needed to see the surgeon that did the surgery Hanh Alvarez is a 52-year-old female who presents complaining of hemorrhoids which began bothering her the prior to . She had pain she could not sit comfortably and had to lay on her side associated with nausea and difficult to have a bowel movement associated with occasional rectal bleeding. She states it is slightly better now. Her last colonoscopy was 15 years ago. She denies any family history of colon cancer other were father has a history of colon polyps. She had her gallbladder removed by [facility] robot[facility] emerg[facility] on [facility]. She called the office requesting pain meds and I told her she needed to be examined. She also complains that it feels like she has a baseball underneath her ribcage after she had her gallbladder removed. She denies any jaundice or idania-colored stools fevers or chills. She had an allergic reaction to the adhesive from Steri-Strips were Band-Aids after her robotic cholecystectomy. MEDICATION Current Outpatient Medications: ARIPiprazole (ABILIFY) 5 mg tablet, Take 1 tablet (5 mg total) by mouth nightly., Disp: , Rfl: busPIRone (BUSPAR) 15 mg tablet, Take 1 tablet (15 mg total) by mouth in the morning and at bedtime., Disp: , Rfl: hydrocortisone (ANUSOL-HC) 2.5 % rectal cream, Insert 1 Application into the rectum in the morning and 1 Application before bedtime., Disp: , Rfl: sertraline (ZOLOFT) 50 mg tablet, Take 1 tablet (50 mg total) by mouth in the morning., Disp: , Rfl: peg 3350-sod sulf,pqlf-vqp-xeg 178.7-7.3-0.5 gram recon soln, Take 1 kit by mouth in the morning for 1 dose. Please see instructional sheet given by Physicians office., Disp: 1 each, Rfl: 0 sod sulf-pot chloride-mag sulf (SUTAB) 1.479-0.188- 0.225 gram tablet, Please see instructional sheet given to patient from doctors office., Disp: 24 tablet, Rfl: 0 ALLERGY Allergies Allergen Reactions Adhesive Rash Surgical adhesive tape and surgical glue Bacitracin Other Surgical glue [place] MEDICAL HISTORY Past Medical History: Diagnosis Date Depression Kidney stones SURGICAL HISTORY Past Surgical History: Procedure Laterality Date ACHILLES TENDON SURGERY Left SECTION x4 CHOLECYSTECTOMY 01/17/2023 at [facility] TUBAL LIGATION SOCIAL HISTORY Social History Socioeconomic History Marital status: Legally Spouse name: Not on file Number of children: Not on file Years of education: Not on file Highest education level: Not on file Occupational History Not on file Tobacco Use Smoking status: Never Smokeless tobacco: Never Vaping Use Vaping Use: Never used Substance and Sexual Activity Alcohol use: Yes Comment: social Drug use: Never Sexual activity: Not Currently Partners: Male Other Topics Concern Not on file Social History Narrative Not on file Social Determinants of Health Financial Resource Strain: Not on file Food Insecurity: No Food Insecurity (01/30/2023) Hunger Screening Food Insecurity - Worry: Never True Food Insecurity - Inability: Never True Transportation Needs: Not on file Physical Activity: Not on file Stress: Not on file Social Connections: Not on file Interpersonal Safety: Not on file FAMILY HISTORY Family History Problem Relation Age of Onset No Known Problems Mother Cancer Father Heart disease Father Diabetes Father Colon cancer Neg Hx REVIEW OF SYSTEMS: Constitutional: Denies fevers, denies recent illnesses. Rest review of 10 systems negative except as above. PHYSICAL EXAM Constitutional: She is oriented to person, place, and time. Vital signs are normal. She appears well-developed and well-nourished. HEENT: Head: Normocephalic and atraumatic. Eyes: Conjunctivae, EOM and lids are normal. Neck: Trachea normal. Neck supple. No thyroid mass present. Cardiovascular: Normal rate and regular rhythm. Pulmonary/Chest: Effort normal and breath sounds normal. Abdominal: Soft. Morbidly obese with slight tenderness in the right upper quadrant with no guarding or rebound noted. All incisions are clean dry and intact.. Rectal exam: Positive bilateral thrombosed hemorrhoids 1.5-2 cm left lateral and right lateral positions rectal exam not performed surface lay out technician present Neurological: She is alert and oriented to person, place, and time. Skin: Skin is warm, dry and intact. Psychiatric: She has a normal mood and affect. Her speech is normal and behavior is normal. Cognition and memory are normal. IMPRESSION 1. Thrombosed hemorrhoids left lateral and right lateral position large greater than 1.5 cm 2. Morbid obesity with BMI of 44 3. Rectal bleeding ASSESSMENT & PLAN 1. Stool softener 3 times daily in addition to a fiber supplement and warm Sitz baths with Epsom salts 3 times daily 2. Colonoscopy with possible biopsy or polypectomy. I discussed the risks, benefits, alternatives to the above which may include perforation or bleeding or risks of anesthesia. They understood all the above and wished to proceed. 3. Hemorrhoidectomy with LigaSure device at same time of colonoscopy under general anesthesia. Risks benefits alternatives to the procedure may include infection bleeding pain anal stricture or recurrence. She is highly encouraged to consume a high-fiber diet lots of fruits and vegetables 5-7 servings daily. Evaluation included: Preparing to see the patient (e.g., review of tests) Obtaining and/or reviewing separately obtained history Performing a medically appropriate examination and/or evaluation Counseling and educating the patient/family/caregiver Referring and communicating with other health aged or disabled care worker Grade III hemorrhoids [K64.2] Kenia Srivastava DO This note was created with the assistance of a speech recognition program. While intending to generate a timely document that accurately reflects the content of the visit, no guarantee can be provided that every grammatical or spelling mistake has been or will be identified or corrected. Thank you for your understanding. documented in this encounter [facility] Clinical Note 01-11-2023 Note Date & [...] have not worked. (more content not included)... [facility] Clinical Note 01-11-2023 Note Date & Type Note Facility 01-11-2023 Note [facility] Clinical Discharge Summary PERSON INFORMATION Name HANH ALVAREZ Age 52 Years 1970 Sex FEMALE Language Sinhala PCP BILLY PEREZ MD Marital Status Med Service Observation Acct# Arrival 01/10/2023 09:49:38 Visit Reason Chest pain; CHEST PAIN Acuity LOS 000 23:15 Address: [address] [place] [address] Comment: PROVIDER INFORMATION VITALS INFORMATION Vital Sign [...] Medication List: New Medications [facility], [address] [place] [address] [phone], [phone] ibuprofen (ibuprofen 600 mg oral tablet) 1 [...] range between ( 1.3 and 2.9 ) [place] Abs#: 0.3 x103/mcL -- Normal range between ( 0.0 and 0.8 ) Auto Baso %: 0.7 % -- Normal range between ( 0.2 and 2.0 ) Auto [place] %: 7 % -- Normal range between [...] range between ( 5 and 40 ) [facility] Order 01/10/2023 10:00 AM Tube Collected: Yes Diagnostic Radiology 01/10/2023 10:26 AM XR Chest 1 View Frontal: XR Chest 1 View Frontal Ultrasound 01/11/2023 10:28 AM US Echocardiogram Complete: US Echocardiogram Complete 01/10/2023 3:15 PM US Gallbladder: US Gallbladder Radiology Report 01/11/2023 10:28 AM Radiology Report: Radiology Report DIET & ACTIVITY (more content not included)... [facility] Clinical Note 11-22-2022 Note Date & [...] Keep all follow-up visits. Medicines ? Take kxdu-iyt-yjliyyd and prescription medicines only as told by [...] be an em (more content not included)... [facility] Clinical Note 11-21-2022 Note Date & [...] by your health care provider. ? Take owlc-leo-zwfmdqq and prescription medicines only as told by [...] provider. Document Revised: 04/10/2021 Document Reviewed: 04/10/2021 Elsevier Patient Education ? 2022 Conjunct. Urology Hematuria, Adult Hematuria is blood in [...] these instructions at home: Medicines ? Take cgbl-nsk-olkabdd and prescription medicines only as told by [...] health care p (more content not included)... [facility] Clinical Note 07-08-2022 Note Date & [...] authenticated by: TEDDY MG Date: 2022-07-07 22:13 [facility] Evaluation note Note Date & Type Note Facility Evaluation note Diagnosis Grade III hemorrhoids- Primary documented in this encounter [facility] [employer] Evaluation note Note Date & Type Note Facility Evaluation note Diagnosis Grade III hemorrhoids- Primary Rectal bleeding Hemorrhage of rectum and anus Morbid obesity with BMI of 40.0-44.9, adult (CMS-HCC) documented in this encounter [facility] Instructions Note Date & Type Note Facility Instructions Not on filedocumented in this en counter [facility] Instructions Note Date & Type Note Facility Instructions Not on filedocumented in this en counter [facility] Reason for Referral Status Reason Specialty Diagnoses / Procedures Referre d By Contact Referred To Contact Closed Radiology Diagnoses Pulmonary nodule Procedures CT CHEST WO CONTRAST Olamide Ibrahim MD [address] [address] [facility] [address] Scan [address] [place] [address] Specialty Diagnoses / Procedures Referred By Contac t Referred To Contact Diagnoses Grade III hemorrhoids Rectal bleeding Procedures Unlisted Procedure / Surgery Kenia Srivastava DO [address] [place] [id number] Referral ID Status Reason Start Date Expiration Date V isits Requested Visits Authorized [id number] Pending Review 02/13/2023 02/13/2024 1 1 Specialty Diagnoses / Procedures Referred By Contac t Referred To Contact Kenia Srivastava DO [address] [place] [address] Referral ID Status Reason Start Date Expiration Date Visits Re quested Visits Authorized [id number] Closed 1 1 Assessments Diagnosis Pulmonary nodule Solitary pulmonary nodule Advance Directives No Advanced Directives Records FoundDocuments on File Type Date Recorded 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 SRIVASTAVA, SEEN IN ED FOR HEMORRHOIDS, & the ED told her that she needed to see the surgeon that did the surgery INFORMATION SOURCE (unrecogn ized section and content) DATE CREATED AUTHOR 10/30/[address] [facility] DATE CREATED AUTHOR AUTHOR'S ORGANIZ ATION 06/16/2022 [place] DATE CREATED AUTHOR AUTHOR'S ORGANIZ ATION 07/23/2022 [facility] DATE CREATED AUTHOR AUTHOR'S ORGANIZ ATION 02/02/2023 [facility] DATE CREATED AUTHOR AUTHOR'S ORGANIZ ATION 02/17/2023 [facility] DATE CREATED AUTHOR AUTHOR'S ORGANIZ ATION 03/04/2023 [facility] Care Teams (unrecognized sec tion and content) Billet Examiner Relationship Specialty Start Date End Date Billy Perez MD [address] [place] [address], [facility] [place] [phone] PCP - General Internal Medicine 03/30/19 Billet Examiner Relationship Specialty Start Date End Date Billy Perez MD [address] [place] [address] [place] [phone] PCP - General Internal Medicine 03/30/19 FOR RECORDS PERTAINING TO PATIENTS WHO ARE [...] BE BASED ON THE PRIMARY CLINICAL RECORDS. [employer] [facility]. provides no warranty or guarantee of the accuracy or completeness of information in this document.
--- NOTE | 2023-04-13 09:40 | CT_ITS ---
The [address] [address] Patient Name: JENNIFER VALENCIA MRN: [id number] date: 1970 Sex: F Assigned Patient Location: ER Current Patient Location: ED.MAIN Accession/Order Number: [id number] Exam Date: 04/13/2023 09:53 Report Date: 04/13/2023 10:21 At the request of: DEBRA ZARCO Procedure: CT head/brain wo con EXAMINATION: CT head/brain wo con, 04/13/2023 9:53 AM EST HISTORY: right facial droop, YANG COMPARISON: None. TECHNIQUE: CT scan of the head was performed without IV contrast. CT dose reduction technique was used, including Automated Exposure Control. FINDINGS: BRAIN: No edema, hemorrhage, mass, acute infarction, or inappropriate atrophy. CSF SPACES: No hydrocephalus, subarachnoid hemorrhage, or mass. Appropriate for age. SKULL: No fracture, mass, or other significant visible lesion. SINUSES: No significant mucosal thickening or fluid on the limited views. ORBITS: No appreciable abnormality on the limited views. OTHER: Negative CT/CT head/brain wo con IMPRESSION: No acute intracranial abnormality Electronically authenticated by: ENRIQUETA MORA Date: 04/13/2023 10:21
--- NOTE | 2023-04-13 10:21 | ED_ITS ---
HPI - General Adult General Chief complaint: Neuro Symptoms/Deficit Stated complaint: RT SIDE FACE IS SWOLEN Time Seen by Provider: 04/13/23 09:22 Source: patient Mode of arrival: walk-in Limitations: no limitations History of Present Illness HPI narrative: Patient is a 52-year-old female who is presenting to the ER with chief complaint of right-sided facial drooping since noon yesterday. Patient was eating umm kfast this morning, started noticing a different taste in her mouth, also having some drooling coming out of the right side of her mouth so she came into the ER for evaluation. Patient has mild headache. Patient has no extremity concerns, no slurred speech or aphasia. No other acute complaints. She has had no recent viruses. No recent upper respiratory, sinus, cold or canker sores. Patient looks well, having some tearing from her left eye. All systems are negative except as noted/marked. All systems reviewed and otherwise negative. Nurses note and vital signs reviewed and patient is not hypoxic. General: The patient appears well and in no apparent distress. Patient is resting comfortably on cart. Patient is not toxic, lethargic, or listless Skin: Warm, dry, no pallor noted. There is no rash noted. No petechiae, purpura. Head: Normocephalic, atraumatic, patient has some but minimal wrinkling to the right side of her forehead. Patient is able to close her right eye, no redness, swelling, irritation to the right eye. Patient does have mild decrease in the nasolabial fold on the right. Eye: Normal conjunctiva, no drainage, EOMI. PERRL, slightly decreased in closing right eyelid compared to the left. Ears, Nose, Mouth, and Throat: oral mucosa is moist. Nares patent. Mouth without vesicles. Cardiovascular: Regular Rate and Rhythm, no murmur, gallop, rub Respiratory: Patient is in no distress, no accessory muscle use, lungs are clear to auscultation, no wheezing, rales or rhonchi Back: non-tender, no CVA tenderness bilaterally to percussion. No CT LS midline pain GI: Soft, no tenderness to palpation, no masses appreciated. No rebound, guarding, or rigidity noted. 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 Psychiatric: Cooperative Related Data Previous Rx's Medication Instructions Recorded levofloxacin 750 mg tablet 750 mg PO DAILY 5 days #5 tabs 01/18/23 metronidazole 500 mg tablet 500 mg PO Q8H 5 days #15 tabs 01/18/23 acetaminophen 300 mg-codeine 30 mg 1 tab PO Q6H PRN pain 5 days #20 02/03/23 tablet tabs hydrocortisone 1 %-pramoxine 1 % 1 applic W[place] BID #10 grams 02/03/23 rectal foam (Proctofoam HC) methylprednisolone 4 mg tablets in 4 mg PO DAILY 6 days #21 ea 04/13/23 a dose pack (Medrol (Sabino)) valacyclovir 1 gram tablet 1,000 mg PO Q8H 7 days #21 tabs 04/13/23 Allergies Allergy/AdvReac Type Severity Reaction Status Date / Time adhesive tape AdvReac Mild Rash Verified 02/03/23 14:23 bacitracin AdvReac Unknown Verified 02/03/23 14:15 strawberry AdvReac Unknown Verified 02/03/23 14:15 PFSH PFSH Medical History (Updated 04/13/23 @ 10:30 by Nitin Connell MD) Menopausal state ?N95.1 - Menopausal and female climacteric states (ICD-10) Obesity (BMI 30-39.9) ?E66.9 - Obesity, unspecified (ICD-10) Elevated liver enzymes ?R74.8 - Abnormal levels of other serum enzymes (ICD-10) Obesity ?E66.9 - Obesity, unspecified (ICD-10) Achilles tendonosis of left lower extremity ?M67.88 - Other specified disorders of synovium and tendon, other site (ICD- 10) Surgical History Previous section ?Z98.891 - History of uterine scar from previous surgery (ICD-10) Family History Father Family history of myocardial infarction Social History Within the past year, how often did you have a drink containing alcohol: monthly or less Within the past year, how many standard drinks containing alcohol did you have on a typical day: 1 or 2 Within the past year, how often did you have six or more drinks on one occasion: never Total score: 0 Score interpretation: A score less than 3 is consistent with normal alcohol consumption. 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 Known occupational exposures/hazards: No Highest level of school completed/degree received: Associate degree: occupational, technical, vocational program Do you want help with school or training: No Are you now , , , , never or living with a partner: In a typical week, how many times do you talk on the telephone with family, friends, or neighbors: 3 or more times per week How often do you get together with friends or relatives: 3 or more times per week How often do you attend jewish or christianity services: never Do you belong to any clubs or organizations such as jewish groups unions, fraSavy[employer]ap or athletic groups, or school groups: no Total score: 1 Score interpretation: A score of less than or equal to 1 indicates the most socially isolated. Little interest or pleasure in doing things: several days Feeling down, depressed, or hopeless: not at all Feel stressed/tense/nervous/anxious/difficulty sleeping: to some extent Life stressors: recent of family or friend Life stressor details: of mother Do you think of yourself as: straight/heterosexual Gender Identity: female Exam Constitutional Vital Signs, click to edit/add: Last Vital Signs Temp 98.0 F 04/13/23 09:11 Pulse 83 04/13/23 09:11 Resp 18 04/13/23 09:11 BP 130/92 H 04/13/23 09:11 Pulse Ox 97 04/13/23 09:11 O2 Del Method Room Air 04/13/23 09:11 Course Vital Signs Vital signs: Vital Signs Temperature 98.0 F 04/13/23 09:11 Pulse Rate 83 04/13/23 09:11 Respiratory Rate 18 04/13/23 09:11 Blood Pressure 130/92 H 04/13/23 09:11 Pulse Oximetry 97 04/13/23 09:11 Oxygen Delivery Method Room Air 04/13/23 09:11 Temperature 98.0 F 04/13/23 09:11 Pulse Rate 83 04/13/23 09:11 Respiratory Rate 18 04/13/23 09:11 Blood Pressure 130/92 H 04/13/23 09:11 Pulse Oximetry 97 04/13/23 09:11 Oxygen Delivery Method Room Air 04/13/23 09:11 Medical Decision Making MDM Narrative Medical decision making narrative: Patient will be placed on valacyclovir, Medrol Dosepak. Patient is aware to purchase Lacri-Lube [id number] and tape her eye shut at nighttime. Education was done at Manley's palsy at bedside and on discharge paperwork. Patient will be referred to neurology. 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 No questions at discharge. CT of the brain was done, shows no acute findings. Discharge Plan Discharge Chief Complaint: Neuro Symptoms/Deficit Clinical Impression: Manley's palsy Patient Disposition: Home, Self-Care Time of Disposition Decision: 10:31 Condition: Fair Prescriptions / Home Meds: New valacyclovir 1 gram tablet 1,000 mg PO Q8H 7 Days Qty: 21 0RF methylprednisolone [Medrol (Sabino)] 4 mg tablets,dose pack 4 mg PO DAILY 6 Days Qty: 21 0RF Rx Instructions: as directed No Action levofloxacin 750 mg tablet 750 mg PO DAILY 5 Days Qty: 5 0RF metronidazole 500 mg tablet 500 mg PO Q8H 5 Days Qty: 15 0RF acetaminophen-codeine 300-30 mg tablet 1 tab PO Q6H PRN (Reason: pain) 5 Days Qty: 20 0RF Proctofoam HC 1-1 % foam 1 applic WV BID Qty: 10 0RF Instructions: Manley Palsy (ED) Referrals: BILLY PEREZ [Primary Care Provider] - 1 week JEFFY MALDONADO [Physician] - 1 week Discharge Date/Time: 04/13/23 11:05 Stand Alone Forms: Portal Instructions
== END 2023-04-13 11:05 | disposition home or self-care (01) ==
PROVIDERS: Emergency Provider Emergency Medicine; PCP Internal Medicine
DX: G51.0 Bell's palsy (principal); E66.9 Obesity, unspecified; Z68.41 Body mass index [BMI] 40.0-44.9, adult; Z98.891 History of uterine scar from previous surgery; Z79.899 Other long term (current) drug therapy; Z87.891 Personal history of nicotine dependence
CPT/HCPCS: 70450; 99284

== ENCOUNTER 2023-12-31 10:11 | Observation (INO) | payer OTHER, SELFPAY ==
[2023-12-31] VITALS (29 sets, daily range): BP systolic 96–146; BP diastolic 62–92; PULSE 63–108; TEMP 36.4–36.7; O2SAT 92–100; BMI 47.6; BMI 48.2
--- NOTE | 2023-12-31 10:32 | CT_ITS ---
The [address] [address] Patient Name: JENNIFER VALENCIA MRN: [id number] date: 1970 Sex: F Assigned Patient Location: ER Current Patient Location: ER Accession/Order Number: [id number] Exam Date: 12/31/2023 10:45 Report Date: 12/31/2023 11:06 At the request of: ALIA ELLIS Procedure: CT stroke head/brain wo con NONCONTRAST HEAD CT COMPARISON: Head CT 04/16/2023. CLINICAL HISTORY: Left arm weakness. TECHNIQUE: Routine noncontrast images of the brain obtained. CT examination of the head without IV contrast. Dose reduction techniques were achieved by using: automated exposure control and/or adjustment of mA and /or kV according to patient size and/or use of iterative reconstruction technique. FINDINGS: Paranasal sinuses and mastoid air cells are clear. Intraorbital contents are unremarkable. No acute bony abnormality. Intracranially, there is no evidence of hemorrhage, mass effect, or midline shift. Ventricles and cisternal spaces are age appropriate. CT/CT stroke head/brain wo con IMPRESSION: No acute intracranial abnormality. Electronically authenticated by: EMIL MANNING Date: 12/31/2023 11:06
--- NOTE | 2023-12-31 10:39 | ECG_ITS ---
The [facility] Test Date: 2023-12-31 Pat Name: JENNIFER VALENCIA Department: Room: - Gender: Female [place]: : 1970 Requested By: [id number] Order Number: [id number] Reading MD: MARCELLUS PABON Measurements Intervals [place] Rate: 68 P: 20 LA: 144 QRS: 24 QRSD: 76 T: 38 QT: 362 QTc: 380 Interpretive Statements 1100 Sinus rhythm 8102 Low QRS voltage in chest leads 9120 atypical ECG Compared to ECG 01/16/2023 06:42:59 No significant changes Electronically Signed On 12-31-2023 23:10:23 EST by MARCELLUS PABON
--- NOTE | 2023-12-31 10:39 | XR_ITS ---
The [address] [address] Patient Name: JENNIFER VALENCIA MRN: [id number] date: 1970 Sex: F Assigned Patient Location: ER Current Patient Location: ER Accession/Order Number: [id number] Exam Date: 12/31/2023 10:45 Report Date: 12/31/2023 11:12 At the request of: ALIA ELLIS Procedure: XR chest 1V EXAMINATION: XR chest 1V HISTORY: Left-sided weakness ; left arm weakness COMPARISON: XR chest 01/15/2023, 04/16/2023 FINDINGS: LUNGS: No significant pulmonary parenchymal abnormalities. VASCULATURE: No increased pulmonary vasculature. PLEURA: No pneumothorax, effusion, or pleural thickening. CARDIAC: No cardiomegaly or cardiac silhouette abnormality. MEDIASTINUM: No visible mass or adenopathy. BONES: No fracture or visible bone lesion. OTHER: Negative. XR/XR chest 1V IMPRESSION: 1. No acute cardiopulmonary process. Electronically authenticated by: RICHA BULLARD Date: 12/31/2023 11:12
--- NOTE | 2023-12-31 10:45 | PC.NURSE ---
pt to CT via stretcher at this time.
--- NOTE | 2023-12-31 10:57 | PC.NURSE ---
nursing report given to Zee ROGERS, all questions answered. pt in CT at this time.
--- NOTE | 2023-12-31 11:17 | CT_ITS ---
The [address] [address] Patient Name: JENNIFER VALENCIA MRN: [id number] date: 1970 Sex: F Assigned Patient Location: ER Current Patient Location: Accession/Order Number: [id number] Exam Date: 12/31/2023 11:30 Report Date: 12/31/2023 12:13 At the request of: ALIA ELLIS Procedure: CT angio neck EXAM: CT angio head, CT angio neck HISTORY: Left arm and leg weakness COMPARISON: CT head performed the same day reported separately. TECHNIQUE: Post contrast CTA imaging of the head and neck was performed with coronal and sagittal reformats. Maximum intensity projection reformats were performed on a separate workstation. NASCET criteria was utilized. This CT exam was performed using one or more of the following dose reduction techniques: Automated exposure control, adjustment of the MA and/or kV according to patient size, or use of iterative reconstruction technique. FINDINGS: Aortic arch: Imaged portion shows no evidence of aneurysm. No significant stenosis of the major origins of the major arch vessels. Right carotid system: No evidence of significant (50% or greater) stenosis or occlusion. Left carotid system: No evidence of significant (50% or greater) stenosis or occlusion. Vertebral arteries: Codominant. No evidence of significant (50% or greater) stenosis or occlusion. Anterior circulation: No evidence of aneurysm, significant stenosis, or occlusion. Vertebrobasilar system: No evidence of aneurysm, significant stenosis, or occlusion. Venous sinuses: Grossly patent. Additional findings: Partially visualized cardiomegaly. No abnormal intracranial enhancement. CT/CT angio neck IMPRESSION: No significant stenosis, large vessel occlusion or aneurysm involving the neck or intracranial arterial vasculature. Electronically authenticated by: BRITTANI LLAMAS Date: 12/31/2023 12:13
--- NOTE | 2023-12-31 11:17 | CT_ITS ---
The [address] [address] Patient Name: JENNIFER VALENCIA MRN: [id number] date: 1970 Sex: F Assigned Patient Location: ER Current Patient Location: Accession/Order Number: [id number] Exam Date: 12/31/2023 11:30 Report Date: 12/31/2023 12:13 At the request of: ALIA ELLIS Procedure: CT angio head EXAM: CT angio head, CT angio neck HISTORY: Left arm and leg weakness COMPARISON: CT head performed the same day reported separately. TECHNIQUE: Post contrast CTA imaging of the head and neck was performed with coronal and sagittal reformats. Maximum intensity projection reformats were performed on a separate workstation. NASCET criteria was utilized. This CT exam was performed using one or more of the following dose reduction techniques: Automated exposure control, adjustment of the MA and/or kV according to patient size, or use of iterative reconstruction technique. FINDINGS: Aortic arch: Imaged portion shows no evidence of aneurysm. No significant stenosis of the major origins of the major arch vessels. Right carotid system: No evidence of significant (50% or greater) stenosis or occlusion. Left carotid system: No evidence of significant (50% or greater) stenosis or occlusion. Vertebral arteries: Codominant. No evidence of significant (50% or greater) stenosis or occlusion. Anterior circulation: No evidence of aneurysm, significant stenosis, or occlusion. Vertebrobasilar system: No evidence of aneurysm, significant stenosis, or occlusion. Venous sinuses: Grossly patent. Additional findings: Partially visualized cardiomegaly. No abnormal intracranial enhancement. CT/CT angio head IMPRESSION: No significant stenosis, large vessel occlusion or aneurysm involving the neck or intracranial arterial vasculature. Electronically authenticated by: BRITTANI LLAMAS Date: 12/31/2023 12:13
[2023-12-31 11:20] LABS: Basophils Percent Auto 0.7 % (0.2-2.0); Eosinophils Absolute Auto 0.1 10^3/uL (0.0-0.7); Eosinophils Percent Auto 2.1 % (0.9-7.0); Hematocrit 39.7 % (36.0-48.0); Hemoglobin 13.2 g/dL (12.0-16.0); Immature Granulocytes Abs Auto 0.02 10^3/uL (0.00-0.03); Immature Granulocytes Pct Auto 0.4 % (0.0-0.5); Lymphocytes Absolute Auto 1.5 10^3/uL (1.2-3.8); Lymphocytes Percent Auto 26.5 % (20.5-60.0); Mean Corpuscular HGB Conc 33.2 g/dL (29.9-35.2); Mean Corpuscular Volume 78.3 fL (81.0-99.0); Mean Platelet Volume 9.1 fL (9.5-13.5); Monocytes Absolute Auto 0.4 10^3/uL (0.3-0.8); Neutrophils Absolute Auto 3.6 10^3/uL (1.4-6.5); Neutrophils Percent Auto 63.3 % (43.0-75.0); Platelet Count 210 10^3/uL (150-450); Red Blood Count 5.07 10^6/uL (4.20-5.40); Red Cell Distribution Width 14.8 % (11.0-15.0); White Blood Count 5.7 10^3/uL (4.0-11.0)
--- NOTE | 2023-12-31 11:20 | ED_ITS ---
HPI HPI - General Adult General Chief complaint: Weakness Stated complaint: CVA Time Seen by Provider: 12/31/23 10:28 Source: patient Mode of arrival: Wheelchair History of Present Illness HPI narrative: 53-year-old female presents to the emergency department for weakness on the left side of her face and her left arm and her left leg. This started 15 to 20 minutes before coming into the emergency department. It happened when she was at work. She has never had a stroke before and she has a mild headache. Symptom has been continuous. Related Data Home Medications ?Medication ?Instructions ?Recorded ?Confirmed aripiprazole 5 mg tablet 5 mg PO DAILY 12/31/23 12/31/23 buspirone 15 mg tablet 15 mg PO DAILY 12/31/23 12/31/23 Allergies Allergy/AdvReac Type Severity Reaction Status Date / Time adhesive tape AdvReac Mild Rash Verified 12/31/23 10:22 bacitracin AdvReac Unknown Rash Verified 12/31/23 10:22 strawberry AdvReac Unknown Rash Verified 12/31/23 10:22 Opioid HPI Opioid Management Most Recent Opioid Data: Last Pain Scale 5 01/18/23 16:15 01/18/23 Review of Systems ROS Narrative A ten point review of systems is negative except as noted above. [facility] Medical History (Updated 12/31/23 @ 12:47 by Riccardo Kam MD) Menopausal state ?N95.1 - Menopausal and female climacteric states (ICD-10) Obesity (BMI 30-39.9) ?E66.9 - Obesity, unspecified (ICD-10) Elevated liver enzymes ?R74.8 - Abnormal levels of other serum enzymes (ICD-10) Obesity ?E66.9 - Obesity, unspecified (ICD-10) Achilles tendonosis of left lower extremity ?M67.88 - Other specified disorders of synovium and tendon, other site (ICD- 10) Surgical History Previous section ?Z98.891 - History of uterine scar from previous surgery (ICD-10) Family History Father Family history of myocardial infarction Social History Within the past year, how often did you have a drink containing alcohol: monthly or less Within the past year, how many standard drinks containing alcohol did you have on a typical day: 1 or 2 Within the past year, how often did you have six or more drinks on one occasion: never Total score: 0 Score interpretation: A score less than 3 is consistent with normal alcohol consumption. 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 Known occupational exposures/hazards: No Highest level of school completed/degree received: Associate degree: occupational, technical, vocational program Do you want help with school or training: No Are you now , , , , never or living with a partner: In a typical week, how many times do you talk on the telephone with family, friends, or neighbors: 3 or more times per week How often do you get together with friends or relatives: 3 or more times per week How often do you attend oriental orthodox or pentecostal services: never Do you belong to any clubs or organizations such as oriental orthodox groups unions, [email or web address] or athletic groups, or school groups: no Total score: 1 Score interpretation: A score of less than or equal to 1 indicates the most socially isolated. Little interest or pleasure in doing things: not at all Feeling down, depressed, or hopeless: not at all Feel stressed/tense/nervous/anxious/difficulty sleeping: to some extent Life stressors: recent of family or friend Life stressor details: of mother Do you think of yourself as: straight/heterosexual Gender Identity: female Exam Narrative Exam Narrative: Nurses note and vital signs reviewed and patient is not hypoxic. General: The patient appears well and in no apparent distress. Patient is resting comfortably on cart. Skin: Warm, dry, no pallor noted. There is no rash noted. Head: Normocephalic, atraumatic Eye: Normal conjunctiva, no drainage, EOMI. PERRL Ears, Nose, Mouth, and Throat: oral mucosa is moist. Nares patent. Cardiovascular: Regular Rate and Rhythm Respiratory: Patient is in no distress, no accessory muscle use, lungs are clear to auscultation, no wheezing, rales or rhonchi Back: non-tender GI: Soft and nontender Musculoskeletal: Neurological: A&O, normal speech; she has weakness on the left side of her face with left-sided weakness in her left arm and left leg in all muscle groups. Psychiatric: Cooperative Constitutional Vital Signs, click to edit/add: Last Vital Signs Temp 97.6 F 12/31/23 10:22 Pulse 70 12/31/23 12:22 Resp 18 12/31/23 12:22 BP 127/81 12/31/23 12:22 Pulse Ox 99 12/31/23 12:22 O2 Del Method Room Air 12/31/23 12:22 Course Vital Signs Vital signs: Vital Signs Blood Pressure 146/80 H 12/31/23 10:21 Temperature 97.6 F 12/31/23 10:22 Pulse Rate 70 12/31/23 12:22 Respiratory Rate 18 12/31/23 12:22 Blood Pressure 127/81 12/31/23 12:22 Pulse Oximetry 99 12/31/23 12:22 Oxygen Delivery Method Room Air 12/31/23 12:22 Medical Decision Making MDM Narrative Medical decision making narrative: NIH score is 5 with 1 for facial palsy, 1 point for left arm drift, 1 point for left leg drift, and 2 points for limb ataxia. CT head as well as CTA head and neck were all negative. Telestroke interviewed her and I spoke with Dr. Marin who recommends no thrombolytics. Her symptoms seem to have improved. He does recommend loading her with Plavix and aspirin which was accomplished here at admission to this hospital and this is being accomplished as well. Findings are discussed with the patient. Differential Diagnosis Differential Diagnosis: Hemorrhagic stroke, CVA Lab Data Lab results reviewed: Yes I reviewed the patient's lab results Labs: Lab Results 12/31/23 Range/Units 11:10 WBC 5.7 (4.0-11.0) 10^3/uL RBC 5.07 (4.20-5.40) 10^6/uL Hgb 13.2 (12.0-16.0) g/dL Hct 39.7 (36.0-48.0) % MCV 78.3 L (81.0-99.0) fL MCH 26.0 L (26.7-34.0) pg MCHC 33.2 (29.9-35.2) g/dL RDW 14.8 (11.0-15.0) % Plt Count 210 (150-450) 10^3/uL MPV 9.1 L (9.5-13.5) fL Neut % (Auto) 63.3 (43.0-75.0) % Lymph % (Auto) 26.5 (20.5-60.0) % [place] % (Auto) 7.0 (1.7-12.0) % Eos % (Auto) 2.1 (0.9-7.0) % Baso % (Auto) 0.7 (0.2-2.0) % Neut # (Auto) 3.6 (1.4-6.5) 10^3/uL Lymph # (Auto) 1.5 (1.2-3.8) 10^3/uL [place] # (Auto) 0.4 (0.3-0.8) 10^3/uL Eos # (Auto) 0.1 (0.0-0.7) 10^3/uL Baso # (Auto) 0.0 (0.0-0.1) 10^3/uL Abs Immat Gran (auto) 0.02 (0.00-0.03) 10^3/uL Imm/Tot Granulo (auto) 0.4 (0.0-0.5) % PT 11.1 (9.0-11.6) sec INR 1.05 APTT 26.7 (22.3-36.2) sec Sodium 141 (136-145) mmol/L Potassium 4.1 (3.5-5.1) mmol/L Chloride 105 (98-107) mmol/L Carbon Dioxide 24.6 (21.0-32.0) mmol/L Anion Gap 15.5 BUN 8.0 (7.0-18.0) mg/dL Creatinine 0.77 (0.55-1.02) mg/dL Est GFR ( Amer) >60 (>=60 mL/min/1.73m^2) Est GFR (Non-Af Amer) >60 (>=60 mL/min/1.73m^2) BUN/Creatinine Ratio 10.4 Glucose 105 (74-106) mg/dL Calcium 9.5 (8.5-10.1) mg/dL Imaging Data CT scan - head: Radiologist's impression: ITS Impressions Brain CT 12/31/23 10:32 IMPRESSION: No acute intracranial abnormality. Electronically authenticated by: EMIL MANNING Date: 12/31/2023 11:06 Chest X-Ray 12/31/23 10:39 IMPRESSION: 1. No acute cardiopulmonary process. Electronically authenticated by: RICHA BULLARD Date: 12/31/2023 11:12 Head CTA 12/31/23 11:17 IMPRESSION: No significant stenosis, large vessel occlusion or aneurysm involving the neck or intracranial arterial vasculature. Electronically authenticated by: BRITTANI LLAMAS Date: 12/31/2023 12:13 Neck CTA 12/31/23 11:17 IMPRESSION: No significant stenosis, large vessel occlusion or aneurysm involving the neck or intracranial arterial vasculature. Electronically authenticated by: BRITTANI LLAMAS Date: 12/31/2023 12:13 ECG Data Attestation: I personally reviewed and interpreted this ECG as follows: (EKG on my interpretation shows sinus rhythm with a rate of 68 and no acute change) Discharge Plan Discharge Chief Complaint: Weakness Clinical Impression: Acute CVA (cerebrovascular accident) Patient Disposition: Admitted As Inpatient Time of Disposition Decision: 12:46 Condition: Fair
[2023-12-31 11:26] LABS: Anion Gap 15.5; BUN Creatinine Ratio 10.4; Calcium 9.5 mg/dL (8.5-10.1); Carbon Dioxide 24.6 mmol/L (21.0-32.0); Chloride 105 mmol/L (98-107); Estimated GFR (African America >60 (>=60 mL/min/1.73m^2); Estimated GFR (Non-African Ame >60 (>=60 mL/min/1.73m^2); Glucose 105 mg/dL (74-106); Potassium 4.1 mmol/L (3.5-5.1); Sodium 141 mmol/L (136-145)
[2023-12-31 11:39] LABS: INR 1.05; Partial Thromboplastin Time 26.7 sec (22.3-36.2); Prothrombin Time 11.1 sec (9.0-11.6)
--- NOTE | 2023-12-31 12:18 | PC.NURSE ---
Patient using neuro video visit with neurology at this time.
--- NOTE | 2023-12-31 12:58 | P.HP_ITS ---
HPI H&P: HPI History of Present Illness Chief complaint: CVA Narrative: 53-year-old female with past medical history of obesity, Fatty liver disease, depression, who presented to the emergency department for weakness on the left side of her face and her left arm and her left leg. This started 15 to 20 minutes before coming into the emergency department. It happened when she was at work. She has never had a stroke before and she has a mild headache. Symptoms have been continuous. NIH scale was 5 in the ER. ER physician got a Telestroke consult. They felt as CTA of the head and neck normal along with her symptoms improving that ok to give aspirin and plavix. 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 Patient takes aripiprazole and BuSpar only. No recent medication changes. NO recent vaccines ER findings: Normal CTA of the head and neck, WBC's 5.7, Hb 13.2, normal Chest Xray and EKG, BP 127/81, pulse 70, RR 18. Opioid HPI Opioid Management Most Recent Pain and Opioid Data: Last Pain Scale 5 01/18/23 16:15 01/18/23 Last Pain Assessment 12/31/23 17:00 Last ORT Total Score 0 12/31/23 13:41 12/31/23 Last ORT Risk Category Low Risk 12/31/23 13:41 12/31/23 Review of Systems ROS Narrative ROS: a complete review of systems were reviewed with patient and are positive as below or listed in History of Chief Complaint. General: no fever, chills, night sweats Head: headache, no trauma, visual changes, nausea or vomiting Skin: no reported rashes, itching or sores Eyes: no blurriness of vision Ears: no reported hearing loss, vertigo, earache, or tinnitus Throat: no sore throat, hoarseness, swelling of neck, or tongue pain Heart: no chest pain Lungs: no shortness of breath or cough GI: no diarrhea or vomiting/nausea Urinary: no urinary urgency, frequency or pain Neuro: numbness or tingling. left arm, left leg and left face HEM: no bleeding issues or bruising ENDO: no thyroid problems Psych: anxiety and depression [facility] Medical History (Updated 12/31/23 @ 16:05 by Lynnette Vega DO) Obesity ?E66.9 - Obesity, unspecified (ICD-10) Fatty liver ?K76.0 - Fatty (change of) liver, not elsewhere classified (ICD-10) Depression ?F32.A - Depression, unspecified (ICD-10) Menopausal state ?N95.1 - Menopausal and female climacteric states (ICD-10) Elevated liver enzymes ?R74.8 - Abnormal levels of other serum enzymes (ICD-10) Obesity ?E66.9 - Obesity, unspecified (ICD-10) Achilles tendonosis of left lower extremity ?M67.88 - Other specified disorders of synovium and tendon, other site (ICD- 10) Surgical History Previous section ?Z98.891 - History of uterine scar from previous surgery (ICD-10) Family History Father Family history of myocardial infarction Social History Within the past year, how often did you have a drink containing alcohol: monthly or less Within the past year, how many standard drinks containing alcohol did you have on a typical day: 1 or 2 Within the past year, how often did you have six or more drinks on one occasion: never Total score: 0 Score interpretation: A score less than 3 is consistent with normal alcohol consumption. 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 Known occupational exposures/hazards: No Highest level of school completed/degree received: some college, no degree Do you want help with school or training: No Are you now , , , , never or living with a partner: In a typical week, how many times do you talk on the telephone with family, friends, or neighbors: 3 or more times per week How often do you get together with friends or relatives: 3 or more times per week How often do you attend anglican or spiritism services: never Do you belong to any clubs or organizations such as anglican groups unions, fraternal or athletic groups, or school groups: no Total score: 1 Score interpretation: A score of less than or equal to 1 indicates the most socially isolated. Little interest or pleasure in doing things: more than half the days Feeling down, depressed, or hopeless: several days Feel stressed/tense/nervous/anxious/difficulty sleeping: to some extent Life stressors: recent of family or friend Life stressor details: of mother Do you think of yourself as: straight/heterosexual Gender Identity: female Meds Home Medications and Allergies Home Medications ?Medication ?Instructions ?Recorded ?Confirmed ?Type aripiprazole 5 mg tablet 5 mg PO DAILY 12/31/23 12/31/23 History buspirone 15 mg tablet 15 mg PO BID 12/31/23 12/31/23 History sertraline 50 mg tablet 75 mg PO Q24H 12/31/23 12/31/23 History trazodone 100 mg tablet 100 mg PO .QD 12/31/23 12/31/23 History Allergies Allergy/AdvReac Type Severity Reaction Status Date / Time adhesive tape AdvReac Mild Rash Verified 12/31/23 10:22 bacitracin AdvReac Unknown Rash Verified 12/31/23 10:22 strawberry AdvReac Unknown Rash Verified 12/31/23 10:22 Exam Narrative Exam Narrative: General: Patient is alert, and oriented to person, place and time with normal affect, proper hygiene Skin: no visible rashes, or ulcers Head: atraumatic, acephalic Eyes: PERRLA, no nystagmus present, conjunctiva clear, no scleral icterus Ears: normal gross auditory acuity Nose: symmetric, no discharge, no maxillary or frontal sinus tenderness Mouth/Throat: no erythema, exudate, or tonsillar enlargement, normal dentition Neck: no masses palpated, normal thyroid, no JVD or audible carotid bruits Heart: Normal rate and rhythm, no murmurs/rubs/gallops Lungs: no audible wheezes, crackles and normal breath sounds all lung talley Abdomen: Normal audible bowel sounds, no distension, No palpable masses, no organomegaly, no rebound/guarding/ or rigidity Musculoskeletal: no swelling bilateral lower extremities, 4/5 strength in the left hand surgical elastic knitter and 4/5 strength in the left lower leg Vascular: Normal carotid, radial, femoral, posterior tibial, and dorsalis pedis pulses Lymph: no supraclavicular, axillary, or anterior/posterior cervical adenopathy Neuro: CN with left facial droop and decreased sensation on the left face Constitutional Vital Signs, click to edit/add: Last Vital Signs Temp 97.6 F 12/31/23 10:22 Pulse 70 12/31/23 12:22 Resp 18 12/31/23 12:22 BP 127/81 12/31/23 12:22 Pulse Ox 99 12/31/23 12:22 O2 Del Method Room Air 12/31/23 12:22 Results Labs Labs: Short CBC 12/31/23 Range/Units 11:10 WBC 5.7 (4.0-11.0) 10^3/uL Hgb 13.2 (12.0-16.0) g/dL Hct 39.7 (36.0-48.0) % Plt Count 210 (150-450) 10^3/uL BMP 12/31/23 11:10 Sodium 141 Potassium 4.1 Chloride 105 Carbon Dioxide 24.6 BUN 8.0 Creatinine 0.77 Glucose 105 Calcium 9.5 Assessment and Plan Assessment and Plan (1) Acute CVA (cerebrovascular accident): Assessment and Plan: Loaded with aspirin and plavix, still start atorvastatin 40mg tonight. Continue daily aspirin and plavix tomorrow. Telestroke consult, and MRI ordered and findings normal. Echo ordered. neurochecks q4 hours. CTA of the head and neck negative. normal Lexiscan stress test several months ago. Normal CBC, CMP; also check lipids, thyroid, ha1c in the morning. (2) Depression: Assessment and Plan: continue abilify and buspar Qualifiers: Depression Type: unspecified Qualified Code(s): F32.A - Depression, unspecified (3) Fatty liver: Assessment and Plan: will check LFT's, cholesterol in the morning. (4) Obesity: Assessment and Plan: would benefit from weight loss Qualifiers: Body mass index: BMI 45.0-49.9 Obesity classification: adult class 3 (BMI >= 40) Obesity type: due to excess calories Serious obesity comorbidity presence: with serious comorbidity Qualified Code(s): E66.813 - Obesity, class 3; E66.01 - Morbid (severe) obesity due to excess calories; Z68.42 - Body mass index [BMI] 45.0-49.9, adult Plan Patient is a full code continue aspirin and plavix Patient is in observation status and is not expected to cross 2 midnights
--- NOTE | 2023-12-31 13:05 | CA_ITS ---
Patient Name: JENNIFER VALENCIA MR#: [id number] : 1970 Exam Date: 12/31/2023 Ordering Doctor: Lynnette Vega . ECHOCARDIOGRAM REPORT PROCEDURE: CA ECHO DOPPLER COMPLETE INDICATIONS: CVA with left sided symptoms COMPARISON: None. DESCRIPTION: COMPLETE ECHOCARDIOGRAM Real-time transthoracic echocardiography with 2D, M-mode, spectral and color flow Doppler performed. QUALITY: Technical quality was adequate. LEFT VENTRICLE: Normal chamber size. Normal left ventricular wall thickness. Normal systolic function. LV EF: Normal left ventricular ejection fraction, (>55%). DIASTOLIC: Normal diastolic function. ATRIAL SEPTUM: LEFT ATRIUM: Normal chamber size. RIGHT ATRIUM: Normal chamber size. RIGHT VENTRICLE: Normal chamber size. Normal right ventricular systolic function. TRICUSPID VALVE: Normal mobility and thickness. No stenosis with trivial regurgitation. No evidence of pulmonary hypertension. RVSP 30 mmHg MITRAL VALVE: Normal mobility and thickness. No evidence of mitral valve stenosis. There is no mitral annular calcification. Trivial mitral regurgitation. AORTIC VALVE: Not well visualized. No evidence of aortic valve stenosis. No aortic regurgitation. AORTIC ROOT: Normal diameter and appearance. PULMONIC VALVE: Not well visualized. No stenosis. No regurgitation. PERICARDIUM: No evidence of pericardial effusion. IVC: Not well visualized. PLEURA: CONCLUSION: 1. Normal ventricular function. Estimated LVEF is 55 to 60%. 2. No significant valvular dysfunction. 3. Normal right-sided pressures. 4. No pericardial effusion. Adult Echocardiography Procedure Report Left Ventricle LVEDD (3.7 - 5.6 cm): 4.33 cm LVESD (2.2 - 4.0 cm): 2.52 cm LVIVS thickness (0.6 - 1.2 cm): 0.89 cm LVPW thickness (0.5 - 1.0 cm): 1.01 cm e': 0.13 m/s E - e': 4.91 LVOT Max Gradient: 3.87 mm[Hg] LVOT Area (cm2): 0.98 m/s Peak Velocity (LVOT): 0.98 m/s Mean Velocity (LVOT): 0.63 m/s LVOT Diameter 1.85 cm Left Atrium LA Volume Index (2D A2C): 19.32 ml/m2 Left Atrium Systolic Dimension: 3.83 cm Mitral Valve MV E to A Ratio: 1.05 Mitral Valve A-Wave Peak Velocity: 0.62 m/s Mitral Valve E-Wave Peak Velocity: 0.65 m/s Right Ventricle Aorta AO Root Diam: 2.94 cm Aortic Valve AoV Area (Peak Cruz): 2.02 cm2, 2.02 cm2 AoV Area (VTI): 2.19 cm2, 2.19 cm2 Peak Velocity(Antegrade Flow): 1.31 m/s Peak Gradient(Antegrade Flow): 6.91 mm[Hg] Mean Velocity(Antegrade Flow): 0.85 m/s Mean Gradient(Antegrade Flow): 3.29 mm[Hg] Velocity Time Integral: 28.75 cm Tricuspid Valve Peak Velocity (Regurgitant Flow): 2.61 m/s Pulmonic Valve Mean Gradient: 1.53 mm[Hg] Mean Velocity: 0.59 m/s Peak Velocity: 0.84 m/s, 0.68 m/s Peak Gradient: 1.87 mm[Hg], 2.80 mm[Hg] Right Atrium Right Atrium Systolic Pressure: 25.98 ml, 25.98 ml Dictated by: Walter Carroll M.D. on 12/31/2023 at 19:35 Approved by: Walter Carroll M.D. on 12/31/2023 at 19:37
--- NOTE | 2023-12-31 13:05 | MR_ITS ---
[address] [address] Patient Name: JENNIFER VALENCIA MRN: [id number] date: 1970 Sex: F Assigned Patient Location: [place] Current Patient Location: [place] Accession/Order Number: [id number] Exam Date: 12/31/2023 15:20 Report Date: 12/31/2023 16:28 At the request of: RICHARD HITCHCOCK Procedure: MR head/brain wo con MRI BRAIN WITHOUT CONTRAST. INDICATION: CVA. COMPARISON: None available. TECHNIQUE: MR imaging of the brain using the following unenhanced sequences: Axial diffusion, axial FLAIR, axial T2 weighted, coronal and sagittal T1, coronal gradient-echo T2. FINDINGS: EXTRA-AXIAL SPACE:Age appropriate ventricles. No extra-axial collection. CEREBRUM: There is a nonspecific T2/FLAIR hyperintense lesion in the right frontal lobe white matter. No areas of restricted diffusion. No acute infarct, hemorrhage or mass. CEREBELLUM: No signal abnormality. No areas of restricted diffusion. No acute infarct, hemorrhage or mass. BRAINSTEM: No signal abnormality. No areas of restricted diffusion. No acute infarct, hemorrhage or mass. EXTRACRANIAL STRUCTURES:Paranasal sinuses are clear. Mastoid air cells are clear. Globes and orbits are normal. Normal pituitary gland. Normal calvarium. MR/MR head/brain wo con IMPRESSION: No acute intracranial abnormality. No acute infarct or hemorrhage. Electronically authenticated by: MOSES AYALA Date: 12/31/2023 16:28
[2023-12-31] MEDS: CLOPIDOGREL BISULFATE 75 MG TABLET 300 MG PO (13:10)
[2023-12-31] MEDS: ASPIRIN 81 MG TAB.CHEW 324 MG PO (13:11)
[2023-12-31 13:39] LABS: Bilirubin Urine NEGATIVE (NEGATIVE); Blood Urine NEGATIVE (NEGATIVE); Clarity Urine CLEAR (CLEAR); Color Urine LT. YELLOW (YELLOW); Glucose Urine UA NEGATIVE (NEGATIVE); Ketones Urine NEGATIVE (NEGATIVE); Leukocyte Esterase Urine NEGATIVE (NEGATIVE); Nitrite Urine NEGATIVE (NEGATIVE); Protein Urine NEGATIVE (NEG/TRACE); Specific Gravity Urine 1.015 (1.005-1.025); Urobilinogen Urine 0.2 EU/dL (0.2-1.0)
[2023-12-31 13:54] LABS: Bacteria Urine NONE SEEN #/HPF (NONE SEEN); Mucus Urine NONE SEEN (NONE SEEN); RBC Urine NONE SEEN #/HPF (0-2); Squamous Epithelial Cell Urine FEW #/LPF (NONE/RARE); WBC Urine NONE SEEN #/HPF (NONE SEEN)
--- NOTE | 2023-12-31 15:18 | SWNOTE1 ---
SW stopped in to speak with pt. Pt was down getting MRI. Pt's boyfriend was in room. He voiced he was concerned about pt after getting message from her that she was in ED and had numbnesson left side. 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 SW assured boyfriend that she is being taken care of medically here at hospital. SW to stop back in later today or tomorrow to speak with pt.
--- NOTE | 2023-12-31 15:51 | SWNOTE1 ---
SW did also speak with OT and pt may need HH or outpt therapy. Pt not back in room yet, SW to check back tomorrow.
[2023-12-31] MEDS: ATORVASTATIN CALCIUM 40 MG TABLET PO (21:22)
[2023-12-31] MEDS: BUSPIRONE HCL 15 MG TABLET PO (21:22)
[2024-01-01] VITALS (12 sets, daily range): BP systolic 104–167; BP diastolic 64–74; PULSE 66–92; TEMP 36.6–36.9; O2SAT 95–96
--- OUTSIDE RECORDS SUMMARY | 2024-01-01 06:04 | XMS_ITS | CCD ---
Author Organization [facility] Care Team Providers Care Box Icer Name Role Phone Billy Perez Primary Care [...] ELLIS Consulting Unavailable ENRIQUETA SONG Consulting Unavailable Billy Perez MD Primary Care Provider [phone] KENIA SRIVASTAVA Attending Unavailable BILLY PEREZ Referring Unavailable BILLY PEREZ Primary Care Unavailable RICHARD QUEZADA Attending Unavailable BILLY PEREZ Referring Unavailable BILLY PEREZ Primary Care Unavailable BILLY PEREZ Primary Care Unavailable Rashid Arriaga Admitting Unavailable Rashid Arriaga Attending Unavailable BILLY PEREZ Primary Care Unavailable Ml Aguilar Admitting Unavailable Ml Aguilar Attending Unavailable BILLY PEREZ Primary Care Unavailable Juanito Maciel Admitting Unavailable Juanito Maciel Attending Unavailable BILLY PEREZ Primary Care Unavailable Paul Gilbert Admitting Unavaila Paul Abel Attending Unavaila BILLY Crawford Primary Care Unavailable BILLY PEREZ Primary Care Unavailable NANCY Milian Admitting Unavailable NANCY Milian Attending Unavailable ANA, BILLY J Primary Care Unavailable Allergies Allergy Classification Reported Allergen(s) Allergy Type Date of Onset Reaction(s) Facility (6 sources) Bacitracin; Translations: [BACITRACIN] Drug Allergy 4 [place], [place] (4 sources) Other; Translations: [OTHER] Propensity to adverse reactions 4 [place], [place] (1 source) Bacitracin Drug Allergy 1 [facility] (3 sources) strawberry allergenic extract; Translations: [STRAWBERRY] Drug Allergy 9 [facility] (4 sources) Adhesive agent; Translations: [ADHESIVE] Propensity to adverse reactions to drug 3 [facility] (2 sources) strawberry allergenic extract Drug Allergy 9 [facility] (1 source) Adhesive Tape; Translations: [Tape] Propensity to adverse reactions (disorder) [facility] (1 source) [place]; Translations: [Strawberries] Propensity to adverse reactions to food (disorder) [facility] (1 source) ALLERGIES NOT ON FILE; Translations: [ALLERGIES NOT ON FILE] Propensity to adverse reactions (disorder) [facility] Medications Current Medications Medication Drug Class(es) [...] 30 tablet 5 09/23/2019 Active peg 3350-sod sulf,mxkr-lrg-jil 178.7-7.3-0.5 gram recon soln (2 sources) Start: 02-13-2023 End: 02-14-2023 peg 3350-sod sulf,gqvo-vqo-frj 178.7-7.3-0.5 gram recon soln Take 1 kit [...] III; Translations: [Third degree hemorrhoids] 02-13-2023 Episodic Immunizations and screening for infectious disease (2 sources) Encounter for screening for respiratory tuberculosis; Translations: [Encounter for screening for respiratory tuberculosis] Onset: 08-21-2023 Episodic Mood disorders (2 sources) Major depressive [...] Value Interpretation Reference Range Facility Coding Summaryon 04-23-2023 Coding Summary HTMLBase 64 QskcqaxkBCv3cQv+PGhlYW Q+TN5PMHBkC58hpPNydI7e L1YYLAxORyuuUFBTLPmUOm GgfxXhUP5tdIAmIDEn IC8+MB8uSTOiCjzaxCDxw6 Y5aII2V05zhi7bVCgjxEA8 AWMlEjZsihhhl9juiPg9XF cuNmluOyBt JTSynJ27BTB9vL02Qe14xK GdnWFyq0tiaLn5KcAdQDPv TPN2nWonLVgoy5SzUBYnC9 7giNFro8T1 MLQlnSpeuASwHpLcmGG7lH 3fTMabkkrkb1eabcitZot3 sg13rLHbp8Q8lYQ5J6Dgnr V4XTQyfBMe EufgnDZIzR8bqkbmq1swvf ngWwOvSCMnPNb1AKe5XRFo pEjqGeJfQS53FAH6UQMyne KcV7YtQZFy gMcxSoS0c3R4Be4HM0USHh eqI0BUGXZDLKlhfMI+PC90 bd70E4IbWyuvSzm9VPMcCO Q2gXN9uF6o AMChDMllh0P7mNP5X2Ibjd Aska9vn8xfHZUnAEqpT34r uPLqf3F0VFCytCM3VMOihP alZnCayB73 Oyc+TTEryCqek3DbZhlsh6 ljv5mvfVj5WpwbKNRjzaDk uKwbYAU2z2GsPh8cOJZjqR J5fCE2iU4m RxTbByL6ZAbaU032OfYncZ ReJjptV89rP0VsfWM+PHRy Wqz6JUYviNlbOR4yU6GxJG RpbmctbGVm eArrDU7xKKHzgfrpIQNjzS 6uAFSpO7i9EuPoRfZ9EQak G6HxCWGwzhwxWo72hL6rYo QsOmA9GYeh O6BmxtD3NNXidAKrHYzdTW A1C18ag6Z7ZPGaBLSmPXM1 mIL6xX7bpOjtyaibvNLbdM sgdmVydGlj BJavTLhfP721KHIsaBltBu NvZGluZyBEYXRlOiAgMDMv MTIvMjAyNDwvdGQ+PHRkIH S7xApfNSHs pNSnFWuoGt4ebApstJscIY 7kMHNfqxjhIGUycA3gEHSw nTXtrXrzHF5cKMUzqxtme6 61EzIoZAN4 GBCnkWNaE9LkdR9jVbCaZV WhPZIqO6XyyYNfQEpvH754 QXanFsN5AKVjwcMqY7LrZF FsaWduOiB0 d6V1Fo8Lv2ZreqtsL7GtmV YfTmRvXahbKQg5Z4EnWavo dHI+JR89FWHsCX23XOl3AT C2nOvnMYta XTSrQ3ZthG7dHiOrINDvCF RkOyc+PHRhYmxlIHdpZHRo DDuuIHVzOvZccXyzVG4hHu 9yZGVyLWNv mTpxdINrYfDmw4qwPDLgHZ piXV1txMtiI2YveFP9YFRb c6x9Qd96Y23rN3WiaRY+PG UwvAS8oVS9 sH4xLyHhIwO7EUfoL651Bl ZtfSIpFyexe4fbw5sbgUy4 OlS0QQCprpZixNacBSW9g4 AyBi21K49r IHdpZHRoPSIxNSUiIHZhbG pxtb4vcS1tDf6+PGNvbCB3 qHL2aK2jShGbJeP9MKygH8 49InRvcCIv Nmdgk4ang1ixjBp5HmCiXH PknjMviKecQPH2r0XoXa32 E6PphNhbp2MbTvr3hl82cN Ecg5A6nKP9 U6LfCXBdzhijzMCyhMeaUT 6tDGFjokclYQItcM9vJTHb S4s0FjYfOgQ9PFazJ8Tfrx J8VKTzwCYk QWYpiOWMgL2kihzoa3mdxx bkIoBcUHYdZSh5GUe0QEDv qPtvWzVzNYM7XqY4YMX8jI DlpK8pfEyq iuocoT7rUov+WJI8wLNyvI HGER6yFyyglDC+PHRkIHN0 iOmkSNsnNMYyaJ1xRFWzE1 r0ZeJhXwR8 YPpnQ3BfqlG1KPWetLFxGF PbcYZZoZ4bigduj1xdqdze DwDeEMEbIWx5VWt3WUIteA duOiBsZWZ0 WdU5DCY6hATidY1xwFvvrk auyH4wRlo+QmlydGggRGF0 GEx5Q1UeHzz0ZYVfkLntNB 0ncGFkZGlu Kb3dlPokiXneUF3cVVAywa tzy104XyDan2gnZHWciYNq MArkEPN8N73yo2L4UXQuES SsJZW8sYV8 nY0hmSdkfnyvfSJttMcidk FwzMqmTThdKWowV883IPFt dYutRyRjVKk4F5EsSkc1JA BjcBvhBA5i tVGfLWedYo2coAusqQimAJ 2yABDjmlieb914PlFof5uo QQQjtOWjGLfqDJP2R49nz7 D0HQNhFGPm ADF8zNS2iJ2zoUsxmzzerJ VmdDsgdmVydGljYWwtYWxp U154GWClhYdgDzXfsSn7B9 CgMzt4OLGf zBtaOC0dzZUyJYrfIz3aqJ oyhFptIQ2wCWValltmr672 HjDxs0xcLSOszATxMEgbXH S0X74kt7W4 FAKiSCGqLXB9oAC7lO2foG lnbjogbGVmdDsgdmVydGlj LAdzSXclP751DPYfjKzbVn BhdGllbnQg TFggZOz3T3RgQcbtwWT+PC 82PUImMM89nSMnaDPmh8aw eWk5ZiYwZSStKJA2iQfzRM ifa8JpKOEc V53yuQLpx9S3KCTpjCfewD MkQjLghHR4eL5iYSicsebt g2zylorgFxizl9cmew85uV 28C32rJZjw ZHRoPSIzMCUiIHZhbGlnbj 3rwF4hLh2+LJWauEP6kTI0 sR8bDGTgJvR8DJokY671Lo RvcCIvPjxj o8uje7jljJw9RiI1MSYgmn SlwKvhRBL8a3GgZg83P19g IHdpZHRoPSIyMCUiIHZhbG uirt8feJ0z Ii8+GZWsuYU3hLH6kT8wVi IjMpJ8PJodF029KpPquGQk MfgnN47kN1DltNP+PHRyPj i2IXMaaTgy BO5rwVJnRXdyQz4mDWX4Lv XkZaYjBNyuT7EvDWSzqdxs wdujtMV6TVIqFJBezG74Om 9udDogMTBw hCIGkJ7rbfvve1ispczaOh RyDRLgXLi0FOt7CKUdmUwc UzMcBER6SpO9AHZ7qRJexZ 1hbGlnbjog xQ2eY3FxCYOltmmxFh30wI 0nGjKeJuP3HMioLgy+QU5E COWFY63oFAUKHaXmYKfueJ Q+PHRkIHN0 bRyrUCbbBRHopX3nSAIyV2 c9ArZjQmF2BPznX1QtCIOr xkysHd69yE9yWnFoYpN2JW wiS5LxpvD5 ALYjmCCzGJidBLT4X69tn7 Q2CRAbIVIhEXM4wJU4iM5c bGlnbjogbGVmdDsgdmVydG ljYWwtYWxp C775XELswZmbLrP7OtGbTc Q9EjC1G8GoHlq9XUUopLrh BU1udIFoBOiqVc8rtBediP nvAX9vZYWz bwsbRVZmcE4tVFBqhKAqxV rmQT5dAAVmptpns089SoJr GJR8TPTnpJGrM3DouZ4zDi AjMDAwMDAw M8LllPXoSGitX747IAmtRo X4CEAqaaGaP6JfEVNcrLns DuI4u4K4Aq23OMTMBRMrsx wvdGQ+PHRk YOP5jQrtMDucYENhoS8wOY WjK5n8PmIxCaQ6HDogP1Oy XZIksdiuKc68kX3yHoFmCv V2VVdoI7We ghH7GIBsdJRqFPnwYFV1C9 1dq7F4BQVoJOUdYGP1vHC7 eE1qkCoclrijjUMdjOarjd VydGljYWwt EPusG443QBSnsHcdOjFTIK FMRTwvdGQ+GVWtRKP5hEpu JQizDBNjkN8iEIDsX4t3Mi EfYrJ6PTiv Q0MkQQKaprtqUy89lP5kFn XtSjA8QMstP9GfpvR9BEUe yIMjYNslXDE5X72pk4C7XO MwMDAwMDA7 rIO3mF3bhBdoirsyqRDxfR yokjSnmYehEDlfJSfiB871 MRBviGknXxGnQMDoPH3hkE wvdGQ+PC90 rd17H4SbZasgSna2PEJdRY J2iCP0zF2zAHXpOJtmu7V8 tGD2D7BbseFdtb0pd8cgRR RfSIxeC57a cLCpk6K2RXRhzBN4HCXxkX rdEbDecA83Cwk+PGNvbGdy b4MzQsylp9ztt0jdyVa9Nq MwJSIgdmFs kUgvTUX4o5IyGb11P81pXM dpZHRoPSIzMCUiIHZhbGln mw4seD4kYs0+VVOzeUB9jP W8sQ2nAdMg DiD0FYcoA335XmGxrVUhPq ddg4goa0mziZr5VpXwHCDz yxSogChzHDB0n0YzQy92Z9 EhyCjyx1Fy Iix2bb76aRPqf4C4tBH3M3 WyBVHjysudcCVyoQqxIY7w FOFgnlbiFKKylR3sQMIkS6 u8DqWuYiR5 NXxwK6BiduX8XEOisLAaAZ NuqAPQzZ5vpeilu5fncjbq JjTgKFKsIPy1YMf6BPSwuT duOiBsZWZ0 ZgO1TCP3kDMfnZ7xjOhvlc waaA6gAiv+QPd7l2oxkFLe JO9fmZY5TO75BG82eRDtw8 E0iXN7E8On KIAbovyiybdrmFO6KCLePW MyrY10Kh3btSayXu5pECQu ELX6GNKzlABgS1MgeP2nSr AjMDAwMDAw K3DkeEZaOZsvB268TNscVp I0KYEwnyAcU2NeDCOwjXcb WzR7o2C9Sf2SDP29CT50GA 74aORus2K1 fFR1B4HcUDWtvxipebmpgP P1JMHxDNNnyS26Ue1wvAkj Xb5yHUJtDSK3KWFarBAvP5 QtvI4dPgPp HSWcMLWfJ0MsrQKwPSkjO7 75JDoiDiY6CHAwcpVyV1Kh WDCinDljMrN8x0Z5Pi1JUa 66IM41MF99 mTCey3S9kPE1G7AaACUked kunfjwsSL9JNYgSWOqqG25 Xf4csNouCg6pIBIsAJV6WE PugQLwE2Ow wG4cGlKfJQTfJHDhY9DxyL AfRHgkL651MJsgGgN9UQAc gxMlJ9HcGIPxhMgfZnT9r4 O1Is0ITWiy yxs9A2NvVjucvBO+PC90YW HpLB36uQTfkYYlv6dwjCy4 KsObBTLeVLD9bKtvWBsrt3 CxIJBvU89o bGF (more content not included)... [facility] Coding Summary HTMLBase 64 NpdejfxdXLx2eKf+PGhlYW Q+WB2GYBElM84cjMKicE5i E4UDSKmGDnmbJMJDUPzPQw SqyfUaKB7niBXzJSYm IC8+IW5iEDHhUcddwGNiv5 R2hYU2H24ykq2mWVediXW8 ENIxNdNzwstno1iuuLh9LL cuNmluOyBt VTUabX29EGH5bM67Dc12kB UvlGBjq4ahdWc3OaHhXYPd UCO7sFnjZYmtb2MjOFVtB9 3hpWJkt2C3 DKPpfGaucEVuBbEtgVS8eE 7qGFdelbcla4rromanIud0 ou18hTFqj7D1fWI0A3Dtki O0VMLkyJKh JdqgiXLDvN5zmzbtt2xzcd qbNsSpSVKjXWy7FWb7CXJh pHlbDmTfJV14DFP3ZEArwa JxF4AaBSRj mRqjYnC0d7Y6Er7VB0UESe uxV4NDOEUYHTdmpHL+PC90 kq59T0BuMfoqLuq7EGRoRL M0sVT1nU2q FGHbGIvpa6E4jTM8G1Nzcx Onuf3ie3qjVJYkPHryX49l vVSpk8I5VHYsmTW0YKWizV atTzFveS38 Oyc+DFOtfKwfp0NfHvlvd0 ytd3triEm5YqkwLGAgfeOb aLolAMU5x8XiGh5cDWFpaS Y7hHN7tC1p SxHpAuJ6UFswP756RbJamA XlIyxsZ37qP6HjsAM+PHRy Tpr8XKRryDapFZ2yZ1GuDF RpbmctbGVm fPiwWJ6yBDYbmjlxKQCojG 1wKNXnN9w1DoTwDxR2PMmg Q1KeQZCvlltzSh96yT4mVm MgAaB6PXqb R5RolcK0YDLuhHWiCJyfQB F3W77zr6L1CSVtFMOuOXP4 wGQ9hO2dnPebrhnjvXZifM sgdmVydGlj MGfcNEsnS808ITEhvUplQk NvZGluZyBEYXRlOiAgMDMv MTIvMjAyNDwvdGQ+PHRkIH L3aJibTRAy zBRpKBmzDi3dhYhxpPbcLV 5yTPRsgvgvXXNtcU0bBPXm jOQbnDkiSA9oLJCpkbyad1 12PnNzOWI8 FPOyaLTpQ0LrgZ9lKpAaDG YfXNPgN8MlzVGoEOzlT754 MFgpUaV1QPQkxhKmT6AaJI FsaWduOiB0 g8D5Fe4Uj7CgijsvM8RnqX HsFqBcZrjcAOb3I6BwPzar dHI+VQ32NEEmUX80ULj1ZE R9iSynDZcx XYWuA5AseD7yVjVaBXWpCU RkOyc+PHRhYmxlIHdpZHRo MSboYFNeUkDqxRkdVP8wNq 9yZGVyLWNv jXsjeRJiDoSgw6yxVEInIW csUX1nwObjM9UtxJM9RKGm h3z6Ou88D87hN7YoeMF+PG YcyFK3qUC7 xG8bZuBxGgY5ZJvvO888Mt LjjWPvKmzhq5oyx8vkyLp1 UdZ2FROddzVbxKwuSZL1u8 ZjGc85P92u IHdpZHRoPSIxNSUiIHZhbG yhhz8vcP1gKu5+PGNvbCB3 rBA2gE4rFcFeEkK0QCwwG7 49InRvcCIv Yighq0pif9huuCy7SaIqZO HjszCbmLjjBPW6r5MsMy92 X4XypFggu1BfTxh7qe97lH Ouh5B0gIZ5 J6ZiVREobwkupLQryInlBF 3jGBXjudmfIUWqmA7qVTKv K3f9XhMfApX7TJdxA7Qhcc Q0CLPzlAOy PRTarVDOlU5ajtoep1keif tyJaEjBTAjWUs1BYa3JLKl tRptQfQxWDY4CdT7HRS9uA RfwE3kiUst ilvgtH4tWcb+RFL1hHYmdY RNML1dGsukbGC+PHRkIHN0 nIifLYjxUIWpkL6lUGBvN7 j2EnBtKuU6 NKcuV6QbxiL3TXRnqDIkGL ToqKRArI9oglphy3grgmab VmUlXAPuTVa0CPl6JVMsdY duOiBsZWZ0 SyJ4EOH8lMJqmY4dzXdvlq vimO8jXgx+QmlydGggRGF0 YUo5F8YeJab2FJSzdQpeES 0ncGFkZGlu Eu4jsPcrbPotDK7hFHOkcj phu593RtWaz1pxSKCsbZCx LNdcWFB5J31kp0Z4RUPxDY VnYBW6jOJ3 cI5xeVhgxrcgmXGteNmjio GbgPsnLSpdWGuqR144GPAk rYpeQaKdGZe8E0AjDag8JZ YanSguWJ8l cLTgDCjdLs5jfHmqqIgnMO 3sKLDykpmlv395MpOub8zd NGUdmAQkDQrsCZR3P06nc4 U5NPXsCRVk UXQ4wVO9rJ6rvCulkxtgnS VmdDsgdmVydGljYWwtYWxp T948PHLmmMvkWwCylVs0X5 GzVyo8YWYx wBatYX2gfTQvUHxvLd9xcY qdtVrbGG8cNIExdoyii804 PeAzt3wmYPWrhTXpBCvrYX P7L61dh8R9 BXHnEIXvIKL6oOR3hE2dyK lnbjogbGVmdDsgdmVydGlj BXziVYdcZ828HKEbcIlpEv BhdGllbnQg SKzwHGs4E1IeVqrgaCM+PC 47XDTvZC11mENkgFRvm4jp eNa9OuRbIWMwGOM5rAvsPT soj8OvOWQc F96yfOImd4W5MGHinIbbyP KpBgPdcPS0iA9nMNngetfw h4beibudGhjak3lqqw06qQ 27N85gDYbp ZHRoPSIzMCUiIHZhbGlnbj 4aoH0oJj2+YJEvxQD3fMT0 xO8dBWYzGqI6ONawT229Ai RvcCIvPjxj j4gfm8ejcZy0UgU2HIQgko OopWdkOTB8x8YmGl91A02i IHdpZHRoPSIyMCUiIHZhbG ozde7bhC6s Ii8+FYKrwDC5aIN9oH8oFr XyDdK3BTuwM172FoNwxWTq XbleH22yC0RjzHU+PHRyPj m3QPVhrKvo QU5ysEYrVIsuQw1iKDJ7Zh JoOwWqHVroX9AfNCEpliyw ziidgVE4TXVtUYIphK39Qn 9udDogMTBw mPYQjE2wxshay2gsbffaRh EkGDApRZd3GQj4INJuoAyx TzEiIWW6BgP7UVR6jMVgeR 1hbGlnbjog qU4kR8WeBOEwdsrqAb99qU 5jUyLvYqF6EFnsXbo+QU5E PYNTR83jKXZAYsGpKWzrlY Q+PHRkIHN0 iFoqJMwyLVHcqX0oWAUcJ6 j6HnPqHuG9WPvjY4RtUIDq liosWk75fV7rRrAwDaA5RH dsF3IvtoU1 RWNtqAIwCCciQXL9J53oj0 H3CWOtORLxKCE1eMH8aQ3z bGlnbjogbGVmdDsgdmVydG ljYWwtYWxp L770DKVayVzgXpS9AkPxSa T1ZvR4E7BdFbf2OJIcqGzg IR5pyDOjZWcvRv1tsBaivR vuUW9jQIQd inbbPIIijZ1hCRYrzHZygI ytGR7pJTSsieegq077QdUj PUR1EIWpsRTvV2NdeB6wUo AjMDAwMDAw J5GpuZFqSLvbB887JZxmNz Z2RGOkkdIsO1IjLXVfiWvq JrZ7p1G3Is40VTUBTRWxuw wvdGQ+PHRk DTY0fIckMVjxLAWrmQ3xQG JpM6w4LkOrYxP3TTooN7Ln IKRnxdiuRg06eH7aZrSwZu R9XTfkG3Bq djC1KSMxfJUtGKfyZWU4F6 2ic4V1FYNeWFDbUOY3hVY8 bF7jqHkyqdthfBWrzMapln VydGljYWwt TDoqL755DGZemSbkLoSHKO FMRTwvdGQ+TSCaSEG6qGrw PPhmBMIfjF5uTMZoT6i7Bw FuLlZ6IDmp R2XvJJDuyfckVb33wA8wBk MyHuU2XLiwT7CdvjM2HRBq dZGuFVjbRLQ9C04ux8J2PI MwMDAwMDA7 nUM9gI2ddEvrfixwlQGgzY necjSfcUxaIOcuLBjkU142 BXPxrTgfWa2SKT14GV84B4 RyPjwvdGFi bGU+PHRhYmxlIHdpZHRoPS roKRPdRwEmqEupRH3qWf8v ZGVyLWNvbGxhcHNlOiBjb2 xsYXBzZTsg XI4nzEgfP0RtlPA2EYBub5 w0Rn48W30mQ4GncQU+PGNv gEJ0jDS4yS2oEnReKxP9SE fuE823PiMi eABwBokbm6jsk8ehhHo5Kb LqRSIcxfHpzAwkPJV4i5Ky Sz44X65nVAetPQPpGSLmFH UiIHZhbGln ee0nnH3aEs8+ZJBgeYP0eR Z4aV4ySdSvZeU8ZItnL784 TpFmzHNnKxvwB28bN7BkhI A+PHRyPjx0 TQKloLyyPT0zsRFjDRxrNo 3eTDG4UzZdUrHcLTvdU0Vl DHZouioxzjamuKZ1OYWmBO PjmK58Mz6j xYsfEp1vRHQbBPG5WAZwnZ UeS6AlcZ0sWqPeLJWnKASg X7TwmJOoTBddU356WIveRs T4ZRRbibGt D8HkJYIgbKfpRjY3s6O9Ul 1FsIvcmLDvUD6sGoMiCEe1 M3DwNeb5LPTlfWvjKB9tkT LtAKgzWy2z xQbawVdpWN1jUWVqtoxbc8 31GtWcc6qkIOVhuQZsRLku CXQ3F40or2F3PWUpCQVmUB C4qUB6mZ4u bGlnbjogbGVmdDsgdmVydG ycNSjtMHsoY809BOHwrTam YzLAHxv6V9OgHra1XRVehH ovPB8efSYo MNllCb5abGeacZimRN5hWL Reytvpu222HuDnm6nwDAQv nXSbZAzfIKV9A46qs5Q4NQ MwMDAwMDA7 yUK4kI7kbGshpgrwsVYeiL bstlBawYvwXQsyZBcrK784 LNOytIzmAw1UNdt9S2CcFa h2TREfhSql BU9fmKVwOGqxOu1edZhigM ueNA9nPHCnqyopo109VtJn e3bfZIBdjDQwKYeuCPY9R3 8eo7F3LLEk QBJhKGQ0rUJ6iE1ucJoela ogbGVmdDsgdmVydGljYWwt YHszR379KRBnyLpsDeRwwQ VyOjwvdGQ+ WC66cy90H0NbTyiuBhd3ZN WkUDJ2lFM9sE9aEJOyBDdj e1T6nUH6S1GxoxYfir1qa3 xsYXBzZTog Y29 (more content not included)... Normal [facility] .Auto Diff 104-16-2023 Auto [place] % 5 % Normal 02-22 [facility] Comment on above: Performed By: #### 1 [id number] ####[facility] (DEFAULT)[address] [place] [address] Baso Abs# 0.1 x10 Normal 0.0-0.2 [facility] Comment on above: Performed By: #### 1 [id number] ####[facility] (DEFAULT)[address] [place] [address] Basophils/100 WBC (Bld) 0.8 % Normal 0.2-2.0 [facility] Comment on above: Performed By: #### 1 [id number], 55119818, 0958292041, 3460752066, 4034033, [id number] ####[facility] (DEFAULT)[address] [place] [address] 92421 Eos Abs# 0.0 x10 Normal 0.0-0.4 [facility] Comment on above: Performed By: #### 1 [id number], 63203882, 6754492966, 0369621357, 5835291, 5790144997 ####[facility] (DEFAULT)[address] [place] [address] 65436 Eosinophils/100 WBC (Bld) 0.0 % Low 0.9-4.0 [facility] Comment on above: Performed By: #### 1 [id number], 99705430, 4232462463, 6907719542, 2121263, 8168850970 ####[facility] (DEFAULT)[address] [place] [address] 85396 Lymph Abs# 2.0 x10 Normal 1.3-2.9 [facility] Comment on above: Performed By: #### 1 [id number], 81130939, 7864493807, 9096463830, 9621749, 2700357307 ####[facility] (DEFAULT)[address] [place] [address] 00314 Lymphocytes/100 WBC (Bld) 18 % Normal 14-48 [facility] Comment on above: Performed By: #### 1 [id number], 95612436, 4334366851, 1818143053, 0777592, 4329822001 ####[facility] (DEFAULT)[address] [place] [address]65 [place] Abs# 0.5 x10 Normal 0.0-0.8 [facility] Comment on above: Performed By: #### 1 [id number], 16075118, 6477320035, 5517680696, 1442461, 5687294911 ####[facility] (DEFAULT)[address] [place] [address] Neut Abs# 8.6 x10 Normal 1.5-9.2 [facility] Comment on above: Performed By: #### 1 [id number], 82656398, 3044199003, 7475428085, 9213964, 1324741640 ####[facility] (DEFAULT)[address] [place] [address] Neutrophils/100 WBC (Bld) 77 % Normal 44-88 [facility] Comment on above: Performed By: #### 1 [id number], 16045795, 4298196843, 4939330126, 3070753, 5465132693 ####[facility] (DEFAULT)[address] [place] [address] CBC w/ Auto Diffon 4 Erythrocyte distribution width (RBC) [Ratio] 16.3 % High 11.5-15.0 [facility] Comment on above: Performed By: #### 1 [id number], 53514865, 8574083463, 2688819605, 6313158, 9786158041 ####[facility] (DEFAULT)[address] [place] [address] Hematocrit (Bld) [Volume fraction] 40.7 % High 33.7-40.4 [facility] Comment on above: Performed By: #### 1 [id number], 27265926, 7542091650, 3471613573, 8418102, 3203533017 ####[facility] (DEFAULT)[address] [place] [address] Hemoglobin (Bld) [Mass/Vol] 13.5 g/dL Normal 11.3-15.9 [facility] Comment on above: Performed By: #### 1 [id number], 45275343, 2682945481, 0054169644, 5820763, 7128301561 ####[facility] (DEFAULT)[address] [place] [address] 39590 Man Diff? Auto Invalid Interpretation Code [facility] Comment on above: Performed By: #### 1 [id number], 82317512, 3221727567, 9394335438, 5836896, 5746014078 ####[facility] (DEFAULT)[address] [place] [address] 80889 MCH (RBC) [Entitic mass] 26 pg Normal 24-34 [facility] Comment on above: Performed By: #### 1 [id number], 24951588, 0662524391, 3092584878, 0309104, 4041840957 ####[facility] (DEFAULT)[address] [place] [address] MCHC (RBC) [Mass/Vol] 33 g/dL Normal 26-37 [facility] Comment on above: Performed By: #### 1 [id number], 33439920, 9980673225, 6363255382, 0372267, 5913660127 ####[facility] (DEFAULT)[address] [place] [address] 21825 MCV (RBC) [Entitic vol] 77 fL Low 81-100 [facility] Comment on above: Performed By: #### 1 [id number], 33375425, 2306988691, 7792855827, 2331840, 8836666418 ####[facility] (DEFAULT)[address] [place], [place] [address] Platelet 284 x10 Normal 138-427 [facility] Comment on above: Performed By: #### 1 [id number], 30989810, 6443198824, 2096829800, 3957863, 6138457636 ####[facility] (DEFAULT)[address] [place] [address] 24299 Platelet mean volume (Bld) [Entitic vol] 7.6 fL Normal 6.3-10.2 [facility] Comment on above: Performed By: #### 1 [id number], 90703705, 2512134495, 5473404571, 2311673, 2676901664 ####[facility] (DEFAULT)[address] [place] [address] RBC 5.28 x10 Normal 3.70-5.30 [facility] Comment on above: Performed By: #### 1 [id number], 77541493, 3159115990, 1759551501, 2828084, 8225383959 ####[facility] (DEFAULT)[address] [place] [address] WBC 11.2 x10 High 3.5-10.5 [facility] Comment on above: Performed By: #### 1 570851672, 80505649, 4250591817, 7680564069, 6628020, 0938047015 ####[facility] (DEFAULT)[address] [place] [address] CMP Standardon 04-16-2023 eGFR Non AA >60 Invalid Interpretation Code [facility] Comment on above: Performed By: #### 1 [id number], 64402242, 9395798517, 3995819131, 9657880, 3454045141 ####[facility] (DEFAULT)[address] [place] [address] 81853 eGFR AA >60 Invalid Interpretation Code [facility] Comment on above: Performed By: #### 1 [id number], 79267037, 3053944183, 2740510507, 9435983, 1408912661 ####[facility] (DEFAULT)[address] [place] [address] 87354 Albumin [Mass/Vol] 4.1 g/dL Normal 3.5-5.0 [facility] Comment on above: Performed By: #### 1 [id number], 78668776, 0692010687, 0927272294, 1404176, 7928416155 ####[facility] (DEFAULT)[address] [place], [place] [address] Albumin/Globulin [Mass ratio] 1.2 {ratio} Low 1.4-2.6 [facility] Comment on above: Performed By: #### 1 366641812, 48433588, 9477603353, 7956655221, 1537803, 6503219670 ####[facility] (DEFAULT)[address] [place] [address] 68738 Alk Phos 81 IU/L Normal 32-91 [facility] Comment on above: Performed By: #### 1 815645975, 42099225, 3936036021, 2594166709, 3330585, 9688350070 ####[facility] (DEFAULT)[address] [place] [address] 44763 ALT [Catalytic activity/Vol] 87.0 U/L High 14.0-54.0 [facility] Comment on above: Performed By: #### 1 180981130, 60441329, 9879121954, 8761533173, 5879418, 7209606855 ####[facility] (DEFAULT)[address] [place] [address] 20894 Anion gap [Moles/Vol] 10.0 mmol/L Normal 5.0-19.0 [facility] Comment on above: Performed By: #### 1 748543284, 87891816, 6690936015, 7571718837, 3740820, 4238935003 ####[facility] (DEFAULT)[address] [place] [address] 76552 AST [Catalytic activity/Vol] 45 U/L High 15-41 [facility] Comment on above: Performed By: #### 1 [id number], 03645177, 5984423378, 2171282600, 4763816, 5700102384 ####[facility] (DEFAULT)[address] [place] [address] 01356 Bili Total 1.1 mg/dL Normal 0.3-1.2 [facility] Comment on above: Performed By: #### 1 123249655, 72432059, 9841411259, 1123563070, 4424707, 5678274012 ####[facility] (DEFAULT)[address] [place] [address] 07985 Calcium [Mass/Vol] 9.3 mg/dL Normal 8.9-10.3 [facility] Comment on above: Performed By: #### 1 [id number], 28632653, 5876069646, 4446269327, 1090176, 6231779689 ####[facility] (DEFAULT)[address] [place] [address] 23825 Chloride [Moles/Vol] 105 mmol/L Normal 101-111 [facility] Comment on above: Performed By: #### 1 007752701, 94424847, 3149437629, 8022020572, 4252800, 4145411267 ####[facility] (DEFAULT)[address] [place] [address] 21669 CO2 [Moles/Vol] 25 mmol/L Normal 21-32 [facility] Comment on above: Performed By: #### 1 [id number], 75752473, 5801518040, 4476612023, 2888059, 9869552656 ####[facility] (DEFAULT)[address] [place] [address] 71680 Creatinine [Mass/Vol] 0.55 mg/dL Low 0.60-1.30 [facility] Comment on above: Performed By: #### 1 479999027, 17795580, 1508295350, 5346593228, 5931655, 3504307137 ####[facility] (DEFAULT)[address] [place] [address] 96783 Globulin (S) [Mass/Vol] 3.4 g/dL Normal 1.5-4.3 [facility] Comment on above: Performed By: #### 1 456641064, 84592937, 8158344942, 8907792188, 9904277, 3219074949 ####[facility] (DEFAULT)[address] [place] [address] 87646 Glucose [Mass/Vol] 103.0 mg/dL Normal 74.0-118.0 [facility] Comment on above: Performed By: #### 1 530426645, 47782066, 0415071723, 7280044138, 3847678, 8729360086 ####[facility] (DEFAULT)[address] [place] [address] 84886 Osmolality 273 mOsm/L Invalid Interpretation Code [facility] Comment on above: Performed By: #### 1 841017337, 47267829, 9557719721, 0259881363, 1959054, 9898566297 ####[facility] (DEFAULT)[address] [place] [address] 78146 Potassium [Moles/Vol] 4.0 mmol/L Normal 3.6-5.1 [facility] Comment on above: Performed By: #### 1 625667439, 53437534, 0693523685, 4818498328, 4465512, 2195833631 ####[facility] (DEFAULT)[address] [place] [address] 04868 Protein [Mass/Vol] 7.5 g/dL Normal 6.5-8.1 [facility] Comment on above: Performed By: #### 1 [id number], 93811060, 9113200371, 2979432389, 9298280, 9170492529 ####[facility] (DEFAULT)[address] [place] [address] 50861 Sodium [Moles/Vol] 136.0 mmol/L Normal 136.0-144.0 [facility] Comment on above: Performed By: #### 1 [id number], 68750219, 1548945108, 1964347574, 9647959, 5010422832 ####[facility] (DEFAULT)[address] [place] [address] 62552 Urea nitrogen [Mass/Vol] 14 mg/dL Normal 8-26 [facility] Comment on above: Performed By: #### 1 941472610, 69710981, 5056297324, 4121668633, 5774636, 7849467514 ####[facility] (DEFAULT)[address] [place] [address] 38940 Urea nitrogen/Creatinine [Mass ratio] 25.4 mg/mg High 4.6-16.2 [facility] Comment on above: Performed By: #### 1 620748507, 75038805, [id number], [id number], [id number], [id number] ####[facility] (DEFAULT)[address] [place] [address] CT Head or Brain w/o Contras ton 04-16-2023 CT Head or Brain w/o Contrast EXAMINATION: CT Head or Brain w/o Contrast HISTORY: Headache, new or worsening COMPARISON: 04/13/2023. TECHNIQUE: CT examination of the head without IV contrast. Dose reduction techniques were achieved by using automated exposure control and/or adjustment of mA and/or kV according to patient size and/or use of iterative reconstruction technique. FINDINGS: Hydrocephalus: Negative. Herniation: Negative. Midline Shift: Negative. Hemorrhage: No intraparenchymal hemorrhage or abnormal extra-axial fluid collection. Infarct: No evidence for recent large territory infarct. Post Fossa: Allowing for artifact, no acute or suspicious changes. Orbits/Globes: No acute or suspicious pathology. Soft Tissue/Scalp: Intact. Bones (Calvarium and skull base): No depressed calvarial fracture. Sinuses/Mastoid Air Cells: Included paranasal sinuses and mastoid air cells are predominantly clear. IMPRESSION: Similar and stable appearance of the head compared to 04/13/2023. No acute intracranial abnormality. If clinical concerns persist, consider MRI brain for further evaluation. Final Dictated by: Dusty Davenport MD Dictated DT/TM: 04/16/23 12:55 Signed (Electronic Signature): Dusty Davenport MD 04/16/23 1:04 pm Technologist: Krishna CUEVAS [facility] ED Clinical Summaryon 2023 ED Clinical Summary [facility] - Emergency Department [address] [place] [address] [id number] ED Clinical Summary PERSON INFORMATION Name: HANH ALVAREZ Age: 52 Years Sex: FEMALE : 1970 MRN: Acct#: Visit Reason: Paresthesia; Headache; Neck pain; Chest pain; SOB, HEADACHE, NECK PAIN Arrival: 04/16/2023 12:05:14 Discharge: 04/16/2023 15:34:00 LOS: 000 03:29 Check In: 04/16/2023 12:05:14 Checkout:04/16/2023 15:34:00 Address: [address] [place] [id number] PCP: BILLY PEREZ MD PROVIDER INFORMATION Provider Role Assigned Unassigned Kyara Franklin RN ED Nurse 04/16/2023 12:09:15 Ml Aguilar PA-C ED PA 04/16/2023 12:09:27 VITALS INFORMATION Vital Sign Triage Latest Temperature Tympanic Temperature Temporal Artery Pulse Rate O2 Sat 100 % 100 % Respiratory Rate 18 br/min 18 br/min Blood Pressure /78 mmHg /78 mmHg MEDICAL INFORMATION Medications Given: Medication Dose Route ketorolac 15 mg IV Push diphenhydrAMINE (Benadryl) 25 mg IV Push prochlorperazine 10 mg IV Push Allergy Information: Tape; Strawberries; bacitracin PHYSICIAN DOCUMENTATION DISCHARGE INFORMATION: Discharge Disposition: Home Discharge Location: Home PATIENT EDUCATION INFORMATION Instructions: Neuropathic Pain Follow-Up: With: Address: When: BILLY PEREZ MD [place] Within 3 to 5 days DIAGNOSIS: 1:Right-sided Manley's palsy; 2:Headache Patient Understands: Yes - Patient/family/caregiv er verbalizes understanding of instructions given Comment: [facility] ED Clinical Summary [facility] ? Urgent Care [address] [place] [address] Clinical Summary PERSON INFORMATION Name: HANH ALVAREZ Age: 52 Years Sex: FEMALE : 1970 MRN: Acct#: Visit Reason: SOB Arrival: 04/16/2023 12:01:43 Discharge: 04/16/2023 12:05:00 LOS: 000 00:04 Check In: 04/16/2023 12:01:43 Checkout: 04/16/2023 12:05:00 Address: [address] [place] [address] PCP: BILLY PEREZ MD PROVIDER INFORMATION Provider Role Assigned Unassigned Paul Gilbert ED PA 04/16/2023 12:05:09 VITALS INFORMATION Vital Sign Triage Latest Temperature Tympanic Temperature Temporal Artery Pulse Rate O2 Sat Respiratory Rate Blood Pressure / / MEDICAL INFORMATION Medications Given: Allergy Information: Strawberries; bacitracin PHYSICIAN DOCUMENTATION DISCHARGE INFORMATION: Discharge Disposition: Home Discharge Location: Home PATIENT EDUCATION INFORMATION Instructions: Follow-Up: DIAGNOSIS: Patient Understands: Yes - Patient/family/caregiv er verbalizes understanding of instructions given Comment: [facility] ED Note-Nursingon 04-16-2023 ED Note-Nursing Patient arrives with c/o SOB for the past hour. Patient has facial drooping and has hx of bells palsy, states this started for her on Saturday. Denies any chest pain. Headache 09/20. States she feels like she has a fever. Normal [facility] ED Patient Summaryon 024 ED Patient Summary [facility] - Emergency Department [address] [place], [place] [id number] PATIENT DISCHARGE INSTRUCTIONS Patient Information Name: HANH ALVAREZ Age: 52 Years Date of : 1970 Reason For Visit: Paresthesia; Headache; Neck pain; Chest pain; SOB, HEADACHE, NECK PAIN Arrival Time: 04/16/2023 12:05:14 Primary Care Physician: BILLY PEREZ MD Attending Physician: Leroy Looney Comment: Visit Diagnosis: Diagnoses This Visit Chest pain ([id number]) Headache ([id number]) Headache (R51.9) Neck pain ([id number]) Paresthesia ([id number]) Right-sided Manley's palsy (G51.0) The Pharmacy at [facility] is open Saturday through Saturday from [...] alcohol and/or drug addiction problems; contact the [facility] 03/09 Crisis Hotline -Text 4HJSF qr [phone]. If you received any narcotics, sedation, or [...] and treatment you received today in the [facility] Emergency Department were for an urgent problem and are not intended as complete care. It is important for you to follow up with a doctor, nurse practitioner, or physician?s community relations assistant for ongoing care. If your symptoms [...] so we can reach you if necessary. [facility] Emergency Department has provided you with a complete list of medications post discharge. Please inform your dross puller/provider of your visit and for further instruction on these medications. Any specific questions regarding your chronic medications and dosages should be discussed with your primary care physician(s) and/or pharmacist. Additional medications on your home medication list not specifically addressed. Please contact the ordering physician if you have questions about these medications. ARIPiprazole (ARIPiprazole 5 mg oral tablet) 1 tab(s) Oral (given by mouth) every day. busPIRone (busPIRone 15 mg oral tablet) 1 tab(s) Oral (given by mouth) 3 times a day (scheduled). ibuprofen (ibuprofen 600 mg oral tablet) 1 tab(s) Oral (given by mouth) Every 8 hours (scheduled) as needed as needed for pain for 10 Days. Refills: 0. methylPREDNISolone (MethylPREDNISolone Dose Pack 4 mg oral tablet) 1 packet(s) Oral (given by mouth) once for 6 Days. as directed on package labeling. sertraline (sertraline 50 mg oral tablet) 1 tab(s) Oral (given by mouth) every day. traZODone (traZODone 50 mg oral tablet) 1 tab(s) Oral (given by mouth) 3 times a day (scheduled). valACYclovir (valACYclovir 1 g oral tablet) 1 tab(s) Oral (given by mouth) 2 times a day (scheduled). Visit Information Allergies: Substance Reaction Symptoms Type Comments bacitracin Drug Tape Environment Strawberries Food Vital Signs: Vitals and Measurements this Visit (last charted value for your 04/16/2023 visit) Vital Signs This Visit Temperature Oral: 36.5 DegC Heart Rate Monitored: 57 bpm Respiratory Rate: 18 br/min Systolic Blood Pressure: 126 mmHg Diastolic Blood Pressure: 79 mmHg SpO2: 100 % Oxygen Therapy: Room air Measurements This Visit Height/Length Measured: 160.02 cm Weight Measured: 112.49 kg Weight Dosin.490 kg Body Mass Index: 43.93 kg/m2 Problems List: Problem Onset Comments Depression Patient Edu (more content not included)... Normal [facility] ED Patient Summary [facility] ? Urgent Care [address] [place] [address] PATIENT DISCHARGE INSTRUCTIONS Patient Information Name: HANH ALVAREZ Age: 52 Years Date of : 1970 Reason For Visit: SOB Arrival Time: 04/16/2023 12:01:43 Primary Care Physician: BILLY PEREZ MD Attending Physician: Paul Gilbert Comment: Patient Education Medication Information: The exam and treatment you received today in the [facility] Emergency Department were for an urgent problem and are not intended as complete care. It is important for you to follow up with a doctor, nurse practitioner, or physician?s community relations assistant for ongoing care. If your symptoms [...] so we can reach you if necessary. [facility] Emergency Department has provided you with a complete list of medications post discharge. Please inform your dross puller/provider of your visit and for further instruction on these medications. Any specific questions regarding your chronic medications and dosages should be discussed with your primary care physician(s) and/or pharmacist. Medications to Continue That Have Not Changed Other Medications ibuprofen (ibuprofen 600 mg oral tablet) 1 tab(s) Oral (given by mouth) Every 8 hours (scheduled) as needed as needed for pain for 10 Days. Refills: 0. Visit Information Visit Diagnosis: Diagnoses This Visit No Visit Diagnoses Documented If you received any narcotics, sedation, or [...] business decisions or sign any legal documents Reason for Visit: Allergies: Substance Reaction Symptoms Type Comments bacitracin Drug Strawberries Food Vital Signs: Vitals and Measurements this Visit (last charted value for your 04/16/2023 visit) No vitals and measurements documented Problems List: Problem Onset Comments No Problems found Major Tests and Procedures: The following procedures and tests were performed during your ED visit. Laboratory Radiology Cardiology Viruses or Bacteria What?s got you sick? Antibiotics only treat bacterial infections. Viral illnesses cannot be treated with antibiotics. When an antibiotic is not prescribed, ask your healthcare professional for tips on how to relieve symptoms and feel better. Usual Cause Illness Viruses Bacteria Antibiotic Needed Cold/Runny Nose NO Bronchitis/Chest Cold (in otherwise healthy children and adults) NO Whooping Cough Yes Flu NO Strep Throat Yes Sore Throat (except strep) NO Fluid in the middle ear (otitis media with effusion) NO Urinary Tract Infection Yes Antibiotics Aren?t Always the Answer www.cdc.gov/getsmart GET SMART Know When Antibiotics Work U.S. Department of Health and Human Services Centers for Disease Control and Prevention October 2013 [facility] Extra Blueon 04-16-2023 Tube Collected Yes Invalid Interpretation Code [facility] Comment on above: Performed By: #### 1 [id number], [id number], [id number], [id number], [id number], [id number] ####[facility] (DEFAULT)[address] [place] [address] TnI HSon 04-16-2023 Troponin I High Sensitivity <2.3 Normal <=15.0 [facility] Comment on above: Performed By: #### 1 [id number], [id number], [id number], [id number], [id number] ####[facility] (DEFAULT)[address] [place] [address] UA Fephs8yo 04-16-2023 UA Bacteria None [facility] Comment on above: Order Comment: Urina lysis Microscopic order added on by [employer] Expert Rules system. Performed By: #### 1 [id number], [id number] #### [facility] (DEFAULT) [address] [place] [address] UA RBC 0-2 [facility] Comment on above: Order Comment: Urina lysis Microscopic order added on by [employer] Expert Rules system. Performed By: #### 1 [id number], [id number] #### [facility] (DEFAULT) [address] [place] [address] UA Squam Epi Few Normal [facility] Comment on above: Order Comment: Urina lysis Microscopic order added on by [employer] Expert Rules system. Performed By: #### 1 [id number], [id number] #### [facility] (DEFAULT) [address] [place] [address] UA WBC None Seen [facility] Comment on above: Order Comment: Urina lysis Microscopic order added on by Discern Expert Rules system. Performed By: #### 1 [id number], [id number] #### [facility] (DEFAULT) [address] [place] [address] UA w Culture if Ind Standard on 04-16-2023 Breakpoint UA [facility] Comment on above: Performed By: #### 1 [id number], [id number] #### [facility] (DEFAULT) [address] [place] [address] Color (U) Yellow Normal [facility] Comment on above: Performed By: #### 1 [id number], [id number] #### [facility] (DEFAULT) [address] [place] [address] Culture? No Normal [facility] Comment on above: Result Comment: Resu lt created by rule GL_MAGR_ADD_UA_CULT Result created by rule GL_MAGR_ADD_UA_CULT1 Performed By: #### 1 [id number], [id number] #### [facility] (DEFAULT) [address] [place] [address] Glucose (U) [Mass/Vol] Negative [facility] Comment on above: Performed By: #### 1 [id number], [id number] #### [facility] (DEFAULT) [address] [place] [address] Ketones Ql (U) Negative [facility] Comment on above: Performed By: #### 1 [id number], [id number] #### [facility] (DEFAULT) [address] [place] [address] Micro? Indicated Invalid Interpretation Code [facility] Comment on above: Result Comment: Resu lt created by rule GL_MAGR_ADD_UA_MICRO Performed By: #### 1 [id number], [id number] #### [facility] (DEFAULT) [address] [place] [address] UA Bilirubin Negative [facility] Comment on above: Performed By: #### 1 [id number], [id number] #### [facility] (DEFAULT) [address] [place] [address] UA Blood TRACE Abnormal NEGATIVE [facility] Comment on above: Performed By: #### 1 [id number], [id number] #### [facility] (DEFAULT) [address] [place] [address] UA Clarity CLEAR Normal CLEAR [facility] Comment on above: Performed By: #### 1 [id number], [id number] #### [facility] (DEFAULT) [address] [place] [address] UA Leuk Est Negative Normal NEGATIVE [facility] Comment on above: Performed By: #### 1 [id number], [id number] #### [facility] (DEFAULT) [address] [place] [address] UA Nitrite Negative Normal NEGATIVE [facility] Comment on above: Performed By: #### 1 [id number], [id number] #### [facility] (DEFAULT) [address] [place] [address] 84784 UA pH 6.0 Normal 5-8 [facility] Comment on above: Performed By: #### 1 [id number], [id number] #### [facility] (DEFAULT) [address] [place] [address] UA Protein 30 Abnormal NEGATIVE [facility] Comment on above: Performed By: #### 1 [id number], [id number] #### [facility] (DEFAULT) [address] [place] [address] UA Spec Grav >=1.030 Normal 1.001-1.035 [facility] Comment on above: Performed By: #### 1 [id number], [id number] #### [facility] (DEFAULT) [address] [place] [address] UA Urobilinogen 0.2 mg/dL Normal 0.2-1.0 [facility] Comment on above: Performed By: #### 1 [id number], [id number] #### [facility] (DEFAULT) [address] [place] [address]5660 Urine Source Clean Catch Normal [facility] Comment on above: Performed By: #### 1 [id number], [id number] #### [facility] (DEFAULT) [address] [place] [address] Urgent Care [place] 024 Urgent Care Record [facility] ? Urgent Care [address] [place] [address] PATIENT DISCHARGE INSTRUCTIONS Patient Information Name: HANH ALVAREZ Age: 52 Years Date of : 1970 Reason For Visit: SOB Arrival Time: 04/16/2023 12:01:43 Primary Care Physician: BILLY PEREZ MD Attending Physician: Paul Gilbert Comment: Visit Diagnosis: Diagnoses This Visit No Visit Diagnoses Documented If you received any narcotics, sedation, or [...] and treatment you received today in the [facility] Urgent Care were for an urgent problem and are not intended as complete care. It is important for you to follow up with a doctor, nurse practitioner, or physician?s community relations assistant for ongoing care. If your symptoms become worse or you do not improve as expected and you are unable to reach your usual health care provider, you should return to the Emergency Department, we are available 24 hours a day. For those patients who have received Radiology results, the interpretation of your X-ray as given to you by our Urgent Care physician is only a preliminary report. The Radiologist will review your films and if there is a change in the diagnosis you will be notified by phone. Please make sure you have provided a working phone number so we can reach you if necessary. In the event that you had a lab culture while you were a patient in the Urgent Care, you will be notified by phone if there is a need to change your antibiotic. Please make sure you have provided a working phone number so we can reach you if necessary. [facility] Urgent [facility] has provided you with a complete list of medications post discharge. Please inform your dross puller/provider of your visit and for further instruction on these medications. Any specific questions regarding your chronic medications and dosages should be discussed with your primary care physician(s) and/or pharmacist. Medications to Continue That Have Not Changed Other Medications ibuprofen (ibuprofen 600 mg oral tablet) 1 tab(s) Oral (given by mouth) Every 8 hours (scheduled) as needed as needed for pain for 10 Days. Refills: 0. Visit Information Allergies: Substance Reaction Symptoms Type Comments bacitracin Drug Strawberries Food Vital Signs: Vitals and Measurements this Visit (last charted value for your 04/16/2023 visit) No vitals and measurements documented Problems List: Problem Onset Comments No Problems found Patient Education Viruses or Bacteria What?s got you sick? Antibiotics only treat bacterial infections. Viral illnesses cannot be treated with antibiotics. When an antibiotic is not prescribed, ask your healthcare professional for tips on how to relieve symptoms and feel better. Usual Cause Illness Viruses Bacteria Antibiotic Needed Cold/Runny Nose NO Bronchitis/Chest Cold (in otherwise healthy children and adults) NO Whooping Cough Yes Flu NO Strep Throat Yes Sore Throat (except strep) NO Fluid in the middle ear (otitis media with effusion) NO Urinary Tract Infection Yes Antibiotics Aren?t Always the Answer www.cdc.gov/getsmart GET SMART Know When Antibiotics Work U.S. Department of Health and Human Services Centers for Disease Control and Prevention October 2013 [facility] XR Chest 1 View Frontalon XR Chest 1 View Frontal EXAM: XR Chest 1 View Frontal HISTORY: sob COMPARISON: 01/15/2023 TECHNIQUE: Portable Chest radiograph FINDINGS: Support Devices: None. Parenchyma: No focal opacifications. Pleura: No pneumothorax. No pleural fluid. Vasculature/Interstiti um: Stable. Heart/Mediastinum: Stable. Bones/Soft Tissues: Intact. IMPRESSION: No acute cardiopulmonary process. Final Dictated by: Dusty Davenport MD Dictated DT/TM: 04/16/23 1:04 Signed (Electronic Signature): Dusty Davenport MD 04/16/23 1:06 pm Technologist: Eliza CUEVAS [facility] Coding Summaryon 02-01-2023 Coding Summary HTMLBase 64 RddmkkdjJOc4sMz+PGhlYW Q+TN9XMQNhB33nxZCqbK0e X3PFFBlFVnbaXBJQNRxVJp KhweTzGM8weJQeIKDb IC8+EB8eMVOeXzhorCXth0 T8gZO5X27yve2tLRbgzAL6 PQDjRwUfbjhqv8wzlRd5KE cuNmluOyBt SDXtjS84ESK7hG88If26rD KonKQuo4vciSw2XxEdIYQm MZL5yFpcXKlkk0GhVHIaR7 3fjWQzo1C9 ZXNyaPrlqCOsAzKrzOH1dV 4zYVsthamaa1ihtcpxGfx3 hf13fLUeq8E3lBC2X1Rikc N7GSHbpQVb PllrfZGHtJ7xygudf2zrin xpTbAqXLDvOZv7HUt2NPEw oDhpNqLnBU64XYV1XKBklp NvZ2XpVRNg nKbgXgL6b9Z2Vf4YF0CCHq gyE0UCIWIRQJlwvQB+PC90 ka27L9JfBfmiXzj0WBXcOX D7jOB2rW8r KPMvAViyg5S7sPL1T5Knkr Onms5kx9asQSLfMMdtP56b kKJbs1J1MHQpnIV1GLZzgL gnUfHneQ66 Oyc+ONFfoZojq5IsUydti1 yuc2tcmGt9MhzwSMWjyzLz lDtcFUS8u9HrJi8oNWAbpW E1cUK2sQ7m AtAaGxW4KNbkI542ThRmoO VqZwwmT81uA3IgoFX+PHRy Fxn5TKSroOpaXO5tL9MeFA RpbmctbGVm zGlxCS1wNGAtxjtmMOZmgO 3oTTKxJ9f2GqInXcU1DEoh U7AnIBUrxwczLh31wU1dDv CvYjE2QJrs X7QbbcZ6LKXsfBZcWUdqYM U7T78re5R9PNDiYKQhTQB2 oCW4wW8kvNimpurxzOPouC sgdmVydGlj TPshNBjjJ035KTYwhLliEx NvZGluZyBEYXRlOiAgMTIv MjIvMjAyMzwvdGQ+PHRkIH N4fBwsHTZn hUCoSUsuZu4rfLzupQegAH 5pNQHaxjgbWQHjaU2fSMBy fJDcxDynAZ6iSZVbokrlg4 24YxBeRKU4 ZZAtyUKrZ3LxsE8bOjSqFZ AnKKPkO2VavRTaKXcgW478 TQraCkS9WHJoosNdN6RuKX FsaWduOiB0 a7S5Qe5Au9VcnhhxK1ActZ JzHkEaLjyyERt5W6DhUret dHI+RJ57ACLgYK18HRu7BX D0iGmrVNms WCAvA7ZifD2xIxZuXJGpRV RkOyc+PHRhYmxlIHdpZHRo PAkgDOJnTlPkvAozVA2zWw 9yZGVyLWNv iMmgbKNdLhVmm8ddNXVfDJ leGV6iyDezA1FfyCB2UTZz q0k8Nv90J24xT0BpqUZ+PG JyeLO9uOJ0 kV6qRzFtRoJ8HZclB586Nf EoaUFyEwwye2khi4betYy2 QpK0DOLcvkRodSfmJKQ1l5 LuRu78U30u IHdpZHRoPSIxNSUiIHZhbG saav3sbN6fTb7+PGNvbCB3 vVQ2dI8bQpLhTlH6VFvwJ0 49InRvcCIv Jfros6wpg9buzRm8VsFhVQ FvgfRzsNogPDM5u1LpTe60 Q4XajOepp7SuDnf2dw51uX Yhq5A4hOI6 H2QgUTEkcdujcGDtjEayFF 3mLDGdfnbyETBmnI8zDFFy B7y5RtHpRcT8ANggO1Bxkx O4TMLtvHGe AYQeeGYZcI3zfseyv9bmbp jsCvBaRMIdHMu9SMj9DCXq oIueFxJiSKN8CcA5NLP5lS BdnX4zlUvc wsoriB8nOmh+MOZ9bFEfhK TSDR4jKkbbdRO+PHRkIHN0 kXzbXDxyVUImrM1qZDAhQ1 g4YzGoJnE5 BRnlE2DwdjB9SUYssOWeTN CxiSBQuI8nbladb5rktcvb OcXbIOEyJAd9CYp7BVQulC duOiBsZWZ0 JgA9EDP1zXLtdN6mxVmkwt nszH0jQsb+QmlydGggRGF0 EXm6V5AzPzz8LNJbbSmsTK 0ncGFkZGlu Ie2gvKlpcDhzOX6tXDBzjg icl082BfJtm7yeFJWwwJPz UVpaMMN3U40ne0M1LFJgIQ EbJSV0mQI1 bT1slUxslwghmSJufSyrgy SvxXyeHXhiELfcO836ZKQc zQqhIyOxWTf4J9OkLtu0RT EdeIinNC9u lLWrJQnnXh4fxJtwaUjbSN 7yYUWmzkapv955RwHrt1ef TALxpVInETqvJBW2T56wz4 B6SGSqHAAl DCL0eVI4bJ1jrJoueyypsO VmdDsgdmVydGljYWwtYWxp I518IVAbuFrkHbLmrAk1J1 FbMme6OJUo pWqcOG2oxJIxWQxbDi6gvM ewwJozSP5lHVKkowvjy856 AhZhc0hpCQNggWPhYQihAG G6K37ws7B9 OKKrGLFnMHG2nUN6dC7ugL lnbjogbGVmdDsgdmVydGlj KTokHScyH872BKCwmTafHj BhdGllbnQg ZTdgZFp5L2BvEhnasLR+PC 34OSGkJN49bQNelMOqy6kx lDr9TwPmGOQcVFM5wXtdWS lsk6NjBLHj Y89trPZjx9B3LNMpiXwpnR YlZcNhxPF4iG3aYHzwdyxm a6tgfmfdYnaxx8jyku67uP 14P03hKSlt ZHRoPSIzMCUiIHZhbGlnbj 2kiC4zCp5+SPJtwHC5xPW9 qJ4sYLKgFhW4BYqcK792Ec RvcCIvPjxj e8zcw1orbTa7YtM9EEJumx OtcVzjZUH9v9XgFt66V34i IHdpZHRoPSIyMCUiIHZhbG fdrt5agU1q Ii8+JWQhaZW5cHC2gD9lZm DlCmX7EPdmF503SwCxkVNf PwosG95nJ4PmrDH+PHRyPj v8TLKuzZxe AF2emPRfZYhdVy4yBEH5Nd EfOwQiVOzdE0VpBRDoeymj ibwxtZJ6OJCtQEXryL90Kk 9udDogMTBw gVDYpD4pnhrgu2mqehbmSx GyMTJqVHh1EQn9XYPtjTuq IsVyIIJ5BwP1QXW9aYYhoN 1hbGlnbjog hI6oK4ZmYRXiytflBh28eT 9yOhInBfN3QLdlTap+QU5E QBOHK79xQJRMMzOzAEylgZ Q+PHRkIHN0 dWmdMLuhLHHgdY3mVDGoF0 w2OtVeXwX0HCihI1UbOPMw uurvIr42eW2dTySvEiE8FU fdC0BpbkG8 JZNimGIvVGoxOBJ2S21fg4 E5ILQeIWQfSXN0cBC0aN3x bGlnbjogbGVmdDsgdmVydG ljYWwtYWxp J626LOMbjMtxDzL5VoRuAd X5BjD3W2WzWco5FFZpwCqe JF2uaRHeZTyrGp1naXvkiU hrNG3hPIQp kvizGNWoyF7xDHJocHKmlD rwIW5jDKZjhyadw007XgFz MCF0CDJnaZEiI8HlgU8jPp AjMDAwMDAw S5KxfHImUWrdT341QMesVk A3UFHkruAeS4GdRSTjvIsn JxL8g9L8Jt13YADLEZVoqj wvdGQ+PHRk VQL0mLlcEGqsOLEyqH6nDH NkP7b1LoKrHrP3KVavI1Pj BKPakcwvDx59aE2sJvGkSo C5YAayS5Ii qsK1OYDcoARaUAkwIWH1L3 1qg3M1QZPpQOZaHVY4oDQ0 eF6jwAxouyipfJPllVzglx VydGljYWwt IPaaS310KWYiiEfkIlZKCG FMRTwvdGQ+AOXePJQ4aCet EUqrKVQjdP6jYXVnK4o9Fy SwZgJ3LYwz T1SyYSTzarogCc52pG8zIe MfVaD9SZenI9FjriX0XKNz uHJvZMxjVGT5E23lj2Z7HU MwMDAwMDA7 aXT3wP5csPrlyewatNLcqC ojtcJeuHihVTlsQCclH229 XWPgoAesSd6CBB52PT84Z7 RyPjwvdGFi bGU+PHRhYmxlIHdpZHRoPS uhUTXfQsTlgNojQK7wRb1i ZGVyLWNvbGxhcHNlOiBjb2 xsYXBzZTsg HH6atRpeF6RmvBE3MKGwh0 o1Cz91W20tI3MfnFP+PGNv jXP7vUF9yY4jAaFiYoM0UF uvD671NyCz lAYdXfiao6nam2wiaHj1Qz IwHITjniTkmJutJYP4r9Sm Vs75P80hOWttQUQlXHIdBO UiIHZhbGln nx4beC5iIa6+ZRMcrOP2oA X9hL9qVdGdUuF7DMiiG358 PoTuiNJaOmxzZ06iY4DchW A+PHRyPjx0 CNRnkAphKN4vpTZsVGxoDv 3bTCA7QrTcDrEeZUqdI4Dw MDMshgygxbxdwPI3QNWyFV OkmG95Jc5f mLjmJu1gQGIwGXH9YXZzrL VdZ6NzsS5kGsOvPNRjGQBa Y9QnjZSxHSglQ088ZGtdLj S4HEWfiaJg D8HbPMLaaBrqYnQ8i9W2Hj 9OwKdedDWkBS2kTjTsZDh6 B8AuXdt7UNVpoQguOS2gdC AiKLvbDz5e yBhcrYzlBR8cFJHwvmojk9 60IaGid7tiLEBfvHVvEKtt NGY3D85hg5F9BKGnCASzDK Y8fWR9zG4f bGlnbjogbGVmdDsgdmVydG omMJmsBNthX310TMItqYlx EeLQDwj4Y6GbAwy6ARJjiQ gyID3waQWp ISujJt3siCqbjTniYU8oLE Bztffem865SyQih3fiUPVn qNAjYEwxBFK8Y29zx6Z3QI MwMDAwMDA7 rTR0aI9ygUjiykdbmTLaaH heyaEczDujKSnkLPnvG212 SNBicVebRe4TZbj6J4FaGz n6HOOcbLxo NN1eiDGkMLnwHs0vdJoswF nlQD9hZOEbyauqs375MwYx w4lvPKQxbERmRZovFBZ4F2 5sx6A4ZVVk PYNaBSZ2qGC5wF5gmXbofp ogbGVmdDsgdmVydGljYWwt MPvoT235XLQoqHkeBwGpvB VyOjwvdGQ+ QI38mx46R0GzVsnlPef3IW IpBLO0gBV6uR6bSAFlKDeb q9X9zSR1P1WzivRupb5fl1 xsYXBzZTog Y29 (more content not included)... [facility] Coding Summaryon 01-16-2023 Coding Summary HTMLBase 64 TvtttjpkDUh2pIx+PGhlYW Q+RW5OMNIpI22buZVokQ4g Q4AUOCxSNsdyBDUOQPeDZz VblzSqPU3zrEPgNXKu IC8+OS0tZQRdKjaufPOna3 Y7pRG8G19ogf6wECropFC8 VLGrFlSzromws5wklDf7FM cuNmluOyBt LRJzlD17QAA1pN82Gz80mW CmeJVhb6jfrEg3QeLiRMUi LRC5yKgaGWeey3YkJZBtJ6 8noVKjo8J5 OGIxoNxznGWdVfGesFL6pM 7cASdkoplrb6llbhnkWfy2 tl05wDWzh1Q0sEI0Z2Cdpd G5KSGwjASa XonpySNKoK7vrooea6qqih poWuPfXHUcMCo5TSs7CAYy pJwbRgHcJU95ZQB7TNDpil XeR8OaBCVi pJeoTaJ2f4W1Te5FC3ZPQc ddJ7DLDEBBWSobbFU+PC90 bi04B2BaEeypSsv8PPCnOB S3uDN6fL0g ISJhFWxfl9E9eJB8M2Hznk Llym0bb4dyXTKzXUheN86a pDUsg9I4KTJxgWB6EWMyoG juZbViuR79 Oyc+ESFlsZoji5FpKihlz7 aod4gryZb8QrmpGLTuumOq oDacKTA8u6UaLt1dUVWpaS P6tDO2iT5i EeOfWeT2OXlvE125OqGrkH FdBbqyR63jD7WdzBF+PHRy Iru7FXNdzPclIN4gX9BfLZ RpbmctbGVm eWbqCO4gXFHffczwQJTznD 1uLXMqF9i2OzQnReW3OBko B4AbUXQlqzekNr24jX9oSp NkOkF8JToc O9MtyzR1KDVyvIByZWlqDI N8R93zj2T0TXFvIVYeVJV5 jGU1pA0ciJyxsyjdiATasE sgdmVydGlj JPnbAYwtX700JCQglTmvLx NvZGluZyBEYXRlOiAgMTIv MDYvMjAyMzwvdGQ+PHRkIH Y3kVzjJVPc cZHyNLzeEh8ohOhodZqcKW 2uQIEhkfruKPImaO4oPWHx dEKbtSwoMY3cEHKrkrpug8 45XzKdJGK0 PXOriDYlM5RugF9kYwYnML RxUHAsA4FvnFMqPVwnI801 RLwaMrX0DHYldzFeB9AzDP FsaWduOiB0 z3C6Fx1Xg1PradxrM3AbgH GcDtTfUelpGCp9W2JqUnnh dHI+CL94YBSaBP93OWf7PM C3aBycENxa TBFjN0RrnX9cUnVuHLMzFI RkOyc+PHRhYmxlIHdpZHRo GLpgBZFuLfLvpFbcOW5tKt 9yZGVyLWNv eHqukKMpBzQun4brMIZoSO ixXI0sxTycL5EuqAP8LZMy j1z4Lm66P42aH5NytKD+PG NnhPB1zXG4 qK7yMtDsWnE1OGmeI791Zl MsmCBtCjand0ybm0xusBu9 YkI5PRBfpsTicEinLKP4i0 YuAw46H27y IHdpZHRoPSIxNSUiIHZhbG vjcb3guI8aBj2+PGNvbCB3 uGU6rJ5lNwSoCmU4WPguY9 49InRvcCIv Ewwmx0zfo8vntFd8NnMcPG WhcwCckRbbRDX5p7FaBv05 P2HcxSlaa3SlFzd7ay42yC Qpw5I9nIP6 D2FcXCYrlcaznOObxOsrZO 2mJXTxaugkDGPbwS8pRBIt T9n4AvQjVaX7MSxtS7Wwmd H5QRXwcVZc YGDgjGVScI6oknghc6cnbe doHzWhZXArVCy8QWk2GMMl aMrgOyFsTJH2BuX4QZB1wP KbuS2mzBbi gsmdxP2vRdl+KTC9dNSjxY TNWP0mKovknFH+PHRkIHN0 iLztOIvxQWEjfO9fUQAgK4 e0LwZqTrA0 IIttN5NbpjW8NZQbmFRaIK CbfYMHsH1gusnfp4mymnsa PwVnIODzPGe5XMv3XLLwwV duOiBsZWZ0 AlF7MIY8zTPkgT9mbIebio bfhI1gKks+QmlydGggRGF0 AQy5T5DbMxo4DEGpvGgeJL 0ncGFkZGlu Bw7uhRakqGlxLH9fNLScjo zcz850VfNry9ngWCEjxZEz TTlpCOU4Q25zo8K8SIJoDG EcGIJ3xQO1 pD3afFzjhqopxOFixHtdjl GitKdyZNwvETomF018CETn rScwUoHcGDp4W7IlWuv8WQ IhxKbaVH1d yOWtFLzdGm9noRptdNqpBC 4sEKGixwtup103RbGwz9ex IZAhwXOlKWhvOXY8C20wb4 W2ZGNhWUZz ZFC9kMD2cV8nnNhzcenhrE VmdDsgdmVydGljYWwtYWxp M040GJXtjBtnUnAsoRs1D4 UrMls5TICa lPzwKX3rfVThTWdbDb1rsL czbNcdSC8wKWOslgckv002 IpLbh2cnJGNhdSCwABgqRS Y2M61kz5E5 VSBdNVOyDJI1nYK7rM7dzQ lnbjogbGVmdDsgdmVydGlj EYpcAOecB671OFAivJzqIi BhdGllbnQg QVpgUHu5U3GgSvifbGE+PC 85CWEgIV67rGZobMCwj8kx rYb9RzWjLUGjOYE8kTexLV gvk5OdEVMg T62lnDHjc4G9GJHrsUoglE QdYeXkyAR2yS6lVVeygncj o8opfsimPrike9szze65bC 19Y74mKOjc ZHRoPSIzMCUiIHZhbGlnbj 6gzP5pJg1+NCNdsKK0zFX2 xS5oZHIwEpB2XAqcE402Ae RvcCIvPjxj i5ldp7kxzBh0XsX1IVEdzh PxrNbqPWZ2a9RfWt24V48l IHdpZHRoPSIyMCUiIHZhbG evie4gvN3s Ii8+EHFiaQM7sZS2mN5uJi AtNhI5YKhzC164WkXbjUCg WotlY81rG8AssVW+PHRyPj n2DHGpoQkh UM8rkGKnUDzcKn0uHZA2Ym BpXmKcQZvjZ1ZjOJXuxyht wmzjcZL1RMSsLUHkjE57No 9udDogMTBw kASEmK9pnnqfm8bgkhcrSs FnJAUnLVy8RKe4TNJrwTyh KmEuZDB1IwB3MVO8bVMjjW 1hbGlnbjog lG7mG6TtBZJkmofnZb78uT 3mAuQaPwD6VDljTgj+QU5E AFDWZ78oKRLPTrGqMYnpnF Q+PHRkIHN0 lZyzPXzmINLnsT3jUINxS4 p2GbWgEgA3FWubH8FzTRWz jbneBk83aA2vZeRtOrF4HT itD1ZfiaE6 VMMdpULeJXuuPVV6D24sm5 D5VCAzAMEhPJT9pNR6cN4g bGlnbjogbGVmdDsgdmVydG ljYWwtYWxp X717ZSWyfSnyOjC9QrCpMj X0TtX9S1ReEen9QRVmkZxa JB7tlQUjJJpmRf9kbIoluX mdBF3aDHXq kldmVSZjsU5qZBWrlRSxxV shVN4aPMPgjnshk656OyQa QPW9EOEdxCJbR9EraT8nVb AjMDAwMDAw M2TsiDShGZvaA004IYaxXq J3RACbfpFdN9TsZYXqoSck AhK6m7A2Nz67AURIPXVbnm wvdGQ+PHRk QAG9ySizSOacVPTwhX0aJX ZgH1g7WwYdHwS3ZKtpE2Hm YUAinjfzCr98dK7qDtMwYs Z7EPrjG4Ji oeJ2TIYxkXJhABitATB0X1 8tv8Y6KKQjKYSzUGT4lZG2 yP3fyFwwbuwrwJSdqPvtyt VydGljYWwt GNjhV846KJHplPocWyGAWW FMRTwvdGQ+LJSyENY0dNih KKkuNLFluT7jUOQqF0d3Fs JcOfE0VIdq B4HkMLCjcndeOx64aM1mNy ItWfH6RQeqN0BranE3QXFx yRGjACasCXM1N10ue5M0QW MwMDAwMDA7 fFV7cC6ooDfwdrlasQEkpQ windHunXpnRNorQNagY067 TFXesIvuNl4oe0QrfkI8bC 6aNK13SO99 A5HmDbkhjOXneYG+PHRhYm xlIHdpZHRoPScxMDAlJyBz hIvzNR0kMg9vERCaDJOnoM xhcHNlOiBj d2uvKVUeZNrrLI6hdYjrY9 HbaDE4EYUfu5d3Eh57T17k O6HtnMD+YSAybHX2oGV2rA 8mZxEgPiV3 LLlwV853KtGoeHAzInelo3 qex3zgdYb5IlVxSGFqzlLb oZxeULR6e9ZnYo44K49eCX dpZHRoPSIy XMWoXJLahQbyrq6jfE0sZn 8+VMDzwHE3pPJ6wJ6dFyJo TiL6AJhiE955SnXnvMEmKd znA81hZ7Yy dXA+EHIgIbc9BPCgtTwnWD 5dvPHuNOfpVz5uGRO4FxVw QgPnTBzhW4OlTOShjtflms ardYY5AAFg ARHxoF60Nh4inStzIf7gRU QbZHO0LUSvnFTvI3TgoW8c ZkJvMZSaKHMzU6OzmCZtRQ nsU354ZKeh WuB0BKJhplJvR7WbLQStpF zyZhP4t0K6Kq5LfKlpyQIx DB1xYyKvIHl2I2LoSos6HG LuuDfhJP1g mKDtYFaxUf8gqGqxtAnsIM 3cUVSafqjvc727HgUav1ay KYEkjJCyUGdcKHG8N33vw6 J1XOLpAQJk CMI9kOJ8iU3exEbkawuwnE VmdDsgdmVydGljYWwtYWxp S846XWArgHchBnUWOts2N5 QqVue7UPTy sDyhFR7vwVYfOLqgSi5jgH xseGcsLE8rMYHzwplst657 YuTev2ztVCBahOZuMFmiRC I9M00ke4L8 PXYeXYYqHLY8yEX8yC9soB lnbjogbGVmdDsgdmVydGlj TGkwYZdjR121NEVjpCesVj 5RPtu2O7Hm Jsm4WZKvvIcmOP6jcDWkUJ ifNx9imPodrBemRS0kHBRb fhdjx990KuDho7zdVUMmuA QgVGltZXM7 B36ok5L2DBTiJREhAAM6uE P1gP6krQmpomjzhEAgyUpr cjBqoAmpOJzsFSoqA624VE RvcDsnPlBh eWVyOjwvdGQ+DF43oy75X4 MjGrchJmq8FWIdOOR7bJO1 rB9qIHRpBWczw3N9hYB5N8 CrgjUcpl3s b2x (more content not included)... [facility] Telemetry Stripson Telemetry Strips [id number] GTIFF [facility] Coding Queryon 01-14-[address] Wright Please complete ED Note for this encounter. Please be sure to date the Note 12/31/2022 Thank you, Katelynn Lawrencer Ext [phone] [Electronically Signed on: 01/20/2023 08:24 EST] Ralph Wright MD [Verified on: 01/20/2023 08:24 EST] Ralph Wright MD [Transcribed on: 01/14/2023 09:21 EST] [facility] .Auto Diff 1on 01-11-2023 Auto [place] % 7 % [place] 02-22 [facility] Comment on above: Performed By: #### 7 [id number], [id number], [id number], [id number] ####[facility] (DEFAULT)[address] [place] [address] Baso Abs# 0.0 x10 Normal 0.0-0.2 [facility] Comment on above: Performed By: #### 7 392722, [id number], [id number], [id number] ####[facility] (DEFAULT)[address] [place] [address] 70668 Basophils/100 WBC (Bld) 0.7 % Normal 0.2-2.0 [facility] Comment on above: Performed By: #### 7 625536, [id number], [id number], [id number] ####[facility] (DEFAULT)[address] [place] [address] 00542 Eos Abs# 0.2 x10 Normal 0.0-0.4 [facility] Comment on above: Performed By: #### 7 241585, [id number], [id number], [id number] ####[facility] (DEFAULT)[address] [place] [address] 21014 Eosinophils/100 WBC (Bld) 3.3 % Normal 0.9-4.0 [facility] Comment on above: Performed By: #### 7 093250, [id number], [id number], [id number] ####[facility] (DEFAULT)[address] [place] [address] 40680 Lymph Abs# 1.4 x10 Normal 1.3-2.9 [facility] Comment on above: Performed By: #### 7 096599, [id number], [id number], [id number] ####[facility] (DEFAULT)[address] [place] [address] 73047 Lymphocytes/100 WBC (Bld) 28 % Normal 14-48 [facility] Comment on above: Performed By: #### 7 564450, [id number], [id number], [id number] ####[facility] (DEFAULT)[address] [place] [address] 47617 [place] Abs# 0.3 x10 Normal 0.0-0.8 [facility] Comment on above: Performed By: #### 7 247760, [id number], [id number], [id number] ####[facility] (DEFAULT)[address] [place] [address] 44967 Neut Abs# 2.9 x10 Normal 1.5-9.2 [facility] Comment on above: Performed By: #### 7 596177, [id number], [id number], [id number] ####[facility] (DEFAULT)[address] [place] [address] Neutrophils/100 WBC (Bld) 61 % Normal 44-88 [facility] Comment on above: Performed By: #### 7 442082, [id number], [id number], [id number] ####[facility] (DEFAULT)[address] [place] [address] CBC w/ Auto Diffon 3 Erythrocyte distribution width (RBC) [Ratio] 16.5 % High 11.5-15.0 [facility] Comment on above: Performed By: #### 7 591033, [id number], [id number], [id number] ####[facility] (DEFAULT)[address] [place] [address] Hematocrit (Bld) [Volume fraction] 36.8 % Normal 33.7-40.4 [facility] Comment on above: Performed By: #### 7 776774, [id number], [id number], [id number] ####[facility] (DEFAULT)[address] [place] [address] Hemoglobin (Bld) [Mass/Vol] 12.4 g/dL Normal 11.3-15.9 [facility] Comment on above: Performed By: #### 7 708917, [id number], [id number], [id number] ####[facility] (DEFAULT)[address] [place] [address] Man Diff? Auto Invalid Interpretation Code [facility] Comment on above: Performed By: #### 7 432628, [id number], [id number], [id number] ####[facility] (DEFAULT)[address] [place] [address] MCH (RBC) [Entitic mass] 26 pg Normal 24-34 [facility] Comment on above: Performed By: #### 7 635539, [id number], [id number], [id number] ####[facility] (DEFAULT)[address] [place] [address] MCHC (RBC) [Mass/Vol] 34 g/dL Normal 26-37 [facility] Comment on above: Performed By: #### 7 584804, [id number], [id number], [id number] ####[facility] (DEFAULT)[address] [place] [address] MCV (RBC) [Entitic vol] 77 fL Low 81-100 [facility] Comment on above: Performed By: #### 7 016210, [id number], [id number], [id number] ####[facility] (DEFAULT)[address] [place] [address] Platelet 195 x10 Normal 138-427 [facility] Comment on above: Performed By: #### 7 219393, [id number], [id number], [id number] ####[facility] (DEFAULT)[address] [place] [address] Platelet mean volume (Bld) [Entitic vol] 7.7 fL Normal 6.3-10.2 [facility] Comment on above: Performed By: #### 7 839341, [id number], [id number], [id number] ####[facility] (DEFAULT)[address] [place] [address] RBC 4.81 x10 Normal 3.70-5.30 [facility] Comment on above: Performed By: #### 7 457956, [id number], [id number], [id number] ####[facility] (DEFAULT)[address] [place] [address] WBC 4.7 x10 Normal 3.5-10.5 [facility] Comment on above: Performed By: #### 7 768841, [id number], [id number], [id number] ####[facility] (DEFAULT)[address] [place] [address] CMP Standardon 01-11-2023 eGFR Non AA >60 Invalid Interpretation Code [facility] Comment on above: Performed By: #### 7 618034, [id number], [id number], [id number] ####[facility] (DEFAULT)[address] [place] [address] 30544 eGFR AA >60 Invalid Interpretation Code [facility] Comment on above: Performed By: #### 7 904621, [id number], [id number], [id number] ####[facility] (DEFAULT)[address] [place] [address] 65040 Albumin [Mass/Vol] 3.2 g/dL Low 3.5-5.0 [facility] Comment on above: Performed By: #### 7 375428, [id number], [id number], [id number] ####[facility] (DEFAULT)[address] [place] [address] Albumin/Globulin [Mass ratio] 1.1 {ratio} Low 1.4-2.6 [facility] Comment on above: Performed By: #### 7 472979, [id number], [id number], [id number] ####[facility] (DEFAULT)[address] [place] [address] Alk Phos 75 IU/L Normal 32-91 [facility] Comment on above: Performed By: #### 7 543510, [id number], [id number], [id number] ####[facility] (DEFAULT)[address] [place] [address] 01321 ALT [Catalytic activity/Vol] 143.0 U/L High 14.0-54.0 [facility] Comment on above: Performed By: #### 7 581396, [id number], [id number], [id number] ####[facility] (DEFAULT)[address] [place] [address] 44805 Anion gap [Moles/Vol] 12.0 mmol/L Normal 5.0-19.0 [facility] Comment on above: Performed By: #### 7 509451, [id number], [id number], [id number] ####[facility] (DEFAULT)[address] [place] [address] 68076 AST [Catalytic activity/Vol] 91 U/L High 15-41 [facility] Comment on above: Performed By: #### 7 870029, [id number], [id number], [id number] ####[facility] (DEFAULT)[address] [place] [address] 04888 Bili Total 0.9 mg/dL Normal 0.3-1.2 [facility] Comment on above: Performed By: #### 7 318624, [id number], [id number], [id number] ####[facility] (DEFAULT)[address] [place] [address] 65473 Calcium [Mass/Vol] 9.0 mg/dL Normal 8.9-10.3 [facility] Comment on above: Performed By: #### 7 614363, [id number], [id number], [id number] ####[facility] (DEFAULT)[address] [place] [address] 15438 Chloride [Moles/Vol] 103 mmol/L Normal 101-111 [facility] Comment on above: Performed By: #### 7 671908, [id number], [id number], [id number] ####[facility] (DEFAULT)[address] [place] [address] 41394 CO2 [Moles/Vol] 26 mmol/L Normal 21-32 [facility] Comment on above: Performed By: #### 7 646417, [id number], [id number], [id number] ####[facility] (DEFAULT)[address] [place] [address] 61672 Creatinine [Mass/Vol] 0.66 mg/dL Normal 0.60-1.30 [facility] Comment on above: Performed By: #### 7 067450, [id number], [id number], [id number] ####[facility] (DEFAULT)[address] [place] [address] 35981 Globulin (S) [Mass/Vol] 2.9 g/dL Normal 1.5-4.3 [facility] Comment on above: Performed By: #### 7 619571, [id number], [id number], 58639118 ####[facility] (DEFAULT)[address] [place] [address] 19530 Glucose [Mass/Vol] 111.0 mg/dL Normal 74.0-118.0 [facility] Comment on above: Performed By: #### 7 738074, [id number], [id number], [id number] ####[facility] (DEFAULT)[address] [place] [address] 78698 Osmolality 274 mOsm/L Invalid Interpretation Code [facility] Comment on above: Performed By: #### 7 830769, [id number], [id number], [id number] ####[facility] (DEFAULT)[address] [place] [address] 82129 Potassium [Moles/Vol] 4.0 mmol/L Normal 3.6-5.1 [facility] Comment on above: Performed By: #### 7 829485, [id number], [id number], [id number] ####[facility] (DEFAULT)[address] [place] [address] 75469 Protein [Mass/Vol] 6.1 g/dL Low 6.5-8.1 [facility] Comment on above: Performed By: #### 7 438325, [id number], [id number], [id number] ####[facility] (DEFAULT)[address] [place] [address] 43830 Sodium [Moles/Vol] 137.0 mmol/L Normal 136.0-144.0 [facility] Comment on above: Performed By: #### 7 617916, [id number], [id number], [id number] ####[facility] (DEFAULT)[address] [place] [address] 41067 Urea nitrogen [Mass/Vol] 12 mg/dL Normal 8-26 [facility] Comment on above: Performed By: #### 7 937823, [id number], [id number], 74764615 ####[facility] (DEFAULT)[address] [place] [address] 77016 Urea nitrogen/Creatinine [Mass ratio] 18.1 mg/mg High 4.6-16.2 [facility] Comment on above: Performed By: #### 7 746314, [id number], [id number], [id number] ####[facility] (DEFAULT)[address] [place] [address] Consent Formson 01-11-2023 Consent Forms [id number] TGTIFF [facility] Discharge Noteon 01-11-2023 Discharge Note Discharge paperwork explained to pt at bedside, verbalized understanding. She states her pain is under control and denies other concerns. [Electronically Signed on: 01/11/2023 13:22 EST] Jami Liu RN [Verified on: 01/11/2023 13:22 EST] Jami Liu RN [facility] Inpatient Patient Summaryon 01-11-2023 [place] [address] Patient Discharge Instructions Name: HANH ALVAREZ Artemio : 1970 Patient Address: [address] [place] [address] Primary Care Provider: Name: BILLY PEREZ MD After you are discharged if you find you have any questions, please, call [phone] ext [phone] to speak to a nurse. The Pharmacy at [facility] is open Saturday through Saturday from [...] alcohol and/or drug addiction problems; contact the [facility] 03/09 Crisis Hotline -Text 4HPND fh [phone]. If you received any narcotics, sedation, or [...] business decisions or sign any legal documents [facility] would like to thank you for [...] reflected below: New Medications [facility], [address] [place] [address] [id number], [phone] ibuprofen (ibuprofen 600 mg oral tablet) 1 [...] white rice. (more content not included)... Normal [facility] Nutrition Noteon 01-11-2023 Nutrition Note Pt admitted w/ chest pain that appears resolved. Pt placed on a Regular diet, oavpxc111%. Admit wt 115.8kg in line w/ Oct wt on file of 113.3kg. Labs noting elevated AST/ALT, lipid panel wnl minus an LDL of 126, hgbA1C wnl. 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 Overall, low nutrition risk at this time. Will monitor. Normal [facility] Pharmacy Noteon 01-11-2023 Pharmacy Note I have personally reviewed the patient's medication list upon discharge including, prescription medications, OTC products, vitamins and supplements. Below are the following medications the patient is discharged on. New Medications [facility], [address] [place] [address] [id number], [phone] ibuprofen (ibuprofen 600 mg oral tablet) 1 [...] medication was sent [facility]. Patient understood. [Electronically Signed on: 01/11/2023 12:21 EST] Isaias Aranda [Verified on: 01/11/2023 12:21 EST] Isaias Aranda [facility] Telemetry Stripson Telemetry Strips [id number]#[id number] GTIFF [facility] TnI HSon 01-11-2023 Troponin I High Sensitivity 3.1 pg/mL Normal <=15.0 [facility] Comment on above: Performed By: #### 7 [id number], [id number], [id number] ####[facility] (DEFAULT)[address] [place] [address] US Echocardiogram Completeon 01-11-2023 US Echocardiogram Complete [...] Junction2.18 cm F: 2.3 - 2.9 LV Rzwb156.91 g LVOT Diameter 1.88 cm IVC1.80 (<= [...] Single Plane 4 CH 39.89 mLBiplane LA Ufdomt42.64 mL Single Plane 2 CH27.31 mLLA ESV Index15.72 mL/m2 Right Atrium Area Systole RA Systolic Area A4C14.06 cm2RA Systolic Vol A4C34.00 mL Aortic Valve AoV Peak Velocity1.46 m/sLVOT Peak Velocity1.26 m/s AO Mean Velocity0.98 m/sLVOT Mean Velocity0.77 m/s AO Peak PG8.49 mmHgLVOT Peak PG6.33 mmHg AO Mean PG4.32 mmHgLVOT Mean PG2.85 mmHg AO V2 VTI31.25 cmLVOT V1 VTI26.76 cm RAJ (Vmax)2.40 cd1SLFW Area 2.78 cm2 RAJ (VTI)2.38 cm2SV (LVOT) 74.50 mL Indexed RAJ (VTI)1.11 cm2/m2 Mitral Valve MV Max Roydusgh328.42 m/sMV PHT53.28 ms MV E Max Velocity0.74 m/sMVA (PHT)4.13 cm2 MV A Max Velocity0.53 m/sMR PSO976.69 cm E/A Ratio1.4MR Peak Velocity4.84 m/s MV Decel. Gcja925.71 ms TDI Med e' Velocity9.39 cm/sMV E / Medial e' 7.86 Lat e' Oxtlatpd68.08 cm/sMV E / Lateral e' 5.24 TV S'11.93 cm/s Pulmonary Valve PV Peak Velocity0.94 m/sPV Peak PG3.57 mmHg MD End Diastolic Cruz.55.55 m/s PV Mean PG2.00 mmHg Tricuspid Valve TR Peak Velocity2.31 m/sRAP Estimate3.00 mmHg TR Peak PG21.42 ttWhRQTW19.42 mmHg Final Signed (Electronic Signature): Lan Jimenez MD 01/11/23 12:01 p Technologist: Normal [facility] .Auto Diff 01-10-2023 Auto [place] % 7 % Normal 02-22 [facility] Comment on above: Performed By: #### 5 [id number], [id number], [id number], [id number], [id number], 01194345, 6478758, [id number], [id number] ####[facility] (DEFAULT)[address] [place] [address] Baso Abs# 0.1 x10 Normal 0.0-0.2 [facility] Comment on above: Performed By: #### 5 [id number], [id number], [id number], 4209767, [id number], 41521635, 8505408, [id number], [id number] ####[facility] (DEFAULT)[address] [place] [address] 37676 Basophils/100 WBC (Bld) 1.2 % Normal 0.2-2.0 [facility] Comment on above: Performed By: #### 5 [id number], [id number], [id number], 8273181, [id number], 73600834, 5939858, [id number], [id number] ####[facility] (DEFAULT)[address] [place] [address]403 Eos Abs# 0.2 x10 Normal 0.0-0.4 [facility] Comment on above: Performed By: #### 5 [id number], 6882446, [id number], 3876919, [id number], 98702938, 4591061, 4001304495, [id number] ####[facility] (DEFAULT)[address] [place] [address] 89355 Eosinophils/100 WBC (Bld) 2.3 % Normal 0.9-4.0 [facility] Comment on above: Performed By: #### 5 [id number], 0555496, [id number], 2008112, 2806781149, 80473420, 0123450, 6513750094, [id number] ####[facility] (DEFAULT)[address] [place] [address] 36544 Lymph Abs# 2.0 x10 Normal 1.3-2.9 [facility] Comment on above: Performed By: #### 5 [id number], 0375128, [id number], 7449473, 3703055989, 19343936, 3308143, 3531411074, [id number] ####[facility] (DEFAULT)[address] [place] [address] 76660 Lymphocytes/100 WBC (Bld) 28 % Normal 14-48 [facility] Comment on above: Performed By: #### 5 [id number], 6862111, [id number], 2307998, 6867963075, 29887067, 7226570, 5837350369, [id number] ####[facility] (DEFAULT)[address] [place] [address] [place] Abs# 0.5 x10 Normal 0.0-0.8 [facility] Comment on above: Performed By: #### 5 [id number], 1427381, [id number], 6059519, 8775487943, 85965025, 1752767, 0979485843, [id number] ####[facility] (DEFAULT)[address] [place] [address] 91965 Neut Abs# 4.2 x10 Normal 1.5-9.2 [facility] Comment on above: Performed By: #### 5 [id number], 0704752, 8187601652, 0657442, 6682679095, 93080890, 6735792, 2520028496, [id number] ####[facility] (DEFAULT)[address] [place] [address] 39030 Neutrophils/100 WBC (Bld) 61 % Normal 44-88 [facility] Comment on above: Performed By: #### 5 [id number], 3337869, [id number], 3321521, 8835678205, 21170738, 4712173, 7143585558, [id number] ####[facility] (DEFAULT)[address] [place] [address] [facility] Standardon 01-10-2023 eGFR Non AA >60 Invalid Interpretation Code [facility] Comment on above: Performed By: #### 5 [id number], 4550613, [id number], 4559506, 9827350500, 79752222, 3170655, 4625065453, [id number] ####[facility] (DEFAULT)[address] [place] [address] 40114 eGFR AA >60 Invalid Interpretation Code [facility] Comment on above: Performed By: #### 5 [id number], 7261159, [id number], 6609368, 3010001650, 28707997, 3714926, 7825731491, [id number] ####[facility] (DEFAULT)[address] [place] [address] 99571 Anion gap [Moles/Vol] 14.0 mmol/L Normal 5.0-19.0 [facility] [facility] Comment on above: Performed By: #### 5 [id number], [id number], [id number], 2348817, 1225517813, 30314529, 5029351, 0459071174, [id number] ####[facility] (DEFAULT)[address] [place] [address] 93902 Calcium [Mass/Vol] 9.1 mg/dL Normal 8.9-10.3 [facility] Comment on above: Performed By: #### 5 [id number], 8487100, [id number], 8722570, 2945285839, 97988609, 2494096, 9170535982, [id number] ####[facility] (DEFAULT)[address] [place] [address] 52983 Chloride [Moles/Vol] 102 mmol/L Normal 101-111 [facility] Comment on above: Performed By: #### 5 [id number], 6984561, 1370550872, 8445982, 6352527147, 75026401, 0705137, 5869525640, [id number] ####[facility] (DEFAULT)[address] [place] [address] 78124 CO2 [Moles/Vol] 25 mmol/L Normal 21-32 [facility] Comment on above: Performed By: #### 5 [id number], 2283766, 0999294207, 5185014, 9530453667, 80416503, 1776448, 3608775149, [id number] ####[facility] (DEFAULT)[address] [place] [address] 58660 Creatinine [Mass/Vol] 0.61 mg/dL Normal 0.60-1.30 [facility] Comment on above: Performed By: #### 5 [id number], 4233718, 9947785266, 4631316, 1479908290, 49522131, 4141078, 9815039418, [id number] ####[facility] (DEFAULT)[address] [place] [address] 04501 Glucose [Mass/Vol] 84.0 mg/dL Normal 74.0-118.0 [facility] Comment on above: Performed By: #### 5 [id number], 3222139, 7812086677, 0012596, 8468142072, 78726086, 6173150, 3562197243, [id number] ####[facility] (DEFAULT)[address] [place] [address] 01126 Osmolality 271 mOsm/L Invalid Interpretation Code [facility] Comment on above: Performed By: #### 5 [id number], 1692029, [id number], 2070745, 3987673618, 09348982, 3516733, 2549549459, [id number] ####[facility] (DEFAULT)[address] [place] [address] 83595 Potassium [Moles/Vol] 4.0 mmol/L Normal 3.6-5.1 [facility] Comment on above: Performed By: #### 5 [id number], 1356769, 9700465772, 9905321, 8886698483, 49216460, 8987916, 1217441957, [id number] ####[facility] (DEFAULT)[address] [place] [address] 99155 Sodium [Moles/Vol] 137.0 mmol/L Normal 136.0-144.0 [facility] Comment on above: Performed By: #### 5 [id number], 8956241, 4069420942, 5162228, 8116158625, 92999463, 4933500, 7045256249, 5142806256 ####[facility] (DEFAULT)[address] [place] [address] 41331 Urea nitrogen [Mass/Vol] 8 mg/dL Normal 8-26 [facility] Comment on above: Performed By: #### 5 [id number], 5804460, 1314145470, 0317962, 4762557913, 01624537, 6962297, 7569997732, 3493809641 ####[facility] (DEFAULT)[address] [place] [address] 08450 Urea nitrogen/Creatinine [Mass ratio] 13.1 mg/mg Normal 4.6-16.2 [facility] Comment on above: Performed By: #### 5 [id number], 2686294, 0389007310, 2377798, 4286528810, 78395695, 8616240, 5792744781, [id number] ####[facility] (DEFAULT)[address] [place] [address] 71057 Breakpoint Chem Normal [facility] Comment on above: Performed By: #### 5 [id number], 2299045, 8429904801, 2176107, 7270432364, 12221267, 2805924, 4066410459, 8483939474 ####[facility] (DEFAULT)[address] [place] [address] 03589 BNP.on 01-10-2023 Natriuretic peptide B (Bld) [Mass/Vol] 16.7 pg/mL Normal 0.0-100.0 [facility] Comment on above: Result Comment: BNP results greater than 100 pg/mL are considered abnormal and suggestive of patients with CHF. Higher BNP concentrations measured in the first 72 hours after an acute coronary syndorme are associated with an increased risk of , myocardial infarction, and CHF. Performed By: #### 5 [id number] #### [facility] (DEFAULT) [address] [place] [address] 78600 CBC w/ Auto Diffon Erythrocyte distribution width (RBC) [Ratio] 16.3 % High 11.5-15.0 [facility] Comment on above: Performed By: #### 5 [id number], 2741879, 2687772251, 1095842, 1348609454, 57043547, 0659487, 6392291261, 3832235643 ####[facility] (DEFAULT)[address] [place] [address] 45870 Hematocrit (Bld) [Volume fraction] 40.0 % Normal 33.7-40.4 [facility] Comment on above: Performed By: #### 5 [id number], 4111223, 7286893259, 4723541, 9382061124, 82871928, 2521900, 4693722279, 0170690512 ####[facility] (DEFAULT)[address] [place] [address] 32298 Hemoglobin (Bld) [Mass/Vol] 13.5 g/dL Normal 11.3-15.9 [facility] Comment on above: Performed By: #### 5 [id number], 7884662, 4573487075, 8629135, 9476444511, 48945098, 6969485, 3379402491, 6636205852 ####[facility] (DEFAULT)[address] [place] [address] 33228 Man Diff? Auto Invalid Interpretation Code [facility] Comment on above: Performed By: #### 5 [id number], 6584282, 8935342826, 3347760, 3783229887, 45325886, 2060772, 5203241572, 7613909122 ####[facility] (DEFAULT)[address] [place] [address] 76772 MCH (RBC) [Entitic mass] 26 pg Normal 24-34 [facility] Comment on above: Performed By: #### 5 [id number], 7389814, 8794532923, 0651016, 0575784844, 99385038, 1819111, 2541376838, 1537498991 ####[facility] (DEFAULT)[address] [place] [address] 60501 MCHC (RBC) [Mass/Vol] 34 g/dL Normal 26-37 [facility] Comment on above: Performed By: #### 5 [id number], 8498484, 9772527773, 9883675, 4054517163, 00534790, 7625050, 9819947845, 5285469507 ####[facility] (DEFAULT)[address] [place] [address] 05542 MCV (RBC) [Entitic vol] 77 fL Low 81-100 [facility] Comment on above: Performed By: #### 5 [id number], 1938569, 1791955570, 5166664, 6065467445, 59401922, 4530426, 3068431417, 7542053045 ####[facility] (DEFAULT)[address] [place] [address] 00000 Platelet 252 x10 Normal 138-427 [facility] Comment on above: Performed By: #### 5 [id number], 5492291, 9442248156, 9399269, 0216766558, 23460779, 7832204, 2656014836, 8130371373 ####[facility] (DEFAULT)[address] [place] [address] 24520 Platelet mean volume (Bld) [Entitic vol] 7.5 fL Normal 6.3-10.2 [facility] Comment on above: Performed By: #### 5 [id number], 1636936, 2398525876, 2566204, 2451716307, 85365221, 6517779, 8647707127, 9263711860 ####[facility] (DEFAULT)[address] [place] [address] 44279 RBC 5.21 x10 Normal 3.70-5.30 [facility] Comment on above: Performed By: #### 5 [id number], 0027449, 4947990293, 1849321, 9785019762, 07969026, 3039603, 9725767203, 0666295507 ####[facility] (DEFAULT)[address] [place] [address] 04471 WBC 6.9 x10 Normal 3.5-10.5 [facility] Comment on above: Performed By: #### 5 [id number], 8166821, 3260633038, 5418679, 2313936286, 38597480, 7184050, 2946730339, 2025444354 ####[facility] (DEFAULT)[address] [place] [address] 38652 D-Dimeron 01-10-2023 D-Dimer 0.40 mg/L FEU Normal 0.19-0.50 [facility] Comment on above: Result Comment: The [...] ? Liver cirrhosis ? Performed By: #### 5 [id number] #### [facility] (DEFAULT) [address] [place] [address] 73617 ED Clinical Summaryon 2022 ED Clinical Summary [facility] - Emergency Department [address] [place] [address] 74875 ED Clinical Summary PERSON INFORMATION Name: HANH ALVAREZ Age: 52 Years Sex: FEMALE : 1970 MRN: Acct#: Visit Reason: Chest pain; CHEST PAIN Arrival: 01/10/2023 09:49:38 Discharge: LOS: 000 04:15 Check In: 01/10/2023 09:49:38 Checkout:01/10/2023 14:04:45 Address: [address] [place] [address] PCP: BILLY PEREZ MD PROVIDER INFORMATION Provider [...] Follow-Up: DIAGNOSIS: 1:Chest pain Patient Understands: Comment: [facility] ED Note-Nursingon 01-10-2023 ED Note-Nursing private vechile arrival with c/o cp since yesterday unrelieved with tums. anxious. tearful. ekg complete for physician review. tele provided. tolerated 20g left ac. morphine zofran ns. cxr. nsr on tele. lcta. oriented to call light. encouraged to call for help. [facility] ED Patient Education Noteon 01-10-2023 ED Patient Education Note Education Materials [facility] ED Patient Summaryon 023 ED Patient Summary [facility] - Emergency Department [address] [place] [address] PATIENT DISCHARGE INSTRUCTIONS Patient Information Name: HANH ALVAREZ Age: 52 Years Date of : 1970 Reason For Visit: Chest pain; CHEST PAIN Arrival Time: 01/10/2023 09:49:38 Primary Care Physician: BILLY PEREZ MD Attending Physician: Rashid Arriaga MD Comment: Visit Diagnosis: Diagnoses This Visit Chest pain (24124306) Chest pain (R07.9) The Pharmacy at [facility] is open Saturday through Saturday from [...] alcohol and/or drug addiction problems; contact the [facility] 03/09 Crisis Hotline -Text 4VNDE nj [id number]. If you received any narcotics, sedation, or [...] and treatment you received today in the [facility] Emergency Department were for an urgent problem and are not intended as complete care. It is important for you to follow up with a doctor, nurse practitioner, or physician?s community relations assistant for ongoing care. If your symptoms [...] so we can reach you if necessary. [facility] Emergency Department has provided you with a complete list of medications post discharge. Please inform your dross puller/provider of your visit and for further instruction [...] Disease Control and Prevention October 2013 Normal [facility] Extra Redon 01-10-2023 Tube Collected Yes Invalid Interpretation Code [facility] Comment on above: Performed By: #### 5 [id number], 6698684, [id number], 9529610, 1802211157, 16523577, 0737895, 5263505702, [id number] ####[facility] (DEFAULT)[address] [place] [address] HgbA1c Standardon 01-10-2023 .Hb 13.6 Invalid Interpretation Code [facility] Comment on above: Performed By: #### 1 [id number], [id number] #### [facility] (DEFAULT) [address] [place] [address] .Hgb A1c 0.51 g/dL Invalid Interpretation Code [facility] Comment on above: Performed By: #### 1 [id number], [id number] #### [facility] (DEFAULT) [address] [place] [address] Glucose [Mass/Vol] 111 mg/dL Invalid Interpretation Code [facility] Comment on above: Performed By: #### 1 [id number], [id number] #### [facility] (DEFAULT) [address] [place] [address] 70587 HbA1c (Bld) [Mass fraction] 5.5 % Normal 4.6-6.2 [facility] Comment on above: Performed By: #### 1 [id number], [id number] #### [facility] (DEFAULT) [address] [place] [address] 77312 Lipid Panel Standard, Non-Fa stingon 01-10-2023 Cholesterol [Mass/Vol] 199.0 mg/dL Normal 66.0-200.0 [facility] Comment on above: Performed By: #### 1 [id number], [id number] #### [facility] (DEFAULT) [address] [place] [address] 34214 Cholesterol in HDL [Mass/Vol] 55 mg/dL Normal 40-71 [facility] Comment on above: Performed By: #### 1 [id number], [id number] #### [facility] (DEFAULT) [address] [place] [address] 16611 Cholesterol in LDL [Mass/Vol] 126 mg/dL High 1-100 [facility] Comment on above: Performed By: #### 1 [id number], [id number] #### [facility] (DEFAULT) [address] [place] [address] 22452 Cholesterol.total/C holesterol in HDL [Mass ratio] 3.6 {ratio} Normal 0.0-4.5 [facility] Comment on above: Performed By: #### 1 [id number], [id number] #### [facility] (DEFAULT) [address] [place] [address] 47357 Triglyceride [Mass/Vol] 87.0 mg/dL Normal 0.0-150.0 [facility] Comment on above: Performed By: #### 1 [id number], [id number] #### [facility] (DEFAULT) [address] [place] [address] 58875 VLDL. 17 mg/dL Normal 5-40 [facility] Comment on above: Performed By: #### 1 [id number], [id number] #### [facility] (DEFAULT) [address] [place] [address] 93354 PT/PTTon 01-10-2023 INR Coag (PPP) [Relative time] 1.04 {INR} Normal 0.91-1.11 [facility] Comment on above: Performed By: #### 5 [id number] #### [facility] (DEFAULT) [address] [place] [address] 79082 PT 10.8 second(s) Normal 9.7-11.8 [facility] Comment on above: Performed By: #### 5 [id number] #### [facility] (DEFAULT) [address] [place] [address] 90713 PTT 26 second(s) Normal 25-35 [facility] Comment on above: Performed By: #### 5 [id number] #### [facility] (DEFAULT) [address] [place] [address] 88011 TnI HSon 01-10-2023 Troponin I High Sensitivity 3.8 pg/mL Normal <=15.0 [facility] Comment on above: Performed By: #### 5 [id number] #### [facility] (DEFAULT) [address] [place] [address] 82287 Troponin I High Sensitivity 3.8 pg/mL Normal <=15.0 [facility] Comment on above: Performed By: #### 5 [id number] #### [facility] (DEFAULT) [address] [place] [address] 86811 Troponin I High Sensitivity 3.4 pg/mL Normal <=15.0 [facility] Comment on above: Performed By: #### 5 [id number] #### [facility] (DEFAULT) [address] [place] [address] US Gallbladderon 01-10-2023 US Gallbladder Clinical History: [...] Mike Blandon MD 01/10/23 4:02 pm Technologist: [facility] XR Chest 1 View Frontalon XR [...] Nitin Cui MD 01/10/23 10:34 a Technologist: [facility] Coding Summaryon 11-28-2022 Coding Summary HTMLBase 64 MsgmocjtILv9mBm+PGhlYW Q+EL2EARZnU95otXPbvZ2i S8RDUMtREzovUHYLAMgKRj JncsStCM7hhNAyOHXy IC8+TX5lMLSyVevwvMVsd7 A0eAL2Y61skh6aOImxvOX4 PTKcGmQrcmhyl4lrdBx8JX cuNmluOyBt MULvsC19PDD2bZ85Wy39rS MpsTWlt1lcdOg6QqNtEANx SVB1gBidEMoju1QtFGZuG8 4scZKmk1B0 QZIcrYvkwLLcQrGxmUH3iY 5eWHchdptmp4dlpbqnSmt1 gz03rZUxk5T1oPF7E6Hnjw K5LMOsqJOw EbrgxGHMtE4byebxs2fatz vgMzTgTERhYJk5AXw6XTNc sBciEjSdDM43TKK0MFEuvd IiI6ZzENMk xCtuYwP8p0M5Xe5UV1GNOm pxG1ORZYLNBUvkeHY+PC90 sl60Z6PcHcqsLgq9STXlXG V2kPB8vD8u ACVbTOxah2Z2cNX4I3Zsun Ghck9do3udTRBnDFdxV89r nBJsg1Y7CALweAJ4REZcrC qlTrQyfO45 Oyc+CIMxhDkyx7IjXvrmi2 gyv1gabDo1AjeoOWFsemPc qSgdUAR3j9VtNy5nNIVmpL F4fRP1oP1v XePtAmX4QWlvT118GtQhnC GiTuurU12xQ1ImjTT+PHRy Uvr1BPAgjWoaFO8nI4LkOJ RpbmctbGVm cMoqXO8sGMHgetmzPIVcpU 3cBARiN7n5NqRyZkM7RQnk O0PrSFWuhjrzXn75kW8aMs PdFjX0WCcw R2UtovH2YGMdfLYcGZyaZX Y5U86rw2W2GVJkRIDrLXU0 tQJ9cE3mpObkqxmecSOjvK sgdmVydGlj TJtxPLlyA894OAGscAgjUb NvZGluZyBEYXRlOiAgMTAv MTgvMjAyMzwvdGQ+PHRkIH C7yThoJHFt rVNoXJqtXo1nzTtmbWdrLG 7rWMGbcoloXDXsoR6sNGIx aEQjrAnrQT4vMVCgikkfo8 12QcOxIWT7 YSRkcESsU7XdnN2gYePnIZ IcCNNlZ0YiyTCmXTfuC029 GEfmWiT5RJKlvbOeX3IjLR FsaWduOiB0 z7K0Ti8If2GdqiwcA5KdoG TmKuRxMshnIJy4H5XbLiui dHI+BV47UVYbMQ72HGw2AX X3yKcqTAdh TWSeM5XlvB3iRyBnNVZoLY RkOyc+PHRhYmxlIHdpZHRo AObyXNSnPfQmdHrfNT0qKe 9yZGVyLWNv bZkitHClJeMiv1csOUIxZT skJR2jvHidJ7NyuWC1KYLu v6y1Rp85U25sB9KqyBD+PG DamCR6xTN1 iN2bZiUmXmX7KWijV835Pn QywROjDgohh7tyn9iiaOu5 JvR1CNYlpaAamHfzDUL2z2 LsRz65K56w IHdpZHRoPSIxNSUiIHZhbG cxxm8zgE8aAk9+PGNvbCB3 jRI0xG8tMaJhYkF8DMhgU5 49InRvcCIv Vozjp4qbj3mpaRt3FwUrUL TlmxHavIuaLPL6v0ArWl02 R1BwjDgqk4OaHkc8sd84rF Dni9L1tYH5 T2XfPDDvqgzulESguAvbEA 4rRCXmnvnoWYYxpN2dEQXn P1j8PyAbPiW6LBlsE8Xvto V0VNHyyIOi JOEqaCBDiS1ukzdsc5axgh qbRnZrGBNeDYd5YSh2PKBh aXeeNjScVDY6HxM6PWY9oS WyeU8pqGve ndbgpS4qQzq+WTC7eMKjgZ OWVY9uKdktsEI+PHRkIHN0 vTkcKYxhFVEtnP7bUYIaY6 d3PzXuLiD5 DKpnA4PlarJ2LGHjhQPwRV XsfBXPcM1adtsjr6ffmvqq JfEdGLHiWEy4GDc0DBPwoX duOiBsZWZ0 RaE6GHG2bQUnaX7qaRdzwm atgB5fEkm+QmlydGggRGF0 PHc6M1FkPrp0CYMmqXspZJ 0ncGFkZGlu Ke0bsDomuPebHG6eCRHmul uvp204HqEes2llMFXiyUNo EXosILC4Y56pv3T9CHCjPH ShYUG3hWI2 oL8vcCrpahpesVOrfAveba IgzPpsVNkaOQvoW957MHVl qPmxPqMuCDx3M9JpXes9SS LxyFkaQX0i hELdCCdyDz4goUneqOywZV 5qSBWmrwhnl451SqKdx5ay JDIuwLXtSVacLHO4S00ja2 E6OEMtWJGg LSQ8jSU8mB6ylJqcztgpdO VmdDsgdmVydGljYWwtYWxp D845WNJslDxgRmManTr4N3 HyBmv6MGMs uUaeEB9gxNFxOZcrCi0eeF yfuPcrHL8kMHGgkbivv968 LxGby2foNBJimGQpCQdzQH D0X52io6U9 XSAtBTTlATB1hFZ8pE4wqX lnbjogbGVmdDsgdmVydGlj JDzzKMonD212QGYdzLjtCd BhdGllbnQg HDnzDSp7A4BbZkqudWX+PC 94QMUoUK10kHNzjXCft4xa iCq2OaOoFDDtASG6bEbmEI ctq3YbWZSq I61mfXPtq0R9SDCqlCidfO GgUfAylRB3oB0rLYcpubpr o2bgmftdTpdvb8kvsv73uK 79L57qTYfo ZHRoPSIzMCUiIHZhbGlnbj 0coH0lDm7+RRKdcWP9qFE0 qC3iFPKkLlB3DNcjQ673Fl RvcCIvPjxj t9sya4vppXk1PaP1YACbma BtcZviBMS2u0IoOt33M53p IHdpZHRoPSIyMCUiIHZhbG kxgu2uzB8b Ii8+XYOsqZT4hTG7yO4yAm MnLtW9DUalV446GaJqcEXj TuyyT27rT2NnlCF+PHRyPj q2JFYxyQyh VU7qaQNuHIycGc7cZPO8Kn ChXoJxUSsvQ1ZuLYZmmlbj yeucwWE3XYSfBTNmpP12Pb 9udDogMTBw bZGJgC0jnqzvt4dinjweZf XjXSPjZJv0AKt1TPNjvIzx TzTbGAM6CsX1OFU7uSIwsM 1hbGlnbjog cG8yW1XqVYLoqakfRr44zG 1dPtYtMwZ7NEnjImg+QU5E JEURP79cPJSYEnLmAJtltR Q+PHRkIHN0 rTovFWipDNEpdO7qRTWeP2 b9LlIcChF4ANkaZ9ZxDDJc mqyqBt93qX6pArQuGkK8XO ilE2PzyaD3 ZSMekMPiIRwrUZU3B75bg7 C8JELyHDEpVTN6nFM8qQ6u bGlnbjogbGVmdDsgdmVydG ljYWwtYWxp S059LVPxtCmwTbX1AzKuRp T6ZeK1N0EjUai7TSEqiUsb ZI3bsWEeYVqnWm0hpChcfC txWX2hBMHl jfuwNXEbzI5oHVMqiBIviA vgTZ0tFMUzcwpsv751XnHg MKY4CBHctLDmZ5EhfB1lEf AjMDAwMDAw X8ZajBItBSqgZ428RTdrZo S1YITkzdHbL6QcBKZscWeu IsD7p4H8Mr89AQEIOGMkoo wvdGQ+PHRk HJM5mLojZAeeVZVgzG3wWF CiG9x8UbDbGqQ8BIzcN8Rf PYXrjmxiQx83yM2iBwXbJc U2IStjD3Au mjV1IKYpsOCwPCaqKQO1F9 9ni0D4QHLfQEUhZKF7gJU2 iD3twDdbziqhwPIuzUenka VydGljYWwt KQxhJ706LOHssJyqDqYLNC FMRTwvdGQ+VSRcIBW5vChf YKyeVMEneB8rAUKrF4s6Dz KkYzS9SWbt Z0MzKYYiuwamEm52yV3hSz UsClT4WNdxV4HtfiL4AYOz qLNwCIxtARW8Z00fr0P7MM MwMDAwMDA7 pIE6xL7qpGkacgrlrHTknX udkdUquJaqOOmhYRzuJ517 RGLhvCglLtRmCPSoGZ4tuU wvdGQ+PC90 ex42M9GlYpexYql2XLOqGG T4wAF4xB2dNYVpXExcm1E0 tBY8R1RoxbOzuy0mw0puCH XkWIeuU80k eVQwr0I2YPYclMK2EWYxsQ flJxMvjK75Ycp+PGNvbGdy y7EbIzght2evd1fizBt1Ip MwJSIgdmFs gHyuVDU5a2UcJd51S36aBN dpZHRoPSIzMCUiIHZhbGln fp5yiY9rZu9+KGRdoTH4yH X4zK5jPsUt EhK9RKkpP509PmJwoBSfNu cjm0ogn8wkvZu2OgVvSGPo tiCoxMzzSMG7z6XmEk98T1 KhhRhen4Xc Stt5dd42gAMym1B7zAA5P5 IvXYIuzmujbSCjlDhdJT0x TBJkeeanEXVtnN5iAJUbV8 d7HzQlRtM9 HNvaG0SajnD9SODukHQnEK QdmXDFzX7vtogvk6xwxkty HwKbQHOpNGz6KPp0UBSvkP duOiBsZWZ0 BnJ3RWO8vFOrfK4rpDhwog nqaA9dQhj+HJu0l6edlHHr KU6mpDW3UO82RT39jAJeo3 M9tNX1D1Xz EWOgjpzidnqkkRF2YUOlKD TupK01Jb8qyPydUm4jHGKh ZVZ0JYHihSCsA3TbjN4dYz AjMDAwMDAw I3YlrHYcCFatJ087EAipUx E4LJVipzVmD6VnQRQmgUzc HfE6e9P7Vz8TXK35VU46HB 04zUAdc8W9 zOR9C3NkCUVoccsjrjrzkF D7XRSnPUVldV01Xr3jbHbc Sz6xYAFcYKX0JOBcpOGrM8 SygU3bLcMq KBVnKHXaM9YftBWaKBwoK4 68MDopXqV3ELDglmXvR9Je PMKliFjhZkZ0h1G0Ki6UPj 80CW77BV97 eTRfs0Z0fJM2E7FdKBCwgj hdeunzoZB4UOJiGSDnqU54 Il9hqGvrJg2oLNXjEXA7AG GzzHVtC9Lj rE2qBfDmJGGaGUMjV6MqjB ExUIdiL250AXgbMfL0MCBi pvAkZ8EbZZPioUtjZvC7y1 Y5Fc4UWYan gub0H8HrGvkcuYP+PC90YW NjIP48lANuuNXmz6wjlWh5 CpWpCOAwSSN4mObkRGxxf8 CwYRBwD38u [facility] (more content not included)... Normal [facility] C Urineon 11-24-2022 C Urine Urine [...] <=0.5/9.5 Verified Vanc S 1 Verified Normal [facility] Comment on above: Performed By: #### 5 [id number] #### [facility] (DEFAULT) [address] [place] [address] ED Clinical Summaryon 2022 ED Clinical Summary [facility] - Emergency Department [address] [place] [id number] ED Clinical Summary PERSON INFORMATION Name: HANH ALVAREZ Age: 52 Years Sex: FEMALE : 1970 MRN: Acct#: Visit Reason: Flank pain; BACK PAIN, ABD PAIN, WEAKNESS Arrival: 11/21/2022 19:18:46 Discharge: 11/21/2022 22:28:00 LOS: 000 03:10 Check In: 11/21/2022 19:18:46 Checkout:11/21/2022 22:28:00 Address: [address] [place] [id number] PCP: BILLY PEREZ MD PROVIDER INFORMATION Provider Role Assigned Unassigned Jagruti Stokes COLLECTION SUPPORT SPECIALIST Nurse 11/21/2022 19:38:15 Ben Rizvi MD ED [...] Home PATIENT EDUCATION INFORMATION Instructions: Hypertension, Adult, Jbnk-gy-Kajn; Nonalcoholic Fatty Liver Disease Diet, Adult; Fatty Liver Disease; Cholelithiasis, Xvsi-zw-Efer; Flank Pain, Adult, Tqzu-og-Pcao; Abdominal Pain, Adult, Lchk-df-Bbyd Follow-Up: With: Address: When: BILLY PEREZ MD [place] Within 3 to 5 days DIAGNOSIS: 1:Left flank pain; 2:Elevated blood pressure reading; 3:Nausea and vomiting in adult; 4:Fatty liver; 5:Cholelithiasis Patient Understands: Yes - Patient/family/caregiv er verbalizes understanding of instructions given Comment: Normal [facility] ED Patient Summaryon 023 ED Patient Summary [facility] - Emergency Department [address] [place] [address] PATIENT DISCHARGE INSTRUCTIONS Patient Information Name: HANH ALVAREZ Age: 52 Years Date of : 1970 Reason For Visit: Flank pain; BACK PAIN, ABD PAIN, WEAKNESS Arrival Time: 11/21/2022 19:18:46 Primary Care Physician: BILLY PEREZ MD Attending Physician: Juanito Maciel MD Comment: Visit Diagnosis: Diagnoses This Visit Cholelithiasis (K80.20) Elevated blood pressure reading (R03.0) Fatty liver (K76.0) Flank pain (457017696) Left flank pain (R10.9) Nausea and vomiting in adult (R11.2) The Pharmacy at [facility] is open Saturday through Saturday from [...] alcohol and/or drug addiction problems; contact the [facility] 03/09 Crisis Hotline -Text 7OJZG xz [phone]. If you received any narcotics, sedation, or [...] documents With: Address: When: BILLY PEREZ MD [place] Within 3 to 5 days Medication Information: The exam and treatment you received today in the [facility] Emergency Department were for an urgent problem and are not intended as complete care. It is important for you to follow up with a doctor, nurse practitioner, or physician?s community relations assistant for ongoing care. If your symptoms [...] so we can reach you if necessary. [facility] Emergency Department has provided you with a complete list of medications post discharge. Please inform your dross puller/provider of your visit and for further instruction [...] alcohol. Othe (more content not included)... Normal [facility] .Auto Diff 111-21-2022 Auto [place] % 7 % Normal 02-22 [facility] Comment on above: Performed By: #### 1 [id number], [id number], [id number], [id number], [id number], [id number], [id number] ####[facility] (DEFAULT)[address] [place] [address] Baso Abs# 0.1 x10 Normal 0.0-0.2 [facility] Comment on above: Performed By: #### 1 [id number], [id number], [id number], [id number], [id number], [id number], [id number] ####[facility] (DEFAULT)[address] [place] [address] Basophils/100 WBC (Bld) 0.9 % Normal 0.2-2.0 [facility] Comment on above: Performed By: #### 1 [id number], [id number], [id number], [id number], [id number], [id number], [id number] ####[facility] (DEFAULT)[address] [place] [address] Eos Abs# 0.2 x10 Normal 0.0-0.4 [facility] Comment on above: Performed By: #### 1 [id number], [id number], [id number], [id number], [id number], [id number], [id number] ####[facility] (DEFAULT)[address] [place] [address] Eosinophils/100 WBC (Bld) 2.7 % Normal 0.9-4.0 [facility] Comment on above: Performed By: #### 1 [id number], [id number], [id number], [id number], [id number], [id number], [id number] ####[facility] (DEFAULT)[address] [place] [address] Lymph Abs# 2.0 x10 Normal 1.3-2.9 [facility] Comment on above: Performed By: #### 1 [id number], [id number], [id number], [id number], [id number], [id number], [id number] ####[facility] (DEFAULT)40 [place] [address] 17300 Lymphocytes/100 WBC (Bld) 34 % Normal 14-48 [facility] Comment on above: Performed By: #### 1 [id number], 1796940, 3670272610, 9175935087, 1516366735, 9053453, 3751254443 ####[facility] (DEFAULT)[address] [place] [address] [place] Abs# 0.4 x10 Normal 0.0-0.8 [facility] Comment on above: Performed By: #### 1 5380899, 5633448, 8102122631, 3101016477, 1473567933, 9070859, 9139320678 ####[facility] (DEFAULT)[address] [place] [address] Neut Abs# 3.4 x10 Normal 1.5-9.2 [facility] Comment on above: Performed By: #### 1 5099243, 3520079, 2077663393, 6449280469, 9183850907, 0022574, 3277428669 ####[facility] (DEFAULT)[address] [place] [address] Neutrophils/100 WBC (Bld) 56 % Normal 44-88 [facility] Comment on above: Performed By: #### 1 7772095, 1311317, 3871581028, 9621792265, 4062046542, 2401676, 9819077864 ####[facility] (DEFAULT)[address] [place] [address] CBC w/ Auto Diffon 3 Erythrocyte distribution width (RBC) [Ratio] 16.4 % High 11.5-15.0 [facility] Comment on above: Performed By: #### 1 4555594, 8557649, 3406216206, 4928080451, 3021209845, 3551328, 8911468593 #### [facility] (DEFAULT) [address] [place] [address] Hematocrit (Bld) [Volume fraction] 42.0 % High 33.7-40.4 [facility] Comment on above: Performed By: #### 1 6978748, 5502032, 2999855198, 4274419477, 2837203154, 5942410, 2573257616 #### [facility] (DEFAULT) [address] [place] [address] 59977 Hemoglobin (Bld) [Mass/Vol] 14.0 g/dL Normal 11.3-15.9 [facility] Comment on above: Performed By: #### 1 7427922, 5139982, 9476565104, 0263302257, 7356398886, 2886610, 0312401242 #### [facility] (DEFAULT) [address] [place] [address] Man Diff? Auto Invalid Interpretation Code [facility] Comment on above: Performed By: #### 1 2116625, 6855564, 3309720627, 6181022672, 8471974289, 2650768, 9193598941 #### [facility] (DEFAULT) [address] [place] [address] MCH (RBC) [Entitic mass] 26 pg Normal 24-34 [facility] Comment on above: Performed By: #### 1 7879738, 7266621, 0417760589, 6333408410, 9780477429, 1180938, 8292826904 #### [facility] (DEFAULT) [address] [place] [address] 11091 MCHC (RBC) [Mass/Vol] 33 g/dL Normal 26-37 [facility] Comment on above: Performed By: #### 1 7397238, 1031731, 3303788105, 0081627939, 8118619078, 3322379, 7392616280 #### [facility] (DEFAULT) [address] [place] [address] 09946 MCV (RBC) [Entitic vol] 78 fL Low 81-100 [facility] Comment on above: Performed By: #### 1 1346298, 2937879, 8769886112, 9985687096, 4412766856, 1396252, 5215544865 #### [facility] (DEFAULT) [address] [place], [place] [address] Platelet 236 x10 Normal 138-427 [facility] Comment on above: Performed By: #### 1 1417563, 9861666, 6028050829, 0935924576, 0727198390, 0003684, 3356455470 #### [facility] (DEFAULT) [address] [place] [address] Platelet mean volume (Bld) [Entitic vol] 7.7 fL Normal 6.3-10.2 [facility] Comment on above: Performed By: #### 1 4367408, 9638657, 8319819440, 9017793829, 0714149269, 1436289, 3314975418 #### [facility] (DEFAULT) [address] [place] [address] RBC 5.40 x10 High 3.70-5.30 [facility] Comment on above: Performed By: #### 1 9936522, 1956677, 6870459987, 9391199945, 3597648330, 1469160, 5799563554 #### [facility] (DEFAULT) [address] [place] [address] WBC 6.0 x10 Normal 3.5-10.5 [facility] Comment on above: Performed By: #### 1 7416567, 6564950, 3066604789, 3882126714, 6086862677, 1154070, 4722177466 #### [facility] (DEFAULT) [address] [place] [address] CMP Standardon 11-21-2022 eGFR Non AA >60 Invalid Interpretation Code [facility] Comment on above: Performed By: #### 1 9154671, 3649607, 7405490843, 1946152100, 4616056270, 8206992, 9729827958 ####[facility] (DEFAULT)[address] [place] [address] eGFR AA >60 Invalid Interpretation Code [facility] Comment on above: Performed By: #### 1 6306600, 7318785, 9305227882, 8001443171, 1176037319, 8088874, 8064799368 ####[facility] (DEFAULT)[address] [place] [address] Albumin [Mass/Vol] 3.9 g/dL Normal 3.5-5.0 [facility] Comment on above: Performed By: #### 1 6320308, 2376147, 3218367006, 5067257106, 5368163163, 7713998, 1375050210 ####[facility] (DEFAULT)[address] [place] [address] 92056 Albumin/Globulin [Mass ratio] 1.1 {ratio} Low 1.4-2.6 [facility] Comment on above: Performed By: #### 1 1428170, 8753445, 1042047192, 4014611614, 0602942361, 2649678, 4717216894 ####[facility] (DEFAULT)[address] [place] [address] 75291 Alk Phos 82 IU/L Normal 32-91 [facility] Comment on above: Performed By: #### 1 3358348, 2476257, 6646264183, 1639148615, 3778504634, 3846571, 1844014083 ####[facility] (DEFAULT)[address] [place] [address] 23623 ALT [Catalytic activity/Vol] 197.0 U/L High 14.0-54.0 [facility] Comment on above: Performed By: #### 1 4898655, 9033581, 1046805550, 5589155171, 4941161371, 1764794, 9428520555 ####[facility] (DEFAULT)[address] [place] [address] 33902 Anion gap [Moles/Vol] 11.0 mmol/L Normal 5.0-19.0 [facility] Comment on above: Performed By: #### 1 3069806, 4400975, 3341328705, 5620758273, 0395276452, 5459121, 6388540789 ####[facility] (DEFAULT)[address] [place] [address] 02367 AST [Catalytic activity/Vol] 127 U/L High 15-41 [facility] Comment on above: Performed By: #### 1 6759441, 8125073, 2282555707, 9874798695, 5507558462, 1914951, 3300733664 ####[facility] (DEFAULT)[address] [place] [address] 15800 Bili Total 1.2 mg/dL Normal 0.3-1.2 [facility] Comment on above: Performed By: #### 1 7933994, 1489868, 1534144334, 2295375094, 6643381548, 5506610, 7030586183 ####[facility] (DEFAULT)[address] [place] [address] 41207 Calcium [Mass/Vol] 9.1 mg/dL Normal 8.9-10.3 [facility] Comment on above: Performed By: #### 1 1204798, 9123394, 9703699589, 5647876980, 2430348691, 4214592, 4312825800 ####[facility] (DEFAULT)[address] [place] [address] 73884 Chloride [Moles/Vol] 103 mmol/L Normal 101-111 [facility] Comment on above: Performed By: #### 1 9123491, 8065773, 4078267409, 9895549336, 5561869922, 5140775, 1375139966 ####[facility] (DEFAULT)[address] [place] [address] 26617 CO2 [Moles/Vol] 26 mmol/L Normal 21-32 [facility] Comment on above: Performed By: #### 1 8377982, 1375874, 1658862905, 7369932082, 6591811167, 3631402, 3220607847 ####[facility] (DEFAULT)[address] [place] [address] 53140 Creatinine [Mass/Vol] 0.65 mg/dL Normal 0.60-1.30 [facility] Comment on above: Performed By: #### 1 7775270, 7521775, 7131328880, 8885341574, 4558604119, 0609287, 7707504237 ####[facility] (DEFAULT)[address] [place] [address] 04982 Globulin (S) [Mass/Vol] 3.4 g/dL Normal 1.5-4.3 [facility] Comment on above: Performed By: #### 1 9259354, 5219832, 3869702577, 3162046594, 9828509709, 3543922, 6583949247 ####[facility] (DEFAULT)[address] [place] [address] 25934 Glucose [Mass/Vol] 98.0 mg/dL Normal 74.0-118.0 [facility] Comment on above: Performed By: #### 1 3008061, 9594708, 5332934925, 0299379333, 6162727591, 9994852, 5869974783 ####[facility] (DEFAULT)[address] [place] [address] 74805 Osmolality 270 mOsm/L Invalid Interpretation Code [facility] Comment on above: Performed By: #### 1 7062699, 0913803, 7715704567, 2303946572, 7475940452, 8511045, 3712793555 ####[facility] (DEFAULT)[address] [place] [address] 49032 Potassium [Moles/Vol] 4.0 mmol/L Normal 3.6-5.1 [facility] Comment on above: Performed By: #### 1 3658413, 7925633, 7653393609, 9322502548, 3982035814, 7406024, 9326106310 ####[facility] (DEFAULT)[address] [place] [address] 02637 Protein [Mass/Vol] 7.3 g/dL Normal 6.5-8.1 [facility] Comment on above: Performed By: #### 1 6662718, 0544995, 1007207230, 5694911003, 8653496302, 8701325, 5009610607 ####[facility] (DEFAULT)[address] [place] [address] 80666 Sodium [Moles/Vol] 136.0 mmol/L Normal 136.0-144.0 [facility] Comment on above: Performed By: #### 1 0995658, 5775470, 8221744277, 9017071277, 9145958815, 2237591, 1604321443 ####[facility] (DEFAULT)[address] [place] [address] 08384 Urea nitrogen [Mass/Vol] 8 mg/dL Normal 8-26 [facility] Comment on above: Performed By: #### 1 2570378, 0399672, 6895585702, 4969339797, 6882857749, 0101213, 4541529175 ####[facility] (DEFAULT)[address] [place] [address] Urea nitrogen/Creatinine [Mass ratio] 12.3 mg/mg Normal 4.6-16.2 [facility] Comment on above: Performed By: #### 1 1696313, 2642252, 4820336890, 8638699957, 1576477892, 7095072, 7714004056 ####[facility] (DEFAULT)[address] [place] [address] CT Abdomen/Pelvis w/o Contra ston 11-21-2022 CT [...] Greco MD 11/22/22 8:31 am Technologist: JACQUI [facility] ED Clinical Summaryon 2022 ED Clinical Summary [facility] ? Urgent Care [address] [place] [address] Clinical Summary PERSON INFORMATION Name: HANH ALVAREZ Age: 52 Years Sex: FEMALE : 1970 MRN: Acct#: Visit Reason: Back pain; HEADACHE, BACK PAIN Arrival: 11/21/2022 16:35:06 Discharge: 11/21/2022 19:07:00 LOS: 000 02:32 Check In: 11/21/2022 16:35:06 Checkout: 11/21/2022 19:07:00 Address: [address] [place] [address] PCP: BILLY PEREZ MD PROVIDER INFORMATION Provider Role Assigned Unassigned Sweta Dale COLLECTION SUPPORT SPECIALIST Nurse 11/21/2022 16:38:46 Radha Milian-Harman ED PA [...] Follow-Up: With: Address: When: BILLY PEREZ MD [place] DIAGNOSIS: 1:Flank pain; 2:Hematuria; 3:Fever Patient Understands: Comment: [facility] ED Patient Summaryon 023 ED Patient Summary [facility] ? Urgent Care [address] [place] [address] 12518 PATIENT DISCHARGE INSTRUCTIONS Patient Information Name: HANH ALVAREZ Age: 52 Years Date of : 1970 Reason For Visit: Back pain; HEADACHE, BACK PAIN Arrival Time: 11/21/2022 16:35:06 Primary Care Physician: BILLY PEREZ MD Attending Physician: Radha Milian PA-C Comment: Patient Education With: Address: When: BILLY PEREZ MD JAZMIN Flank Pain, Adult Flank pain is pain [...] by your health care provider. ? Take pwts-rrq-xpllvgs and prescription medicines only as told by [...] provider. Document Revised: 04/10/2021 Document Reviewed: 04/10/2021 [employer] Patient Education ? 2022 [employer]. Hematuria, Adult Hematuria is blood in the [...] these instructions at home: Medicines ? Take wqax-ywm-roufwsu and prescription medicines only as told by [...] provider's inst (more content not included)... Normal [facility] Extra Blue 11-21-2022 Tube Collected Yes Invalid Interpretation Code [facility] Comment on above: Performed By: #### 1 2924455, 8318076, 4508604714, 5561353338, 0362962501, 7072181, 0619694685 #### [facility] (DEFAULT) [address] [place] [address] Lipaseon 11-21-2022 Lipase Level 36.0 IU/L Normal 22.0-51.0 [facility] Comment on above: Performed By: #### 1 4058790, 0013813, 0485282479, 6974908283, 4711114515, 5757461, 8742514902 ####[facility] (DEFAULT)[address] [place] [address] 60536 POCT Rapid CoV-2 (COVID-19) Antigen/ Flu A&Bon 11-21-2022 Influenza A POCT Negative Normal Negative [facility] Comment on above: Performed By: #### 3 [id number] ####[facility] (DEFAULT)[address] [place] [address] Influenza B POCT Negative Normal Negative [facility] Comment on above: Performed By: #### 2 [id number] ####[facility] (DEFAULT)[address] [place] [address] 54940 SARS-CoV-2 (COVID-19) RNA CARSON+probe Ql (Unsp spec) Not detected Normal [facility] Comment on above: Performed By: #### 4 [id number] ####[facility] (DEFAULT)[address] [place] [address] 00805 TnI HSon 11-21-2022 Troponin I High Sensitivity 2.3 pg/mL Normal <=15.0 [facility] Comment on above: Performed By: #### 1 0127972, 4370585, 6516779581, 7479925784, 3168324534, 8783602, 7435455250 ####[facility] (DEFAULT)[address] [place] [address] 48002 UA Cayld2zv 11-21-2022 UA Bacteria 1+ [facility] Comment on above: Order Comment: Urina lysis Microscopic order added on by Discern Expert Rules system. Performed By: #### 5 [id number] #### [facility] (DEFAULT) [address] [place] [address] 42348 UA RBC 3-5 [facility] Comment on above: Order Comment: Urina lysis Microscopic order added on by Dis[employer] Expert Rules system. Performed By: #### 5 [id number] #### [facility] (DEFAULT) [address] [place] [address] UA Squam Epi Few [facility] Comment on above: Order Comment: Urina lysis Microscopic order added on by [employer] Expert Rules system. Performed By: #### 5 [id number] #### [facility] (DEFAULT) [address] [place] [address] UA WBC 0-2 [facility] Comment on above: Order Comment: Urina lysis Microscopic order added on by [employer] Expert Rules system. Performed By: #### 5 [id number] #### [facility] (DEFAULT) [address] [place] [address] UA w Culture if Ind Standard on 11-21-2022 Breakpoint UA [facility] Comment on above: Performed By: #### 5 [id number] #### [facility] (DEFAULT) [address] [place] [address] Color (U) Yellow [facility] Comment on above: Performed By: #### 5 [id number] #### [facility] (DEFAULT) [address] [place] [address] Culture? Indicated Invalid Interpretation Code [facility] Comment on above: Result Comment: Resu lt created by rule GL_MAGR_ADD_UA_CULT Result created by rule GL_MAGR_ADD_UA_CULT Result created by rule GL_MAGR_ADD_UA_CULT1 Result created by rule GL_MAGR_ADD_UA_CULT Performed By: #### 5 [id number] #### [facility] (DEFAULT) [address] [place] [address] Glucose (U) [Mass/Vol] Negative Normal [facility] Comment on above: Performed By: #### 5 [id number] #### [facility] (DEFAULT) [address] [place] [address] 67193 Ketones Ql (U) Negative Normal [facility] Comment on above: Performed By: #### 5 [id number] #### [facility] (DEFAULT) [address] [place] [address] 91256 Micro? Indicated Invalid Interpretation Code [facility] Comment on above: Result Comment: Resu lt created by rule GL_MAGR_ADD_UA_MICRO Performed By: #### 5 [id number] #### [facility] (DEFAULT) [address] [place] [address] 01939 UA Bilirubin Negative Normal [facility] Comment on above: Performed By: #### 5 [id number] #### [facility] (DEFAULT) [address] [place] [address] 38021 UA Blood TRACE Abnormal NEGATIVE [facility] Comment on above: Performed By: #### 5 [id number] #### [facility] (DEFAULT) [address] [place] [address] 31927 UA Clarity CLEAR Normal CLEAR [facility] Comment on above: Performed By: #### 5 [id number] #### [facility] (DEFAULT) [address] [place] [address] 85407 UA Leuk Est Negative Normal NEGATIVE [facility] Comment on above: Performed By: #### 5 [id number] #### [facility] (DEFAULT) [address] [place] [address] 43736 UA Nitrite Negative Normal NEGATIVE [facility] Comment on above: Performed By: #### 5 [id number] #### [facility] (DEFAULT) [address] [place] [address] 59639 UA pH 6.0 Normal 5-8 [facility] Comment on above: Performed By: #### 5 [id number] #### [facility] (DEFAULT) [address] [place] [address] 08072 UA Protein Negative Normal NEGATIVE [facility] Comment on above: Performed By: #### 5 [id number] #### [facility] (DEFAULT) [address] [place] [address] 05891 UA Spec Grav >=1.030 Normal 1.001-1.035 [facility] Comment on above: Performed By: #### 5 [id number] #### [facility] (DEFAULT) [address] [place] [address] 93755 UA Urobilinogen 0.2 mg/dL Normal 0.2-1.0 [facility] Comment on above: Performed By: #### 5 [id number] #### [facility] (DEFAULT) [address] [place] [address] 13307 Urine Source Clean Catch Normal [facility] Comment on above: Performed By: #### 5 [id number] #### [facility] (DEFAULT) [address] [place] [address] QuantiFERON-TB Gold Pluson 0 09-06-2022 QuantiFERON Incubation Incubation performed. Invalid Interpretation Code [facility] Comment on above: Result Comment: Perf ormed At: [facility] [id number] Shameka Vallecillo PhD Ph:[phone] Performed By: #### 1 [id number], [id number] #### [facility] (DEFAULT) [address] [place] [address] QuantiFERON-TB Gold Plus Negative Invalid Interpretation Code Negative [facility] Comment on above: Result Comment: No r esponse to M tuberculosis antigens detected. Infection with M tuberculosis is unlikely, but high risk individuals should be considered for additional testing (ATS/IDSA/CDC Clinical Practice Guidelines, 2017). The reference range is an Antigen minus Nil result of <0.35 IU/mL. Chemiluminescence immunoassay methodology Performed At: [facility] [id number] Shmaeka Vallecillo PhD Ph:[phone] Performed By: #### 1 [id number], [id number] #### [facility] (DEFAULT) [address] [place] [address] HBSab Qnt LCon 09-05-2022 Hep B Surf Ab Quant LC >1000.0 Invalid Interpretation Code Immunity>9.9 [facility] Comment on above: Result Comment: Stat us of Immunity Anti-HBs Level Inconsistent with Immunity 0.0 - 9.9 Consistent with Immunity >9.9 Performed At: [facility] [address] [place] [id number] Shameka Vallecillo PhD Ph:[phone] Performed By: #### 1 [id number], [id number] #### [facility] (DEFAULT) [address] [place], [place] [address] Lab - Toxicology Resultson 0 09-05-2022 Lab - Toxicology Results [id number]#1.00 OTGTIFF Normal [facility] Measles/Mumps/Rubella Immuni ty LCon 09-05-2022 Mumps Abs, IgG LC 167.0 AU/mL Invalid Interpretation Code Immune >10.9 [facility] Comment on above: Result Comment: Nega tive <9.0 Equivocal 9.0 - 10.9 Positive >10.9 A positive result generally indicates past exposure to Mumps virus or previous vaccination. Performed At: [facility] [address] [place] [id number] Shameka Vallecillo PhD Ph:[phone] Performed By: #### 1 [id number], [id number] #### [facility] (DEFAULT) [address] [place] [address] 83808 Rubella Antibodies, IgG LC >33.00 Invalid Interpretation Code Immune >0.99 [facility] Comment on above: Result Comment: Non- immune <0.90 Equivocal 0.90 - 0.99 Immune >0.99 Performed By: #### 1 [id number], [id number] #### [facility] (DEFAULT) [address] [place] [address] 24854 Rubeola Ab, IgG, EIA LC 50.2 AU/mL Invalid Interpretation Code Immune >16.4 [facility] Comment on above: Result Comment: Nega tive <13.5 Equivocal 13.5 - 16.4 Positive >16.4 Presence of antibodies to Rubeola is presumptive evidence of immunity except when acute infection is suspected. Performed By: #### 1 [id number], [id number] #### [facility] (DEFAULT) [address] [place] [address] 35441 Nicotine Metabolite, Urine L Con 09-05-2022 Cotinine LC Negative Invalid Interpretation Code [id number] [facility] Comment on above: Result Comment: Perf ormed At: [facility] [place] [address] [place], [place] [id number] Xiang Costello PhD Ph:[phone] Performed By: #### 1 [id number], [id number] #### [facility] (DEFAULT) [address] [place] [address] 65220 CBC AUTO DIFFon 07-07-2022 BASO # 0.0 103/ul Normal 0.0-0.1 [facility] Comment on above: Performed By: #### C BC ####[facility] [address] [place] [address]Dr. Tacos Bhatt Basophils/100 WBC (Bld) 0.5 % Normal 0.2-2.0 [facility] Comment on above: Performed By: #### C BC ####[facility] [address] [place] [address]Dr. Tacos Bhatt EO # 0.2 103/ul Normal 0.0-0.7 [facility] Comment on above: Performed By: #### C BC ####[facility] [address] [place] [address]Dr. Tacos Bhatt Eosinophils/100 WBC (Bld) 3.4 % Normal 0.9-7.0 [facility] Comment on above: Performed By: #### C BC ####[facility] [address] [place] [address]Dr. Tacos Bhatt Erythrocyte distribution width (RBC) [Ratio] 15.4 % Critically high 11.0-15.0 [facility] Comment on above: Performed By: #### C BC ####[facility] [address] [place], [place] [address]Dr. Tacos Bhatt Hematocrit (Bld) [Volume fraction] 39.2 % Normal 36.0-48.0 [facility] Comment on above: Performed By: #### C BC ####[facility] [address] [place] [address]Dr. Tacos Bhatt Hemoglobin (Bld) [Mass/Vol] 12.8 g/dL Normal 12.0-16.0 [facility] Comment on above: Performed By: #### C BC ####[facility] [address] [place] [address]Dr. Tacos Bhatt IG # 0.03 10e3/ul Normal 0.00-0.03 [facility] Comment on above: Performed By: #### C BC ####[facility] [address] [place] [address]Dr. Tacos Bhatt IG % 0.5 % Normal 0.0-0.5 [facility] Comment on above: Performed By: #### C BC ####[facility] [address] [place], [place] [address]Dr. Tacos Bhatt LYMPH # 2.2 103/ul Normal 1.2-3.8 [facility] Comment on above: Performed By: #### C BC ####[facility] [address] [place], [place] [address]Dr. Tacos Bhatt Lymphocytes/100 WBC (Bld) 37.1 % Normal 20.5-60.0 [facility] Comment on above: Performed By: #### C BC ####[facility] [address] [place] [address]Dr. Ekaterinamohsen Bhatt MANUAL DIFF REQ NO Normal [facility] Comment on above: Performed By: #### C BC ####[facility] [address] [place] [address]Dr. Tacos Bhatt MCH (RBC) [Entitic mass] 25.9 pg Critically low 26.7-34.0 [facility] Comment on above: Performed By: #### C BC ####[facility] [address] [place] [address]Dr. Tacos Bhatt MCHC (RBC) [Mass/Vol] 32.7 g/dL Normal 29.9-35.2 [facility] Comment on above: Performed By: #### C BC ####[facility] [address] [place] [id number] Tacos Bhatt MCV (RBC) [Entitic vol] 79.4 fL Critically low 81.0-99.0 [facility] Comment on above: Performed By: #### C BC ####[facility] [address] [address]DrMarbella Tobarmohsen Miller MONO # 0.5 103/ul Normal 0.3-0.8 [facility] Comment on above: Performed By: #### C BC ####[facility] Brhovuz[address] [place], [place] [address]Dr. Tacos Bhatt Monocytes/100 WBC (Bld) 8.3 % Normal 1.7-12.0 [facility] Comment on above: Performed By: #### C BC ####[facility] Z[address] [place], [place] [address]Dr. Ekaterinamohsen Miller NEUT # 3.0 103/ul Normal 1.4-6.5 [facility] Comment on above: Performed By: #### C BC ####[facility] I[address]fvq[address] [place], [place] [address]Dr. Ekaterinamohsen Bhatt Neutrophils/100 WBC (Bld) 50.2 % Normal 43.0-75.0 [facility] Comment on above: Performed By: #### C BC ####[facility] [address]ketgp[address] [place], [place] [address]Dr. Tacos Bhatt Platelet mean volume (Bld) [Entitic vol] 9.2 fL Critically low 9.5-13.5 [facility] Comment on above: Performed By: #### C BC ####[facility] [address]iasp[address] [place], [place] [address]Dr. Tacos Bhatt PLT 238 103/ul Normal 150-450 [facility] Comment on above: Performed By: #### C BC ####[facility] [address] [place], [place] [address]Dr. Tacos Bhatt RBC 4.94 106/ul Normal 4.20-5.40 [facility] Comment on above: Performed By: #### C BC ####[facility] [address] [place], [place] [address]QvDr. Tacos Bhatt WBC 5.9 103/ul Normal 4.0-11.0 [facility] Comment on above: Performed By: #### C BC ####[facility] [address] [place], [place] [address]OvDr. Tacos Bhatt CRPon 07-07-2022 CRP [Mass/Vol] mg/L Normal <=1.0 [facility] Comment on above: Performed By: #### B MP, CRP #### [facility] [address] [address] [address] Tacos Bhatt PROF CHEM 8 (BAS METB)on Anion gap [Moles/Vol] 11.5 mmol/L Normal [facility] Comment on above: Performed By: #### B MP, CRP #### [facility] [address] [address] [address] Tacos Bhatt Calcium [Mass/Vol] 8.9 mg/dL Normal 8.5-10.1 [facility] Comment on above: Performed By: #### B MP, CRP #### [facility] [address] [address] [address] Tacos Bhatt Chloride [Moles/Vol] 105 mmol/L Normal 98-107 [facility] Comment on above: Performed By: #### B MP, CRP #### [facility] [address] [address] [address] Tacos Bhatt CO2 [Moles/Vol] 29.3 mmol/L Normal 21.0-32.0 [facility] Comment on above: Performed By: #### B MP, CRP #### [facility] [address] [place] [address] Dr. Tacos Bhatt Creatinine [Mass/Vol] 0.71 mg/dL Normal 0.55-1.02 [facility] Comment on above: Performed By: #### B MP, CRP #### [facility] [address] [place] [address] Dr. Tacos Bhatt EGFR-AF ICELANDIC >60 Normal >=60 [facility] Comment on above: Performed By: #### B MP, CRP #### [facility] [address] [address] [address] Tacos Bhatt EGFR-NON AF ICELANDIC >60 Normal >=60 [facility] Comment on above: Performed By: #### B MP, CRP #### [facility] [address] [address] [address] Tacos Bhatt Glucose [Mass/Vol] 95 mg/dL Normal 74-106 [facility] Comment on above: Performed By: #### B MP, CRP #### [facility] [address] [address] [address] Tacos Bhatt Potassium [Moles/Vol] 3.8 mmol/L Normal 3.5-5.1 [facility] Comment on above: Performed By: #### B MP, CRP #### [facility] [address] [address] [address] Tacos Bhatt Sodium [Moles/Vol] 142 mmol/L Normal 136-145 [facility] Comment on above: Performed By: #### B MP, CRP #### [facility] [address] [address] [address] Tacos Bhatt Urea nitrogen [Mass/Vol] 11.0 mg/dL Normal 7.0-18.0 [facility] Comment on above: Performed By: #### B MP, CRP #### [facility] [address] [address] [address] Tacos Bhatt Urea nitrogen/Creatinine [Mass ratio] 15.5 mg/mg Normal [facility] Comment on above: Performed By: #### B MP, CRP #### [facility] [address] [address] [address] Tacos Bhatt SED RATE [facility] 2022 SED RATE 6 mm/hr Normal <=20 [facility] Comment on above: Performed By: #### S EDR #### [facility] [address] [address] [address] Tacos Bhatt XR CHEST 2 Von [...] ENRIQUETA SONG Date: 2022-04-03 09:37 Normal [facility] CBC AUTO DIFFon 08-07-2021 BASO # 0.1 103/ul Normal 0.0-0.1 [facility] Comment on above: Performed By: #### C BC #### [facility] [address] [address] [address] Tacos Bhatt Basophils/100 WBC (Bld) 0.9 % Normal 0.2-2.0 [facility] Comment on above: Performed By: #### C BC #### [facility] [address] [place] [address] Dr. Tacos Bhatt EO # 0.2 103/ul Normal 0.0-0.7 [facility] Comment on above: Performed By: #### C BC #### [facility] [address] [address] [address] Tacos Bhatt Eosinophils/100 WBC (Bld) 2.1 % Normal 0.9-7.0 [facility] Comment on above: Performed By: #### C BC #### [facility] [address] [address] [address] Tacos Bhatt Erythrocyte distribution width (RBC) [Ratio] 14.6 % Normal 11.0-15.0 [facility] Comment on above: Performed By: #### C BC #### [facility] [address] [address] [address] Tacos Bhatt Hematocrit (Bld) [Volume fraction] 41.5 % Normal 36.0-48.0 [facility] Comment on above: Performed By: #### C BC #### [facility] [address] [place] [address] Dr. Tacos Bhatt Hemoglobin (Bld) [Mass/Vol] 13.5 g/dL Normal 12.0-16.0 [facility] Comment on above: Performed By: #### C BC #### [facility] [address] [address] [address] Tacos Bhatt IG # 0.08 10e3/ul Critically high 0.00-0.03 [facility] Comment on above: Performed By: #### C BC #### [facility] [address] [address] [address] Tacos Bhatt IG % 0.9 % Critically high 0.0-0.5 [facility] Comment on above: Performed By: #### C BC #### [facility] [address] [address] [address] Tacos Bhatt LYMPH # 3.4 103/ul Normal 1.2-3.8 [facility] Comment on above: Performed By: #### C BC #### [facility] [address] [place] [address] Dr. Tacos Bhatt Lymphocytes/100 WBC (Bld) 37.0 % Normal 20.5-60.0 [facility] Comment on above: Performed By: #### C BC #### [facility] [address] [address] [address] Tacos Bhatt MANUAL DIFF REQ NO Normal [facility] Comment on above: Performed By: #### C BC #### [facility] [address] [place] [address] Dr. Tacos Bhatt MCH (RBC) [Entitic mass] 25.7 pg Critically low 26.7-34.0 [facility] Comment on above: Performed By: #### C BC #### [facility] [address] [place] [address] Dr. Tacos Bhatt MCHC (RBC) [Mass/Vol] 32.5 g/dL Normal 29.9-35.2 [facility] Comment on above: Performed By: #### C BC #### [facility] [address] [address] [address] Tacos Bhatt MCV (RBC) [Entitic vol] 79.0 fL Critically low 81.0-99.0 [facility] Comment on above: Performed By: #### C BC #### [facility] [address] [place] [address] Dr. Tacos Bhatt MONO # 0.7 103/ul Normal 0.3-0.8 [facility] Comment on above: Performed By: #### C BC #### [facility] [address] [place] [address] Dr. Tacos Bhatt Monocytes/100 WBC (Bld) 7.3 % Normal 1.7-12.0 [facility] Comment on above: Performed By: #### C BC #### [facility] [address] [place] [address] Dr. Tacos Bhatt NEUT # 4.7 103/ul Normal 1.4-6.5 [facility] Comment on above: Performed By: #### C BC #### [facility] [address] [place] [address] Dr. Tacos Bhatt Neutrophils/100 WBC (Bld) 51.8 % Normal 43.0-75.0 [facility] Comment on above: Performed By: #### C BC #### [facility] [address] [place] [address] Dr. Tacos Bhatt Platelet mean volume (Bld) [Entitic vol] 9.5 fL Normal 9.5-13.5 [facility] Comment on above: Performed By: #### C BC #### [facility] [address] [place] [address] Dr. Tacos Bhatt PLT 236 103/ul Normal 150-450 [facility] Comment on above: Performed By: #### C BC #### [facility] [address] [place] [address] Dr. Tacos Bhatt RBC 5.25 106/ul Normal 4.20-5.40 [facility] Comment on above: Performed By: #### C BC #### [facility] [address] [place] [address] Dr. Tacos Bhatt WBC 9.1 103/ul Normal 4.0-11.0 [facility] Comment on above: Performed By: #### C BC #### [facility] [address] [place] [address] Dr. Tacos Bhatt Covid-19 PCR (CVDTB)on 07-13 SARS-CoV-2 (COVID-19) RNA CARSON+probe Ql (Unsp spec) Not detected Normal NOT DETECTED [facility] Comment on above: Result Comment: When [...] for this test is supported by the [place] of Health and Human Service's declaration that [...] used). Performed By: #### C VDTBH #### [facility] [address] [place] [address] Dr. Tacos Bhatt D-DIMERon 08-07-2021 D-DIMER 0.48 mg/L FEU Normal <=0.59 [facility] Comment on above: Performed By: #### D DIM #### [facility] [address] [place] [address] Dr. Tacos Bhatt D-DIMER COMMENTS SEE BELOW Normal [facility] Comment on above: Result Comment: Incr eases [...] hospitalization. Performed By: #### D DIM #### [facility] [address] [address] [address] Tacos Bhatt ER URINE PROFILEon 2 Bilirubin Ql (U) Negative Normal NEGATIVE [facility] Comment on above: Performed By: #### E RUR ####[facility] [address] [address]Dr. Tacos Bhatt Clarity (U) CLEAR Normal CLEAR [facility] Comment on above: Performed By: #### E RUR ####[facility] [address] [place], [place] [address]Dr. Tacos Bhatt Color (U) YELLOW Normal YELLOW [facility] Comment on above: Performed By: #### E RUR ####[facility] I[address] [place], [place] [address]Dr. Tacos ALICIAAHD A micrscopic examination will be performed if indicated. Normal [facility] Comment on above: Performed By: #### E RUR ####[facility] [address] [place], [place] [address]Dr. Tacos Bhatt Glucose Ql (U) Negative Normal NEGATIVE [facility] Comment on above: Performed By: #### E RUR ####[facility] [address]auf[address] [place], [place] [address]Dr. Tacos Bhatt Hemoglobin Ql (U) Negative Normal NEGATIVE The [facility] Comment on above: Performed By: #### E RUR ####[facility] Wntagxyauu[address] [place], [place] [address]Dr. Tacos Bhatt Ketones Ql (U) Negative Normal NEGATIVE [facility] Comment on above: Performed By: #### E RUR ####[facility] [address] [place], [place] [address]Dr. Tacos Bhatt LEUKOCYTES Negative Normal NEGATIVE [facility] Comment on above: Performed By: #### E RUR ####[facility] [address] [place], [place] [address]Dr. Tacos Bhatt Nitrite Ql (U) Negative Normal NEGATIVE [facility] Comment on above: Performed By: #### E RUR ####[facility] [address] [place], [place] [address]Dr. Tacos Bhatt pH (U) 6.0 [pH] Normal 5-9 [facility] Comment on above: Performed By: #### E RUR ####[facility] [address] [address]Dr. Tacos Bhatt SPEC GRAVITY 1.025 Normal 1.005-<=1.025 [facility] Comment on above: Performed By: #### E RUR ####[facility] [address] [place], [place] [address]Dr. Tacos Bhatt UA PROTEIN Negative Normal NEGATIVE/ TRACE [facility] Comment on above: Performed By: #### E RUR ####[facility] [address]cm[address] [place], [place] [address]Dr. Tacos Bhatt UR MICRO IND NOT INDICATED Normal [facility] Comment on above: Performed By: #### E RUR ####[facility] [address]os[address] [place], [place] [address]Dr. Tacos Bhatt Urobilinogen Qn (U) 0.2 {Robbie'U}/dL Normal 0.2 - 1. 0 [facility] Comment on above: Performed By: #### E RUR ####[facility] [address] [place], [place] [address]DrMarbella Bhatt PROF 14(COMP METB)on 022 Albumin [Mass/Vol] 3.5 g/dL Normal 3.4-5.0 [facility] Comment on above: Performed By: #### C RUTH RODRIGUEZTRYVETTEN ####[facility] [address] [place], [place] [address]Dr. Tacos Bhatt Albumin/Globulin [Mass ratio] 1.1 {ratio} Normal [facility] Comment on above: Performed By: #### C RUTH RODRIGUEZTRYVETTEN ####[facility] [address] [place], [place] [address]Dr. Tacos Bhatt ALP [Catalytic activity/Vol] 104 U/L Normal 46-116 [facility] Comment on above: Performed By: #### C JENNIFER HSTROPN ####[facility] [address] [address]Dr. Tacos Bhatt ALT [Catalytic activity/Vol] 190 U/L Critically high 14-59 [facility] Comment on above: Performed By: #### C JENNIFER, HSTROPN ####[facility] [address] [place] [address]Dr. Tacos Bhatt Anion gap [Moles/Vol] 12.7 mmol/L Normal [facility] Comment on above: Performed By: #### C JENNIFER, HSTROPN ####[facility] [address] [address]Dr. Tacos Bhatt AST [Catalytic activity/Vol] 83 U/L Critically high 15-37 [facility] Comment on above: Performed By: #### C JENNIFER, HSTROPN ####[facility] [address] [address]Dr. Ekaterinamohsen Bhatt Bilirubin [Mass/Vol] 0.7 mg/dL Normal 0.2-1.0 [facility] Comment on above: Performed By: #### C JENNIFER, HSTROPN ####[facility] [address] [address]Dr. Tacos Bhatt Calcium [Mass/Vol] 8.9 mg/dL Normal 8.5-10.1 The [facility] Comment on above: Performed By: #### C JENNIFER, HSTROPN ####[facility] [address] [address]Dr. Tacos Bhatt Chloride [Moles/Vol] 103 mmol/L Normal 98-107 [facility] Comment on above: Performed By: #### C JENNIFER, HSTROPN ####[facility] [address] [place] [address]Dr. Tacos Bhatt CO2 [Moles/Vol] 26.1 mmol/L Normal 21.0-32.0 [facility] Comment on above: Performed By: #### C JENNIFER, HSTROPN ####[facility] [address] [address]Dr. Ekaterinamohsen Bhatt Creatinine [Mass/Vol] 0.66 mg/dL Normal 0.55-1.02 [facility] Comment on above: Performed By: #### C MP, HSTROPN ####[facility] [address] [address]Dr. Ekaterinalan Bhatt EGFR-AF ICELANDIC >60 Normal >=60 [facility] Comment on above: Performed By: #### C MP, HSTROPN ####[facility] [address] [address]Dr. Yilan Bhatt EGFR-NON AF ICELANDIC >60 Normal >=60 [facility] Comment on above: Performed By: #### C MP, HSTROPN ####[facility] [address] [address]Dr. Tacos Bhatt Globulin (S) [Mass/Vol] 3.3 g/dL Normal [facility] Comment on above: Performed By: #### C MP, HSTROPN ####[facility] [address] [address]Dr. Tacos Bhatt Glucose [Mass/Vol] 93 mg/dL Normal 74-106 [facility] Comment on above: Performed By: #### C MP, HSTROPN ####[facility] [address] [place], [place] [address]Dr. Tacos Bhatt Potassium [Moles/Vol] 3.8 mmol/L Normal 3.5-5.1 [facility] Comment on above: Performed By: #### C MP, HSTROPN ####[facility] [address] [place], [place] [address]Dr. Ekaterinalan Bhatt Protein [Mass/Vol] 6.8 g/dL Normal 6.4-8.2 [facility] Comment on above: Performed By: #### C MP, HSTROPN ####[facility] [address] [place], [place] [address]Dr. Tacos Bhatt Sodium [Moles/Vol] 138 mmol/L Normal 136-145 [facility] Comment on above: Performed By: #### C MP, HSTROPN ####[facility] [address] [place], [place] [address]DrMarbella Bhatt Urea nitrogen [Mass/Vol] 14.0 mg/dL Normal 7.0-18.0 [facility] Comment on above: Performed By: #### C JENNIFER, HSTROPN ####[facility] [address] [place], [place] [address]ByDr. Tacos Bhatt Urea nitrogen/Creatinine [Mass ratio] 21.2 mg/mg Normal [facility] Comment on above: Performed By: #### C JENNIFER, HSTROPN ####[facility] [address] [place], [place] [address]KfMarbella Bhatt TROPONIN, HIGH SENSITIVITYon 08-07-2021 HSTROP 4.6 pg/mL Normal 4.0-51.3 [facility] Comment on above: Result Comment: CUT- OFF POINTS HAVE BEEN ESTABLISHED BASED ON THE FOURTH UNIVERSAL DEFINITIONS OF MYOCARDIAL INFARCTION. THE UPPER REFERENCE LIMIT (URL) OF TROPONIN, DEFINED THE 99TH PERCENTILE OF cTnI DISTRIBUTION IN A REFERENCE POPULATION, HAS BEEN CONFIRMED THE DECISION THRESHOLD FOR [place] DIAGNOSIS. Performed By: #### C JENNIFER, HSTROPN #### [facility] [address] [address] [address] Tacos Bhatt XR CHEST 1 Von [...] by: SMITA STEINBERG Date: 2021-08-07 01:[address] [facility] [address] CHEST WO CONTRASTon 10-28 CT CHEST [...] Guy Christensen MD 10/29/19 Final result Normal [facility] Multiple right middl e lobe nodules [...] to Lung-RADS guidelines. Reference: Radiology. 2017; 284(1):228-43. [facility], CT EXAMINATION: CT OF T HE CHEST WITHOUT [...] No significant osseous or soft tissue abnormality. [facility] [place], [place], Mhpn Incoming Radiant Results From [facility] - 10/29/2019 1:52 PM EDT EXAMINATION: CT [...] to Lung-RADS guidelines. Reference: Radiology. 2017; 284(1):228-43. [place], [place] Vital Signs Date Time Vital Sign Value Performing Clinician Zaid mesa 02-13-2023 15:16-0500 Body height 160 cm Kenia Srivastava DO Work Phone: [employer] 02-13-2023 15:16-0500 Body mass index (BMI) [Ratio] 44.29 kg/m2 Kenia Srivastava DO [place] Phone: [employer] 02-13-2023 15:16-0500 Body weight 113.4 kg Kenia Srivastava DO [place] Phone: [employer] Encounters Encounter Date Encounter Type Care Provider Facility Start: 08-21-2023 End: 08-21-2023 ambulatory [facility] Start: 08-21-2023 End: 08-21-2023 Encounter for antibody response examination [facility] Start: 04-16-2023 End: 04-16-2023 Emergency department patient visit Ml Aguilar Facility:[facility] Start: 04-16-2023 End: 04-16-2023 ambulatory Paul CRUZ Facility:[facility] Start: 03-04-2023 End: 03-04-2023 Emergency department patient visit BILLY Campa [facility] Start: 02-13-2023 End: 02-13-2023 Office outpatient visit 25 minutes Kenia Srivastava DO Work Phone: [facility] Comment on above: Grade III hemorrhoid s (Primary Dx); Rectal bleeding; Morbid obesity with BMI of 40.0-44.9, adult ([facility] Start: 02-13-2023 End: 02-13-2023 Orders Only [facility] Comment on above: Grade III hemorrhoid s (Primary Dx) Start: 01-30-2023 End: 01-30-2023 ambulatory RICHARD Back QUEZADA [facility] Start: 01-10-2023 End: 01-11-2023 ambulatory Rashid Kinghry Facility:[facility] Start: 11-21-2022 End: 11-22-2022 Emergency department patient visit Juanito Maciel Facility:[facility] Start: 11-21-2022 End: 11-21-2022 ambulatory BILLY Campa ANA Facility:[facility] Start: 09-04-2022 End: 09-05-2022 ambulatory BILLY PEREZ Facility:[facility] Start: 07-07-2022 End: 07-08-2022 ambulatory RENEA CUMMINGS Facility:[facility] Start: 04-03-2022 End: 04-03-2022 ambulatory ALIA ELLIS Facility:[facility] Start: 01-15-2022 End: 05-16-2022 ambulatory [facility] Start: 08-07-2021 End: 08-07-[address] BILLY PEREZ Facility:[facility] Start: 10-27-2019 End: 10-30-2019 Patient encounter procedure [facility] Start: 10-27-2019 End: 10-29-2019 Subsequent hospital visit by physician [facility] Cat Scan Room [facility] CT Scan Comment on above: Pulmonary nodule Procedures Date Procedure Procedure Detail Performing Clinician Start: 10-27-2019 Ct thorax w/o contra st material [facility] Start: 10-27-2019 Ct thorax w/o contra st material [facility] Work Phone: Plan of Treatment Date Care Activity Detail Author Start: 04-06-2032 DTaP,Tdap and Td Vac cines (2 - Td or Tdap) DTaP,Tdap and Td Vaccines (2 - Td or Tdap) [facility] Start: 02-14-2024 Adult BMI Screening Adult BMI Screen ing [facility] Start: 02-14-2024 Tobacco Screening Tobacco Screening [facility] Start: 10-31-2022 COVID-19 Vaccine (2022- season) COVID-19 Vaccine ( season) [facility] Start: 08-09-2022 Screening for malign ant neoplasm of cervix Cervical cancer screen [place], [place] Start: 2022 Administration of varicella zoster vaccine Zoster (Shingles) Vaccine (1 of 2) [facility] Start: 11-09-2019 End: 11-09-2019 Office Visit 11/09/2019 Office Visit Pulmonology Olamide Ibrahim MD [address] [place] [address] [phone] [facility] Start: 10-13-2019 Influenza vaccination Flu vaccine (# 1) [place], [place] Start: 2012 Lipid panel Lipid screen [place], [place] Start: 1993 Screening for malign ant neoplasm of cervix Pap Smear [facility] Start: 07-25-1991 DTaP/Tdap/Td vaccine (1 - Tdap) DTaP/Tdap/Td vaccine (1 - Tdap) [place], [place] Start: 1990 Adult BMI Follow Up Plan Adult BMI Follow Up Plan [facility] Start: 1984 Depression Screening Depression Scre ening [facility] End: 02-13-2024 Colonoscopy Colonoscopy GI Routine Rectal bleeding 1 Occurrences starting 02/13/2023 until 02/13/2024 [facility] Work Phone: Comment on above: 1 Occurrences starti ng 02/13/2023 until 02/13/2024 End: 02-13-2024 Unlisted Procedure / Surgery Unlisted Procedure / Surgery Procedures Routine Grade III hemorrhoids Rectal bleeding 1 Occurrences starting 02/13/2023 until 02/13/2024 [facility] Comment on above: 1 Occurrences starti ng 02/13/2023 until 02/13/2024 Immunizations Immunization Date Immunization Notes Care Provider Maricruz mijares 04-06-2022 zoster vaccine, unspecified formulation Jonelle Bob [facility] Payers Date Payer Category Payer Worker's 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 2018 Medicaid [place] [employer] [place] [employer] [id number] 2018-Present [phone] [address] [place] [address] [id number] 1972 Unknown [id number] 2.16.840.1.027812.3.579.2. 173 1972 Unknown [id number] 2.16.840.1.900994.3.579.2. 593 1972 Unknown [id number] 2.16.840.1.798179.3.579.2. 593 1972 Unknown [id number] 2.16.840.1.468521.3.579.2. 593 1972 Unknown [id number] 2.16.840.1.700199.3.579.2. 1286 1972 Unknown [id number] 2.16.840.1.632875.3.579.2. 1286 1972 Unknown [id number] 2.16.840.1.890806.3.579.2. 1286 1972 Unknown [id number] 2.16.840.1.940382.3.579.2. 718 1972 Unknown [id number] 2.16.840.1.070277.3.579.2. 718 1972 Unknown [id number] 2.16.840.1.281763.3.579.2. 718 1972 Unknown [id number] 2.16.840.1.844138.3.579.2. 718 1972 Unknown [id number] 2.16.840.1.469042.3.579.2. 718 1959 Unknown [id number] [id number]. [id number] 1959 Unknown [id number] Social History Date Type Detail Facility Start: 10-05-2019 Tobacco smoking stat [facility] Former smoker [place] End: 10-07-1993 History of tobacco use [place] End: 10-07-1993 History of tobacco use [place]ig[place] Start: 10-05-2019 End: 03-03-2020 Cigarettes smoked current (pack per day) - Reported [place] Start: 10-05-2019 End: 07-31-2022 Tobacco use and exposure Never used [place] Start: 10-05-2019 End: 02-13-2023 Alcohol intake Current drinker of alcohol (finding) [place] Start: 07-03-2019 History SDOH Financial 5 [place] Start: 07-03-2019 History SDOH Food Worry 1 [place] Start: 07-03-2019 History SDOH Transpo rt Med 2 [place] Start: 10-07-2013 Alcohol Comment socially [facility] [place], [place] Start: 1970 Sex Assigned At Not on file [place] Exposure to SARS-CoV -2 (event) Not sure [place] Start: 07-31-2022 Tobacco smoking stat [facility] Never smoked tobacco [facility] Start: 03-03-2020 End: 02-13-2023 Tobacco use panel [facility] Housing Instability Unknown [facility] Start: 07-31-2022 Alcohol Comment social [facility] Clinical Notes 07-08-2022 to 04-16-2023 Kenia Srivastava, DO - 02/13/2023 2:00 PM EST Note Date & Type Note Facility 04-16-2023 Note Education Materials Neurology Neuropathic Pain Neuropathic pain is pain caused by damage to the nerves that are responsible for certain sensations in your body (sensory nerves). Neuropathic pain can make you more sensitive to pain. Even a minor sensation can feel very painful. This is usually a long-term (chronic) condition that can be difficult to treat. The type of pain differs from person to person. It may: ? Start suddenly (acute), or it may develop slowly and become chronic. ? Come and go as damaged nerves heal, or it may stay at the same level for years. ? Cause emotional distress, loss of sleep, and a lower quality of life. What are the causes? The most common cause of this condition is diabetes. Many other diseases and conditions can also cause neuropathic pain. Causes of neuropathic pain can be classified as: ? Toxic. This is caused by medicines and chemicals. The most common causes of toxic neuropathic pain is damage from medicines that kill cancer cells (chemotherapy) or alcohol abuse. ? Metabolic. This can be caused by: ? Diabetes. ? Lack of vitamins like B12. ? Traumatic. Any injury that cuts, crushes, or stretches a nerve can cause damage and pain. ? Compression-related. If a sensory nerve gets trapped or compressed for a long period of time, the blood supply to the nerve can be cut off. ? Vascular. Many blood vessel diseases can cause neuropathic pain by decreasing blood supply and oxygen to nerves. ? Autoimmune. This type of pain results from diseases in which the body's defense system (immune system) mistakenly attacks sensory nerves. Examples of autoimmune diseases that can cause neuropathic pain include lupus and multiple sclerosis. ? Infectious. Many types of viral infections can damage sensory nerves and cause pain. Shingles infection is a common cause of this type of pain. ? Inherited. Neuropathic pain can be a symptom of many diseases that are passed down through families (genetic). What increases the risk? You are more likely to develop this condition if: ? You have diabetes. ? You smoke. ? You drink too much alcohol. ? You are taking certain medicines, including chemotherapy or medicines that treat immune system disorders. What are the signs or symptoms? The main symptom is pain. Neuropathic pain is often described as: ? Burning. ? Shock-like. ? Stinging. ? Hot or cold. ? Itching. How is this diagnosed? No single test can diagnose neuropathic pain. It is diagnosed based on: ? A physical exam and your symptoms. Your health care provider will ask you about your pain. You may be asked to use a pain scale to describe how bad your pain is. ? Tests. These may be done to see if you have a cause and location of any nerve damage. They include: ? Nerve conduction studies and electromyography to test how well nerve signals travel through your nerves and muscles (electrodiagnostic testing). ? Skin biopsy to evaluate for small fiber neuropathy. ? Imaging studies, such as: ? X-rays. ? CT scan. ? MRI. How is this treated? Treatment for neuropathic pain may pattern changer and repairer time. You may need to try different treatment options or a combination of treatments. Some options include: ? Treating the underlying cause of the neuropathy, such as diabetes, kidney disease, or vitamin deficiencies. ? Stopping medicines that can cause neuropathy, such as chemotherapy. ? Medicine to relieve pain. Medicines may include: ? Prescription or mzaa-coi-vikvzcq pain medicine. ? Anti-seizure medicine. ? Antidepressant medicines. ? Pain-relieving patches or creams that are applied to painful areas of skin. ? A medicine to numb the area (local anesthetic), which can be injected as a nerve block. ? Transcutaneous nerve stimulation. This uses electrical currents to block painful nerve signals. The treatment is painless. ? Alternative treatments, such as: ? Acupuncture. ? Meditation. ? Massage. ? Occupational or physical therapy. ? Pain management programs. ? Counseling. Follow these instructions at home: Medicines ? Take lubv-gkw-otdjmey and prescription medicines only as told by your health care provider. ? Ask your health care provider if the medicine prescribed to you: ? Requires you to avoid driving or using machinery. ? Can cause constipation. You may need to take these actions to prevent or treat constipation: ? Drink enough fluid to keep your urine pale yellow. ? Take ohpq-iyc-rsbspwd or prescription medicines. ? Eat foods that are high in fiber, such as beans, whole grains, and fresh fruits and vegetables. ? Limit foods that are high in fat and processed sugars, such as fried or sweet foods. Lifestyle ? Have a good support system at home. ? Consider joining a chronic pain support group. ? Do not use any products that contain nicotine or tobacco. These products include cigarettes, chewing tobacco, and (more content not included)... [facility] 04-16-2023 Note Patient Education Ma faribaials Follows: [facility] 02-13-2023 History of Present illness Narrative Images from the original note were not included. [facility] [address] [facility] [id number] CONSULT NOTE Hanh Alvarez 52 y.o. CHIEF COMPLAINT Chief Complaint Patient presents with POST-OP VISIT [place] PERFORMED 01/17/23, THB DR. SRIVASTAVA, SEEN IN [...] removed by me robotically emergently at the [facility] on January 17. 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 While intending to generate a timely document that accurately reflects the content of the visit, no guarantee can be provided that every grammatical or spelling mistake has been or will be identified or corrected. Thank you for your understanding. documented in this encounter [facility] 01-11-2023 Note Education Materials Gastroenterology Cholelithiasis Cholelithiasis [...] have not worked. (more content not included)... [facility] 01-11-2023 Note [facility] Dis[facility] Summary PERSON INFORMATION Name HANH ALVAREZ Age 52 Years 1970 Sex FEMALE Language Khmer PCP BILLY PEREZ MD Marital Status Med Service Observation Acct# Arrival 01/10/2023 09:49:38 Visit Reason Chest pain; CHEST PAIN Acuity LOS 000 23:15 Address: [address] [place] [address] Comment: PROVIDER INFORMATION VITALS INFORMATION Vital Sign [...] Medication List: New Medications [facility], [address] [place] [phone], [phone] ibuprofen (ibuprofen 600 mg oral tablet) 1 [...] range between ( 1.3 and 2.9 ) [place] Abs#: 0.3 x103/mcL -- Normal range between ( 0.0 and 0.8 ) Auto Baso %: 0.7 % -- Normal range between ( 0.2 and 2.0 ) Auto [place] %: 7 % -- Normal range between [...] DIET & ACTIVITY (more content not included)... [facility] 11-22-2022 Note Education Materials Cardiovascular Hypertension, Adult [...] Keep all follow-up visits. Medicines ? Take zori-btj-gsvadjw and prescription medicines only as told by [...] be an em (more content not included)... [facility] 11-21-2022 Note Patient Education Ma terials Follows: [...] by your health care provider. ? Take hevf-cwf-ytpyfmg and prescription medicines only as told by [...] provider. Document Revised: 04/10/2021 Document Reviewed: 04/10/2021 [employer] Patient Education ? 2022 [employer]. Urology Hematuria, Adult Hematuria is blood in [...] these instructions at home: Medicines ? Take cazx-iac-gzdjutl and prescription medicines only as told by [...] health care p (more content not included)... [facility] 07-08-2022 Note PROCEDURE: XR KNEE R T [...] authenticated by: TEDDY MG Date: 2022-07-07 22:13 [facility] Evaluation note Diagnosis Grade III hemorrhoids- Primary documented in this encounter [facility] [employer] SystemEvaluation note* Diagnosis Grade III hemorrhoids- Primary Rectal bleeding Hemorrhage of rectum and anus Morbid obesity with BMI of 40.0-44.9, adult ([facility]) documented in this encounter [facility] [employer] SystemInstructionsNot on filedocumented in this encounter [facility] [employer] SystemInstructionsNot on filedocumented in this encounter [facility] Reason for Referral Status Reason Specialty Diagnoses / Procedures Referre d By Contact Referred To Contact Closed Radiology Diagnoses Pulmonary nodule Procedures CT CHEST WO CONTRAST Olamide Ibrahim MD [address] Scan [address] [place] [id number] Specialty Diagnoses / Procedures Referred By Ketty t Referred To Contact Diagnoses Grade III hemorrhoids Rectal bleeding Procedures Unlisted Procedure / Surgery Kenia Srivastava, DO [address] [place] [address] Referral ID Status Reason Start Date Expiration Date V isits Requested Visits Authorized [id number] Pending Review 02/13/2023 02/13/2024 1 1 Specialty Diagnoses / Procedures Referred By Ketty ivan [place] [address] [place] [id number] Referral ID Status Reason Start Date Expiration Date Visits Re quested Visits Authorized [id number] Closed 1 1 Assessments Diagnosis Pulmonary nodule Solitary pulmonary nodule Advance Directives No Advanced Directives Records FoundDocuments on File Type Date Recorded Patient Manager Project Expl anation ACP-Advance Directive ACP-Power of Hospitality Workers Summary Purpose Family History No Family History [...] CHEST WO CONTRAST Olamide Ibrahim MD [address] Scan [address] [place] [id number] Reason Comments POST-OP VISIT [facility] PERFORMED 01/17/23, THB DR. SRIVASTAVA, SEEN IN ED FOR HEMORRHOIDS, & the ED told her that she needed to see the surgeon that did the surgery INFORMATION SOURCE (unrecogn ized section and content) DATE CREATED AUTHOR 10/30/2019 Symone Woody [facility] DATE CREATED AUTHOR AUTHOR'S ORGANIZ ATION 06/16/2022 [place] DATE CREATED AUTHOR AUTHOR'S ORGANIZ ATION 07/23/2022 [facility] DATE CREATED AUTHOR AUTHOR'S ORGANIZ ATION 02/17/2023 [facility] DATE CREATED AUTHOR AUTHOR'S ORGANIZ ATION 03/04/2023 [facility] DATE CREATED AUTHOR AUTHOR'S ORGANIZ ATION 04/24/2023 [facility] DATE CREATED AUTHOR AUTHOR'S ORGANIZ ATION 08/27/2023 [facility] Care Teams (unrecognized sec tion and content) Box Icer Relationship Specialty Start Date End Date Billy Perez MD [address] [place] [address], [place] [phone] PCP - General Internal Medicine 03/30/19 Box Icer Relationship Specialty Start Date End Date Billy Perez MD [address] [place] [address], [facility] [place], [place] [id number] PCP - General Internal Medicine 03/30/19 FOR [...] BE BASED ON THE PRIMARY CLINICAL RECORDS. [facility]. provides no warranty or guarantee of the accuracy or completeness of information in this document.
[2024-01-01 06:27] LABS: Basophils Percent Auto 0.8 % (0.2-2.0); Eosinophils Absolute Auto 0.1 10^3/uL (0.0-0.7); Eosinophils Percent Auto 2.6 % (0.9-7.0); Hematocrit 41.4 % (36.0-48.0); Hemoglobin 13.6 g/dL (12.0-16.0); Immature Granulocytes Abs Auto 0.03 10^3/uL (0.00-0.03); Immature Granulocytes Pct Auto 0.6 % (0.0-0.5); Lymphocytes Absolute Auto 1.6 10^3/uL (1.2-3.8); Mean Corpuscular HGB Conc 32.9 g/dL (29.9-35.2); Mean Platelet Volume 9.2 fL (9.5-13.5); Monocytes Absolute Auto 0.3 10^3/uL (0.3-0.8); Monocytes Percent Auto 6.4 % (1.7-12.0); Neutrophils Absolute Auto 2.9 10^3/uL (1.4-6.5); Neutrophils Percent Auto 57.6 % (43.0-75.0); Platelet Count 192 10^3/uL (150-450); Red Blood Count 5.24 10^6/uL (4.20-5.40)
[2024-01-01 06:48] LABS: Estimated Average Glucose 117 mg/dL; Glycohemoglobin A1C 5.7 % (4.5-6.2)
[2024-01-01 06:49] LABS: Alanine Aminotransferase 111 U/L (14-59); Albumin Level 3.3 g/dL (3.4-5.0); Alkaline Phosphatase 84 U/L (46-116); Anion Gap 13.5; Aspartate Amino Transferase 57 U/L (15-37); BUN Creatinine Ratio 11.8; Bilirubin Total 0.9 mg/dL (0.2-1.0); Calcium 8.6 mg/dL (8.5-10.1); Carbon Dioxide 25.5 mmol/L (21.0-32.0); Chloride 107 mmol/L (98-107); Cholesterol 181 mg/dL (<=200); Estimated GFR (African America >60 (>=60 mL/min/1.73m^2); Estimated GFR (Non-African Ame >60 (>=60 mL/min/1.73m^2); Globulin 3.3 g/dL; Glucose 104 mg/dL (74-106); HDL Cholesterol 60 mg/dL (40-60); LDL Cholesterol Calculated 109.4 mg/dL; Sodium 142 mmol/L (136-145); Thyroid Stimulating Hormone 2.396 uIU/mL (0.358-3.740); Total Protein 6.6 g/dL (6.4-8.2); Triglycerides 58 mg/dL (<=150); VLDL CHOLESTEROL 11.6 mg/dL
--- NOTE | 2024-01-01 08:56 | P.DS_ITS ---
DS: Providers Provider Date of admission: 12/31/23 13:30 Primary care physician: BILLY PEREZ Admitting clinician: Lynnette Vega Consults: 12/31/23 12:49 Consult to Telestroke Routine Reason for consultation: Left face arm and leg weakness 12/31/23 13:05 Occupational Therapy Eval and Treat Routine Reason for consultation: CVA with left sided symptoms Has provider been notified: No Physical Therapy Eval and Treat Routine Reason for consultation: CVA with left sided symptoms Has provider been notified: No 12/31/23 13:13 Speech Therapy Eval and Treat Routine Reason for consultation: CVA with left sided symptoms Has provider been notified: No Discharging clinician: Lynnette Vega DS: Diagnosis Discharge Diagnosis (1) Right pontine stroke: (2) Acute CVA (cerebrovascular accident): (3) Depression: Qualifiers: Depression Type: unspecified Qualified Code(s): F32.A - Depression, unspecified (4) Fatty liver: (5) Obesity: Qualifiers: Body mass index: BMI 45.0-49.9 Obesity classification: adult class 3 (BMI >= 40) Obesity type: due to excess calories Serious obesity comorbidity presence: with serious comorbidity Qualified Code(s): E66.813 - Obesity, class 3; E66.01 - Morbid (severe) obesity due to excess calories; Z68.42 - Body mass index [BMI] 45.0-49.9, adult DS: Summary Hospital Course Hospital Course: 53-year-old female with past medical history of obesity, Fatty liver disease, depression, who presented to the emergency department for weakness on the left side of her face and her left arm and her left leg. This started 15 to 20 minutes before coming into the emergency department. It happened when she was at work. She has never had a stroke before and she has a mild headache. Sym ptoms have been continuous. NIH scale was 5 in the ER. ER physician got a Telestroke consult. They felt as CTA of the head and neck normal along with her symptoms improving that ok to give aspirin and plavix. 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 Patient takes aripiprazole and BuSpar only. No recent medication changes. NO recent vaccines ER findings: Normal CTA of the head and neck, WBC's 5.7, Hb 13.2, normal Chest Xray and EKG, BP 127/81, pulse 70, RR 18. Telestroke consult who read MRI with very small right pontine stroke. They recommended 21 days of Plavix 75mg daily and aspirin indefinitely. Statin therapy, BP control. She had normal ECHO. Her left sided symptoms are resolving. She will have orders for outpatient pt/ot and she will follow [facility] with [facility] and her PCP. Normal cbc, cmp, tsh , lipids. passed evaluation by speech therapy, and PT/OT. Will be discharged home today. May return to the ER with any worsening or changes in symptoms. If patient returns, I would suggest transfer to [facility] for inpatient stroke/neuro unit. Status at Discharge Functional status at discharge: independent ambulation Overall status at discharge: patient is progressing back to baseline Time Spent with Patient Time attestation: Total time spent providing and/or coordinating discharge services: Time spent: greater than 30 minutes Exam Narrative Exam Narrative: General: Patient is alert, and oriented to person, place and time with normal affect, proper hygiene Skin: no visible rashes, or ulcers Head: atraumatic, acephalic Eyes: PERRLA, no nystagmus present, conjunctiva clear, no scleral icterus Ears: normal gross auditory acuity Nose: symmetric, no discharge, no maxillary or frontal sinus tenderness Mouth/Throat: no erythema, exudate, or tonsillar enlargement, normal dentition Neck: no masses palpated, normal thyroid, no JVD or audible carotid bruits Heart: Normal rate and rhythm, no murmurs/rubs/gallops Lungs: no audible wheezes, crackles and normal breath sounds all lung talley Abdomen: Normal audible bowel sounds, no distension, No palpable masses, no organomegaly, no rebound/guarding/ or rigidity Musculoskeletal: no swelling bilateral lower extremities, 4/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 Constitutional Vital Signs, click to edit/add: Last Vital Signs Temp 98.3 F 01/01/24 08:00 Pulse 78 01/01/24 08:15 Resp 16 01/01/24 08:03 BP 109/74 01/01/24 08:00 Pulse Ox 96 01/01/24 08:00 O2 Del Method Room Air 01/01/24 08:00 DS: Data Data Completed and Pending Labs on day of discharge: Labs from last 24 hours 01/01/24 12/31/23 12/31/23 06:07 12:05 11:10 WBC 5.0 5.7 RBC 5.24 5.07 Hgb 13.6 13.2 Hct 41.4 39.7 MCV 79.0 L 78.3 L MCH 26.0 L 26.0 L MCHC 32.9 33.2 RDW 15.0 14.8 Plt Count 192 210 MPV 9.2 L 9.1 L Neut % (Auto) 57.6 63.3 Lymph % (Auto) 32.0 26.5 Wise % (Auto) 6.4 7.0 Eos % (Auto) 2.6 2.1 Baso % (Auto) 0.8 0.7 Neut # (Auto) 2.9 3.6 Lymph # (Auto) 1.6 1.5 Wise # (Auto) 0.3 0.4 Eos # (Auto) 0.1 0.1 Baso # (Auto) 0.0 0.0 Abs Immat Gran (auto) 0.03 0.02 Imm/Tot Granulo (auto) 0.6 H 0.4 PT 11.1 INR 1.05 APTT 26.7 Sodium 142 141 Potassium 4.0 4.1 Chloride 107 105 Carbon Dioxide 25.5 24.6 Anion Gap 13.5 15.5 BUN 9.0 8.0 Creatinine 0.76 0.77 Est GFR ( Amer) >60 >60 Est GFR (Non-Af Amer) >60 >60 BUN/Creatinine Ratio 11.8 10.4 Glucose 104 105 Estimat Average Glucose 117 Hemoglobin A1c 5.7 Calcium 8.6 9.5 Magnesium 2.0 Total Bilirubin 0.9 AST 57 H ALT 111 H Alkaline Phosphatase 84 Total Protein 6.6 Albumin 3.3 L Globulin 3.3 Albumin/Globulin Ratio 1.0 Triglycerides 58 Cholesterol 181 LDL Cholesterol, Calc 109.4 VLDL Cholesterol 11.6 HDL Cholesterol 60 Cholesterol/HDL Ratio 3.0 TSH 2.396 Urine Color Lt. yellow Urine Clarity Clear Urine pH 7.0 Ur Specific [place] 1.015 Urine Protein Negative Urine Glucose (UA) Negative Urine Ketones Negative Urine Occult Blood Negative Urine Nitrite Negative Urine Bilirubin Negative Urine Urobilinogen 0.2 Ur Leukocyte Esterase Negative Urine RBC None seen Urine WBC None seen Ur Squamous Epith Cells Few A Urine Bacteria None seen Urine Mucus None seen Discharge Plan Discharge Disposition: Home, Self-Care Condition: Fair Discharge Medications: New atorvastatin 40 mg Tablet 40 mg PO QHS 30 Days Qty: 30 0RF clopidogrel 75 mg Tablet 75 mg PO QD 21 Days Qty: 21 0RF aspirin 81 mg Tablet,Delayed Release (Dr/Ec) 81 mg PO QD 30 Days Qty: 30 0RF Continued buspirone 15 mg tablet 15 mg PO BID aripiprazole 5 mg tablet 5 mg PO DAILY sertraline 50 mg tablet 75 mg PO Q24H trazodone 100 mg tablet 100 mg PO .QD Activity: return to work once cleared by your PCP/specialist Activity Detail: Given order for outpatient PT/OT Diet: advance to your usual diet Print Language: Kinyarwanda Patient Instructions: Aspirin (By mouth), Atorvastatin (By mouth), Clopidogrel (By mouth) (Plavix), Stroke (DC) Forms: Portal Instructions Follow Up Appointments: Follow Up Appointment with JACINTA Rosen (Dr. Perez office) January 07 at 10am. [phone] [facility] Jan 28 @ 1:30 for Acute Pontine stroke. [phone]
[2024-01-01] MEDS: BUSPIRONE HCL 15 MG TABLET PO (09:36)
[2024-01-01] MEDS: CLOPIDOGREL BISULFATE 75 MG TABLET PO (09:36)
[2024-01-01] MEDS: ASPIRIN 81 MG TABLET.DR PO (09:36)
[2024-01-01] MEDS: ARIPIPRAZOLE 5 MG TABLET PO (09:36)
--- NOTE | 2024-01-01 10:05 | SWNOTE1 ---
SW attempted to speak with pt about home health, but PT was in room working with pt. SW to stop back later today.
--- NOTE | 2024-01-01 10:28 | SWNOTE1 ---
Pt completing Telenuero, SW to check back later.
--- NOTE | 2024-01-01 10:49 | REH.PTDLY ---
Physical Therapy Daily Note PT Daily Note/Assess Start: 01/01/24 10:42 Freq: Status: Active Protocol: Document 01/01/24 10:05 KIRILL (Rec: 01/01/24 10:49 KIRILL [id number]) Physical Therapy Daily Note/Assessment Time In 09:55 Time Out 10:06 Subjective Pt up in chair upon arrival. Reports she is still having tingling sensation in L side of body, feeling a little better today compared to yesterday. Agreeable to therapy. Therapeutic Exercise Minutes (minutes) 3 Therapeutic Exercise Units 0 Therapeutic Exercise Treatment instructed in B LE seated exs 10x ea including LAQ, marching , hip add, and AP with more fatigue in L LE compared to R LE. Nursing enters room for teleneuro consult so exs ended . Therapeutic Activity Minutes (minutes) 8 Therapeutic Activity Units 1 Therapeutic Activity Comments Began with transfers in and out of chair today with pt using arms of chair to push off from SBA. Mild dizziness reported upon standing. Gait training with RW 95 feet CGA with equal step length being noted. Pt stops after about 75 feet and states she is feeling very tired in L arm and L leg suddenly. Pt is able to ambulate another 20 feet to make it back to chair safely. Pt then able to perform exs. Total Therapy Minutes 11 Total Physical Therapy Units 1 Daily Note Summary Pt fatigues with gait training in L upper and lower extremity. Pt has good safety awareness with transfers. Pt may benefit from OP therapy at [facility] due to quick onset of fatigue in extremities with gait.
--- NOTE | 2024-01-01 11:25 | SWNOTE1 ---
SW did speak with pt about the recommendation of HH services or outpt. Pt does live at home with someone. Pt voiced that at this time she does not feel she will need HH or outpt therapy. She plans on returning to work immediately. Pt did not use any devices prior to this event. She did use a walker with therapy, but does not feel she will need it once returning home. At this time pt is voicing no needs at discharge and has support at home. SW to check back with pt once doctor speaks with her.
--- NOTE | 2024-01-01 12:52 | CM.NOTE ---
Rounds made with Dr. Vega, pt will discharge to home today and f/u with [facility] and PCP. Dr. Vega discussed with pt about new medications, ASA, Plavix, and cholesterol medication.
--- NOTE | 2024-01-01 13:03 | CM.NOTE ---
Pt given order for outpatient PT, pt verbalizes understanding.
--- NOTE | 2024-01-01 14:19 | SWNOTE1 ---
SW checked back on patient to see if they want any services? Pt at this time refusing any HH or outpt services. SW advised if she gets home and feels she is not doing well she can call her PCP or let them know at follow up that she does want services.
--- NOTE | 2024-01-02 15:07 | CM.DCFOLLOWU ---
Person spoke with:patient How are you feeling?well How is your pain?none Did you understand your discharge instructions?yes Do you have any questions about your discharge instructions? no Were you given any prescriptions at discharge? yes Were you able to get your prescriptions filled? they are picking up meds today Do you understand how to take your medications as ordered?yes Do you have any questions about your follow up appointment and do you plan to keep your follow up appointment? no questions, follow ups reviewed Is there anything else that you would like to discuss?no Questions/Comments/Concerns/Other:no
== END 2024-01-01 18:01 | disposition home or self-care (01) ==
LOC: ER 12:47 → MS 01-01 06:02
PROVIDERS: Admitting Provider Family Medicine; Emergency Provider Emergency Medicine; PCP Internal Medicine; Visit Provider Family Medicine
DX: I63.89 Other cerebral infarction (principal); F32.A Depression, unspecified; K76.0 Fatty (change of) liver, not elsewhere classified; E66.813 Obesity, class 3; E66.01 Morbid (severe) obesity due to excess calories; Z68.42 Body mass index [BMI] 45.0-49.9, adult; R29.705 NIHSS score 5; Z87.891 Personal history of nicotine dependence; Z79.899 Other long term (current) drug therapy
CPT/HCPCS: 36415; 70450; 70496; 70498; 70551; 71045; 80048; 80053; 80061; 81001; 83036; 83735; 84443; 85025; 85610; 85730; 92610; 93005; 93306; 97161; 97165; 97530; 97535; 99285; G0378; Q9967

== ENCOUNTER 2024-02-26 20:44 | Outpatient (OUT) | payer OTHER, SELFPAY | END 2024-02-26 20:45 | disposition home or self-care (01) | LOC: SLEEP 20:44 | PROVIDERS: PCP Psychiatry & Neurology Neurology; Visit Provider Psychiatry & Neurology Neurology | DX: G47.33 Obstructive sleep apnea (adult) (pediatric) (principal) | CPT/HCPCS: 95810 ==